=== PATIENT | female | born 1960 | race African-American/Black ===

== ENCOUNTER 2017-12-30 04:33 | Inpatient (IN) | payer MEDICARE, SELFPAY ==
[2017-12-30] MEDS ORDERED: Morphine 4 MG/ML VIAL ONE (04:59)
[2017-12-30] MEDS ORDERED: Ondansetron ODT 8 MG TAB ONE (05:00)
[2017-12-30 05:01] LABS: #Basophils 0.2 thou/uL (0.0-0.2); #Eosinphils 0.1 thou/uL (0.0-0.7); #Lymphocytes 3.7 thou/uL (1.20-3.40); #Monocytes 0.7 thou/uL (0.11-0.59); #Neutrophils 4.3 thou/uL (1.40-6.50); %Basophils 1.8 % (0.0-1.0); %Eosinophils 0.8 % (0.0-10.0); %Lymphocytes 41.4 % (21.0-51.0); Hemoglobin 15.3 g/dL (12.0-16.0); Mean Corpuscular HGB CONC 35.3 g/dL (32.0-36.0); Mean Corpuscular Hemoglobin 31.6 pg (27.0-31.0); Mean Corpuscular Volume 89.7 fl (81.0-99.0); Mean Platelet Volume 6.9 fL (7.4-10.4); Platelet Count 321 thou/uL (130-400); RBC Distribution Width 13.6 % (11.5-14.5); Red Blood Cell (RBC) Count 4.83 mill/uL (4.20-5.40); White Blood Cell (WBC) Count 8.9 thou/uL (4.8-10.8)
[2017-12-30] MEDS ORDERED: Promethazine HCl 25 MG/ML VIAL ONE (05:07)
[2017-12-30 05:10] LABS: INR-International Normal Ratio 0.8; PTT 22.9 SEC (22.9-36.1); Prothrombin Time 11.5 SEC (12.0-14.7)
[2017-12-30 05:14] LABS: ALT (SGPT) 14 U/L (8-55); AST (SGOT) 13 U/L (5-34); Albumin 4.3 g/dL (3.5-5.0); Alkaline Phosphatase 100 U/L (40-150); Anion Gap 18 mmol/L (10-20); BUN (Urea Nitrogen) 35 mg/dL (9.8-20.1); Bilirubin, Total 0.2 mg/dL (0.2-1.2); CK (CPK) 78 U/L (29-168); Calc. Creatinine Clearance 0 mL/min (70-130); Calcium 10.9 mg/dL (7.8-10.44); Carbon Dioxide 24 mmol/L (22-29); Chloride 99 mmol/L (98-107); Estimated GFR-MDRD 33; Globulin 3.6 g/dL (2.4-3.5); Glucose 289 mg/dL (70-105); Potassium 4.5 mmol/L (3.5-5.1); Protein, Total 7.9 g/dL (6.0-8.3); Sodium 136 mmol/L (136-145)
[2017-12-30 05:18] LABS: CKMB 1.7 ng/mL (0-6.6); Troponin I Less than 0.010 ng/mL (< 0.028)
[2017-12-30] MEDS ORDERED: Dextrose 5% in Water 1,000 ML IV PRN (05:32)
[2017-12-30] MEDS ORDERED: Dextrose 50% Abboject 50 ML SYRINGE SLOW IVP PRN (05:32)
[2017-12-30] MEDS ORDERED: HumaLOG 300 UNITS/3 ML VIAL SC PRN (05:32)
[2017-12-30] MEDS ORDERED: Nitroglycerin 0.4 MG TAB (25 Tab Bottle) SL PRN (05:33)
[2017-12-30] MEDS ORDERED: Labetalol HCl 100 MG/20 ML VIAL SLOW IVP PRN (06:13)
--- NOTE | 2017-12-30 06:27 | HP ---
PRIMARY CARE PHYSICIAN: None. PRESENTING COMPLAINT: Chest pain. HISTORY OF PRESENT ILLNESS: Ms. Christine Greenfield is a 57-year-old female with a past medical history o f diabetes mellitus, hypertension, CAD status post CABG and stent to the LAD, hyperlipidemia, and chr onic kidney disease who presents to the emergency room with a 1 day history of constant, sharp retros ternal, 6/10 chest pain which does not radiate and has no aggravating or relieving factors. She does not use nitroglycerin at home and denies diaphoresis, shortness of breath, PND, orthopnea, lower ext remity edema. She denies palpitations. She denies nausea, vomiting, diarrhea. She has no urinary s ymptoms. She reports she last took her medications yesterday. At the emergency room, she was found to be severely hypertensive with presenting blood pressure in the 230s over 130s. EKG showed ST segm ent elevation myocardial infarction. Emergency room physician has called Dr. Dias for possible emerg ency catheterization, but Dr. Dias wanted better blood pressure controlled before she was taken to [facility]. She received 3 doses of sublingual nitroglycerin, 4 mg of IV morphine and 5 mg of Lopres sor with improvement in her blood pressure. She was then started on the nitroglycerin drip with impr ovement in blood pressure to the 170s/100s. The decision was then made to admit her to the Critical Care Unit. PAST MEDICAL HISTORY: As stated in the HPI. PAST SURGICAL HISTORY: CABG, hysterectomy. FAMILY HISTORY: Reviewed and noncontributory. SOCIAL HISTORY: Former smoker (quit in 2006), does not drink alcohol or use illicit drugs. ALLERGIES: None. REVIEW OF SYSTEMS: A 12-point review of systems conducted was negative except as stated in HPI. PHYSICAL EXAMINATION: VITAL SIGNS: Blood pressure 210/110. Other vital signs within normal limits. Patient not requiring supplemental oxygen. GENERAL: In mild distress from chest pain, seems to be in some discomfort. HEENT: Normocephalic, atraumatic. Not pale, anicteric. PERRLA, EOMI. Moist mucous membranes. RESPIRATORY: Vesicular breath sounds bilaterally. No wheezes, rales or rhonchi. CARDIOVASCULAR: S1, S2, only with regular rate and rhythm. No murmurs, rubs or gallops. ABDOMEN: Soft, nontender, nondistended. No hepatosplenomegaly. Bowel sounds normoactive. MUSCULOSKELETAL: No edema. NEUROLOGIC: Alert and well oriented to time, place and person. No focal deficits. SKIN: Warm, dry, well-perfused. No rashes or lesions. PSYCHIATRIC: Normal mood and affect. LABORATORY DATA: CBC largely unremarkable. INR of 0.8. Serum chemistry unremarkable apart from her chronic kidney disease, BUN/creatinine were 335 and 1.89 respectively. Initial troponin less than 0 .010. Chest x-ray showed no acute abnormalities. EKG; ST segment myocardial infarction. ASSESSMENT AND PLAN: 1. Hypertensive emergency: The patient came in severely hypertensive and has been started on nitrog lycerin drip. We will also restart her home regimen which includes 25 mg of carvedilol, amlodipine 1 0 mg, clonidine 0.2 mg, and triamterene/hydrochlorothiazide. We will monitor blood pressure closely and admit to the Critical Care Unit. We will also trend troponin. 2. ST-segment elevation myocardial infarction, the patient presents with chest pain and EKG showing S T segment myocardial infarction. Cardiology on board and will assess the patient shortly. They want improved blood pressure control first, so no emergency catheterization. We will trend troponin, rica ce her on sublingual nitroglycerin and IV morphine p.r.n. for chest pain pending Cardiology review, w e will also obtain fasting lipid profile. 3. Chronic kidney disease: She seems to be above her usual baseline, this is likely due to hyperten sive emergency. We will monitor her creatinine. 4. Diabetes mellitus, not at goal. Unclear if she has been compliant with her home medications. We will place her on sliding scale insulin, fingerstick glucose a.c. and at bedtime, diabetic diet and hypoglycemia protocol. 5. Hypertension. See problem #1. 6. Hyperlipidemia. We will continue atorvastatin. 7. Coronary artery disease status post coronary artery bypass graft. Plan per problem #1. CODE STATUS: Full code. Deep venous thrombosis prophylaxis with subcutaneous Lovenox.
[2017-12-30] MEDS ORDERED: Carvedilol 25 MG TAB PO SCH (08:00)
--- NOTE | 2017-12-30 08:20 | RAD ---
PORTABLE CHEST: Comparison: 05-19-16 History: Chest pain. FINDINGS: Heart size is borderline. There are post op sternotomy changes. Atherosclerotic changes seen in the a thong. Lungs are clear of infiltrates. No signs of failure. IMPRESSION: No active intrathoracic disease. POS: OFF
[2017-12-30] MEDS: HumaLOG 300 UNITS/3 ML VIAL SC PRN ×3 (08:23→18:35)
[2017-12-30] MEDS: Morphine 4 MG/ML VIAL SLOW IVP PRN ×2 (08:35→09:15)
[2017-12-30] MEDS ORDERED: Metoprolol Tartrate 5 MG/5 ML VIAL IVP SCH ×2 (08:45→09:00)
[2017-12-30] MEDS ORDERED: Amlodipine 10 MG TAB PO SCH (09:00)
[2017-12-30] MEDS ORDERED: Enoxaparin Sodium 40 MG/0.4 ML SYRINGE SC SCH (09:00)
[2017-12-30] MEDS: Docusate 100 MG CAP PO SCH ×2 (09:00→21:47)
[2017-12-30] MEDS ORDERED: niCARdipine 40MG In NaCl 40 MG/200 ML BAG IVPB SCH (09:00)
[2017-12-30 09:03] LABS: Troponin I 0.082 ng/mL (< 0.028)
[2017-12-30] MEDS ORDERED: Metoprolol Tartrate 5 MG/5 ML VIAL ONE (09:06)
[2017-12-30] MEDS ORDERED: niCARdipine HCl 50 MG in Sodium Chloride 0.9% 250 ML 230 ML IVPB SCH (09:15)
[2017-12-30] MEDS ORDERED: Ondansetron ODT 4 MG TAB SL SCH (09:15)
[2017-12-30] MEDS ORDERED: Iopamidol 370 76% 100 ML VIAL ONE (09:31)
[2017-12-30] MEDS ORDERED: Iopamidol 370 76% 50 ML VIAL FS ONE (09:31)
--- NOTE | 2017-12-30 11:16 | CON ---
DATE OF CONSULTATION: 12/30/2017 HISTORY: She is a 57-year-old -[place] female, 99 kilos, respiration rate 22, blood pressure 237/139, sats 99% on room air, who presented to the ER with evaluation of chest pain. She is normally seeks care at the [facility]. She smokes several cigars a day, presented with ch est pain at 4:34 in the morning. She has had previous bypass surgery by Dr. Jay 3 years ago. She gets most of her medical care at [facility]. She has no primary care physician. Pain is persistent. Blood pressure is markedly elevated. Cardiology was consulted regarding the nicko st pain and hypertensive emergency at this time. Critical Care/Pulmonary is seeing her because of he r ICU stay. She has a cough, but denies any difficulty breathing, fever or chills. PAST MEDICAL HISTORY: Diabetes, hypertension, hyperlipidemia, cholesterol. PAST SURGICAL HISTORY: Included a CABG, previous hysterectomy. ALLERGIES: LISINOPRIL. TOBACCO: As noted. ALCOHOL: None. REVIEW OF SYSTEMS: Otherwise negative. MEDICATIONS: List of medicine from home, presumably includes Catapres 0.2 three times a day, Protoni x 40, potassium, insulin 35, Celexa 40, Coreg 25, aspirin, Norvasc 10. ALLERGIES: RICARDO. PHYSICAL EXAMINATION: VITAL SIGNS: Blood pressure is elevated at 190/112. Sats 94, pulse 72, respirations 21. CHEST: Chest revealed no wheezing or crackles. CARDIAC: Normal S1, S2. ABDOMEN: Soft. NEURO: She is awake, alert, responsive. LABORATORY: White count 8.8, H&H ____ and 43, platelet count 321, creatinine 1.8. Chest x-ray on admission shows a previous bypass scar, questionable right-sided infiltrate. IMPRESSION: 1. Chest pain. 2. Hypertensive crisis. 3. Tobacco abuse. 4. Previous coronary artery bypass graft. 5. Abnormal x-ray, right-sided pleural effusion in the past, ____ scarring. 6. Renal failure. PLAN: Await input from Cardiology. Pulmonary Critical Care will follow while in the ICU. She is to refrain from smoking. Blood pressure and cardiac care as per Cardiology. I will follow while in the ICU. This is a consultation note, 70 minutes spent of which 50% in direct patient care.
--- NOTE | 2017-12-30 11:26 | CON ---
DATE OF CONSULTATION: 12/30/2017 HISTORY OF PRESENT ILLNESS: The patient is a 57-year-old woman who presents for evaluation of acute onset of chest discomfort. The patient has a long history of coronary artery disease. In 2014, she underwent a cardiac catheterization. She was found to have severe diffuse coronary artery disease. She underwent coronary bypass graft surgery x3 with a saphenous vein graft to the second obtuse taryn nal and distal RCA. The patient had diffusely diseased coronary vessels. The patient presented with acute onset of chest discomfort and markedly elevated blood pressure. The patient states she has be en compliant with her medications. PAST MEDICAL HISTORY: 1. Coronary artery disease. 2. Hypertension. 3. Dyslipidemia. 4. Diabetes mellitus. 5. Anxiety. PAST SURGICAL HISTORY: Coronary bypass surgery. SOCIAL HISTORY: The patient continues to smoke tobacco. MEDICATIONS ON ADMISSION: Included clonidine 0.2 t.i.d., Norvasc 10 daily, aspirin 325 daily, Coreg 25 b.i.d., Celexa 400 daily, and insulin. PHYSICAL EXAMINATION: GENERAL: An obese woman in mild distress. VITAL SIGNS: Blood pressure is 160/100. NECK: Showed no jugular vein distention. LUNGS: Clear to auscultation. HEART: Regular rate and rhythm, normal S1, S2. ABDOMEN: Distended. EXTREMITIES: Showed No edema. EKG revealed normal sinus rhythm with ST elevation in V3 through V6 suggestive of an acute myocardial infarction. IMPRESSION: 1. Acute myocardial infarction. 2. History of coronary bypass surgery. 3. History of diffuse coronary artery disease. 4. Hypertension. 5. Diabetes mellitus. This patient presents with hypertensive crisis and ST elevation suggestive of an acute myocardial inf arction. We will proceed with cardiac catheterization to evaluate the extent of her coronary artery disease. I explained the risks involving cardiac catheterization including AR, bleeding, stroke, car diac arrhythmia, and cardiac and risks involving stent placement and restenosis. The patient u nderstands these risks and wished to proceed. This is a critical care note time is 1 hour 30 minutes.
[2017-12-30] MEDS ORDERED: Milk Of Magnesia 30 ML UDCUP PO PRN (11:44)
[2017-12-30] MEDS ORDERED: Aggrastat 12.5 MG/250 ML 250 ML IVPB SCH (11:45)
[2017-12-30] MEDS ORDERED: TICAGRELOR 90 MG TABLET PO SCH (11:45)
[2017-12-30 12:19] LABS: #Basophils 0.1 thou/uL (0.0-0.2); #Lymphocytes 1.9 thou/uL (1.20-3.40); #Monocytes 0.4 thou/uL (0.11-0.59); #Neutrophils 7.6 thou/uL (1.40-6.50); %Basophils 1.1 % (0.0-1.0); %Eosinophils 0.2 % (0.0-10.0); %Lymphocytes 19.3 % (21.0-51.0); %Monocytes 3.9 % (0.0-10.0); %Neutrophils 75.4 % (42.0-75.0); Hemoglobin 13.3 g/dL (12.0-16.0); Mean Corpuscular Hemoglobin 30.5 pg (27.0-31.0); Mean Corpuscular Volume 89.7 fl (81.0-99.0); Mean Platelet Volume 6.8 fL (7.4-10.4); Platelet Count 328 thou/uL (130-400); RBC Distribution Width 13.4 % (11.5-14.5); Red Blood Cell (RBC) Count 4.35 mill/uL (4.20-5.40); White Blood Cell (WBC) Count 10.1 thou/uL (4.8-10.8)
[2017-12-30 12:36] VITALS: BMI 43.7
[2017-12-30 12:56] LABS: Troponin I 14.616 ng/mL (< 0.028)
[2017-12-30] MEDS: cloNIDine 0.2 MG TAB PO SCH ×2 (13:24→21:44)
[2017-12-30 15:14] LABS: Troponin I 95.046 ng/mL (< 0.028)
--- NOTE | 2017-12-30 15:49 | EKG ---
Test Reason : C/O CHEST PAIN Blood Pressure : / mmHG Vent. Rate : 089 BPM Atrial Rate : 089 BPM P-R Int : 130 ms QRS Dur : 092 ms QT Int : 362 ms P-R-T Axes : 051 -32 108 degrees QTc Int : 440 ms Normal sinus rhythm Left axis deviation Left ventricular hypertrophy with repolarization abnormality Septal infarct , age undetermined Abnormal ECG Confirmed by THEODORE DUQUE ([id number]) on 12/30/2017 3:49:10 PM Referred By: DEVONTE Confirmed By:THEODORE DUQUE
--- NOTE | 2017-12-30 15:59 | EKG ---
Test Reason : POST STENTS X4 - LAD Blood Pressure : / mmHG Vent. Rate : 081 BPM Atrial Rate : 081 BPM P-R Int : 130 ms QRS Dur : 094 ms QT Int : 392 ms P-R-T Axes : 060 -34 136 degrees QTc Int : 455 ms Normal sinus rhythm Left axis deviation Moderate voltage criteria for LVH, may be normal variant Septal infarct (cited on or before 30-DEC-2017) Abnormal ECG Confirmed by THEODORE DUQUE ([id number]) on 12/30/2017 3:59:14 PM Referred By: JAIRO/JILL Confirmed By:THEODORE DUQUE
[2017-12-30] MEDS ORDERED: Furosemide 40 MG/4 ML VIAL SLOW IVP SCH (16:15)
[2017-12-30] MEDS ORDERED: ALPRAZolam 0.25 MG TAB PO SCH (16:15)
[2017-12-30] MEDS ORDERED: guaiFENesin ER 600 MG TAB PO SCH (16:45)
[2017-12-30] MEDS ORDERED: Fentanyl 100 MCG/2 ML VIAL SLOW IVP PRN (17:53)
[2017-12-30] MEDS ORDERED: Fentanyl 100 MCG/2 ML VIAL SLOW IVP SCH (18:00)
[2017-12-30] MEDS: Carvedilol 25 MG TAB PO SCH (18:15)
--- NOTE | 2017-12-30 18:15 | RAD ---
CHEST ONE VIEW: 12/30/17 HISTORY: Congestive heart failure. COMPARISON: 12/30/17 at 4:08 a.m. FINDINGS: There are sternotomy wires. Normal cardiac silhouette. Pulmonary vessels and hilum are normal. Costop hrenic angles are clear. Mild hyperinflation, without consolidation or mass. No pneumothorax or acute osseous abnormalities. There appear to be old right rib fractures. IMPRESSION: No acute cardiopulmonary process. No evidence of congestive heart failure. POS: ALFREDO
[2017-12-30] MEDS ORDERED: Atorvastatin Calcium 40 MG TAB PO SCH (21:00)
[2017-12-30] MEDS: Sodium Chloride 0.45% 1,000 ML IV SCH (21:19)
[2017-12-30] MEDS: TICAGRELOR 90 MG TABLET PO SCH (21:47)
[2017-12-30] MEDS: guaiFENesin ER 600 MG TAB PO SCH (21:47)
[2017-12-30] MEDS: Acetaminophen 325 MG TAB PO PRN (23:46)
[2017-12-31] MEDS: Morphine 4 MG/ML VIAL SLOW IVP PRN
[2017-12-31 00:20] LABS: #Lymphocytes 2.3 thou/uL (1.20-3.40); #Monocytes 0.7 thou/uL (0.11-0.59); #Neutrophils 5.5 thou/uL (1.40-6.50); %Basophils 0.4 % (0.0-1.0); %Eosinophils 0.4 % (0.0-10.0); %Lymphocytes 26.7 % (21.0-51.0); %Monocytes 8.1 % (0.0-10.0); %Neutrophils 64.4 % (42.0-75.0); Hemoglobin 12.5 g/dL (12.0-16.0); Mean Corpuscular HGB CONC 33.6 g/dL (32.0-36.0); Mean Corpuscular Volume 89.2 fl (81.0-99.0); Mean Platelet Volume 6.9 fL (7.4-10.4); Platelet Count 281 thou/uL (130-400); RBC Distribution Width 13.4 % (11.5-14.5); Red Blood Cell (RBC) Count 4.15 mill/uL (4.20-5.40); White Blood Cell (WBC) Count 8.5 thou/uL (4.8-10.8)
[2017-12-31 06:30] LABS: #Lymphocytes 2.3 thou/uL (1.20-3.40); #Monocytes 0.6 thou/uL (0.11-0.59); #Neutrophils 5.7 thou/uL (1.40-6.50); %Basophils 0.3 % (0.0-1.0); %Eosinophils 0.4 % (0.0-10.0); %Lymphocytes 26.4 % (21.0-51.0); %Monocytes 7.4 % (0.0-10.0); %Neutrophils 65.6 % (42.0-75.0); Mean Corpuscular HGB CONC 33.4 g/dL (32.0-36.0); Mean Corpuscular Hemoglobin 29.8 pg (27.0-31.0); Mean Corpuscular Volume 89.4 fl (81.0-99.0); Platelet Count 258 thou/uL (130-400); RBC Distribution Width 13.5 % (11.5-14.5); Red Blood Cell (RBC) Count 3.69 mill/uL (4.20-5.40); White Blood Cell (WBC) Count 8.6 thou/uL (4.8-10.8)
[2017-12-31 06:47] LABS: ALT (SGPT) 19 U/L (8-55); AST (SGOT) 54 U/L (5-34); Albumin 3.3 g/dL (3.5-5.0); Alkaline Phosphatase 73 U/L (40-150); Anion Gap 15 mmol/L (10-20); BUN (Urea Nitrogen) 43 mg/dL (9.8-20.1); Bilirubin, Total 0.3 mg/dL (0.2-1.2); Calc. Creatinine Clearance 61 mL/min (70-130); Calcium 9.1 mg/dL (7.8-10.44); Carbon Dioxide 23 mmol/L (22-29); Cardiac Risk 10.3 (Less than 4.5); Chloride 96 mmol/L (98-107); Cholesterol 329 mg/dl (< 200 Desired); Estimated GFR-MDRD 37; Globulin 2.5 g/dL (2.4-3.5); Glucose 349 mg/dL (70-105); HDL Cholesterol 32 mg/dL (>60 Neg Risk); LDL Cholesterol, Calculated 247 mg/dL; Potassium 4.1 mmol/L (3.5-5.1); Protein, Total 5.8 g/dL (6.0-8.3); Sodium 130 mmol/L (136-145); Triglycerides 252 mg/dL (Less than 150)
[2017-12-31] MEDS: HumaLOG 300 UNITS/3 ML VIAL SC PRN ×2 (07:50→11:53)
[2017-12-31] MEDS: cloNIDine 0.2 MG TAB PO SCH (08:41)
[2017-12-31] MEDS: guaiFENesin ER 600 MG TAB PO SCH ×2 (08:41→20:43)
[2017-12-31] MEDS: Carvedilol 25 MG TAB PO SCH ×2 (08:41→17:38)
[2017-12-31] MEDS: Docusate 100 MG CAP PO SCH ×2 (08:42→20:42)
[2017-12-31] MEDS: Aspirin 81 mg Enteric Coated Tablet PO SCH (08:42)
[2017-12-31] MEDS: TICAGRELOR 90 MG TABLET PO SCH ×2 (08:43→20:44)
--- NOTE | 2017-12-31 08:58 | PRG ---
DATE OF SERVICE: 12/31/2017 This morning she is awake, alert, responsive. No pain, no shortness of breath. PHYSICAL EXAMINATION: VITAL SIGNS: Blood pressure 150/83, sats are 90% on room air, respirations 18, said her mucus is bet ter. CHEST: Chest reveals decreased breath sounds, no wheezing. CARDIAC: Normal S1, S2, no gallops. ABDOMEN: Soft, no masses. LABORATORY DATA: White count 8.6, H&H 11 and 33, platelet count 258, creatinine 1.73, BUN is 43. Ch olesterol was elevated 327, triglycerides elevated 252. Chest x-ray was normal yesterday. IMPRESSION: 1. Status post cardiac catheterization with multiple stents as outlined by Cardiology. 2. Morbid obesity. 3. Tobacco abuse. 4. Diabetes. 5. Hypertension. PLAN: Disposition is per Cardiology. Pulmonary will sign off when she leaves the ICU. Resume home medication.
[2017-12-31] MEDS ORDERED: Aspirin 325 mg Enteric Coated Tablet PO SCH (09:00)
[2017-12-31] MEDS: metFORMIN 500 MG TAB PO SCH (09:32)
[2017-12-31] MEDS: hydrALAZINE 25 MG TAB PO SCH ×3 (09:41→20:43)
[2017-12-31] MEDS: Isosorbide Dinitrate 20 MG TAB PO SCH ×3 (09:42→20:44)
[2017-12-31] MEDS ORDERED: NPH, Human Insulin Isophane 300 UNIT/3 ML VIAL SC SCH (10:00)
[2017-12-31 10:08] LABS: Critical Call Chem Troponin I RESULT DECREASING; Troponin I Greater than 45.000 ng/mL (< 0.028)
[2017-12-31] MEDS ORDERED: Ondansetron HCl/PF 4 MG/2 ML Vial SLOW IVP PRN (11:18)
[2017-12-31] MEDS: Ondansetron ODT 4 MG TAB PO PRN ×2 (11:47→23:41)
--- NOTE | 2017-12-31 14:32 | PDOC.PN ---
- Subjective Encounter Start Date: 12/31/17 Encounter Start Time: 08:40 Pt seen for followup re: STEMI. No chest pain since last night. No cough, fevers or chills. - Objective MAR Reviewed: Yes Vital Signs & Weight: Vital Signs (12 hours) Temp Pulse Resp BP BP Pulse Ox 12/31/17 12:45 98.3 F 85 18 141/67 H 93 L 12/31/17 12:10 95 12/31/17 12:00 98.0 F 12/31/17 09:41 78 95/65 12/31/17 08:41 169/92 H 12/31/17 08:00 97.9 F 81 15 95 12/31/17 05:00 97.6 F Weight Weight 238 lb 12.17 oz Most Recent Monitor Data Heart Rate from ECG 70 NIBP 146/85 NIBP BP-Mean 121 Respiration from ECG 19 SpO2 97 I&O: 12/30/17 12/31/17 01/01/18 06:59 06:59 06:59 Intake Total 2412 480 Output Total 2795 500 Balance -383 -20 Result Diagrams: 12/31/17 06:17 12/31/17 06:17 Additional Labs: Accuchecks 12/31/17 12/30/17 12/30/17 11:54 21:44 18:37 POC Glucose 409 H 280 H 362 H 12/30/17 12:22 POC Glucose 382 H EKG Reviewed by me: Yes (Tele: NSR) Phys Exam - Physical Examination Morbid obesity HEENT: PERRLA, moist MMs, sclera anicteric, oral pharynx no lesions Neck: no nodes, no JVD, supple, full ROM Respiratory: no wheezing, no rales, no rhonchi, clear to auscultation bilateral Cardiovascular: RRR, no rub Gastrointestinal: soft, non-tender, positive bowel sounds distention Neurological: moves all 4 limbs Psychiatric: normal affect, A&O x 3 Dx/Plan (1) STEMI (ST elevation myocardial infarction) Status: Acute Comment: s/p PCI with multiple baremetal stents yesterday (2) DM type 2 (diabetes mellitus, type 2) Status: Chronic Qualifiers: Diabetes mellitus penitentiary insulin use: with intermodal customer service use Diabetes mellitus complication status: without complication Qualified Code(s): E11.9 - Type 2 diabetes mellitus without complications; Z79.4 - correction (current) use of insulin; Z79.4 - correction (current) use of insulin; Z79.4 - correction ( current) use of insulin; Z79.4 - correction (current) use of insulin Comment: continue accuchecks, insulin sliding scale (3) Dyslipidemia Code(s): E78.5 - HYPERLIPIDEMIA, UNSPECIFIED Status: Chronic Comment: continue statin (4) HTN (hypertension) Code(s): I10 - ESSENTIAL (PRIMARY) HYPERTENSION Status: Chronic Comment: Monitor vital signs, titrate antihypertensives as needed - Plan * . Review of Systems - Review of Systems Constitutional: negative: fever, chills, sweats, weakness, malaise Respiratory: negative: Cough, Shortness of Breath, SOB with Excertion, Pleuritic Pain, Wheezing Cardiovascular: negative: chest pain, palpitations, orthopnea, paroxysmal nocturnal dyspnea, edema, light headedness Gastrointestinal: negative: Nausea, Vomiting, Abdominal Pain, Diarrhea, Constipation, Melena, Hematochezia Genitourinary: negative: Dysuria, Frequency, Incontinence, Hematuria, Retention - Medications/Allergies Allergies/Adverse Reactions: Allergies Allergy/AdvReac Type Severity Reaction Status Date / Time lisinopril Allergy Severe Verified 05/20/16 03:56 Medications: Current Medications Acetaminophen (Tylenol) 650 mg PO Q4H PRN PRN Reason: Headache/Fever or Pain Last Admin: 12/30/17 23:46 Dose: 650 mg Albuterol/Ipratropium (Duoneb) 3 ml NEB [id number] PRN PRN Reason: SOB &/or Wheezing Aspirin (Ecotrin) 81 mg PO DAILY [facility] Last Admin: 12/31/17 08:42 Dose: 81 mg Atorvastatin Calcium (Lipitor) 80 mg PO HS [facility] Carvedilol (Coreg) 50 mg PO BID-[facility] Last Admin: 12/31/17 08:41 Dose: 50 mg Dextrose/Water (Dextrose 50%) 25 gm SLOW IVP PRN PRN PRN Reason: Hypoglycemia Docusate Sodium (Colace) 100 mg PO BID [facility] Last Admin: 12/31/17 08:42 Dose: 100 mg Glucagon (Glucagon) 1 mg IM PRN PRN PRN Reason: Hypoglycemia Guaifenesin (Mucinex) 600 mg PO Q12HR [facility] Last Admin: 12/31/17 08:41 Dose: 600 mg Hydralazine HCl (Apresoline) 25 mg PO TID [facility] Last Admin: 12/31/17 09:41 Dose: Not Given Dextrose/Water (D5w) 1,000 mls @ 0 mls/hr IV .Q0M PRN; As Directed PRN Reason: Hypoglycemia Nicardipine HCl 50 mg/ Sodium (Chloride) 250 mls @ 0 mls/hr IVPB INF [facility]; Titrate PRN Reason: Protocol Sodium Chloride (1/2 Normal Saline) 1,000 mls @ 40 mls/hr IV .Q24H [facility] Last Admin: 12/30/17 21:19 Dose: Not Given Insulin Human Lispro (Humalog) 0 units SC .MILD SLIDING SCALE PRN PRN Reason: Mild Correctional Scale Last Admin: 12/31/17 11:53 Dose: 6 unit Insulin Human Lispro (Humalog) 0 units SC .BEDTIME SLIDING SC PRN PRN Reason: Bedtime Correctional Scale Last Admin: 12/30/17 21:46 Dose: 3 unit Insulin Human NPH (Humulin N) 50 unit SC [facility] Insulin Human NPH (Humulin N) 50 unit SC QPM [facility] Isosorbide Dinitrate (Isordil) 20 mg PO TID [facility] Last Admin: 12/31/17 09:42 Dose: Not Given Labetalol HCl (Normodyne) 10 mg SLOW IVP Q4H PRN PRN Reason: SBP Greater Than 180 Magnesium Hydroxide (Milk Of Magnesium) 30 ml PO Q12H PRN PRN Reason: Constipation Last Admin: 12/30/17 23:45 Dose: 30 ml Metformin HCl (Glucophage) 1,000 mg PO [facility] Last Admin: 12/31/17 09:32 Dose: 1,000 mg Morphine Sulfate (Morphine) 2 mg SLOW IVP Q5MIN PRN PRN Reason: Chest Pain Last Admin: 12/31/17 00:00 Dose: 2 mg Nitroglycerin (Nitrostat) 0.4 mg SL Q5MIN PRN PRN Reason: Chest Pain Ondansetron HCl (Zofran) 4 mg SLOW IVP Q6H PRN PRN Reason: Nausea/Vomiting Ondansetron HCl (Zofran Odt) 4 mg PO Q6H PRN PRN Reason: Nausea/Vomiting Last Admin: 12/31/17 11:47 Dose: 4 mg Sodium Chloride (Flush - Normal Saline) 10 ml IVF Q12HR [facility] Last Admin: 12/31/17 09:05 Dose: 10 ml Sodium Chloride (Flush - Normal Saline) 10 ml IVF PRN PRN PRN Reason: Saline Flush Ticagrelor (Brilinta) 90 mg PO BID [facility] Last Admin: 12/31/17 08:43 Dose: 90 mg Tramadol HCl (Ultram) 50 mg PO Q6H PRN PRN Reason: Pain
[2017-12-31] MEDS: Sodium Chloride 0.45% 1,000 ML IV SCH (15:44)
--- NOTE | 2017-12-31 16:19 | EKG ---
Test Reason : Blood Pressure : / mmHG Vent. Rate : 080 BPM Atrial Rate : 080 BPM P-R Int : 142 ms QRS Dur : 090 ms QT Int : 448 ms P-R-T Axes : 059 -21 169 degrees QTc Int : 516 ms Normal sinus rhythm Left ventricular hypertrophy with repolarization abnormality Prolonged QT Abnormal ECG Confirmed by THEODORE DUQUE ([id number]) on 12/31/2017 4:18:43 PM Referred By: JILL Confirmed By:THEODORE DUQUE
[2017-12-31] MEDS: Atorvastatin Calcium 40 MG TAB PO SCH (20:42)
[2017-12-31] MEDS: NPH, Human Insulin Isophane 300 UNIT/3 ML VIAL SC SCH (20:44)
[2017-12-31] MEDS: Acetaminophen 325 MG TAB PO PRN (22:04)
--- NOTE | 2018-01-01 08:11 | PQF ---
CLINICAL DOCUMENTATION IMPROVEMENT CLARIFICATION FORM: ICD-10 Updated PLEASE DO AN ADDENDUM TO THE PROGRESS NOTE WITH ANY DOCUMENTATION UPDATES OR ADDITIONS AND CARRY THROUGH TO DC SUMMARY. THANK YOU. DATE: 01/01 ATTN: DR. NAYELI WHITNEY Please exercise your independent, professional judgment in responding to the clarification form. Clinical indicators are provided on the bottom of this form for your review Please check appropriate box(s): [ ] Acute Renal Failure (ARF) / Acute Kidney Injury (ZACH) [ ] Other Etiology or underlying conditions related to the diagnosis of ARF / ZACH: [ X ] Acute on Chronic Renal Failure please specify Stage of CKD ____III____ ( see below) [ ] CKD without ARF/ZACH please specify Stage of CKD [ ] Other diagnosis [ ] Unable to determine National Kidney Foundation Guidelines for CKD Staging Stage I Kidney damage with normal or increased GFR GFR > 90 Stage II Kidney damage with mildly decreased GFR GFR 60-89 Stage III Kidney damage with moderately decreased GFR GFR 30-59 Stage IV Kidney damage with severely decreased GFR GFR 16-29 Stage V Kidney failure GFR<15 ESRD End Stage Renal Disease On dialysis For continuity of documentation, please document condition throughout progress notes and discharge summary. Thank You. CLINICAL INDICATORS - SIGNS / SYMPTOMS / LABS PHYSICIAN H&P DOCUMENTATION 12/30: ASSESSMENT/PLAN: 3) CKD: SHE SEEMS TO BE ABOVE USUAL BASELINE, THIS IS LIKELY D/T HYPERTENSIVE EMERGENCY PULMONOLOGY CONSULT DOCUMENTATION 12/30: ASSESSMENT: 6) RENAL FAILURE BUN: 35 CR: 1.89 GFR: 33 (ADMIT, 12/30) 43 1.73 37 (12/31) RISK FACTORS: HYPERTENSIVE EMERGENCY STEMI DM II MORBID OBESITY TREATMENTS: CARDENE GTT (12/30) IVF (NS 12/31 - PRESENT) CARDIAC CATH W/4 BARE METAL STENTS THANK YOU! Lizet (This form is maintained as a part of the permanent medical record) 2014 [employer]. All Rights Reserved Lizet Fowler RN, BSN [email or web address] Office: [phone] [facility]
[2018-01-01] MEDS ORDERED: hydrALAZINE 25 MG TAB PO SCH (08:40)
[2018-01-01] MEDS: Isosorbide Dinitrate 20 MG TAB PO SCH ×3 (08:47→21:18)
[2018-01-01] MEDS: TICAGRELOR 90 MG TABLET PO SCH ×2 (08:47→21:18)
[2018-01-01] MEDS: Carvedilol 25 MG TAB PO SCH ×2 (08:47→17:18)
[2018-01-01] MEDS: hydrALAZINE 25 MG TAB PO SCH ×3 (08:47→21:17)
[2018-01-01] MEDS: NPH, Human Insulin Isophane 300 UNIT/3 ML VIAL SC SCH ×2 (08:48→21:18)
[2018-01-01] MEDS: guaiFENesin ER 600 MG TAB PO SCH ×2 (08:48→21:17)
[2018-01-01] MEDS: metFORMIN 500 MG TAB PO SCH (08:48)
[2018-01-01] MEDS: Docusate 100 MG CAP PO SCH ×2 (08:48→21:17)
[2018-01-01] MEDS: Aspirin 81 mg Enteric Coated Tablet PO SCH (08:48)
[2018-01-01] MEDS: HumaLOG 300 UNITS/3 ML VIAL SC PRN ×2 (10:13→17:16)
[2018-01-01] MEDS: Ondansetron ODT 4 MG TAB PO PRN (10:13)
--- NOTE | 2018-01-01 14:19 | PDOC.PN ---
- Subjective Encounter Start Date: 01/01/18 Encounter Start Time: 08:20 Pt seen for followup re: STEMI. Denies chest pain or shortness of breath. - Objective MAR Reviewed: Yes Vital Signs & Weight: Vital Signs (12 hours) Temp Pulse Resp BP Pulse Ox 01/01/18 12:40 98.9 F 88 18 135/98 H 97 01/01/18 10:10 111/50 L 01/01/18 08:47 90 01/01/18 08:40 98.8 F 90 16 190/86 H 99 01/01/18 04:00 97.6 F 90 18 155/73 H 97 Weight Weight 257 lb Most Recent Monitor Data Heart Rate from ECG 70 NIBP 146/85 NIBP BP-Mean 121 Respiration from ECG 19 SpO2 97 I&O: 12/31/17 01/01/18 01/02/18 06:59 06:59 06:59 Intake Total 2412 1215 Output Total 2795 500 Balance -383 715 Result Diagrams: 12/31/17 06:17 01/02/18 03:58 Additional Labs: Accuchecks 01/01/18 01/01/18 01/01/18 10:39 10:11 05:54 POC Glucose 443 H 393 H 156 H 12/31/17 12/31/17 12/31/17 21:56 20:33 18:11 POC Glucose 110 126 H 164 H 12/31/17 17:33 POC Glucose 52 L* EKG Reviewed by me: Yes (Tele: NSR) Phys Exam - Physical Examination Morbid obesity HEENT: PERRLA, moist MMs, sclera anicteric, oral pharynx no lesions Neck: no nodes, no JVD, supple, full ROM Respiratory: no wheezing, no rales, no rhonchi, clear to auscultation bilateral Cardiovascular: RRR, no rub Gastrointestinal: soft, non-tender, positive bowel sounds distention Neurological: moves all 4 limbs Psychiatric: normal affect Dx/Plan (1) STEMI (ST elevation myocardial infarction) Status: Acute Comment: s/p PCI with baremetal stents to LAD, on aspirin and Brilinta (2) DM type 2 (diabetes mellitus, type 2) Status: Chronic Qualifiers: Diabetes mellitus joint terminal attack controller insulin use: with fci use Diabetes mellitus complication status: without complication Qualified Code(s): E11.9 - Type 2 diabetes mellitus without complications; Z79.4 - [facility] (current) use of insulin; Z79.4 - [facility] (current) use of insulin; Z79.4 - terminal operator ( current) use of insulin; Z79.4 - [facility] (current) use of insulin Comment: accuchecks, insulin sliding scale. (3) Dyslipidemia Code(s): E78.5 - HYPERLIPIDEMIA, UNSPECIFIED Status: Chronic Comment: on statin (4) HTN (hypertension) Code(s): I10 - ESSENTIAL (PRIMARY) HYPERTENSION Status: Chronic Comment: stable - Plan * . Review of Systems - Review of Systems Constitutional: negative: fever, chills, sweats, weakness, malaise Respiratory: negative: Cough, Shortness of Breath, SOB with Excertion, Pleuritic Pain, Wheezing Cardiovascular: negative: chest pain, palpitations, orthopnea, paroxysmal nocturnal dyspnea, edema, light headedness Skin: negative: Rash, Lesions, Nile, Bruising Neurological: negative: Weakness, Numbness, Incoordination, Change in Speech, Confusion, Seizures - Medications/Allergies Allergies/Adverse Reactions: Allergies Allergy/AdvReac Type Severity Reaction Status Date / Time lisinopril Allergy Severe Verified 05/20/16 03:56 Medications: Current Medications Acetaminophen (Tylenol) 650 mg PO Q4H PRN PRN Reason: Headache/Fever or Pain Last Admin: 12/31/17 22:04 Dose: 650 mg Albuterol/Ipratropium (Duoneb) 3 ml NEB [id number] PRN PRN Reason: SOB &/or Wheezing Aspirin (Ecotrin) 81 mg PO DAILY [facility] Last Admin: 01/01/18 08:48 Dose: 81 mg Atorvastatin Calcium (Lipitor) 80 mg PO HS [facility] Last Admin: 12/31/17 20:42 Dose: 80 mg Carvedilol (Coreg) 50 mg PO BID-WM [facility] Last Admin: 01/01/18 08:47 Dose: 50 mg Dextrose/Water (Dextrose 50%) 25 gm SLOW IVP PRN PRN PRN Reason: Hypoglycemia Docusate Sodium (Colace) 100 mg PO BID [facility] Last Admin: 01/01/18 08:48 Dose: 100 mg Glucagon (Glucagon) 1 mg IM PRN PRN PRN Reason: Hypoglycemia Guaifenesin (Mucinex) 600 mg PO Q12HR [facility] Last Admin: 01/01/18 08:48 Dose: 600 mg Hydralazine HCl (Apresoline) 50 mg PO TID [facility] Last Admin: 01/01/18 08:47 Dose: 50 mg Dextrose/Water (D5w) 1,000 mls @ 0 mls/hr IV .Q0M PRN; As Directed PRN Reason: Hypoglycemia Nicardipine HCl 50 mg/ Sodium (Chloride) 250 mls @ 0 mls/hr IVPB INF [facility]; Titrate PRN Reason: Protocol Sodium Chloride (1/2 Normal Saline) 1,000 mls @ 40 mls/hr IV .Q24H [facility] Last Admin: 12/31/17 15:44 Dose: 1,000 mls Insulin Human Lispro (Humalog) 0 units SC .MILD SLIDING SCALE PRN PRN Reason: Mild Correctional Scale Last Admin: 01/01/18 10:13 Dose: 6 unit Insulin Human Lispro (Humalog) 0 units SC .BEDTIME SLIDING SC PRN PRN Reason: Bedtime Correctional Scale Last Admin: 12/30/17 21:46 Dose: 3 unit Insulin Human NPH (Humulin N) 50 unit SC [facility] Last Admin: 01/01/18 08:48 Dose: 50 unit Insulin Human NPH (Humulin N) 50 unit SC QPM [facility] Last Admin: 12/31/17 20:44 Dose: Not Given Isosorbide Dinitrate (Isordil) 20 mg PO TID [facility] Last Admin: 01/01/18 08:47 Dose: 20 mg Labetalol HCl (Normodyne) 10 mg SLOW IVP Q4H PRN PRN Reason: SBP Greater Than 180 Magnesium Hydroxide (Milk Of Magnesium) 30 ml PO Q12H PRN PRN Reason: Constipation Last Admin: 12/30/17 23:45 Dose: 30 ml Metformin HCl (Glucophage) 1,000 mg PO [facility] Last Admin: 01/01/18 08:48 Dose: 1,000 mg Morphine Sulfate (Morphine) 2 mg SLOW IVP Q5MIN PRN PRN Reason: Chest Pain Last Admin: 12/31/17 00:00 Dose: 2 mg Nitroglycerin (Nitrostat) 0.4 mg SL Q5MIN PRN PRN Reason: Chest Pain Ondansetron HCl (Zofran) 4 mg SLOW IVP Q6H PRN PRN Reason: Nausea/Vomiting Ondansetron HCl (Zofran Odt) 4 mg PO Q6H PRN PRN Reason: Nausea/Vomiting Last Admin: 01/01/18 10:13 Dose: 4 mg Sodium Chloride (Flush - Normal Saline) 10 ml IVF Q12HR [facility] Last Admin: 01/01/18 08:53 Dose: Not Given Sodium Chloride (Flush - Normal Saline) 10 ml IVF PRN PRN PRN Reason: Saline Flush Ticagrelor (Brilinta) 90 mg PO BID [facility] Last Admin: 01/01/18 08:47 Dose: 90 mg Tramadol HCl (Ultram) 50 mg PO Q6H PRN PRN Reason: Pain
[2018-01-01] MEDS: Sodium Chloride 0.45% 1,000 ML IV SCH (17:17)
[2018-01-01] MEDS: Atorvastatin Calcium 40 MG TAB PO SCH (21:17)
[2018-01-02 05:38] LABS: Anion Gap 16 mmol/L (10-20); BUN (Urea Nitrogen) 45 mg/dL (9.8-20.1); Calc. Creatinine Clearance 48 mL/min (70-130); Calcium 9.2 mg/dL (7.8-10.44); Carbon Dioxide 19 mmol/L (22-29); Chloride 104 mmol/L (98-107); Estimated GFR-MDRD 26; Glucose 168 mg/dL (70-105); Potassium 4.3 mmol/L (3.5-5.1); Sodium 135 mmol/L (136-145)
[2018-01-02] MEDS: Carvedilol 25 MG TAB PO SCH ×2 (08:24→18:28)
[2018-01-02] MEDS: hydrALAZINE 25 MG TAB PO SCH ×3 (08:24→22:19)
[2018-01-02] MEDS: guaiFENesin ER 600 MG TAB PO SCH ×2 (08:25→22:21)
[2018-01-02] MEDS: Aspirin 81 mg Enteric Coated Tablet PO SCH (08:25)
[2018-01-02] MEDS: Docusate 100 MG CAP PO SCH ×2 (08:25→22:21)
[2018-01-02] MEDS: Isosorbide Dinitrate 20 MG TAB PO SCH ×3 (08:26→22:21)
[2018-01-02] MEDS: TICAGRELOR 90 MG TABLET PO SCH ×2 (08:27→22:25)
[2018-01-02] MEDS: HumaLOG 300 UNITS/3 ML VIAL SC PRN ×3 (08:29→18:29)
[2018-01-02] MEDS: NPH, Human Insulin Isophane 300 UNIT/3 ML VIAL SC SCH (08:30)
[2018-01-02] MEDS ORDERED: Acetaminophen 325 MG TAB PO PRN (10:39)
[2018-01-02] MEDS ORDERED: Sodium Chloride 0.9% 500 ML IV SCH (10:45)
[2018-01-02] MEDS: Sodium Chloride 0.45% 1,000 ML IV SCH ×2 (12:30→18:19)
[2018-01-02] MEDS ORDERED: Sodium Chloride 0.9% 1,000 ML IV SCH (15:00)
--- NOTE | 2018-01-02 16:49 | PDOC.PN ---
- Subjective Encounter Start Date: 01/02/18 Encounter Start Time: 07:40 Pt seen for followup re: ZACH. Denies chest pain, shortness of breath, fevers or chills. - Objective MAR Reviewed: Yes Vital Signs & Weight: Vital Signs (12 hours) Temp Pulse Pulse Pulse Resp BP BP 01/02/18 15:05 98.1 F 84 16 01/02/18 15:04 81 152/70 H 01/02/18 11:38 98.3 F 81 16 01/02/18 09:44 85 86 186/86 H 01/02/18 08:24 94 01/02/18 08:16 98.6 F 94 18 01/02/18 08:00 98.6 F 94 18 BP BP Pulse Ox Pulse Ox Pulse Ox 01/02/18 15:05 150/72 H 97 01/02/18 15:04 01/02/18 11:38 167/88 H 100 01/02/18 09:44 115/60 95 100 01/02/18 08:24 01/02/18 08:16 116/71 98 01/02/18 08:00 98 Weight Weight 257 lb Most Recent Monitor Data Heart Rate from ECG 70 NIBP 146/85 NIBP BP-Mean 121 Respiration from ECG 19 SpO2 97 I&O: 01/01/18 01/02/18 01/03/18 06:59 06:59 06:59 Intake Total 1215 1549 Output Total 500 150 Balance 715 1399 Result Diagrams: 12/31/17 06:17 01/02/18 03:58 Additional Labs: Accuchecks 01/02/18 01/02/18 01/02/18 15:54 11:32 06:01 POC Glucose 201 H 297 H 224 H 01/01/18 20:42 POC Glucose 166 H EKG Reviewed by me: Yes (Tele: NSR) Phys Exam - Physical Examination Morbid obesity HEENT: PERRLA, moist MMs, sclera anicteric, oral pharynx no lesions Neck: no JVD Respiratory: no wheezing, no rales, no rhonchi, clear to auscultation bilateral Cardiovascular: RRR, no rub Gastrointestinal: soft, non-tender, positive bowel sounds distended Neurological: non-focal, moves all 4 limbs Psychiatric: normal affect, A&O x 3 Dx/Plan (1) Acute on chronic renal failure Code(s): N17.9 - ACUTE KIDNEY FAILURE, UNSPECIFIED; N18.9 - CHRONIC KIDNEY DISEASE, UNSPECIFIED Status: Acute Qualifiers: Chronic kidney disease stage: stage 3 (moderate) Comment: Etiology unclear, pt did receive IV contrast. Hydrate pt, consult nephrology, recheck creatinine (2) STEMI (ST elevation myocardial infarction) Status: Acute Comment: s/p PCI with baremetal stents to LAD, on aspirin and Brilinta (3) DM type 2 (diabetes mellitus, type 2) Status: Chronic Qualifiers: Diabetes mellitus long-term insulin use: with long-term use Diabetes mellitus complication status: without complication Qualified Code(s): E11.9 - Type 2 diabetes mellitus without complications; Z79.4 - superintendent container terminal (current) use of insulin; Z79.4 - [facility] (current) use of insulin; Z79.4 - superintendent container terminal ( current) use of insulin; Z79.4 - [facility] (current) use of insulin Comment: accuchecks, insulin sliding scale. (4) Dyslipidemia Code(s): E78.5 - HYPERLIPIDEMIA, UNSPECIFIED Status: Chronic Comment: on statin (5) HTN (hypertension) Code(s): I10 - ESSENTIAL (PRIMARY) HYPERTENSION Status: Chronic Comment: stable - Plan * . Review of Systems - Review of Systems Constitutional: negative: fever, chills, sweats, weakness, malaise Respiratory: negative: Cough, Shortness of Breath, SOB with Excertion, Pleuritic Pain, Wheezing Cardiovascular: negative: chest pain, palpitations, orthopnea, paroxysmal nocturnal dyspnea, edema, light headedness Gastrointestinal: negative: Nausea, Vomiting, Abdominal Pain, Diarrhea, Constipation, Melena, Hematochezia Genitourinary: negative: Dysuria, Frequency, Incontinence, Hematuria, Retention Skin: negative: Rash, Lesions, Nile, Bruising - Medications/Allergies Allergies/Adverse Reactions: Allergies Allergy/AdvReac Type Severity Reaction Status Date / Time lisinopril Allergy Severe Verified 05/20/16 03:56 Medications: Current Medications Acetaminophen (Tylenol) 650 mg PO Q4H PRN PRN Reason: Headache/Fever or Pain Last Admin: 01/02/18 10:41 Dose: 650 mg Albuterol/Ipratropium (Duoneb) 3 ml NEB [id number] PRN PRN Reason: SOB &/or Wheezing Aspirin (Ecotrin) 81 mg PO DAILY [facility] Last Admin: 01/02/18 08:25 Dose: 81 mg Atorvastatin Calcium (Lipitor) 80 mg PO HS [facility] Last Admin: 01/01/18 21:17 Dose: 80 mg Carvedilol (Coreg) 50 mg PO BID-[facility] Last Admin: 01/02/18 08:24 Dose: 50 mg Dextrose/Water (Dextrose 50%) 25 gm SLOW IVP PRN PRN PRN Reason: Hypoglycemia Docusate Sodium (Colace) 100 mg PO BID [facility] Last Admin: 01/02/18 08:25 Dose: 100 mg Glucagon (Glucagon) 1 mg IM PRN PRN PRN Reason: Hypoglycemia Guaifenesin (Mucinex) 600 mg PO Q12HR [facility] Last Admin: 01/02/18 08:25 Dose: 600 mg Hydralazine HCl (Apresoline) 50 mg PO TID [facility] Last Admin: 01/02/18 15:04 Dose: 50 mg Dextrose/Water (D5w) 1,000 mls @ 0 mls/hr IV .Q0M PRN; As Directed PRN Reason: Hypoglycemia Nicardipine HCl 50 mg/ Sodium (Chloride) 250 mls @ 0 mls/hr IVPB INF [facility]; Titrate PRN Reason: Protocol Sodium Chloride (Normal Saline 0.9%) 1,000 mls @ 500 mls/hr IV .Q2H [facility] Stop: 01/02/18 16:59 Insulin Human Lispro (Humalog) 0 units SC .MILD SLIDING SCALE PRN PRN Reason: Mild Correctional Scale Last Admin: 01/02/18 13:24 Dose: 4 unit Insulin Human Lispro (Humalog) 0 units SC .BEDTIME SLIDING SC PRN PRN Reason: Bedtime Correctional Scale Last Admin: 12/30/17 21:46 Dose: 3 unit Insulin Human NPH (Humulin N) 50 unit SC QAM-[facility] Last Admin: 01/02/18 08:30 Dose: 50 unit Insulin Human NPH (Humulin N) 50 unit SC QPM [facility] Last Admin: 01/01/18 21:18 Dose: Not Given Isosorbide Dinitrate (Isordil) 20 mg PO TID [facility] Last Admin: 01/02/18 15:06 Dose: 20 mg Labetalol HCl (Normodyne) 10 mg SLOW IVP Q4H PRN PRN Reason: SBP Greater Than 180 Magnesium Hydroxide (Milk Of Magnesium) 30 ml PO Q12H PRN PRN Reason: Constipation Last Admin: 12/30/17 23:45 Dose: 30 ml Morphine Sulfate (Morphine) 2 mg SLOW IVP Q5MIN PRN PRN Reason: Chest Pain Last Admin: 12/31/17 00:00 Dose: 2 mg Nitroglycerin (Nitrostat) 0.4 mg SL Q5MIN PRN PRN Reason: Chest Pain Ondansetron HCl (Zofran) 4 mg SLOW IVP Q6H PRN PRN Reason: Nausea/Vomiting Ondansetron HCl (Zofran Odt) 4 mg PO Q6H PRN PRN Reason: Nausea/Vomiting Last Admin: 01/01/18 10:13 Dose: 4 mg Sodium Chloride (Flush - Normal Saline) 10 ml IVF Q12HR [facility] Last Admin: 01/02/18 10:43 Dose: Not Given Sodium Chloride (Flush - Normal Saline) 10 ml IVF PRN PRN PRN Reason: Saline Flush Ticagrelor (Brilinta) 90 mg PO BID [facility] Last Admin: 01/02/18 08:27 Dose: 90 mg Tramadol HCl (Ultram) 50 mg PO Q6H PRN PRN Reason: Pain
[2018-01-02] MEDS: Sodium Chloride 0.9% 1,000 ML IV SCH (18:01)
[2018-01-02] MEDS: traMADol HCl 50 MG TAB PO PRN (18:11)
[2018-01-02 18:28] LABS: Bilirubin Negative (Negative); Blood, Urine Negative (Negative); Clarity CLEAR (Clear); Glucose, Urine (Dipstick) 100 mg/dL (Negative); Leukocyte Negative (Negative); Nitrite Negative (Negative); Protein, Urine (Dipstick) Negative (Neg-Trace); Specific Gravity, Urine 1.014 (1.002-1.036); pH, Urine 6.5 (5.0-9.0)
[2018-01-02 18:30] LABS: Bacteria/HPF None Seen HPF (None Seen); Hyaline Casts/LPF 0-3 HYALINE CAST LPF (0-3 Hyaline); RBC/HPF 0-3 HPF (0-3); Squamous Epithelial None Seen HPF (0-3); WBC/HPF None Seen HPF (0-3)
--- NOTE | 2018-01-02 19:50 | CON ---
DATE OF CONSULTATION: 01/02/2018 HISTORY OF PRESENT ILLNESS: Ms. Christine Terrazas is a 57-year-old black female, who presented with ch est pain. She underwent a cardiac catheterization and significant coronary artery disease was found and underwent coronary stent placement. We are now being consulted for her acute kidney injury on to p of her chronic renal failure. Please note, she did receive a limited amount of contrast. The katharine ent is feeling better today. REVIEW OF SYSTEMS: Currently, no chest pain or shortness of breath; however, positive for diffuse hi p joint pains. No nausea, no vomiting, no diarrhea. Appetite and energy level are fair. No fever o r chills. No headache, no gross hematuria, no dysuria, no urinary frequency, no sore throat, no new skin rash. Energy level is decreased. No hematochezia, no melena, no hematemesis, no diplopia. MEDICATIONS: DuoNeb q.6 hours, Ecotrin 81 mg daily, Lipitor 80 mg at bedtime, Coreg 50 mg p.o. b.i.d ., Mucinex 600 mg p.o. q.12 hours, hydralazine 50 mg p.o. t.i.d., Humalog sliding scale, Humulin N 50 units subcu at bedtime and 50 units q.a.m., Isordil 20 mg p.o. t.i.d., morphine sulfate 2 mg IV ever y 5 minutes p.r.n., nicardipine drip - discontinued, Zofran p.r.n., Brilinta 90 mg p.o. t.i.d. PAST MEDICAL HISTORY: 1. Type 2 diabetes mellitus. 2. Chronic renal failure ? 3. Recent diagnosis of coronary artery disease, hyperlipidemia, hypertension. PAST SURGICAL HISTORY: 1. Status post cardiac catheterization with coronary stent placement. 2. Status post CABG. 3. Status post hysterectomy. 4. Status post colonoscopy. SOCIAL HISTORY: The patient is , lives in [place], several children. Smoked for 15 years-smoke d marijuana. Retired nursing care attendant. Sedentary lifestyle. No alcohol. ALLERGIES: LISINOPRIL. TRAUMA: None. IMMUNIZATIONS: Up-to-date. HOSPITALIZATIONS: Please see past medical history. PHYSICAL EXAMINATION: VITAL SIGNS: Blood pressure 150/72, heart rate 84, respiratory rate 16, temperature 98.1, pulse ox 9 7%. GENERAL: Noted to be awake, alert, sitting comfortable, and not in overt distress. SKIN: Adequate turgor. HEENT: She has pinkish conjunctivae, anicteric sclerae. NECK: No neck mass, no carotid bruits, no JVD. Morbidly obese. LUNGS: Decreased breath sounds. No wheezing, no crackles. HEART: Normal sinus rhythm. No murmur, no gallops, no rubs. ABDOMEN: Globular, soft, nontender. No masses. EXTREMITIES: No edema, no deformities. LABORATORY DATA: Laboratories of 12/31/2017: White count 8.6, hemoglobin 11. 01/01/2018, sodium 13 5, potassium 4.3, chloride 104, carbon dioxide 19, BUN 45, creatinine 2.33, glucose 168, calcium 9.2. Creatinine of 12/31/2017 was 1.73. Chest x-ray of 12/30/2017 shows no acute cardiopulmonary process, no evidence of CHF. ASSESSMENT AND PLAN: 1. Acute kidney injury on top of her chronic renal failure. Consider the possibility of superimpose d prerenal azotemia. Empiric volume repletion with normal saline at 100 mL per hour would be recomme nded. We will review her urinalysis to see if there is any superimposed acute tubular necrosis. For the moment, agree to hold off any NSAIDs or RICARDO inhibitors. There is no indication for any dialytic intervention. I would also consider as part of her workup to do a renal ultrasound due to the chron ic renal failure. 2. Coronary artery disease, asymptomatic. The patient is status post cardiac catheterization with c oronary stent placement.
--- NOTE | 2018-01-02 19:53 | ULT ---
BILATERAL RENAL ULTRASOUND: 01/02/18 HISTORY: Renal failure. FINDINGS: The right kidney measures 10.1 cm in length and the left kidney measures 10.4 cm in length. No defini te mass or shadowing calculus is seen. No hydronephrosis identified. Exam is limited due to body habitus. The prevoid bladder volume measures 89 mL. Cortical echogenicity and thickness appears unremarkable. IMPRESSION: No evidence of high grade obstruction. POS: [facility]
[2018-01-02] MEDS: Atorvastatin Calcium 40 MG TAB PO SCH (22:21)
[2018-01-03] MEDS: traMADol HCl 50 MG TAB PO PRN (01:18)
[2018-01-03] MEDS: NPH, Human Insulin Isophane 300 UNIT/3 ML VIAL SC SCH ×2 (01:46→09:04)
[2018-01-03] MEDS ORDERED: oxyCODONE 5 MG TAB PO SCH (03:00)
[2018-01-03] MEDS: Ondansetron ODT 4 MG TAB PO PRN ×2 (03:19→10:35)
[2018-01-03] MEDS: Sodium Chloride 0.9% 1,000 ML IV SCH ×2 (07:49→09:09)
[2018-01-03 08:55] LABS: #Lymphocytes 1.9 thou/uL (1.20-3.40); #Monocytes 0.7 thou/uL (0.11-0.59); #Neutrophils 3.9 thou/uL (1.40-6.50); %Basophils 0.2 % (0.0-1.0); %Eosinophils 0.7 % (0.0-10.0); %Lymphocytes 28.5 % (21.0-51.0); %Monocytes 10.6 % (0.0-10.0); %Neutrophils 59.9 % (42.0-75.0); Hemoglobin 11.1 g/dL (12.0-16.0); Mean Corpuscular HGB CONC 34.6 g/dL (32.0-36.0); Mean Corpuscular Hemoglobin 31.5 pg (27.0-31.0); Mean Corpuscular Volume 91.2 fl (81.0-99.0); Mean Platelet Volume 6.7 fL (7.4-10.4); Platelet Count 286 thou/uL (130-400); RBC Distribution Width 13.5 % (11.5-14.5); Red Blood Cell (RBC) Count 3.52 mill/uL (4.20-5.40); White Blood Cell (WBC) Count 6.5 thou/uL (4.8-10.8)
[2018-01-03] MEDS: Docusate 100 MG CAP PO SCH (09:03)
[2018-01-03] MEDS: TICAGRELOR 90 MG TABLET PO SCH (09:03)
[2018-01-03] MEDS: Isosorbide Dinitrate 20 MG TAB PO SCH (09:04)
[2018-01-03] MEDS: Carvedilol 25 MG TAB PO SCH (09:04)
[2018-01-03] MEDS: guaiFENesin ER 600 MG TAB PO SCH (09:04)
[2018-01-03] MEDS: hydrALAZINE 25 MG TAB PO SCH (09:04)
[2018-01-03] MEDS: Aspirin 81 mg Enteric Coated Tablet PO SCH (09:04)
[2018-01-03 09:09] LABS: Anion Gap 12 mmol/L (10-20); BUN (Urea Nitrogen) 30 mg/dL (9.8-20.1); Calc. Creatinine Clearance 61 mL/min (70-130); Calcium 9.2 mg/dL (7.8-10.44); Carbon Dioxide 25 mmol/L (22-29); Chloride 105 mmol/L (98-107); Estimated GFR-MDRD 34; Glucose 259 mg/dL (70-105); Potassium 4.5 mmol/L (3.5-5.1); Sodium 137 mmol/L (136-145)
[2018-01-03] MEDS: Morphine 4 MG/ML VIAL SLOW IVP PRN (10:35)
[2018-01-03 10:41] VITALS: TEMP 97.5
[2018-01-03] MEDS: HumaLOG 300 UNITS/3 ML VIAL SC PRN (10:42)
--- NOTE | 2018-01-03 12:38 | PRG ---
DATE OF SERVICE: 01/03/2018 SUBJECTIVE: Ms. Terrazas is a 57-year-old black female who was seen for an elevated creatinine 2.33. At that time, she received IV contrast from her cardiac catheterization. At that time, I felt that s he simply had a hemodynamically mediated renal dysfunction. Empiric volume repletion was given. Cre atinine today is much improved. Denies any chest pain or shortness of breath. OBJECTIVE: VITAL SIGNS: Blood pressure is 157/81, heart rate 76, respiratory rate 18, temperature 97.5, pulse o x 99%. GENERAL: Awake, supine, comfortable, not in distress, morbidly obese. SKIN: Adequate turgor. HEENT: She has pinkish conjunctivae, anicteric sclerae. NECK: No neck mass, no carotid bruits, no JVD. LUNGS: Clear breath sounds. No wheezing, no crackles. HEART: Normal sinus rhythm. No murmur, no gallops, no rubs. ABDOMEN: Globular, soft, nontender, no masses. EXTREMITIES: No edema, no deformities. MEDICATIONS: Of 01/03/2018, was reviewed. LABORATORY: Of 01/03/2018, white count 6.5, hemoglobin 11.1. Sodium 137, potassium 4.5, chloride 10 5, carbon dioxide 25, BUN 30, creatinine 1.85, glucose 259, calcium 9.2. Urinalysis showed glucose o f 100, protein is negative, no pigmented granular casts. Renal ultrasound within normal. ASSESSMENT AND PLAN: 1. Acute kidney injury - I suspect a simple hemodynamically mediated renal dysfunction. Much improv ed with volume repletion. Continue current management. For the moment, hold off any RICARDO inhibitors or ARB as well as diuretics. 2. Coronary artery disease, status post cardiac catheterization with coronary stent placement, doing well. 3. Agree with planned discharge.
[2018-01-03 13:02] VITALS: BP 174/80
--- NOTE | 2018-01-03 21:31 | DIS ---
DATE OF ADMISSION: 12/30/2017 DATE OF DISCHARGE: 01/03/2018 PRIMARY CARE PROVIDER: Dr. Mk Sarabia. DISCHARGE DIAGNOSES: 1. ST segment elevation myocardial infarction. 2. Hypertensive emergency. 3. Acute on chronic renal insufficiency. PROCEDURES DURING THIS HOSPITALIZATION: On 12/30/2017, the patient underwent cardiac catheterization . She was found to have 3-vessel CAD. She had patent SVG to OM, acute marginal branch of RCA and di stal RCA. She had 100% occlusion of LAD stent. She had 4 bare metal stents placed and postdilated i n LAD. CONDITION OF PATIENT ON THE DAY OF DISCHARGE: Stable. I assessed Ms. Christine Terrazas on the day of discharge. She denies any chest pain or shortness of breath. PHYSICAL EXAMINATION: VITAL SIGNS: Stable. CARDIAC: S1 and S2 are heard, regular. LUNGS: Clear to auscultation bilaterally. DISCHARGE MEDICATIONS: Aspirin 81 mg daily, Lipitor 80 mg at bedtime, Coreg 50 mg 2 times a day, hyd ralazine 50 mg 3 times a day, isosorbide dinitrate 20 mg 3 times a day, metformin 1000 mg 2 times a d ay, NPH insulin 50 units in the morning and 50 units in the evening, and Brilinta 90 mg 2 times a day . CONSULTATIONS DURING THIS HOSPITALIZATION: 1. Cardiology, Dr. Jose Cisneros. 2. Pulmonology, Dr. Clarence Lopez. 3. Nephrology, Dr. Javan Garcia. HOSPITAL COURSE: Ms. Christine Terrazas is a pleasant 57-year-old lady, who was admitted to [facility] on 12/26/[address] elevation myocardial infarction as well as hypertensive e mergency. She was admitted to the Critical Care Unit. She received antihypertensives. She was seen by Cardiology Service and underwent cardiac catheterization, as reported above. She was transferred to the medical floor subsequently. Her creatinine gradually worsened. She was seen by Nephrology Elizabeth abdalla. Renal ultrasound did not show any evidence of high grade obstruction. She received intraven ous hydration, with improvement of her creatinine. On the day of discharge, she has normal electrolytes, elevated blood urea nitrogen of 30, elevated cr eatinine 1.85, normal white count, hemoglobin 11.1 and platelet count 286,000. Her creatinine was 2.33 on 01/02/2018. It was 1.89 on the day of discharge. Many thanks for allowing me to participate in your patient's care. Please feel free to contact me wi th any questions or concerns. DISCHARGE DESTINATION: Home. TOTAL AMOUNT OF TIME SPENT COORDINATING THIS DISCHARGE: 35 minutes.
== END 2018-01-03 14:22 | disposition home or self-care (01) | DRG 248 ==
LOC: ERS 04:33 → CCU 05:37 → 2NO 12-31 13:08
PROVIDERS: ADMIT Internal Medicine; ATTEND Internal Medicine
PROC: 02703GZ Dilation of Coronary Artery, One Artery with Four or More Intraluminal Devices, Percutaneous Approach (ICD-10-PCS; principal; 2017-12-30)
PROC: 02C03ZZ Extirpation of Matter from Coronary Artery, One Artery, Percutaneous Approach (ICD-10-PCS; 2017-12-30)
PROC: 4A023N7 Measurement of Cardiac Sampling and Pressure, Left Heart, Percutaneous Approach (ICD-10-PCS; 2017-12-30)
PROC: B2111ZZ Fluoroscopy of Multiple Coronary Arteries using Low Osmolar Contrast (ICD-10-PCS; 2017-12-30)
DX: I21.3 ST elevation (STEMI) myocardial infarction of unspecified site (principal); E11.22 Type 2 diabetes mellitus with diabetic chronic kidney disease; N17.9 Acute kidney failure, unspecified; E66.01 Morbid (severe) obesity due to excess calories; N18.3 Chronic kidney disease, stage 3 (moderate); T82.857A Stenosis of other cardiac prosthetic devices, implants and grafts, initial encounter; I16.1 Hypertensive emergency; I12.9 Hypertensive chronic kidney disease with stage 1 through stage 4 chronic kidney disease, or unspecified chronic kidney disease; I25.10 Atherosclerotic heart disease of native coronary artery without angina pectoris; E78.5 Hyperlipidemia, unspecified; F17.210 Nicotine dependence, cigarettes, uncomplicated; Z95.1 Presence of aortocoronary bypass graft; Z95.5 Presence of coronary angioplasty implant and graft; Z90.710 Acquired absence of both cervix and uterus; Y83.1 Surgical operation with implant of artificial internal device as the cause of abnormal reaction of the patient, or of later complication, without mention of misadventure at the time of the procedure
CPT/HCPCS: 36415; 36416; 71045; 76770; 76942; 80048; 80053; 80061; 81001; 82553; 84484; 85025; 85347; 85610; 85730; 92941; 93005; 93010; 93306; 93459; 93798; 96365; 96374; 96375; 99152; 99153; 99292; A4216; C1725; C1757; C1769; C1876; C1887; J1650; J1815; J1940; J2270; J2550; J3010; J7050; Q0162

== ENCOUNTER 2018-01-05 20:22 | Observation (INO) | payer MEDICARE ==
[2018-01-05 21:11] LABS: #Eosinphils 0.1 thou/uL (0.0-0.7); #Lymphocytes 1.4 thou/uL (1.20-3.40); #Monocytes 0.7 thou/uL (0.11-0.59); #Neutrophils 4.7 thou/uL (1.40-6.50); %Basophils 0.6 % (0.0-1.0); %Eosinophils 0.7 % (0.0-10.0); %Lymphocytes 20.9 % (21.0-51.0); %Monocytes 9.5 % (0.0-10.0); %Neutrophils 68.3 % (42.0-75.0); Hemoglobin 10.8 g/dL (12.0-16.0); Mean Corpuscular HGB CONC 33.8 g/dL (32.0-36.0); Mean Corpuscular Hemoglobin 31.1 pg (27.0-31.0); Mean Platelet Volume 6.9 fL (7.4-10.4); Platelet Count 322 thou/uL (130-400); RBC Distribution Width 13.8 % (11.5-14.5); Red Blood Cell (RBC) Count 3.49 mill/uL (4.20-5.40); White Blood Cell (WBC) Count 6.9 thou/uL (4.8-10.8)
[2018-01-05 21:20] LABS: ALT (SGPT) 17 U/L (8-55); AST (SGOT) 18 U/L (5-34); Albumin 3.7 g/dL (3.5-5.0); Alkaline Phosphatase 71 U/L (40-150); Anion Gap 15 mmol/L (10-20); BUN (Urea Nitrogen) 25 mg/dL (9.8-20.1); Bilirubin, Total 0.4 mg/dL (0.2-1.2); Calc. Creatinine Clearance 0 mL/min (70-130); Calcium 9.3 mg/dL (7.8-10.44); Carbon Dioxide 21 mmol/L (22-29); Chloride 104 mmol/L (98-107); Estimated GFR-MDRD 33; Globulin 2.7 g/dL (2.4-3.5); Glucose 273 mg/dL (70-105); Lipase 13 U/L (8-78); Potassium 4.3 mmol/L (3.5-5.1); Protein, Total 6.4 g/dL (6.0-8.3); Sodium 136 mmol/L (136-145)
[2018-01-05 21:24] LABS: CKMB 2.3 ng/mL (0-6.6)
[2018-01-05 21:25] LABS: Troponin I 1.578 ng/mL (< 0.028)
[2018-01-05] MEDS ORDERED: Ondansetron ODT 8 MG TAB ONE (22:11)
--- NOTE | 2018-01-05 22:41 | RAD ---
FRONTAL RADIOGRAPH CHEST PORTABLE UPRIGHT: 01/05/2018 HISTORY: Short of breath. COMPARISON: 12/30/2017 FINDINGS: There is no pneumothorax, pleural fluid, lobar consolidation, or alveolar edema. Midline sternotomy wires are present. Increased linear interstitial densities are noted, nonspecific. IMPRESSION: Interstitial prominence with pulmonary hyperinflation suggests chronic obstructive pulmonary disease in the proper clinical setting. No lobar consolidation or alveolar edema. POS: [facility]
--- NOTE | 2018-01-05 23:40 | ULT ---
RIGHT UPPER QUADRANT ULTRASOUND: 01/05/2018 HISTORY: Right upper quadrant pain with nausea and vomiting. COMPARISON: None. TECHNIQUE: Multiplanar blancas-scale sonographic imaging of the right upper quadrant obtained. FINDINGS: The orthophotography technician reports a negative Smyth sign. The imaged pancreas appears grossly unremarkable. T he tail of the pancreas is obscured by bowel gas. No focal liver lesion or intrahepatic biliary dila tation is seen. The right kidney measures 9.1 cm in craniocaudal dimension and demonstrates no stone, hydronephrosis, or mass. No gallbladder wall thickening or pericholecystic fluid. No gallstones are seen. The CBD measures 5 mm, within normal limits. Questionable tiny volume gallbladder sludge. IMPRESSION: No evidence for cholelithiasis, cholecystitis, or biliary dilatation. POS: [facility]
[2018-01-06 02:05] VITALS: BMI 45.1
[2018-01-06] MEDS ORDERED: Ondansetron HCl/PF 4 MG/2 ML Vial IVP PRN (02:20)
[2018-01-06] MEDS ORDERED: Acetaminophen 325 MG TAB PO PRN (02:20)
[2018-01-06] MEDS ORDERED: Ondansetron ODT 4 MG TAB SL PRN (02:20)
--- NOTE | 2018-01-06 09:01 | ULT ---
PRELIMINARY REPORT/[facility]/EMERGENTY AFTER-HOURS PROCEDURE US Duplex Bilateral Lower Extremity Veins EXAM DATE/TIME: Exam ordered 01/06/2018 12:25 AM CLINICAL HISTORY: 57 years old, female; Pain; Leg, upper and leg, lower; Bilateral; Patient HX: SOB, recent hospitaliza tion TECHNIQUE: Real-time duplex ultrasound scan of the bilateral lower extremity veins integrating B-mode two dimens ional vascular structure, Doppler spectral analysis, color flow Doppler imaging and compression. COMPARISON: No relevant prior studies available. FINDINGS: Right deep veins: Unremarkable. No DVT in the right common femoral, femoral, proximal deep femoral or popliteal veins. The veins demonstrate normal color flow, are normally compressible, with normal pha sic flow and/or augmentation response. Right superficial veins: Unremarkable. No thrombus in the visualized right great saphenous vein. Left deep veins: Unremarkable. No DVT in the left common femoral, femoral, proximal deep femoral or p opliteal veins. The veins demonstrate normal color flow, are normally compressible, with normal phasi c flow and/or augmentation response. Left superficial veins: Unremarkable. No thrombus in the visualized left great saphenous vein. Soft tissues: No acute findings. No popliteal cyst. Other findings: 3 cm right popliteal fossa cyst. IMPRESSION: 1. 3 cm right popliteal fossa cyst. 2. No DVT Thank you for allowing us to participate in the care of your patient. Dictated and Authenticated by: Mk Manrique MD 01/06/2018 1:04 AM Central Time ([place] & [place]) FINAL REPORT BILATERAL LOWER EXTREMITY VENOUS DOPPLER ULTRASOUND: Date: 01/06/18 FINDINGS/IMPRESSION: I agree with the preliminary report given by Madisyn. POS: [facility]
--- NOTE | 2018-01-06 10:41 | PDOC.EVN ---
Event Note - Event Note Event Note: [facility] #[id number]
[2018-01-06] MEDS ORDERED: Isosorbide Dinitrate 20 MG TAB PO SCH (11:00)
[2018-01-06] MEDS ORDERED: TICAGRELOR 90 MG TABLET PO SCH (11:00)
[2018-01-06] MEDS ORDERED: hydrALAZINE 25 MG TAB PO SCH ×2 (11:00→15:00)
[2018-01-06] MEDS ORDERED: Carvedilol 25 MG TAB PO SCH ×2 (11:00→17:00)
[2018-01-06] MEDS ORDERED: ALPRAZolam 0.5 MG TAB PO SCH ×2 (11:30)
--- NOTE | 2018-01-06 11:59 | HP ---
CHIEF COMPLAINT: Shortness of breath. HISTORY OF PRESENT ILLNESS: This is a 57-year-old female who was admitted to the hospital 2 days pos t-discharge for shortness of breath. The patient was here a few days ago, stayed for 4-5 days, recei zoe a cardiac catheterization along with stent placement. The patient was noted to have contrast ind uced nephropathy status post stent placement. The patient's creatinine at the point in time of disch arge from prior admission was 1.85. Her creatinine peaked to 2.33. Baseline creatinine appears to b e around 1.7. The patient at this point in time is presenting with shortness of breath. States that upon discharge, she was not able to lay flat because she was getting short of breath and she was als o waking up at nighttime because of shortness of breath. The patient otherwise denies any other naus ea, vomiting, diarrhea, constipation, chest pains, fevers or chills. The patient did admit to the ortness of breath at rest as well as ambulation. The patient was seen and examined. Family at [facility]. All questions were answered. REVIEW OF SYSTEMS: All systems reviewed. Pertinent positives in the HPI, otherwise negative. ALLERGIES: LISINOPRIL. HOME MEDICATIONS: See MAR. FAMILY HISTORY: Both sides positive for hypertension, diabetes, and myocardial infarction. PAST MEDICAL HISTORY: Positive for hypertension, hyperlipidemia, obesity, CKD stage 3, coronary alicia ry disease. SOCIAL HISTORY: Denies any current smoking or drinking; however, did quit smoking about a week ago, had a [id number] smoking history with more than a pack a day. PHYSICAL EXAMINATION: VITAL SIGNS: Blood pressure 148/74. O2 saturation is 95% on room air, respiratory rate 16, pulse 82 , temperature 97.3. GENERAL: The patient sitting in a chair, in no acute distress. Morbidly obese. HEENT: Pupils equal, round, react to light and accommodation bilaterally. Extraocular muscles intac t. Oral cavity moist and pink. NECK: Supple, nontender, mobile thyroid noted. CARDIOVASCULAR: Regular rate and rhythm. S1 and S2. No murmurs, rubs or gallops appreciated. PULMONARY: Clear to auscultation bilaterally aerating well. Increased AP diameter. No respiratory distress. ABDOMEN: Positive bowel sounds, soft, nontender, rotund abdomen with no rebound or guarding. EXTREMITIES: 2+ peripheral pulses noted bilaterally. No edema bilaterally. NEUROLOGIC: Cranial nerves II-XII intact bilaterally. No loss of motor or sensory function noted. LABORATORY DATA: CBC shows a hemoglobin of 10.8, hematocrit of 32, otherwise normal. Basic metaboli c panel shows a creatinine of 1.3, glucose 273. Troponin 1.578. Brain natriuretic peptide of 390.1, carbon dioxide of 21, BUN of 25, otherwise basic metabolic panel is within normal limits. ASSESSMENT AND PLAN: 1. Shortness of breath. 2. Coronary artery disease. 3. Hypertension. 4. Diabetes mellitus. 5. Recent stent placement. 6. Obesity. 7. Hypertension. PLAN: We will consult Cardiology. Troponin to be trended. We will do a 6 minute walking test as we ll. Start the patient on a diuretic and place in observation admission. If patient is stable in the morning, 6 minute walking test is negative and does not require home oxygen and cleared by Cardiolog y, the patient likely will be discharged to follow up outpatient with her PCP as well as Cardiology catracho barba 1-2 weeks. Case and plan discussed with patient and at length. They understand and ag ree with this plan.
[2018-01-06] MEDS: ALPRAZolam 0.5 MG TAB PO SCH ×2 (16:53→21:13)
[2018-01-06] MEDS: Isosorbide Dinitrate 20 MG TAB PO SCH ×2 (16:54→21:14)
[2018-01-06] MEDS ORDERED: ALPRAZolam 0.5 MG TAB PO PRN (17:52)
[2018-01-06] MEDS ORDERED: traMADol HCl 50 MG TAB PO PRN (17:52)
[2018-01-06] MEDS ORDERED: Dextrose 5% in Water 1,000 ML IV PRN (17:58)
[2018-01-06] MEDS ORDERED: HumaLOG 300 UNITS/3 ML VIAL SC PRN (17:58)
[2018-01-06] MEDS ORDERED: Dextrose 50% Abboject 50 ML SYRINGE IVP PRN (17:58)
[2018-01-06] MEDS ORDERED: NPH, Human Insulin Isophane 300 UNIT/3 ML VIAL SC SCH (21:00)
[2018-01-06] MEDS ORDERED: Atorvastatin Calcium 40 MG TAB PO SCH (21:00)
[2018-01-06] MEDS: TICAGRELOR 90 MG TABLET PO SCH ×2 (21:00→22:12)
[2018-01-06] MEDS: hydrALAZINE 25 MG TAB PO SCH (21:16)
[2018-01-07] MEDS ORDERED: NPH, Human Insulin Isophane 300 UNIT/3 ML VIAL SC SCH (08:00)
[2018-01-07] MEDS ORDERED: Carvedilol 25 MG TAB PO SCH (08:00)
[2018-01-07] MEDS ORDERED: Aspirin 81 mg Enteric Coated Tablet PO SCH ×2 (09:00)
[2018-01-07] MEDS ORDERED: Furosemide 20 MG TAB PO SCH (09:00)
[2018-01-07] MEDS: Isosorbide Dinitrate 20 MG TAB PO SCH (09:15)
[2018-01-07] MEDS: TICAGRELOR 90 MG TABLET PO SCH (09:15)
[2018-01-07] MEDS: ALPRAZolam 0.5 MG TAB PO SCH (09:15)
[2018-01-07] MEDS: hydrALAZINE 25 MG TAB PO SCH (09:15)
[2018-01-07 12:00] VITALS: BP 111/55; TEMP 97.1
--- NOTE | 2018-01-07 16:13 | DIS ---
PRIMARY CARE PHYSICIAN: [facility], patient will be seeing Dr. Sarabia. DATE OF ADMISSION: 01/06/2018 DATE OF DISCHARGE: 01/07/2018 DISCHARGE DIAGNOSES: 1. Anxiety disorder. 2. Severe obesity. 3. Hypertension, essential. 4. Coronary artery disease, without angina. CONSULTATIONS: Cardiology, Dr. Jose Cisneros. PROCEDURES: None. HISTORY AND PHYSICAL/HOSPITAL COURSE: Ms. Christine Terrazas is a 57-year-old -Martiniquais female w ith a history of known coronary artery disease, status post coronary artery bypass grafting in the [facility]. Last admitted 12/30-01/03 for hypertensive urgency. The patient developed some chest pain, so c mary back to the emergency department on late 01/05/2018, was evaluated. We were called chemist internship 01/06, when the patient was seen and placed on observation. Overnight, 01/06-01/07, the patient had no further chest pain. Cardiac biomarkers showed troponin I goal from greater than 45 to 1.5. She had a BNP that was improved from her previous values and labs were normal. She was seen by Dr. Jose Cisneros, who felt that it was noncardiac in nature and starte d her on some Xanax. Today, she had no further pain and was doing much better and he recommended discharge on Xanax with o utpatient followup. The patient does have a history of echocardiogram done on 01/01/2018, which showed an EF of 55%-60% a nd hypokinesis of the apex. The patient was stable for discharge and was sent home with outpatient followup. PHYSICAL EXAMINATION: The patient was seen and examined on the day of discharge. Discharge plan and disposition were discussed with the patient [id number] at the bedside. DISCHARGE MEDICATIONS: New medications, 1. Xanax 0.5 mg p.o. t.i.d. scheduled. 2. Aspirin 81 mg daily. 3. Lipitor 80 mg p.o. at bedtime. 4. Coreg 25 mg p.o. b.i.d., new prescriptions sent. 5. Lasix 20 mg p.o. daily, new prescriptions sent. 6. Hydralazine 25 mg p.o. t.i.d., new prescription sent. Previous dose of hydralazine and Coreg have been discontinued. Lasix is brand new. 1. Isosorbide dinitrate 20 mg p.o. t.i.d. 2. Metformin 1000 mg p.o. b.i.d. a.c. 3. Insulin NPH 50 units subcu q.a.m. and 50 units subcu q.p.m. 4. Brilinta 90 mg p.o. b.i.d. FOLLOWUP APPOINTMENTS 1. Dr. Sarabia on 01/12. 2. Dr. Cisneros per his clinic schedule. DISCHARGE DIET: Heart healthy diabetic diet recommended. DISCHARGE ACTIVITY: Per cardiopulmonary limits. DISCHARGE CONDITION: Stable. DISPOSITION: Being discharged home via private vehicle for outpatient followup.
== END 2018-01-07 12:20 | disposition home or self-care (01) ==
LOC: ERS 20:22 → 2SW 01-06
PROVIDERS: ADMIT Internal Medicine; ATTEND Internal Medicine
DX: R06.02 Shortness of breath (principal); I25.10 Atherosclerotic heart disease of native coronary artery without angina pectoris; I12.9 Hypertensive chronic kidney disease with stage 1 through stage 4 chronic kidney disease, or unspecified chronic kidney disease; E11.22 Type 2 diabetes mellitus with diabetic chronic kidney disease; N18.3 Chronic kidney disease, stage 3 (moderate); E78.5 Hyperlipidemia, unspecified; F17.210 Nicotine dependence, cigarettes, uncomplicated; F41.9 Anxiety disorder, unspecified; E66.01 Morbid (severe) obesity due to excess calories; Z68.42 Body mass index [BMI] 45.0-49.9, adult; Z88.8 Allergy status to other drugs, medicaments and biological substances; Z79.899 Other long term (current) drug therapy; Z95.5 Presence of coronary angioplasty implant and graft; Z95.1 Presence of aortocoronary bypass graft
CPT/HCPCS: 71045; 76705; 80053; 82553; 82962 ×2; 83690; 83880; 84484; 85025; 93005; 93970; 97139 ×2; 99285; G0378; G8978; G8979; G8980; 36416; A4216; J1815

== ENCOUNTER 2019-05-27 12:55 | Outpatient (CLI) | payer MEDICARE ==
--- NOTE | 2019-05-27 14:54 | MRI ---
MRI LUMBAR SPINE PERFORMED WITHOUT CONTRAST ENHANCEMENT: Date: 05/27/19 HISTORY: Low back and bilateral hip pain and leg numbness. FINDINGS: The vertebral bodies are normal in height. For the purposes of this dictation, L5-S1 level is the lev el at which axial image 26 is present. The S1-S2 level is a rudimentary type disc. Disc desiccation c hanges are seen at the L5-S1 level and some Modic type changes. There is no significant periaortic ad enopathy and the visualized portions of the kidneys are normal. L1-2: Degenerative facet changes without canal or foraminal stenosis. L2-3: Degenerative facet changes without canal or foraminal narrowing. L3-4: Some mild facet hypertrophic changes are seen. No canal or foraminal narrowing. L4-5: Once again, there are some degenerative facet changes which are moderate, but no canal or fora bunny stenosis. L5-S1: Severe degenerative facet changes at this level with marked bilateral foraminal narrowing and a mild degree of canal stenosis with lateral recess narrowing. IMPRESSION: Marked degenerative facet change at the L5-S1 level with pronounced bilateral lateral recess and fora bunny narrowing. POS: TPC
== END 2019-05-27 12:56 | disposition home or self-care (01) ==
LOC: BICMRI 12:55
PROVIDERS: ATTEND Neurological Surgery
DX: M54.16 Radiculopathy, lumbar region (principal); M47.817 Spondylosis without myelopathy or radiculopathy, lumbosacral region; M48.07 Spinal stenosis, lumbosacral region
CPT/HCPCS: 72148

== ENCOUNTER 2019-07-06 07:10 | Outpatient (CLI) | payer MEDICARE ==
[2019-07-06 11:37] LABS: Hemoglobin 13.1 g/dL (12.0-16.0); Mean Corpuscular HGB CONC 32.8 g/dL (32.0-36.0); Mean Corpuscular Hemoglobin 29.9 pg (27.0-31.0); Mean Corpuscular Volume 91.2 fL (78.0-98.0); Mean Platelet Volume 7.2 fL (7.4-10.4); Platelet Count 260 thou/uL (130-400); RBC Distribution Width 13.3 % (11.5-14.5); Red Blood Cell (RBC) Count 4.37 mill/uL (4.20-5.40); White Blood Cell (WBC) Count 6.3 thou/uL (4.8-10.8)
[2019-07-06 12:07] LABS: Anion Gap 14 mmol/L (10-20); BUN (Urea Nitrogen) 20 mg/dL (9.8-20.1); Calc. Creatinine Clearance 0 mL/min (70-130); Calcium 9.9 mg/dL (7.8-10.44); Carbon Dioxide 25 mmol/L (22-29); Chloride 102 mmol/L (98-107); Estimated GFR-MDRD 48; Glucose 307 mg/dL (70-105); Potassium 3.9 mmol/L (3.5-5.1); Sodium 137 mmol/L (136-145)
--- NOTE | 2019-07-06 16:35 | EKG ---
Test Reason : Blood Pressure : / mmHG Vent. Rate : 087 BPM Atrial Rate : 087 BPM P-R Int : 126 ms QRS Dur : 102 ms QT Int : 398 ms P-R-T Axes : 058 -02 085 degrees QTc Int : 478 ms Normal sinus rhythm Septal infarct , age undetermined cannot be excluded Abnormal ECG Confirmed by THEODORE DUQUE ([id number]) on 07/06/2019 4:35:39 PM Referred By: JAYASHREE Confirmed By:THEODORE DUQUE
== END 2019-07-06 07:11 | disposition home or self-care (01) ==
LOC: LABBT 07:10
PROVIDERS: ATTEND Neurological Surgery
DX: Z01.818 Encounter for other preprocedural examination (principal); M54.16 Radiculopathy, lumbar region
CPT/HCPCS: 80048; 85027; 93005; 93010

== ENCOUNTER 2019-07-12 07:06 | Day surgery (SDC) | payer MEDICARE ==
[2019-07-06 09:42] VITALS: BMI 43.9
--- NOTE | 2019-07-11 08:51 | HP ---
HISTORY OF PRESENT ILLNESS: Ms. Christine Terrazas is a pleasant 59-year-old woman, here today to discuss 2 years of severe lower back pain as well as bilateral L5 pains, right greater than left. She reports severe numbness in the same distribution and the frequent, need to stop what she is doing in the town. X-ray showed degenerative spinal disease of the lower lumbar spine and MRI shows severe foraminal stenosis to the right at L5-S1. She has already treated this with epidural steroid injections with Dr. Mcmahan, which she felt did not help much. She has tried home activity modifications and exercises, but she did not aggravate her pain more than anything else. She also to discuss possible surgical intervention. PAST MEDICAL HISTORY: Significant for; 1. Chronic pain syndrome. 2. Hypercholesterolemia. 3. Renal disease. 4. Seasonal allergies. 5. Anxiety. 6. Cataract. 7. Coronary artery disease. 8. Hypertension. PAST SURGICAL HISTORY: Hysterectomy. CURRENT MEDICATIONS: 1. Humulin. 2. Torsemide. 3. Clopidogrel. 4. Amlodipine. 5. Clonidine. 6. Aspirin. 7. Pantoprazole. 8. Calcitriol. 9. Hydralazine. 10. Carvedilol. 11. Atorvastatin. 12. Metformin. 13. Isosorbide dinitrate. 14. Tylenol Arthritis. 15. Ondansetron. ALLERGIES: TO PEANUTS, LISINOPRIL, AND MELOXICAM. PHYSICAL EXAMINATION: GENERAL: The patient is alert and oriented x3. Gait is severely antalgic. Lower extremity exam is normal. Positive straight leg raise bilaterally, but right more avid than the left. ASSESSMENT: 1. Lumbar radiculopathy. 2. Spinal stenosis. PLAN: Dr. Quintanilla met with the patient, reviewed imaging, advocated for right L5 facetectomy and foraminotomy. He explained to the patient the risks, benefits, and alternatives to the procedure. The patient expressed understanding and elected to move forward with surgery as discussed. I do believe the patient is mentally competent and capable of making medical decisions for herself. We will move forward with surgery as planned. Job ID: [id number]
[2019-07-12] MEDS ORDERED: Thrombin 5000 UNITS/5 ML VIAL ONE (08:52)
[2019-07-12] MEDS ORDERED: Bupivacaine HCl 0.5%/Epinephrine 1:200,000/PF 30 ml Vial ONE (08:52)
[2019-07-12] MEDS ORDERED: Fentanyl 250 MCG/5 ML VIAL ONE (08:59)
[2019-07-12] MEDS ORDERED: Midazolam HCl 2 mg/2 ml Vial ONE (08:59)
[2019-07-12] MEDS ORDERED: Fentanyl 100 MCG/2 ML VIAL ONE ×3 (11:03→12:00)
--- NOTE | 2019-07-12 11:08 | OP ---
DATE OF PROCEDURE: 07/12/2019 ADJUNCT LECTURER: Nikhil Robb PA-C INDICATION: Pain. DIAGNOSIS: Lumbar radiculopathy. PROCEDURES PERFORMED: Right L5 foraminotomy, medial facetectomy, and decompression. ANESTHESIA: General. DESCRIPTION OF PROCEDURE: The patient was brought into the operating room and placed under general anesthesia. She was flipped from the supine to prone position on the operating room table. A linear incision was planned over the L5 segment. After prepping and draping and after an appropriate preoperative pause, the incision was created. The soft tissues were swept right of midline. A self-retaining retractor was placed in the wound for optimal exposure. After confirming the appropriate level with C-arm fluoroscopy, a high-speed cutting drill bit as well as 2, 3, and 4 mm Kerrisons were used to perform hemilaminectomy, medial facetectomy, and foraminotomy over the exiting L5 nerve root. The wound was then irrigated. Hemostasis was maintained throughout. The wound was then closed in anatomic layers and a pressure dressing was applied. There were no known procedural complications. Job ID: [id number]
[2019-07-12] MEDS ORDERED: Labetalol HCl 100 MG/20 ML VIAL ONE (11:34)
[2019-07-12] MEDS ORDERED: CEFAZOLIN 1 GM VIAL ONE (12:54)
[2019-07-12] MEDS ORDERED: Acetaminophen/Codeine 30-300mg Tablet ONE (13:27)
[2019-07-12] MEDS ORDERED: Ondansetron PF 4 MG/2 ML Vial ONE (15:24)
[2019-07-12] MEDS ORDERED: Lidocaine 1% PF 5 ML VIAL ONE (15:24)
[2019-07-12] MEDS ORDERED: Metoclopramide HCl 10 MG/2 ML VIAL ONE (15:24)
[2019-07-12] MEDS ORDERED: Rocuronium Bromide 10 MG/ML (10ML VIAL) ONE (15:24)
[2019-07-12] MEDS ORDERED: PROPOFOL 200 MG/20 ML VIAL ONE (15:24)
== END 2019-07-12 13:40 | disposition home or self-care (01) ==
LOC: SDC 07:06 → EEVIPCON 09:30 → SDC 13:40
PROVIDERS: ATTEND Neurological Surgery
PROC: 0ST20ZZ Resection of Lumbar Vertebral Disc, Open Approach (ICD-10-PCS; principal; 2019-07-12)
DX: M54.16 Radiculopathy, lumbar region (principal); E78.00 Pure hypercholesterolemia, unspecified; I10 Essential (primary) hypertension; I25.10 Atherosclerotic heart disease of native coronary artery without angina pectoris; G89.4 Chronic pain syndrome; F41.9 Anxiety disorder, unspecified; Z79.4 Long term (current) use of insulin; Z79.82 Long term (current) use of aspirin; Z79.899 Other long term (current) drug therapy; Z88.8 Allergy status to other drugs, medicaments and biological substances; Z91.010 Allergy to peanuts; Z95.1 Presence of aortocoronary bypass graft
CPT/HCPCS: 36416; 76000; J0670; J0690; J2001; J2250; J2405; J2704; J2765; J3010

== ENCOUNTER 2019-08-09 12:40 | Outpatient (CLI) | payer MEDICARE ==
--- NOTE | 2019-08-09 14:02 | MRI ---
MRI CERVICAL SPINE WITHOUT CONTRAST: 08/09/2019 HISTORY: Fall. Right hand numbness. TECHNIQUE: Multiplanar, multisequence MR imaging of the cervical spine provided without contrast. FINDINGS: The sagittal STIR imaging demonstrates no focal area of osseous marrow edema. There is mild degenerat ofelia change at the atlantoaxial interspace. On the sagittal T1 weighted imaging there is a linear area of increased signal intensity along the un dersurface of the occipital lobe on the right, significance/etiology uncertain. This could be related to hemorrhage, calcification or laminar necrosis. Dedicated brain MRI and/or head CT advised as clin ically warranted. C2-C3: No significant central canal or neural foraminal stenosis. C3-C4: No significant central canal or neural foraminal stenosis. C4-C5: No significant central canal or neural foraminal stenosis. C5-C6: Mild left-sided facet and uncovertebral osteophyte formation with mild left-sided neural timothy inal stenosis. No central canal or right neural foraminal stenosis. C6-C7: Mild bilateral facet hypertrophy with no significant central canal or neural foraminal stenosi s. C7-T1: No significant central canal or neural foraminal stenosis. There is a T2 hyperintense lesion associated with the midline nasopharyngeal mucosa, incompletely ass essed on this examination, measuring approximately 1.5 x [address] examination of the neck with IV contrast. No focal area of abnormal signal intensity is identified within the cervical cord. IMPRESSION: 1. Mild cervical spine degenerative change as detailed above. 2. Nonspecific increased T1 signal along the inferior aspect of the right occipital lobe. 3. Lesion in the nasopharynx for which neck CT with intravenous contrast advised. Results were called to Dr. Alexandr Quintanilla at 1:55 p.m. on 08/09/2019. CODE CR POS: ARGELIA
== END 2019-08-09 12:41 | disposition home or self-care (01) ==
LOC: TBSIIMAG 12:40
PROVIDERS: ATTEND Neurological Surgery
DX: M47.22 Other spondylosis with radiculopathy, cervical region (principal); J39.2 Other diseases of pharynx
CPT/HCPCS: 72141

== ENCOUNTER 2019-09-27 07:33 | Outpatient (CLI) | payer MEDICARE ==
--- NOTE | 2019-09-27 08:52 | CT ---
NECK CT WITH IV CONTRAST: DATE: 09/27/2019. COMPARISON: Cervical spine MRI 08/09/2019. HISTORY: Evaluate nasopharyngeal lesion. TECHNIQUE: Axial CT imaging at 3 mm intervals from the skull base through the lung apices with IV contrast. Margaret nal and sagittal reformatted imaging obtained. FINDINGS: Imaged brain parenchyma grossly unremarkable. Imaged paranasal sinuses and mastoid air cells grossly unremarkable. Imaged lung apices are unremarka ble. Incompletely imaged midline sternotomy wires are present. There is prominence of the nasopharyngeal mucosa without a discrete soft tissue mass lesion. There is a tiny low-density 4 mm lesion within the nasopharyngeal mucosa to the right of midline with an internal calcification suggesting a small cystic lesion. When compared to a head CT performed 012 the appearance of the nasopharyngeal mucosa does not appear significantly changed. No suspicious solid lesion is noted within the nasopharyngeal mucosa. The retroantral fat and parapharyn geal fat is clear bilaterally. The parotid glands and submandibular glands appear grossly unremarkable. Tonsillar pillars, epiglottis and preepiglottic fat, hyoid bone, thyroid cartilage, and cricoid cartilage appear grossly unremarkable as does the thyroid gland. No lymphadenopathy is noted within the neck. There is atherosclerotic calcification of the aortic arch. There is severe ath erosclerotic calcification involving the distal common carotid artery AND the proximal internal carotid artery bilaterally, left greater than right. Probable underlying hemodynamically significant stenosis is noted but not well evaluated on this examination. Full assessment would which require CT angiogram. Review of the osseous structures demonstrates no worrisome lytic or blastic bone lesion. IMPRESSION: 1. Prominent nasopharyngeal mucosa with a probable subcentimeter small cyst with associated calcifica tion, not significantly changed when compared to prior imaging. No discrete solid mass lesion noted within the nasopharyngeal mucosa. 2. prominent carotid system atherosclerotic disease, incompletely characterized on this examination. CODE T Transcribed Date/Time: 09/27/2019 9:35 AM
[2019-09-27] MEDS ORDERED: Iopamidol 370 76% 100 ML VIAL ONE (13:18)
== END 2019-09-27 07:34 | disposition home or self-care (01) ==
LOC: BICCT 07:33
PROVIDERS: ATTEND Neurological Surgery
DX: J39.2 Other diseases of pharynx (principal); I65.23 Occlusion and stenosis of bilateral carotid arteries
CPT/HCPCS: 70491; 82565; Q9967

== ENCOUNTER 2023-01-15 15:30 | Inpatient (IN) | payer MEDICARE ==
[2023-01-15] MEDS ORDERED: Ipratropium/Albuterol 3 ML NEB ONE (16:44)
[2023-01-15] MEDS ORDERED: Furosemide 40 MG/4 ML VIAL ONE (18:00)
[2023-01-15 18:28] LABS: #Eosinphils 0.1 thou/uL (0.0-0.7); #Monocytes 0.7 thou/uL (0.11-0.59); #Neutrophils 6.5 thou/uL (1.40-6.50); %Basophils 0.2 % (0.0-1.0); %Eosinophils 0.8 % (0.0-10.0); %Lymphocytes 12.8 % (21.0-51.0); %Monocytes 8.7 % (0.0-10.0); %Neutrophils 76.9 % (42.0-75.0); Hemoglobin 10.8 g/dL (12.0-16.0); Mean Corpuscular HGB CONC 30.1 g/dL (32.0-36.0); Mean Corpuscular Hemoglobin 27.7 pg (27.0-31.0); Mean Corpuscular Volume 92.1 fl (78.0-98.0); Mean Platelet Volume 9.9 fL (7.4-10.4); Platelet Count 268 10x3/uL (130-400); RBC Distribution Width 15.6 % (11.5-14.5); White Blood Cell (WBC) Count 8.5 10x3/uL (4.8-10.8)
[2023-01-15 18:57] LABS: ALT (SGPT) 18 U/L (8-55); AST (SGOT) 23 U/L (5-34); Albumin 3.5 g/dL (3.4-4.8); Alkaline Phosphatase 71 U/L (40-110); Anion Gap 15 mmol/L (10-20); BUN (Urea Nitrogen) 41 mg/dL (9.8-20.1); Bilirubin, Total 0.5 mg/dL (0.2-1.2); Calc. Creatinine Clearance 0 mL/min (70-130); Calcium 9.4 mg/dL (7.8-10.44); Carbon Dioxide 27 mmol/L (23-31); Chloride 104 mmol/L (98-107); Estimated GFR 26; Globulin 3.2 g/dL (2.4-3.5); Glucose 254 mg/dL (80-115); Magnesium 2.1 mg/dL (1.6-2.6); Potassium 4.6 mmol/L (3.5-5.1); Protein, Total 6.7 g/dL (5.8-8.1); Sodium 141 mmol/L (136-145)
[2023-01-15 19:14] LABS: CKMB 3.1 ng/mL (0-6.6)
[2023-01-15] MEDS ORDERED: Aspirin Chewable 81 MG TAB ONE (19:14)
[2023-01-15] MEDS ORDERED: Nitroglycerin 0.4 MG TAB 1 EACH ONE (19:14)
[2023-01-15] MEDS ORDERED: Nitroglycerin 2% Ointment 1 INCH/1 GM Packet ONE (19:14)
[2023-01-15] MEDS ORDERED: hydrALAZINE 20 MG/ML VIAL ONE (19:15)
[2023-01-15] MEDS ORDERED: cloNIDine 0.1 MG TAB ONE (19:44)
[2023-01-15] MEDS ORDERED: Senokot S 8.6-50 MG TAB PO PRN (20:05)
[2023-01-15] MEDS ORDERED: Ondansetron ODT 4 MG TAB PO PRN (20:05)
[2023-01-15] MEDS ORDERED: Sodium Chloride 0.9% 1,000 ML IV SCH (20:15)
[2023-01-15] MEDS ORDERED: Dextrose 50% Abboject 50 ML SYRINGE SLOW IVP PRN (20:37)
[2023-01-15] MEDS ORDERED: Dextrose 5% in Water 1,000 ML IV PRN (20:37)
[2023-01-15] MEDS ORDERED: niCARdipine 25 MG/10 ML SDV ONE (22:30)
[2023-01-15] MEDS ORDERED: niCARdipine 25 MG in Sodium Chloride 0.9% 250 ML 250 ML IVPB SCH (22:45)
[2023-01-16] MEDS: Acetaminophen 325 MG TAB PO PRN ×2 (00:13→20:20)
[2023-01-16] MEDS: cloNIDine 0.2 MG TAB PO SCH ×3 (00:15→20:19)
[2023-01-16] MEDS: Isosorbide Dinitrate 20 MG TAB PO SCH ×4 (00:15→20:19)
[2023-01-16] MEDS: hydrALAZINE 25 MG TAB PO SCH ×4 (00:16→20:20)
[2023-01-16] MEDS: Famotidine 20 MG TAB PO SCH ×2 (00:16→20:20)
[2023-01-16 00:38] VITALS: BMI 51.2
[2023-01-16] MEDS: HumaLOG 300 UNITS/3 ML VIAL SC PRN ×3 (00:46→12:02)
[2023-01-16] MEDS: Enoxaparin 120 MG/0.8 ML SYRINGE SC SCH ×3 (00:52→20:22)
[2023-01-16 01:21] LABS: #Eosinphils 0.1 thou/uL (0.0-0.7); #Monocytes 0.7 thou/uL (0.11-0.59); #Neutrophils 6.2 thou/uL (1.40-6.50); %Basophils 0.3 % (0.0-1.0); %Eosinophils 0.6 % (0.0-10.0); %Lymphocytes 12.6 % (21.0-51.0); %Monocytes 8.5 % (0.0-10.0); %Neutrophils 77.6 % (42.0-75.0); Hemoglobin 10.5 g/dL (12.0-16.0); Mean Corpuscular HGB CONC 31.3 g/dL (32.0-36.0); Mean Corpuscular Hemoglobin 27.9 pg (27.0-31.0); Mean Corpuscular Volume 89.4 fl (78.0-98.0); Mean Platelet Volume 9.7 fL (7.4-10.4); Platelet Count 249 10x3/uL (130-400); RBC Distribution Width 15.4 % (11.5-14.5); Red Blood Cell (RBC) Count 3.76 mill/uL (4.20-5.40)
[2023-01-16 01:42] LABS: Troponin I 0.094 ng/mL (< 0.028)
[2023-01-16 01:51] LABS: ALT (SGPT) 15 U/L (8-55); AST (SGOT) 19 U/L (5-34); Albumin 3.3 g/dL (3.4-4.8); Alkaline Phosphatase 69 U/L (40-110); Anion Gap 16 mmol/L (10-20); BUN (Urea Nitrogen) 40 mg/dL (9.8-20.1); Bilirubin, Total 0.6 mg/dL (0.2-1.2); CK (CPK) 106 U/L (29-168); Calc. Creatinine Clearance 55 mL/min (70-130); Carbon Dioxide 26 mmol/L (23-31); Chloride 101 mmol/L (98-107); Estimated GFR 26; Globulin 2.8 g/dL (2.4-3.5); Glucose 306 mg/dL (80-115); Magnesium 2.1 mg/dL (1.6-2.6); Potassium 4.1 mmol/L (3.5-5.1); Protein, Total 6.1 g/dL (5.8-8.1); Sodium 139 mmol/L (136-145)
[2023-01-16] MEDS: Carvedilol 25 MG TAB PO SCH ×2 (07:14→16:28)
[2023-01-16] MEDS ORDERED: hydrALAZINE 20 MG/ML VIAL SLOW IVP PRN (07:30)
[2023-01-16] MEDS ORDERED: NPH, Human Insulin Isophane 300 UNITS/3 ML VIAL SC SCH ×3 (09:00→21:00)
[2023-01-16] MEDS: Aspirin 81 mg Enteric Coated Tablet PO SCH (09:55)
[2023-01-16] MEDS: Clopidogrel Bisulfate 75 MG TAB PO SCH (09:56)
[2023-01-16] MEDS: Torsemide 20 MG TAB PO SCH (09:56)
[2023-01-16] MEDS: Insulin NPH Human Isophane 100 UNITS/ML (10 ML VIAL) SC SCH (10:21)
[2023-01-16] MEDS ORDERED: HumaLOG 300 UNITS/3 ML VIAL SC PRN (14:01)
[2023-01-17 06:08] LABS: #Eosinphils 0.1 thou/uL (0.0-0.7); #Monocytes 0.6 thou/uL (0.11-0.59); #Neutrophils 3.7 thou/uL (1.40-6.50); %Basophils 0.2 % (0.0-1.0); %Eosinophils 1.4 % (0.0-10.0); %Lymphocytes 19.8 % (21.0-51.0); %Monocytes 11.5 % (0.0-10.0); %Neutrophils 66.7 % (42.0-75.0); Hemoglobin 9.6 g/dL (12.0-16.0); Mean Corpuscular HGB CONC 30.9 g/dL (32.0-36.0); Mean Corpuscular Hemoglobin 28.5 pg (27.0-31.0); Mean Corpuscular Volume 92.3 fl (78.0-98.0); Platelet Count 234 10x3/uL (130-400); RBC Distribution Width 15.5 % (11.5-14.5); Red Blood Cell (RBC) Count 3.37 mill/uL (4.20-5.40); White Blood Cell (WBC) Count 5.6 10x3/uL (4.8-10.8)
[2023-01-17 06:28] LABS: Prothrombin Time 13.1 sec (12.0-14.7)
[2023-01-17 06:30] LABS: PTT 30.6 sec (22.9-36.1)
[2023-01-17 06:43] LABS: Anion Gap 11 mmol/L (10-20); BUN (Urea Nitrogen) 41 mg/dL (9.8-20.1); Calc. Creatinine Clearance 54 mL/min (70-130); Calcium 8.8 mg/dL (7.8-10.44); Carbon Dioxide 29 mmol/L (23-31); Chloride 100 mmol/L (98-107); Estimated GFR 25; Glucose 178 mg/dL (80-115); Potassium 4.1 mmol/L (3.5-5.1); Sodium 136 mmol/L (136-145)
[2023-01-17 07:46] VITALS: TEMP 98.5
[2023-01-17] MEDS: Insulin NPH Human Isophane 100 UNITS/ML (10 ML VIAL) SC SCH (08:48)
[2023-01-17] MEDS: hydrALAZINE 25 MG TAB PO SCH (08:48)
[2023-01-17] MEDS: Carvedilol 25 MG TAB PO SCH (08:48)
[2023-01-17 08:49] VITALS: BP 158/80
[2023-01-17] MEDS: Enoxaparin 120 MG/0.8 ML SYRINGE SC SCH (08:49)
[2023-01-17] MEDS: Aspirin 81 mg Enteric Coated Tablet PO SCH (08:49)
[2023-01-17] MEDS: Clopidogrel Bisulfate 75 MG TAB PO SCH (08:49)
[2023-01-17] MEDS: Isosorbide Dinitrate 20 MG TAB PO SCH (08:49)
[2023-01-17] MEDS: cloNIDine 0.2 MG TAB PO SCH (08:49)
[2023-01-17] MEDS: Torsemide 20 MG TAB PO SCH (08:49)
== END 2023-01-17 12:53 | disposition home or self-care (01) | DRG 280 ==
LOC: ERS 15:30 → CCU 20:00 → T4-A 01-16 12:21
PROVIDERS: ADMIT Student in an Organized Health Care Education/Training Program; ATTEND Internal Medicine
DX: I13.0 Hypertensive heart and chronic kidney disease with heart failure and stage 1 through stage 4 chronic kidney disease, or unspecified chronic kidney disease (principal); I21.A1 Myocardial infarction type 2; I50.33 Acute on chronic diastolic (congestive) heart failure; J96.01 Acute respiratory failure with hypoxia; I16.1 Hypertensive emergency; N17.9 Acute kidney failure, unspecified; Z68.43 Body mass index [BMI] 50.0-59.9, adult; I25.10 Atherosclerotic heart disease of native coronary artery without angina pectoris; E78.00 Pure hypercholesterolemia, unspecified; G89.4 Chronic pain syndrome; J40 Bronchitis, not specified as acute or chronic; J30.2 Other seasonal allergic rhinitis; F41.9 Anxiety disorder, unspecified; E11.22 Type 2 diabetes mellitus with diabetic chronic kidney disease; M54.16 Radiculopathy, lumbar region; N18.30 Chronic kidney disease, stage 3 unspecified; E66.01 Morbid (severe) obesity due to excess calories; E11.65 Type 2 diabetes mellitus with hyperglycemia; I25.2 Old myocardial infarction; Z95.5 Presence of coronary angioplasty implant and graft; Z90.710 Acquired absence of both cervix and uterus; Z95.1 Presence of aortocoronary bypass graft; Z79.82 Long term (current) use of aspirin; Z79.84 Long term (current) use of oral hypoglycemic drugs; Z79.4 Long term (current) use of insulin; Z79.899 Other long term (current) drug therapy; Z88.8 Allergy status to other drugs, medicaments and biological substances
CPT/HCPCS: 36415; 36416; 71046; 76770; 80048; 80053; 82550; 82553; 83735; 83880; 84443; 84484; 85025; 85379; 85610; 85730; 93005; 93306; 93970; 94640; 94760; 96365; 96375; J0360; J1650; J1815; J1940; J7050; J7620

== ENCOUNTER 2023-02-18 10:05 | Emergency (ER) | payer MEDICARE ==
[2023-02-18 11:43] LABS: #Monocytes 0.9 thou/uL (0.11-0.59); #Neutrophils 4.5 thou/uL (1.40-6.50); %Basophils 0.2 % (0.0-1.0); %Eosinophils 0.4 % (0.0-10.0); %Lymphocytes 40.7 % (21.0-51.0); %Neutrophils 48.5 % (42.0-75.0); Hemoglobin 12.8 g/dL (12.0-16.0); Mean Corpuscular HGB CONC 32.8 g/dL (32.0-36.0); Mean Corpuscular Hemoglobin 28.4 pg (27.0-31.0); Mean Corpuscular Volume 86.7 fl (78.0-98.0); Mean Platelet Volume 8.7 fL (7.4-10.4); Platelet Count 363 10x3/uL (130-400); RBC Distribution Width 14.6 % (11.5-14.5); White Blood Cell (WBC) Count 9.2 10x3/uL (4.8-10.8)
[2023-02-18 12:06] LABS: ALT (SGPT) 15 U/L (8-55); AST (SGOT) 25 U/L (5-34); Albumin 3.8 g/dL (3.4-4.8); Alkaline Phosphatase 76 U/L (40-110); Anion Gap 13 mmol/L (10-20); BUN (Urea Nitrogen) 42 mg/dL (9.8-20.1); Bilirubin, Total 0.3 mg/dL (0.2-1.2); Calc. Creatinine Clearance 0 mL/min (70-130); Calcium 10.3 mg/dL (7.8-10.44); Carbon Dioxide 27 mmol/L (23-31); Chloride 100 mmol/L (98-107); Estimated GFR 19; Globulin 3.4 g/dL (2.4-3.5); Potassium 3.1 mmol/L (3.5-5.1); Protein, Total 7.2 g/dL (5.8-8.1); Sodium 137 mmol/L (136-145)
[2023-02-18 12:09] LABS: Glucose 37 mg/dL (80-115)
[2023-02-18] MEDS ORDERED: Dextrose 50% Abboject 50 ML SYRINGE ONE (12:12)
[2023-02-18 12:28] LABS: CKMB 4.6 ng/mL (0-6.6)
[2023-02-18] MEDS ORDERED: D5 LR w/20 mEq KCL 1,000 ML IV SCH (12:30)
[2023-02-18 13:41] LABS: Bacteria/HPF None Seen HPF (None Seen); Bilirubin Negative (Negative); Blood, Urine Negative (Negative); CAUTI Indications for Culture Alt mental st,lethar; Clarity Clear (Clear); Glucose, Urine (Dipstick) Normal (Negative); Ketone, Urine Negative (Negative); Leukocyte Negative Leu/uL (Negative); Nitrite Negative (Negative); Protein, Urine (Dipstick) 70 mg/dL (Neg-Trace); RBC/HPF None Seen HPF (0-3); Specific Gravity, Urine 1.008 (1.002-1.036); Squamous Epithelial 0-3 HPF (0-3); Urobilinogen Normal mg/dL (Less than 2); WBC/HPF 0-3 HPF (0-3); pH, Urine 6.5 (5.0-9.0)
[2023-02-18 13:42] LABS: Urine Culture Reflex No No
[2023-02-18] MEDS ORDERED: Potassium Chloride 20 MEQ TAB ONE (13:45)
== END 2023-02-18 13:34 | disposition home or self-care (01) ==
LOC: ERS 10:05
DX: E16.2 Hypoglycemia, unspecified (principal); E87.6 Hypokalemia; R53.1 Weakness; I10 Essential (primary) hypertension; E11.9 Type 2 diabetes mellitus without complications; E78.5 Hyperlipidemia, unspecified
CPT/HCPCS: 36415; 36416; 71045; 80053; 81001; 82553; 83605; 83880; 84484; 85025; 93005; 96374; J3480; J7999

== ENCOUNTER 2023-03-09 04:14 | Observation (INO) | payer MEDICARE ==
[2023-03-09] MEDS ORDERED: Aspirin Chewable 81 MG TAB ONE (05:15)
[2023-03-09] MEDS ORDERED: Nitroglycerin 0.4 MG TAB 1 EACH ONE (05:15)
[2023-03-09] MEDS ORDERED: Furosemide 40 MG/4 ML VIAL ONE (05:15)
[2023-03-09 06:06] LABS: Bacteria/HPF None Seen HPF (None Seen); Bilirubin Negative (Negative); Blood, Urine Trace (Negative); CAUTI Indications for Culture Alt mental st,lethar; Clarity Clear (Clear); Glucose, Urine (Dipstick) Normal (Negative); Ketone, Urine Negative (Negative); Leukocyte Negative Leu/uL (Negative); Nitrite Negative (Negative); Protein, Urine (Dipstick) 50 mg/dL (Neg-Trace); RBC/HPF 0-3 HPF (0-3); Specific Gravity, Urine 1.007 (1.002-1.036); Squamous Epithelial 0-3 HPF (0-3); Urobilinogen Normal mg/dL (Less than 2); WBC/HPF 0-3 HPF (0-3); pH, Urine 6.5 (5.0-9.0)
[2023-03-09 06:08] LABS: Urine Culture Reflex No No
[2023-03-09 06:23] LABS: #Monocytes 0.7 thou/uL (0.11-0.59); #Neutrophils 5.5 thou/uL (1.40-6.50); %Basophils 0.3 % (0.0-1.0); %Eosinophils 0.5 % (0.0-10.0); %Lymphocytes 19.3 % (21.0-51.0); %Monocytes 8.7 % (0.0-10.0); %Neutrophils 70.3 % (42.0-75.0); Hemoglobin 9.8 g/dL (12.0-16.0); Mean Corpuscular HGB CONC 31.4 g/dL (32.0-36.0); Mean Corpuscular Hemoglobin 28.5 pg (27.0-31.0); Mean Corpuscular Volume 90.7 fl (78.0-98.0); Mean Platelet Volume 9.4 fL (7.4-10.4); Platelet Count 272 10x3/uL (130-400); RBC Distribution Width 15.9 % (11.5-14.5); Red Blood Cell (RBC) Count 3.44 mill/uL (4.20-5.40); White Blood Cell (WBC) Count 7.8 10x3/uL (4.8-10.8)
[2023-03-09 06:57] LABS: ALT (SGPT) 16 U/L (8-55); AST (SGOT) 20 U/L (5-34); Albumin 3.5 g/dL (3.4-4.8); Alkaline Phosphatase 80 U/L (40-110); Anion Gap 13 mmol/L (10-20); BUN (Urea Nitrogen) 46 mg/dL (9.8-20.1); Bilirubin, Total 0.4 mg/dL (0.2-1.2); Calc. Creatinine Clearance 0 mL/min (70-130); Calcium 9.9 mg/dL (7.8-10.44); Carbon Dioxide 29 mmol/L (23-31); Chloride 104 mmol/L (98-107); Estimated GFR 22; Globulin 3.2 g/dL (2.4-3.5); Glucose 55 mg/dL (80-115); Lipase 17 U/L (8-78); Protein, Total 6.7 g/dL (5.8-8.1); Sodium 142 mmol/L (136-145)
[2023-03-09 07:06] LABS: INR-International Normal Ratio 0.9; PTT 26.8 sec (22.9-36.1)
[2023-03-09 07:20] LABS: CKMB 4.9 ng/mL (0-6.6)
[2023-03-09] MEDS ORDERED: hydrALAZINE 20 MG/ML VIAL ONE (08:35)
[2023-03-09] MEDS ORDERED: Ondansetron ODT 4 MG TAB SL PRN (09:15)
[2023-03-09] MEDS ORDERED: Ondansetron PF 4 MG/2 ML Vial IVP PRN (09:15)
[2023-03-09] MEDS ORDERED: hydrALAZINE 25 MG TAB PO PRN (10:50)
[2023-03-09 10:58] LABS: Troponin I 0.084 ng/mL (< 0.028)
[2023-03-09 11:47] VITALS: BMI 34.5
[2023-03-09] MEDS ORDERED: cloNIDine 0.1 MG TAB PO SCH (12:15)
[2023-03-09] MEDS: Acetaminophen 325 MG TAB PO PRN ×2 (12:22→21:59)
[2023-03-09 13:48] LABS: Troponin I 0.069 ng/mL (< 0.028)
[2023-03-09] MEDS ORDERED: Dextrose 5% in Water 1,000 ML IV PRN (17:30)
[2023-03-09] MEDS ORDERED: Dextrose 50% Abboject 50 ML SYRINGE SLOW IVP PRN (17:30)
[2023-03-09] MEDS ORDERED: Glucagon 1 MG/ML KIT IM PRN (17:30)
[2023-03-09] MEDS ORDERED: HumaLOG 300 UNITS/3 ML VIAL SC PRN ×2 (17:30)
[2023-03-09] MEDS ORDERED: Ondansetron ODT 4 MG TAB PO PRN (18:14)
[2023-03-09] MEDS ORDERED: Gabapentin 300 MG CAP PO SCH (21:00)
[2023-03-09] MEDS: Isosorbide Dinitrate 20 MG TAB PO SCH (21:03)
[2023-03-09] MEDS: hydrALAZINE 25 MG TAB PO SCH (21:04)
[2023-03-10 04:43] LABS: #Eosinphils 0.1 thou/uL (0.0-0.7); #Monocytes 0.6 thou/uL (0.11-0.59); #Neutrophils 4.3 thou/uL (1.40-6.50); %Basophils 0.3 % (0.0-1.0); %Eosinophils 0.8 % (0.0-10.0); %Lymphocytes 21.2 % (21.0-51.0); %Monocytes 8.9 % (0.0-10.0); %Neutrophils 67.4 % (42.0-75.0); Hemoglobin 9.1 g/dL (12.0-16.0); Mean Corpuscular HGB CONC 32.6 g/dL (32.0-36.0); Mean Corpuscular Hemoglobin 28.6 pg (27.0-31.0); Mean Platelet Volume 9.6 fL (7.4-10.4); Platelet Count 255 10x3/uL (130-400); RBC Distribution Width 15.9 % (11.5-14.5); Red Blood Cell (RBC) Count 3.18 mill/uL (4.20-5.40); White Blood Cell (WBC) Count 6.4 10x3/uL (4.8-10.8)
[2023-03-10 04:46] LABS: Mean Corpuscular Volume 87.7 fl (78.0-98.0)
[2023-03-10 05:13] LABS: Anion Gap 15 mmol/L (10-20); BUN (Urea Nitrogen) 50 mg/dL (9.8-20.1); Calc. Creatinine Clearance 34 mL/min (70-130); Calcium 9.7 mg/dL (7.8-10.44); Carbon Dioxide 27 mmol/L (23-31); Cardiac Risk 5.4 (Less than 4.5); Chloride 102 mmol/L (98-107); Cholesterol 242 mg/dl (< 200 Desired); Estimated GFR 23; Glucose 172 mg/dL (80-115); HDL Cholesterol 45 mg/dL (>60 Neg Risk); LDL Cholesterol, Calculated 180 mg/dL; Potassium 4.6 mmol/L (3.5-5.1); Sodium 139 mmol/L (136-145); Triglycerides 84 mg/dL (Less than 150)
[2023-03-10] MEDS ORDERED: Furosemide 40 MG TAB PO SCH ×2 (09:00→14:00)
[2023-03-10] MEDS ORDERED: cloNIDine 0.1 MG TAB PO SCH (09:00)
[2023-03-10] MEDS ORDERED: Aspirin 81 mg Enteric Coated Tablet PO SCH (09:00)
[2023-03-10] MEDS ORDERED: Clopidogrel Bisulfate 75 MG TAB PO SCH (09:00)
[2023-03-10] MEDS: hydrALAZINE 25 MG TAB PO SCH (09:00)
[2023-03-10] MEDS: Carvedilol 25 MG TAB PO SCH ×2 (09:01→10:51)
[2023-03-10] MEDS: Amlodipine 5 MG TAB PO SCH ×2 (09:01→10:49)
[2023-03-10] MEDS: Ezetimibe 10 MG TAB PO SCH ×2 (09:02→10:47)
[2023-03-10] MEDS: Isosorbide Dinitrate 20 MG TAB PO SCH ×2 (09:02→10:47)
[2023-03-10 11:55] VITALS: BP 159/77; TEMP 97.1
== END 2023-03-10 13:14 | disposition left against medical advice (07) ==
LOC: ERS 04:14 → 2NO 08:59
PROVIDERS: ADMIT Internal Medicine; ATTEND Hospitalist
DX: J96.21 Acute and chronic respiratory failure with hypoxia (principal); I13.0 Hypertensive heart and chronic kidney disease with heart failure and stage 1 through stage 4 chronic kidney disease, or unspecified chronic kidney disease; N18.30 Chronic kidney disease, stage 3 unspecified; I50.33 Acute on chronic diastolic (congestive) heart failure; I16.0 Hypertensive urgency; E11.9 Type 2 diabetes mellitus without complications; I25.10 Atherosclerotic heart disease of native coronary artery without angina pectoris; F41.9 Anxiety disorder, unspecified; Z79.4 Long term (current) use of insulin; Z87.891 Personal history of nicotine dependence; Z79.02 Long term (current) use of antithrombotics/antiplatelets; Z79.899 Other long term (current) drug therapy; Z95.5 Presence of coronary angioplasty implant and graft
CPT/HCPCS: 71045; 80048; 80053; 80061; 81001; 82553; 82962 ×2; 83605; 83690; 83880; 84484 ×2; 85025 ×2; 85610; 85730; 93005; 94760 ×2; 96372; 96374; 96375; 99285; G0378 ×3; J0360; 36415; 36416; J1650; J1940

== ENCOUNTER 2023-03-17 01:47 | Observation (INO) | payer MEDICARE ==
[2023-03-17 02:32] LABS: #Eosinphils 0.1 thou/uL (0.0-0.7); #Monocytes 0.6 thou/uL (0.11-0.59); #Neutrophils 5.2 thou/uL (1.40-6.50); %Basophils 0.3 % (0.0-1.0); %Eosinophils 0.8 % (0.0-10.0); %Lymphocytes 20.9 % (21.0-51.0); %Monocytes 7.6 % (0.0-10.0); %Neutrophils 69.9 % (42.0-75.0); Hemoglobin 9.4 g/dL (12.0-16.0); Mean Corpuscular HGB CONC 30.8 g/dL (32.0-36.0); Mean Corpuscular Hemoglobin 28.1 pg (27.0-31.0); Mean Corpuscular Volume 91.3 fl (78.0-98.0); Mean Platelet Volume 9.4 fL (7.4-10.4); Platelet Count 292 10x3/uL (130-400); RBC Distribution Width 15.7 % (11.5-14.5); Red Blood Cell (RBC) Count 3.34 mill/uL (4.20-5.40); White Blood Cell (WBC) Count 7.4 10x3/uL (4.8-10.8)
[2023-03-17 02:55] LABS: ALT (SGPT) 15 U/L (8-55); AST (SGOT) 16 U/L (5-34); Albumin 3.5 g/dL (3.4-4.8); Alkaline Phosphatase 80 U/L (40-110); Anion Gap 17 mmol/L (10-20); BUN (Urea Nitrogen) 53 mg/dL (9.8-20.1); Bilirubin, Total 0.3 mg/dL (0.2-1.2); Calc. Creatinine Clearance 0 mL/min (70-130); Calcium 9.1 mg/dL (7.8-10.44); Carbon Dioxide 25 mmol/L (23-31); Chloride 100 mmol/L (98-107); Estimated GFR 20; Glucose 236 mg/dL (80-115); Potassium 3.6 mmol/L (3.5-5.1); Protein, Total 6.5 g/dL (5.8-8.1); Sodium 138 mmol/L (136-145)
[2023-03-17 03:17] LABS: CKMB 3.3 ng/mL (0-6.6)
[2023-03-17] MEDS ORDERED: Furosemide 20 MG/2 ML VIAL ONE (03:58)
[2023-03-17] MEDS ORDERED: Furosemide 40 MG/4 ML VIAL ONE (03:58)
[2023-03-17] MEDS ORDERED: Nitroglycerin 2% Ointment 1 INCH/1 GM Packet ONE (03:58)
[2023-03-17 04:12] LABS: Bacteria/HPF None Seen HPF (None Seen); Bilirubin Negative (Negative); Blood, Urine Negative (Negative); CAUTI Indications for Culture Alt mental st,lethar; Clarity Clear (Clear); Glucose, Urine (Dipstick) 100 mg/dL (Negative); Ketone, Urine Negative (Negative); Leukocyte Negative Leu/uL (Negative); Nitrite Negative (Negative); Protein, Urine (Dipstick) 100 mg/dL (Neg-Trace); RBC/HPF 0-3 HPF (0-3); Specific Gravity, Urine 1.012 (1.002-1.036); Squamous Epithelial 0-3 HPF (0-3); Urobilinogen Normal mg/dL (Less than 2); WBC/HPF 0-3 HPF (0-3)
[2023-03-17 04:18] LABS: Urine Culture Reflex No No
[2023-03-17] MEDS ORDERED: Acetaminophen 500 MG TAB ONE (06:30)
[2023-03-17] MEDS ORDERED: Amlodipine 5 MG TAB ONE (06:30)
[2023-03-17] MEDS ORDERED: Aspirin 325 MG TAB ONE (06:41)
[2023-03-17 06:42] LABS: CKMB 3.6 ng/mL (0-6.6)
[2023-03-17] MEDS ORDERED: Isosorbide Dinitrate 20 MG TAB PO SCH (06:45)
[2023-03-17] MEDS ORDERED: Carvedilol 25 MG TAB PO SCH (06:45)
[2023-03-17] MEDS ORDERED: Ondansetron PF 4 MG/2 ML Vial IVP PRN (09:08)
[2023-03-17] MEDS ORDERED: Acetaminophen 325 MG TAB PO PRN (09:08)
[2023-03-17 09:19] VITALS: BMI 37.8
[2023-03-17 09:53] LABS: Troponin I 0.062 ng/mL (< 0.028)
[2023-03-17 10:39] VITALS: BP 122/68; TEMP 98
[2023-03-17 10:56] LABS: Anion Gap 21 mmol/L (10-20); BUN (Urea Nitrogen) 55 mg/dL (9.8-20.1); Calc. Creatinine Clearance 38 mL/min (70-130); Calcium 8.9 mg/dL (7.8-10.44); Carbon Dioxide 18 mmol/L (23-31); Chloride 105 mmol/L (98-107); Estimated GFR 22; Glucose 129 mg/dL (80-115); Sodium 140 mmol/L (136-145)
[2023-03-17] MEDS ORDERED: Furosemide 40 MG/4 ML VIAL SLOW IVP SCH (14:00)
[2023-03-17] MEDS ORDERED: Heparin 5,000 UNITS/ML VIAL SC SCH (15:00)
== END 2023-03-17 10:30 | disposition left against medical advice (07) ==
LOC: ERS 01:47 → ERHOLD 06:58
PROVIDERS: ADMIT Internal Medicine; ATTEND Internal Medicine
DX: J96.01 Acute respiratory failure with hypoxia (principal); E11.22 Type 2 diabetes mellitus with diabetic chronic kidney disease; I13.0 Hypertensive heart and chronic kidney disease with heart failure and stage 1 through stage 4 chronic kidney disease, or unspecified chronic kidney disease; I50.23 Acute on chronic systolic (congestive) heart failure; N18.4 Chronic kidney disease, stage 4 (severe); N17.9 Acute kidney failure, unspecified; I25.10 Atherosclerotic heart disease of native coronary artery without angina pectoris; I25.2 Old myocardial infarction; E78.5 Hyperlipidemia, unspecified; E66.01 Morbid (severe) obesity due to excess calories; Z68.37 Body mass index [BMI] 37.0-37.9, adult; Z88.8 Allergy status to other drugs, medicaments and biological substances; Z79.82 Long term (current) use of aspirin; Z79.02 Long term (current) use of antithrombotics/antiplatelets; Z79.4 Long term (current) use of insulin; Z79.899 Other long term (current) drug therapy; Z95.5 Presence of coronary angioplasty implant and graft; Z90.710 Acquired absence of both cervix and uterus
CPT/HCPCS: 71045; 80048; 80053; 81001; 82553; 83880; 84484 ×2; 85025; 93005; G0378; 36415; J1940

== ENCOUNTER 2023-03-31 06:57 | Inpatient (IN) | payer MEDICARE ==
[2023-03-31 07:33] LABS: #Eosinphils 0.1 thou/uL (0.0-0.7); #Monocytes 0.8 thou/uL (0.11-0.59); #Neutrophils 6.5 thou/uL (1.40-6.50); %Basophils 0.2 % (0.0-1.0); %Eosinophils 0.8 % (0.0-10.0); %Lymphocytes 18.4 % (21.0-51.0); %Monocytes 8.6 % (0.0-10.0); %Neutrophils 71.4 % (42.0-75.0); Hemoglobin 9.9 g/dL (12.0-16.0); Mean Corpuscular HGB CONC 31.2 g/dL (32.0-36.0); Mean Corpuscular Volume 89.5 fl (78.0-98.0); Mean Platelet Volume 9.9 fL (7.4-10.4); Platelet Count 311 10x3/uL (130-400); RBC Distribution Width 15.4 % (11.5-14.5); Red Blood Cell (RBC) Count 3.54 mill/uL (4.20-5.40); White Blood Cell (WBC) Count 9.1 10x3/uL (4.8-10.8)
[2023-03-31] MEDS ORDERED: Amlodipine 5 MG TAB ONE (07:46)
[2023-03-31] MEDS ORDERED: Furosemide 40 MG/4 ML VIAL ONE (07:46)
[2023-03-31] MEDS ORDERED: hydrALAZINE 25 MG TAB ONE (07:46)
[2023-03-31] MEDS ORDERED: Nitroglycerin 0.4 MG TAB 1 EACH ONE ×2 (07:46→08:24)
[2023-03-31 07:58] LABS: ALT (SGPT) 21 U/L (8-55); AST (SGOT) 21 U/L (5-34); Albumin 3.6 g/dL (3.4-4.8); Alkaline Phosphatase 78 U/L (40-110); Anion Gap 16 mmol/L (10-20); BUN (Urea Nitrogen) 57 mg/dL (9.8-20.1); Bilirubin, Total 0.4 mg/dL (0.2-1.2); Calc. Creatinine Clearance 0 mL/min (70-130); Calcium 9.7 mg/dL (7.8-10.44); Carbon Dioxide 29 mmol/L (23-31); Chloride 102 mmol/L (98-107); Estimated GFR 21; Glucose 178 mg/dL (80-115); Magnesium 2.3 mg/dL (1.6-2.6); Potassium 4.5 mmol/L (3.5-5.1); Protein, Total 6.6 g/dL (5.8-8.1); Sodium 142 mmol/L (136-145)
[2023-03-31] MEDS ORDERED: Furosemide 40 MG/4 ML VIAL SLOW IVP SCH (08:00)
[2023-03-31] MEDS ORDERED: Carvedilol 25 MG TAB PO SCH (08:00)
[2023-03-31 08:19] LABS: CKMB 3.8 ng/mL (0-6.6)
[2023-03-31] MEDS ORDERED: Guaifenesin DM 100-10/5 ML UDCUP PO PRN (10:44)
[2023-03-31] MEDS ORDERED: Acetaminophen 325 MG TAB PO PRN (10:44)
[2023-03-31] MEDS ORDERED: Calcium Carbonate 500 MG ChewTAB PO PRN (10:44)
[2023-03-31] MEDS ORDERED: Glucagon 1 MG/ML KIT IM PRN (10:44)
[2023-03-31] MEDS ORDERED: Bisacodyl 10 MG SUPP PR PRN (10:44)
[2023-03-31] MEDS ORDERED: Dextrose 50% Abboject 50 ML SYRINGE SLOW IVP PRN (10:44)
[2023-03-31] MEDS ORDERED: Senokot S 8.6-50 MG TAB PO PRN (10:44)
[2023-03-31] MEDS ORDERED: Ondansetron PF 4 MG/2 ML Vial IVP PRN (10:44)
[2023-03-31] MEDS ORDERED: Dextrose 5% in Water 1,000 ML IV PRN (10:44)
[2023-03-31 11:56] LABS: Troponin I 0.072 ng/mL (< 0.028)
[2023-03-31] MEDS: HumaLOG 300 UNITS/3 ML VIAL SC PRN ×3 (13:20→22:41)
[2023-03-31 13:55] LABS: Troponin I 0.068 ng/mL (< 0.028)
[2023-03-31] MEDS: hydrALAZINE 25 MG TAB PO SCH ×2 (15:14→22:37)
[2023-03-31] MEDS: Furosemide 40 MG/4 ML VIAL SLOW IVP SCH (15:14)
[2023-03-31] MEDS: Isosorbide Dinitrate 20 MG TAB PO SCH ×2 (15:15→22:36)
[2023-03-31 17:26] VITALS: BMI 53.1
[2023-03-31] MEDS: Carvedilol 25 MG TAB PO SCH (18:27)
[2023-03-31] MEDS ORDERED: Gabapentin 300 MG CAP PO SCH (21:00)
[2023-03-31] MEDS: HumuLIN 70/30 100 Unit/ ml Vial SC SCH (22:40)
[2023-04-01] MEDS: HumaLOG 300 UNITS/3 ML VIAL SC PRN (06:02)
[2023-04-01] MEDS: Furosemide 40 MG/4 ML VIAL SLOW IVP SCH (06:02)
[2023-04-01 07:56] VITALS: BP 169/74; TEMP 98.4
[2023-04-01] MEDS: hydrALAZINE 25 MG TAB PO SCH (08:43)
[2023-04-01] MEDS: Carvedilol 25 MG TAB PO SCH (08:43)
[2023-04-01] MEDS: Isosorbide Dinitrate 20 MG TAB PO SCH (08:44)
[2023-04-01] MEDS: HumuLIN 70/30 100 Unit/ ml Vial SC SCH (08:44)
[2023-04-01] MEDS ORDERED: Amlodipine 5 MG TAB PO SCH (09:00)
[2023-04-01] MEDS ORDERED: Aspirin 81 mg Enteric Coated Tablet PO SCH (09:00)
[2023-04-01] MEDS ORDERED: Ezetimibe 10 MG TAB PO SCH (09:00)
[2023-04-01] MEDS ORDERED: Clopidogrel Bisulfate 75 MG TAB PO SCH (09:00)
== END 2023-04-01 08:40 | disposition left against medical advice (07) | DRG 291 ==
LOC: ERS 06:57 → OBSVTOIN 10:51 → 2SW 10:51
PROVIDERS: ADMIT Internal Medicine; ATTEND Emergency Medicine
DX: I13.0 Hypertensive heart and chronic kidney disease with heart failure and stage 1 through stage 4 chronic kidney disease, or unspecified chronic kidney disease (principal); I50.33 Acute on chronic diastolic (congestive) heart failure; Z68.43 Body mass index [BMI] 50.0-59.9, adult; I16.0 Hypertensive urgency; E78.5 Hyperlipidemia, unspecified; E11.22 Type 2 diabetes mellitus with diabetic chronic kidney disease; E66.9 Obesity, unspecified; I25.10 Atherosclerotic heart disease of native coronary artery without angina pectoris; N18.32 Chronic kidney disease, stage 3b; Z95.5 Presence of coronary angioplasty implant and graft; Z95.1 Presence of aortocoronary bypass graft; Z90.710 Acquired absence of both cervix and uterus; Z88.8 Allergy status to other drugs, medicaments and biological substances; Z79.82 Long term (current) use of aspirin; Z79.4 Long term (current) use of insulin; Z79.899 Other long term (current) drug therapy; Z98.890 Other specified postprocedural states
CPT/HCPCS: 36415; 36416; 71045; 80053; 82553; 83735; 83880; 84484; 85025; 93005; 96374; J1815; J1940; J2405

== ENCOUNTER 2023-04-10 21:57 | Inpatient (IN) | payer MEDICARE ==
[2023-04-10] MEDS ORDERED: Ondansetron ODT 4 MG TAB ONE (22:09)
[2023-04-10] MEDS ORDERED: Aspirin Chewable 81 MG TAB ONE (22:15)
[2023-04-10] MEDS ORDERED: Nitroglycerin 2% Ointment 1 INCH/1 GM Packet ONE (22:15)
[2023-04-10] MEDS ORDERED: Nitroglycerin 0.4 MG TAB 1 EACH ONE (22:15)
[2023-04-10 23:01] LABS: #Eosinphils 0.1 thou/uL (0.0-0.7); #Monocytes 0.8 thou/uL (0.11-0.59); #Neutrophils 6.1 thou/uL (1.40-6.50); %Basophils 0.2 % (0.0-1.0); %Lymphocytes 15.4 % (21.0-51.0); %Monocytes 9.1 % (0.0-10.0); %Neutrophils 73.9 % (42.0-75.0); Hematocrit 30.7 % (36.0-47.0); Hemoglobin 9.5 g/dL (12.0-16.0); Mean Corpuscular HGB CONC 30.9 g/dL (32.0-36.0); Mean Corpuscular Hemoglobin 27.9 pg (27.0-31.0); Mean Platelet Volume 9.5 fL (7.4-10.4); Platelet Count 272 10x3/uL (130-400); RBC Distribution Width 15.6 % (11.5-14.5); Red Blood Cell (RBC) Count 3.41 mill/uL (4.20-5.40); White Blood Cell (WBC) Count 8.3 10x3/uL (4.8-10.8)
[2023-04-10 23:04] LABS: ALT (SGPT) 15 U/L (8-55); AST (SGOT) 20 U/L (5-34); Albumin 3.2 g/dL (3.4-4.8); Alkaline Phosphatase 92 U/L (40-110); Anion Gap 16 mmol/L (10-20); BUN (Urea Nitrogen) 47 mg/dL (9.8-20.1); Bilirubin, Total 0.3 mg/dL (0.2-1.2); Calc. Creatinine Clearance 0 mL/min (70-130); Carbon Dioxide 21 mmol/L (23-31); Chloride 103 mmol/L (98-107); Estimated GFR 21; Globulin 3.2 g/dL (2.4-3.5); Glucose 271 mg/dL (80-115); Potassium 4.7 mmol/L (3.5-5.1); Protein, Total 6.4 g/dL (5.8-8.1); Sodium 135 mmol/L (136-145)
[2023-04-10] MEDS ORDERED: hydrALAZINE 20 MG/ML VIAL ONE (23:30)
[2023-04-10] MEDS ORDERED: Ondansetron ODT 4 MG TAB PO PRN (23:57)
[2023-04-10] MEDS ORDERED: Senokot S 8.6-50 MG TAB PO PRN (23:57)
[2023-04-10] MEDS ORDERED: Acetaminophen 325 MG TAB PO PRN (23:57)
[2023-04-11] MEDS ORDERED: Dextrose 5% in Water 1,000 ML IV PRN
[2023-04-11] MEDS ORDERED: Dextrose 50% Abboject 50 ML SYRINGE SLOW IVP PRN
[2023-04-11] MEDS ORDERED: Glucagon 1 MG/ML KIT IM PRN
[2023-04-11] MEDS ORDERED: HumaLOG 300 UNITS/3 ML VIAL SC PRN ×2
[2023-04-11 01:03] VITALS: BMI 45.1
[2023-04-11 01:03] LABS: Troponin I 0.052 ng/mL (< 0.028)
[2023-04-11 01:44] LABS: Hemoglobin A1c 7.7 % (4.0-6.0)
[2023-04-11 05:55] LABS: Anion Gap 16 mmol/L (10-20); BUN (Urea Nitrogen) 49 mg/dL (9.8-20.1); Calc. Creatinine Clearance 48 mL/min (70-130); Calcium 9.1 mg/dL (7.8-10.44); Carbon Dioxide 25 mmol/L (23-31); Chloride 104 mmol/L (98-107); Estimated GFR 22; Glucose 211 mg/dL (80-115); Potassium 4.5 mmol/L (3.5-5.1); Sodium 140 mmol/L (136-145)
[2023-04-11 05:59] LABS: Troponin I 0.061 ng/mL (< 0.028)
[2023-04-11 06:25] LABS: #Eosinphils 0.1 thou/uL (0.0-0.7); #Monocytes 0.8 thou/uL (0.11-0.59); #Neutrophils 5.1 thou/uL (1.40-6.50); %Basophils 0.1 % (0.0-1.0); %Eosinophils 0.9 % (0.0-10.0); %Lymphocytes 18.9 % (21.0-51.0); %Neutrophils 68.6 % (42.0-75.0); Hematocrit 32.4 % (36.0-47.0); Hemoglobin 9.5 g/dL (12.0-16.0); Mean Corpuscular HGB CONC 29.3 g/dL (32.0-36.0); Mean Corpuscular Hemoglobin 27.5 pg (27.0-31.0); Mean Platelet Volume 9.7 fL (7.4-10.4); Platelet Count 261 10x3/uL (130-400); RBC Distribution Width 15.7 % (11.5-14.5); Red Blood Cell (RBC) Count 3.45 mill/uL (4.20-5.40); White Blood Cell (WBC) Count 7.5 10x3/uL (4.8-10.8)
[2023-04-11 06:28] LABS: Mean Corpuscular Volume 93.9 fl (78.0-98.0)
[2023-04-11] MEDS ORDERED: HumaLOG 300 UNITS/3 ML VIAL ONE (06:37)
[2023-04-11] MEDS ORDERED: Acetaminophen 325 MG TAB ONE (06:55)
[2023-04-11] MEDS ORDERED: Carvedilol 25 MG TAB PO SCH (08:00)
[2023-04-11] MEDS ORDERED: hydrALAZINE 25 MG TAB PO SCH (09:00)
[2023-04-11] MEDS ORDERED: Amlodipine 5 MG TAB PO SCH (09:00)
[2023-04-11] MEDS ORDERED: Isosorbide Dinitrate 20 MG TAB PO SCH (09:00)
[2023-04-11] MEDS ORDERED: Ezetimibe 10 MG TAB PO SCH (09:00)
[2023-04-11] MEDS ORDERED: Furosemide 40 MG TAB PO SCH (09:00)
[2023-04-11] MEDS ORDERED: Aspirin 81 mg Enteric Coated Tablet PO SCH (09:00)
[2023-04-11 11:56] VITALS: BP 190/84; TEMP 98
[2023-04-11] MEDS ORDERED: Gabapentin 300 MG CAP PO SCH (21:00)
== END 2023-04-11 11:15 | disposition left against medical advice (07) | DRG 291 ==
LOC: ERS 21:57 → 2NO 23:36 → ERHOLD 23:36 → 2NO 04-11 08:21
PROVIDERS: ADMIT Student in an Organized Health Care Education/Training Program; ATTEND Hospitalist
DX: I13.0 Hypertensive heart and chronic kidney disease with heart failure and stage 1 through stage 4 chronic kidney disease, or unspecified chronic kidney disease (principal); I50.33 Acute on chronic diastolic (congestive) heart failure; I16.1 Hypertensive emergency; Z68.42 Body mass index [BMI] 45.0-49.9, adult; E66.01 Morbid (severe) obesity due to excess calories; N18.30 Chronic kidney disease, stage 3 unspecified; E78.5 Hyperlipidemia, unspecified; E11.22 Type 2 diabetes mellitus with diabetic chronic kidney disease; D63.1 Anemia in chronic kidney disease; I25.10 Atherosclerotic heart disease of native coronary artery without angina pectoris; F12.10 Cannabis abuse, uncomplicated; I25.2 Old myocardial infarction; Z88.8 Allergy status to other drugs, medicaments and biological substances; Z79.82 Long term (current) use of aspirin; Z79.899 Other long term (current) drug therapy; Z79.4 Long term (current) use of insulin; Z87.891 Personal history of nicotine dependence; Z95.1 Presence of aortocoronary bypass graft; Z90.710 Acquired absence of both cervix and uterus; Z98.890 Other specified postprocedural states; Z95.5 Presence of coronary angioplasty implant and graft; Z91.199 Patient's noncompliance with other medical treatment and regimen due to unspecified reason; Z88.6 Allergy status to analgesic agent; Z79.02 Long term (current) use of antithrombotics/antiplatelets
CPT/HCPCS: 36415; 36416; 71045; 80048; 80053; 82553; 83036; 83880; 84484; 85025; 93005; 96374; 96376; J0360; J1815; Q0162

== ENCOUNTER 2023-04-13 02:58 | Emergency (ER) | payer MEDICARE ==
[2023-04-13] MEDS ORDERED: Nitroglycerin 0.4 MG TAB 1 EACH ONE (03:17)
[2023-04-13] MEDS ORDERED: Nitroglycerin 2% Ointment 1 INCH/1 GM Packet ONE (03:17)
[2023-04-13] MEDS ORDERED: hydrALAZINE 20 MG/ML VIAL ONE ×2 (03:17→07:00)
[2023-04-13 04:21] LABS: #Eosinphils 0.1 thou/uL (0.0-0.7); #Monocytes 0.7 thou/uL (0.11-0.59); %Basophils 0.3 % (0.0-1.0); %Eosinophils 0.7 % (0.0-10.0); %Lymphocytes 16.2 % (21.0-51.0); %Monocytes 9.8 % (0.0-10.0); %Neutrophils 72.4 % (42.0-75.0); Hematocrit 30.2 % (36.0-47.0); Hemoglobin 9.1 g/dL (12.0-16.0); Mean Corpuscular HGB CONC 30.1 g/dL (32.0-36.0); Mean Corpuscular Hemoglobin 27.5 pg (27.0-31.0); Mean Corpuscular Volume 91.2 fl (78.0-98.0); Mean Platelet Volume 9.6 fL (7.4-10.4); Platelet Count 266 10x3/uL (130-400); RBC Distribution Width 15.3 % (11.5-14.5); Red Blood Cell (RBC) Count 3.31 mill/uL (4.20-5.40); White Blood Cell (WBC) Count 6.9 10x3/uL (4.8-10.8)
[2023-04-13 04:40] LABS: ALT (SGPT) 19 U/L (8-55); AST (SGOT) 25 U/L (5-34); Albumin 3.5 g/dL (3.4-4.8); Alkaline Phosphatase 85 U/L (40-110); Anion Gap 14 mmol/L (10-20); BUN (Urea Nitrogen) 56 mg/dL (9.8-20.1); Bilirubin, Total 0.3 mg/dL (0.2-1.2); Calc. Creatinine Clearance 0 mL/min (70-130); Calcium 8.8 mg/dL (7.8-10.44); Carbon Dioxide 25 mmol/L (23-31); Chloride 102 mmol/L (98-107); Estimated GFR 22; Globulin 2.9 g/dL (2.4-3.5); Glucose 130 mg/dL (80-115); Potassium 4.1 mmol/L (3.5-5.1); Protein, Total 6.4 g/dL (5.8-8.1); Sodium 137 mmol/L (136-145)
== END 2023-04-13 08:16 | disposition home or self-care (01) ==
LOC: ERS 02:58
DX: R07.2 Precordial pain (principal); I13.0 Hypertensive heart and chronic kidney disease with heart failure and stage 1 through stage 4 chronic kidney disease, or unspecified chronic kidney disease; N18.4 Chronic kidney disease, stage 4 (severe); I50.9 Heart failure, unspecified; I25.2 Old myocardial infarction; E11.22 Type 2 diabetes mellitus with diabetic chronic kidney disease; Z79.899 Other long term (current) drug therapy; Z79.4 Long term (current) use of insulin
CPT/HCPCS: 71045; 80053; 82553; 83880; 84484 ×2; 85025; 93005; 94760; 96374; 96376; 99285; J0360; 36415

== ENCOUNTER 2023-04-15 21:31 | Observation (INO) | payer MEDICARE ==
[2023-04-15 22:19] LABS: #Eosinphils 0.1 thou/uL (0.0-0.7); #Monocytes 0.7 thou/uL (0.11-0.59); #Neutrophils 5.2 thou/uL (1.40-6.50); %Basophils 0.1 % (0.0-1.0); %Lymphocytes 14.5 % (21.0-51.0); %Monocytes 10.1 % (0.0-10.0); %Neutrophils 73.9 % (42.0-75.0); Hematocrit 29.9 % (36.0-47.0); Hemoglobin 9.3 g/dL (12.0-16.0); Mean Corpuscular HGB CONC 31.1 g/dL (32.0-36.0); Mean Corpuscular Hemoglobin 27.4 pg (27.0-31.0); Mean Corpuscular Volume 87.9 fl (78.0-98.0); Mean Platelet Volume 9.1 fL (7.4-10.4); Platelet Count 259 10x3/uL (130-400); RBC Distribution Width 15.3 % (11.5-14.5)
[2023-04-15] MEDS ORDERED: Mag-Al 1200 mg/1200 mg/30 ML UDCUP ONE (22:26)
[2023-04-15] MEDS ORDERED: Aspirin Chewable 81 MG TAB ONE (22:26)
[2023-04-15 22:46] LABS: ALT (SGPT) 16 U/L (8-55); AST (SGOT) 18 U/L (5-34); Albumin 3.4 g/dL (3.4-4.8); Alkaline Phosphatase 87 U/L (40-110); Anion Gap 14 mmol/L (10-20); BUN (Urea Nitrogen) 45 mg/dL (9.8-20.1); Bilirubin, Total 0.3 mg/dL (0.2-1.2); Calc. Creatinine Clearance 0 mL/min (70-130); Calcium 8.9 mg/dL (7.8-10.44); Carbon Dioxide 25 mmol/L (23-31); Chloride 102 mmol/L (98-107); Estimated GFR 21; Globulin 2.7 g/dL (2.4-3.5); Glucose 270 mg/dL (80-115); Lipase 20 U/L (8-78); Magnesium 2.1 mg/dL (1.6-2.6); Protein, Total 6.1 g/dL (5.8-8.1); Sodium 137 mmol/L (136-145)
[2023-04-15 23:04] LABS: CKMB 3.6 ng/mL (0-6.6)
[2023-04-15] MEDS ORDERED: Morphine 4 MG/ML VIAL ONE (23:08)
[2023-04-15] MEDS ORDERED: Ondansetron PF 4 MG/2 ML Vial ONE (23:36)
[2023-04-15] MEDS ORDERED: Nitroglycerin 0.4 MG TAB 1 EACH ONE (23:36)
[2023-04-16] MEDS ORDERED: hydrALAZINE 20 MG/ML VIAL ONE (00:21)
[2023-04-16] MEDS ORDERED: Furosemide 40 MG/4 ML VIAL ONE (01:36)
[2023-04-16 02:22] VITALS: BMI 54.8
[2023-04-16] MEDS ORDERED: Ondansetron PF 4 MG/2 ML Vial IVP PRN (02:51)
[2023-04-16] MEDS ORDERED: HumaLOG 300 UNITS/3 ML VIAL SC PRN (02:51)
[2023-04-16] MEDS ORDERED: Dextrose 5% in Water 1,000 ML IV PRN (02:51)
[2023-04-16] MEDS ORDERED: Acetaminophen 650 MG Suppository PR PRN (02:51)
[2023-04-16] MEDS ORDERED: Dextrose 50% Abboject 50 ML SYRINGE SLOW IVP PRN (02:51)
[2023-04-16] MEDS ORDERED: Glucagon 1 MG/ML KIT IM PRN (02:51)
[2023-04-16] MEDS ORDERED: Ondansetron ODT 4 MG TAB PO PRN (02:51)
[2023-04-16] MEDS ORDERED: Acetaminophen 325 MG TAB PO PRN (02:51)
[2023-04-16] MEDS ORDERED: Ipratropium/Albuterol 3 ML NEB NEB PRN (02:57)
[2023-04-16 04:12] LABS: #Eosinphils 0.1 thou/uL (0.0-0.7); #Monocytes 0.7 thou/uL (0.11-0.59); #Neutrophils 5.6 thou/uL (1.40-6.50); %Basophils 0.3 % (0.0-1.0); %Eosinophils 1.1 % (0.0-10.0); %Lymphocytes 14.8 % (21.0-51.0); %Monocytes 9.7 % (0.0-10.0); %Neutrophils 73.7 % (42.0-75.0); Hematocrit 35.2 % (36.0-47.0); Hemoglobin 10.3 g/dL (12.0-16.0); Mean Corpuscular HGB CONC 29.3 g/dL (32.0-36.0); Mean Corpuscular Hemoglobin 26.8 pg (27.0-31.0); Mean Platelet Volume 9.8 fL (7.4-10.4); Platelet Count 255 10x3/uL (130-400); RBC Distribution Width 15.6 % (11.5-14.5); Red Blood Cell (RBC) Count 3.84 mill/uL (4.20-5.40); White Blood Cell (WBC) Count 7.6 10x3/uL (4.8-10.8)
[2023-04-16 04:14] LABS: Mean Corpuscular Volume 91.7 fl (78.0-98.0)
[2023-04-16 04:36] LABS: Anion Gap 14 mmol/L (10-20); BUN (Urea Nitrogen) 45 mg/dL (9.8-20.1); Calc. Creatinine Clearance 50 mL/min (70-130); Calcium 9.3 mg/dL (7.8-10.44); Carbon Dioxide 23 mmol/L (23-31); Chloride 101 mmol/L (98-107); Estimated GFR 22; Glucose 297 mg/dL (80-115); Magnesium 2.2 mg/dL (1.6-2.6); Potassium 4.4 mmol/L (3.5-5.1); Sodium 134 mmol/L (136-145)
[2023-04-16 05:21] LABS: Troponin I 0.059 ng/mL (< 0.028)
[2023-04-16] MEDS ORDERED: Morphine 4 MG/ML VIAL SLOW IVP PRN (06:05)
[2023-04-16] MEDS ORDERED: hydrALAZINE 20 MG/ML VIAL SLOW IVP PRN (06:11)
[2023-04-16] MEDS: HumaLOG 300 UNITS/3 ML VIAL SC PRN ×3 (06:20→18:33)
[2023-04-16] MEDS ORDERED: Furosemide 40 MG/4 ML VIAL SLOW IVP SCH ×2 (06:30→09:00)
[2023-04-16] MEDS ORDERED: Pantoprazole 40 MG VIAL IVP SCH ×2 (06:30→09:00)
[2023-04-16] MEDS: Carvedilol 25 MG TAB PO SCH ×2 (08:58→16:42)
[2023-04-16] MEDS ORDERED: Ezetimibe 10 MG TAB PO SCH (09:00)
[2023-04-16] MEDS ORDERED: Clopidogrel Bisulfate 75 MG TAB PO SCH (09:00)
[2023-04-16] MEDS ORDERED: Aspirin 81 mg Enteric Coated Tablet PO SCH (09:00)
[2023-04-16] MEDS ORDERED: cloNIDine 0.1 MG TAB PO SCH (09:00)
[2023-04-16] MEDS ORDERED: Heparin 5,000 UNITS/ML VIAL SC SCH (09:00)
[2023-04-16] MEDS ORDERED: Amlodipine 5 MG TAB PO SCH (09:00)
[2023-04-16] MEDS ORDERED: hydrALAZINE 25 MG TAB PO SCH ×2 (09:00→15:00)
[2023-04-16 11:11] VITALS: TEMP 98.6
[2023-04-16] MEDS ORDERED: Lorazepam 1 MG TAB PO PRN (12:11)
[2023-04-16 14:08] LABS: CKMB 3.6 ng/mL (0-6.6)
[2023-04-16 16:33] VITALS: BP 140/65
[2023-04-16] MEDS ORDERED: Gabapentin 300 MG CAP PO SCH (21:00)
[2023-04-17] MEDS ORDERED: Furosemide 40 MG/4 ML VIAL SLOW IVP SCH (09:00)
[2023-04-17] MEDS ORDERED: Pantoprazole 40 MG VIAL IVP SCH (09:00)
== END 2023-04-16 20:30 | disposition left against medical advice (07) ==
LOC: ERS 21:31 → 2NO 04-16 00:35
PROVIDERS: ADMIT Student in an Organized Health Care Education/Training Program; ATTEND Family Medicine
DX: I13.0 Hypertensive heart and chronic kidney disease with heart failure and stage 1 through stage 4 chronic kidney disease, or unspecified chronic kidney disease (principal); I50.33 Acute on chronic diastolic (congestive) heart failure; N18.4 Chronic kidney disease, stage 4 (severe); R77.8 Other specified abnormalities of plasma proteins; E78.5 Hyperlipidemia, unspecified; E11.22 Type 2 diabetes mellitus with diabetic chronic kidney disease; I25.10 Atherosclerotic heart disease of native coronary artery without angina pectoris; D64.9 Anemia, unspecified; Z90.710 Acquired absence of both cervix and uterus; Z98.890 Other specified postprocedural states; Z88.8 Allergy status to other drugs, medicaments and biological substances; Z95.5 Presence of coronary angioplasty implant and graft; Z79.82 Long term (current) use of aspirin; Z79.02 Long term (current) use of antithrombotics/antiplatelets; Z79.4 Long term (current) use of insulin; Z79.899 Other long term (current) drug therapy
CPT/HCPCS: 71045; 80048; 80053; 82553 ×2; 82962; 83690; 83735 ×2; 83880; 84484 ×2; 85025 ×2; 93005 ×2; 96372; 96374; 96375 ×2; 96376; 97139; 99285; G0378 ×2; J0360; 36415; 36416; 93010; C9113; J1644; J1650; J1815; J1940; J2270; J2405

== ENCOUNTER 2023-04-16 22:13 | Emergency (ER) | payer MEDICARE | END 2023-04-16 23:59 | disposition home or self-care (01) | LOC: ERS 22:13 | DX: I13.0 Hypertensive heart and chronic kidney disease with heart failure and stage 1 through stage 4 chronic kidney disease, or unspecified chronic kidney disease (principal); I50.9 Heart failure, unspecified; N18.4 Chronic kidney disease, stage 4 (severe); I25.10 Atherosclerotic heart disease of native coronary artery without angina pectoris; E11.9 Type 2 diabetes mellitus without complications; E78.5 Hyperlipidemia, unspecified; Z79.82 Long term (current) use of aspirin; Z79.4 Long term (current) use of insulin | CPT/HCPCS: 71045; 93005 ==

== ENCOUNTER 2023-04-21 11:45 | Inpatient (IN) | payer MEDICARE ==
[2023-04-21] MEDS ORDERED: Furosemide 40 MG/4 ML VIAL ONE (13:02)
[2023-04-21] MEDS ORDERED: Nitroglycerin 2% Ointment 1 INCH/1 GM Packet ONE (13:02)
[2023-04-21] MEDS ORDERED: Aspirin Chewable 81 MG TAB ONE (13:02)
[2023-04-21] MEDS ORDERED: Ondansetron PF 4 MG/2 ML Vial ONE (13:02)
[2023-04-21] MEDS ORDERED: Ipratropium/Albuterol 3 ML NEB ONE (13:02)
[2023-04-21 13:16] LABS: Bacteria/HPF None Seen HPF (None Seen); Bilirubin Negative (Negative); Blood, Urine Trace (Negative); CAUTI Indications for Culture Dysuria,urgency,freq; Clarity Clear (Clear); Glucose, Urine (Dipstick) 200 mg/dL (Negative); Ketone, Urine Negative (Negative); Leukocyte Negative Leu/uL (Negative); Nitrite Negative (Negative); Protein, Urine (Dipstick) 100 mg/dL (Neg-Trace); RBC/HPF 0-3 HPF (0-3); Specific Gravity, Urine 1.011 (1.002-1.036); Squamous Epithelial 0-3 HPF (0-3); Urobilinogen Normal mg/dL (Less than 2); WBC/HPF 0-3 HPF (0-3); pH, Urine 6.5 (5.0-9.0)
[2023-04-21 13:23] LABS: Actual Bicarbonate (HCO3v) 21.2 mEq/L (22-28); Analyzer IN Cardio ER; Base Excess -0.6 mEq/L (-2.0 to +3.0); Calcium, Ionized (venous) 1.04 mmol/L (1.16-1.32); Chloride (VBG) 103 mmol/L (98-106); Hematocrit-VBG 31 % (36.0-47.0); Hemoglobin (Hb) 10.7 g/dL (11.7-16.0); Sodium 135.2 mmol/L (133-146); pH (venous) 7.526 (7.32-7.43)
[2023-04-21 13:28] LABS: #Monocytes 0.8 thou/uL (0.11-0.59); #Neutrophils 6.5 thou/uL (1.40-6.50); %Basophils 0.2 % (0.0-1.0); %Eosinophils 0.5 % (0.0-10.0); %Lymphocytes 14.9 % (21.0-51.0); %Monocytes 9.2 % (0.0-10.0); %Neutrophils 74.7 % (42.0-75.0); Hematocrit 31.3 % (36.0-47.0); Hemoglobin 9.4 g/dL (12.0-16.0); Mean Corpuscular Hemoglobin 26.9 pg (27.0-31.0); Mean Corpuscular Volume 89.7 fl (78.0-98.0); Mean Platelet Volume 9.8 fL (7.4-10.4); Platelet Count 214 10x3/uL (130-400); RBC Distribution Width 14.9 % (11.5-14.5); Red Blood Cell (RBC) Count 3.49 mill/uL (4.20-5.40); White Blood Cell (WBC) Count 8.7 10x3/uL (4.8-10.8)
[2023-04-21 13:30] LABS: Urine Culture Reflex No No
[2023-04-21 13:51] LABS: ALT (SGPT) 25 U/L (8-55); AST (SGOT) 24 U/L (5-34); Albumin 3.4 g/dL (3.4-4.8); Alkaline Phosphatase 90 U/L (40-110); Anion Gap 14 mmol/L (10-20); BUN (Urea Nitrogen) 56 mg/dL (9.8-20.1); Bilirubin, Total 0.3 mg/dL (0.2-1.2); Calc. Creatinine Clearance 0 mL/min (70-130); Calcium 8.9 mg/dL (7.8-10.44); Carbon Dioxide 25 mmol/L (23-31); Chloride 102 mmol/L (98-107); Estimated GFR 19; Globulin 2.8 g/dL (2.4-3.5); Glucose 276 mg/dL (80-115); Lipase 15 U/L (8-78); Magnesium 2.3 mg/dL (1.6-2.6); Potassium 4.6 mmol/L (3.5-5.1); Protein, Total 6.2 g/dL (5.8-8.1); Sodium 136 mmol/L (136-145)
[2023-04-21] MEDS ORDERED: niCARdipine 25 MG/10 ML SDV ONE (14:24)
[2023-04-21 14:59] LABS: Troponin I 0.043 ng/mL (< 0.028)
[2023-04-21] MEDS ORDERED: Heparin 10,000 UNITS/ 10 ML VIAL SLOW IVP SCH (15:00)
[2023-04-21] MEDS ORDERED: Heparin 25,000 units/D5W 500 ML IVPB SCH (15:00)
[2023-04-21] MEDS ORDERED: Dextrose 50% Abboject 50 ML SYRINGE SLOW IVP PRN (15:18)
[2023-04-21] MEDS ORDERED: Dextrose 5% in Water 1,000 ML IV PRN (15:18)
[2023-04-21] MEDS ORDERED: Insulin Regular 300 UNITS/3 ML VIAL SC PRN (15:18)
[2023-04-21] MEDS ORDERED: Glucagon 1 MG/ML KIT IM PRN (15:18)
[2023-04-21] MEDS ORDERED: Ondansetron ODT 4 MG TAB PO PRN (15:19)
[2023-04-21] MEDS ORDERED: Calcium Carbonate 500 MG ChewTAB PO PRN (15:19)
[2023-04-21] MEDS ORDERED: Senokot S 8.6-50 MG TAB PO PRN (15:19)
[2023-04-21] MEDS ORDERED: Ipratropium/Albuterol 3 ML NEB NEB PRN (15:21)
[2023-04-21] MEDS ORDERED: niCARdipine 25 MG in Sodium Chloride 0.9% 250 ML 250 ML IVPB SCH (15:30)
[2023-04-21 16:58] LABS: Hematocrit 31.2 % (36.0-47.0); Hemoglobin 9.2 g/dL (12.0-16.0); Platelet Count 252 10x3/uL (130-400)
[2023-04-21 18:04] LABS: Troponin I 0.057 ng/mL (< 0.028)
[2023-04-21] MEDS: Amlodipine 5 MG TAB PO SCH (19:57)
[2023-04-21] MEDS: hydrALAZINE 25 MG TAB PO SCH (19:58)
[2023-04-21] MEDS: Acetaminophen 325 MG TAB PO PRN (19:59)
[2023-04-21] MEDS: Famotidine 20 MG TAB PO SCH (19:59)
[2023-04-21] MEDS: Gabapentin 300 MG CAP PO SCH (20:00)
[2023-04-21] MEDS: Carvedilol 25 MG TAB PO SCH (20:01)
[2023-04-21] MEDS: Isosorbide Dinitrate 20 MG TAB PO SCH (20:11)
[2023-04-21] MEDS: Insulin Regular 300 UNITS/3 ML VIAL SC PRN (20:17)
[2023-04-21 21:34] LABS: Troponin I 0.062 ng/mL (< 0.028)
[2023-04-21 21:56] VITALS: BMI 49.7
[2023-04-22 04:13] LABS: #Eosinphils 0.1 thou/uL (0.0-0.7); #Monocytes 0.8 thou/uL (0.11-0.59); #Neutrophils 5.6 thou/uL (1.40-6.50); %Basophils 0.3 % (0.0-1.0); %Eosinophils 0.8 % (0.0-10.0); %Lymphocytes 13.7 % (21.0-51.0); %Monocytes 10.4 % (0.0-10.0); %Neutrophils 74.4 % (42.0-75.0); Hemoglobin 9.1 g/dL (12.0-16.0); Mean Corpuscular HGB CONC 30.3 g/dL (32.0-36.0); Mean Corpuscular Hemoglobin 27.1 pg (27.0-31.0); Mean Corpuscular Volume 89.3 fl (78.0-98.0); Mean Platelet Volume 9.7 fL (7.4-10.4); Platelet Count 255 10x3/uL (130-400); RBC Distribution Width 14.9 % (11.5-14.5); Red Blood Cell (RBC) Count 3.36 mill/uL (4.20-5.40); White Blood Cell (WBC) Count 7.6 10x3/uL (4.8-10.8)
[2023-04-22] MEDS ORDERED: hydrALAZINE 20 MG/ML VIAL ONE (05:28)
[2023-04-22] MEDS ORDERED: hydrALAZINE 20 MG/ML VIAL SLOW IVP SCH (05:30)
[2023-04-22] MEDS: Furosemide 40 MG/4 ML VIAL SLOW IVP SCH ×2 (05:35→14:50)
[2023-04-22 06:41] LABS: Anion Gap 17 mmol/L (10-20); BUN (Urea Nitrogen) 47 mg/dL (9.8-20.1); Calc. Creatinine Clearance 52 mL/min (70-130); Calcium 9.1 mg/dL (7.8-10.44); Carbon Dioxide 21 mmol/L (23-31); Chloride 101 mmol/L (98-107); Estimated GFR 23; Glucose 322 mg/dL (80-115); Potassium 4.3 mmol/L (3.5-5.1); Sodium 135 mmol/L (136-145)
[2023-04-22 06:52] LABS: PTT Greater than 250.0 sec (22.9-36.1)
[2023-04-22] MEDS: hydrALAZINE 25 MG TAB PO SCH ×3 (08:06→21:14)
[2023-04-22] MEDS: Ezetimibe 10 MG TAB PO SCH (08:06)
[2023-04-22] MEDS: Isosorbide Dinitrate 20 MG TAB PO SCH ×3 (08:06→21:14)
[2023-04-22] MEDS: Amlodipine 5 MG TAB PO SCH ×2 (08:06→21:14)
[2023-04-22] MEDS: Carvedilol 25 MG TAB PO SCH ×2 (08:06→17:43)
[2023-04-22] MEDS: busPIRone HCl 5 MG TAB PO SCH ×3 (10:09→21:14)
[2023-04-22] MEDS: Acetaminophen 325 MG TAB PO PRN (11:35)
[2023-04-22] MEDS: Insulin Regular 300 UNITS/3 ML VIAL SC PRN (17:44)
[2023-04-22] MEDS ORDERED: Insulin Glargine 30 UNITS/0.3 ML VIAL SC SCH (21:00)
[2023-04-22] MEDS: Famotidine 20 MG TAB PO SCH (21:14)
[2023-04-22] MEDS: Gabapentin 300 MG CAP PO SCH (21:14)
[2023-04-23 05:26] LABS: Anion Gap 15 mmol/L (10-20); Calc. Creatinine Clearance 49 mL/min (70-130); Calcium 8.8 mg/dL (7.8-10.44); Carbon Dioxide 23 mmol/L (23-31); Chloride 99 mmol/L (98-107); Estimated GFR 21; Glucose 332 mg/dL (80-115); Potassium 4.5 mmol/L (3.5-5.1); Sodium 132 mmol/L (136-145)
[2023-04-23 05:33] LABS: BUN (Urea Nitrogen) 49 mg/dL (9.8-20.1)
[2023-04-23] MEDS: Insulin Regular 300 UNITS/3 ML VIAL SC PRN ×2 (06:08→12:16)
[2023-04-23] MEDS: Furosemide 40 MG/4 ML VIAL SLOW IVP SCH (06:08)
[2023-04-23 08:13] LABS: #Monocytes 0.7 thou/uL (0.11-0.59); #Neutrophils 4.8 thou/uL (1.40-6.50); %Basophils 0.3 % (0.0-1.0); %Eosinophils 0.5 % (0.0-10.0); %Lymphocytes 16.6 % (21.0-51.0); %Monocytes 10.4 % (0.0-10.0); %Neutrophils 71.9 % (42.0-75.0); Hematocrit 29.9 % (36.0-47.0); Hemoglobin 9.1 g/dL (12.0-16.0); Mean Corpuscular HGB CONC 30.4 g/dL (32.0-36.0); Mean Corpuscular Hemoglobin 26.7 pg (27.0-31.0); Mean Corpuscular Volume 87.7 fl (78.0-98.0); Mean Platelet Volume 9.8 fL (7.4-10.4); Platelet Count 242 10x3/uL (130-400); Red Blood Cell (RBC) Count 3.41 mill/uL (4.20-5.40); White Blood Cell (WBC) Count 6.6 10x3/uL (4.8-10.8)
[2023-04-23 08:55] VITALS: BP 148/66; TEMP 97.8
[2023-04-23] MEDS: Carvedilol 25 MG TAB PO SCH (09:00)
[2023-04-23] MEDS: Isosorbide Dinitrate 20 MG TAB PO SCH (09:00)
[2023-04-23] MEDS: busPIRone HCl 5 MG TAB PO SCH (09:00)
[2023-04-23] MEDS: Amlodipine 5 MG TAB PO SCH (09:00)
[2023-04-23] MEDS: hydrALAZINE 25 MG TAB PO SCH (09:00)
[2023-04-23] MEDS ORDERED: Furosemide 40 MG/4 ML VIAL SLOW IVP SCH (09:00)
[2023-04-23] MEDS: Ezetimibe 10 MG TAB PO SCH (09:00)
[2023-04-23] MEDS ORDERED: Insulin Glargine 30 UNITS/0.3 ML VIAL SC SCH (09:00)
== END 2023-04-23 13:03 | disposition home or self-care (01) | DRG 305 ==
LOC: ERS 11:45 → CCU 15:05 → 2NO 04-22 17:23
PROVIDERS: ADMIT Student in an Organized Health Care Education/Training Program; ATTEND Internal Medicine
DX: I16.1 Hypertensive emergency (principal); I50.32 Chronic diastolic (congestive) heart failure; Z68.42 Body mass index [BMI] 45.0-49.9, adult; N17.9 Acute kidney failure, unspecified; I13.0 Hypertensive heart and chronic kidney disease with heart failure and stage 1 through stage 4 chronic kidney disease, or unspecified chronic kidney disease; F41.9 Anxiety disorder, unspecified; E66.01 Morbid (severe) obesity due to excess calories; J44.9 Chronic obstructive pulmonary disease, unspecified; N18.30 Chronic kidney disease, stage 3 unspecified; E11.22 Type 2 diabetes mellitus with diabetic chronic kidney disease; D63.1 Anemia in chronic kidney disease; E78.5 Hyperlipidemia, unspecified; I25.10 Atherosclerotic heart disease of native coronary artery without angina pectoris; Z87.891 Personal history of nicotine dependence; Z95.5 Presence of coronary angioplasty implant and graft; Z98.890 Other specified postprocedural states; Z88.8 Allergy status to other drugs, medicaments and biological substances; Z79.82 Long term (current) use of aspirin; Z79.899 Other long term (current) drug therapy; Z79.4 Long term (current) use of insulin; Z95.1 Presence of aortocoronary bypass graft; Z90.710 Acquired absence of both cervix and uterus; I25.2 Old myocardial infarction
CPT/HCPCS: 36415; 36416; 71045; 78451; 80048; 80053; 81001; 82805; 83690; 83735; 83880; 84484; 85025; 85379; 85730; 93005; 93010; 93306; 93970; 94760; 96365; 96366; 96375; A9540; J0360; J1644; J1815; J1940; J2405; J7050; J7620; Q0162

== ENCOUNTER 2023-04-27 13:39 | Inpatient (IN) | payer MEDICARE ==
[2023-04-27 14:48] LABS: Albumin 3.3 g/dL (3.4-4.8); Alkaline Phosphatase 83 U/L (40-110); Anion Gap 17 mmol/L (10-20); Bilirubin, Total 0.4 mg/dL (0.2-1.2); Calc. Creatinine Clearance 0 mL/min (70-130); Calcium 9.6 mg/dL (7.8-10.44); Carbon Dioxide 26 mmol/L (23-31); Chloride 96 mmol/L (98-107); Estimated GFR 22; Globulin 3.3 g/dL (2.4-3.5); Protein, Total 6.6 g/dL (5.8-8.1); Sodium 135 mmol/L (136-145)
[2023-04-27 14:49] LABS: BUN (Urea Nitrogen) 38 mg/dL (9.8-20.1)
[2023-04-27 14:50] LABS: AST (SGOT) 19 U/L (5-34); Magnesium 1.9 mg/dL (1.6-2.6)
[2023-04-27 14:51] LABS: ALT (SGPT) 17 U/L (8-55); Lipase 26 U/L (8-78)
[2023-04-27 14:53] LABS: Troponin I 0.075 ng/mL (< 0.028)
[2023-04-27 15:01] LABS: Glucose 424 mg/dL (80-115)
[2023-04-27] MEDS ORDERED: Furosemide 40 MG/4 ML VIAL ONE (15:38)
[2023-04-27 15:50] LABS: #Eosinphils 0.1 thou/uL (0.0-0.7); #Monocytes 0.6 thou/uL (0.11-0.59); #Neutrophils 7.3 thou/uL (1.40-6.50); %Basophils 0.1 % (0.0-1.0); %Eosinophils 0.9 % (0.0-10.0); %Lymphocytes 10.5 % (21.0-51.0); %Monocytes 7.1 % (0.0-10.0); %Neutrophils 80.8 % (42.0-75.0); Hematocrit 31.1 % (36.0-47.0); Hemoglobin 9.7 g/dL (12.0-16.0); Mean Corpuscular HGB CONC 31.2 g/dL (32.0-36.0); Mean Corpuscular Hemoglobin 26.4 pg (27.0-31.0); Mean Corpuscular Volume 84.7 fl (78.0-98.0); Mean Platelet Volume 9.7 fL (7.4-10.4); Platelet Count 247 10x3/uL (130-400); RBC Distribution Width 14.6 % (11.5-14.5); Red Blood Cell (RBC) Count 3.67 mill/uL (4.20-5.40)
[2023-04-27 16:36] LABS: SARS-CoV-2 NAA Rapid Test Not Detected (NotDetected)
[2023-04-27] MEDS ORDERED: Ondansetron PF 4 MG/2 ML Vial ONE (17:02)
[2023-04-27 17:53] LABS: Troponin I 0.065 ng/mL (< 0.028)
[2023-04-27] MEDS ORDERED: Ondansetron ODT 4 MG TAB PO PRN (18:05)
[2023-04-27] MEDS ORDERED: Ondansetron PF 4 MG/2 ML Vial IVP PRN (18:05)
[2023-04-27] MEDS ORDERED: Dextrose 50% Abboject 50 ML SYRINGE SLOW IVP PRN (18:25)
[2023-04-27] MEDS ORDERED: Dextrose 5% in Water 1,000 ML IV PRN (18:25)
[2023-04-27] MEDS ORDERED: Glucagon 1 MG/ML KIT IM PRN (18:25)
[2023-04-27] MEDS ORDERED: HumaLOG 300 UNITS/3 ML VIAL SC PRN (18:25)
[2023-04-27] MEDS ORDERED: hydrALAZINE 20 MG/ML VIAL SLOW IVP PRN (19:23)
[2023-04-27] MEDS ORDERED: HumaLOG 300 UNITS/3 ML VIAL SC SCH (19:45)
[2023-04-27] MEDS ORDERED: hydrALAZINE 20 MG/ML VIAL SLOW IVP SCH (19:45)
[2023-04-27] MEDS ORDERED: Furosemide 40 MG/4 ML VIAL SLOW IVP SCH (19:45)
[2023-04-27] MEDS: hydrALAZINE 25 MG TAB PO SCH (21:20)
[2023-04-27] MEDS: Amlodipine 5 MG TAB PO SCH (21:30)
[2023-04-27 21:36] LABS: Troponin I 0.079 ng/mL (< 0.028)
[2023-04-27 23:29] LABS: Troponin I 0.071 ng/mL (< 0.028)
[2023-04-28] MEDS ORDERED: Gabapentin 300 MG CAP PO SCH ×2 (01:45→21:00)
[2023-04-28] MEDS: Furosemide 40 MG/4 ML VIAL SLOW IVP SCH ×2 (05:34→15:26)
[2023-04-28] MEDS: HumaLOG 300 UNITS/3 ML VIAL SC PRN ×3 (05:44→16:47)
[2023-04-28] MEDS: Acetaminophen 325 MG TAB PO PRN ×2 (06:24→11:47)
[2023-04-28] MEDS ORDERED: hydrALAZINE 20 MG/ML VIAL SLOW IVP PRN (08:04)
[2023-04-28] MEDS ORDERED: HumuLIN 70/30 (300 UNITS/3 ML VIAL) SC SCH (09:00)
[2023-04-28] MEDS ORDERED: Amlodipine 5 MG TAB PO SCH (09:00)
[2023-04-28] MEDS: hydrALAZINE 25 MG TAB PO SCH ×3 (10:32→21:31)
[2023-04-28] MEDS: Amlodipine 5 MG TAB PO SCH ×2 (10:33→21:31)
[2023-04-28] MEDS: Isosorbide Dinitrate 20 MG TAB PO SCH ×3 (10:33→21:31)
[2023-04-28] MEDS: Carvedilol 25 MG TAB PO SCH ×2 (10:34→21:32)
[2023-04-28] MEDS: Clopidogrel Bisulfate 75 MG TAB PO SCH (10:34)
[2023-04-28] MEDS: Aspirin 81 mg Enteric Coated Tablet PO SCH (10:34)
[2023-04-28] MEDS: HumuLIN 70/30 100 Unit/ ml 10 ml Vial SC SCH ×3 (10:35→21:35)
[2023-04-28] MEDS: Heparin 5,000 UNITS/ML VIAL SC SCH ×3 (10:40→21:32)
[2023-04-28] MEDS: Lorazepam 0.5 MG TAB PO PRN ×2 (10:48→17:46)
[2023-04-28 12:39] LABS: #Eosinphils 0.1 thou/uL (0.0-0.7); #Monocytes 0.5 thou/uL (0.11-0.59); #Neutrophils 5.3 thou/uL (1.40-6.50); %Basophils 0.1 % (0.0-1.0); %Eosinophils 0.7 % (0.0-10.0); %Lymphocytes 13.8 % (21.0-51.0); %Monocytes 7.3 % (0.0-10.0); %Neutrophils 77.8 % (42.0-75.0); Hematocrit 28.2 % (36.0-47.0); Hemoglobin 8.6 g/dL (12.0-16.0); Mean Corpuscular HGB CONC 30.5 g/dL (32.0-36.0); Mean Corpuscular Hemoglobin 26.2 pg (27.0-31.0); Mean Platelet Volume 9.7 fL (7.4-10.4); Platelet Count 238 10x3/uL (130-400); RBC Distribution Width 14.7 % (11.5-14.5); Red Blood Cell (RBC) Count 3.28 mill/uL (4.20-5.40); White Blood Cell (WBC) Count 6.9 10x3/uL (4.8-10.8)
[2023-04-28 13:22] LABS: Anion Gap 11 mmol/L (10-20); BUN (Urea Nitrogen) 36 mg/dL (9.8-20.1); Calc. Creatinine Clearance 0 mL/min (70-130); Carbon Dioxide 26 mmol/L (23-31); Chloride 98 mmol/L (98-107); Estimated GFR 21; Magnesium 1.9 mg/dL (1.6-2.6); Potassium 4.3 mmol/L (3.5-5.1); Sodium 131 mmol/L (136-145)
[2023-04-28 13:37] LABS: Glucose 415 mg/dL (80-115)
[2023-04-28] MEDS: HYDROcodone/Acetaminophen 5/325 mg Tablet PO PRN ×2 (17:36→22:24)
[2023-04-28] MEDS ORDERED: Ezetimibe 10 MG TAB PO SCH (21:00)
[2023-04-29] MEDS: Lorazepam 0.5 MG TAB PO PRN (00:19)
[2023-04-29] MEDS ORDERED: HumaLOG 300 UNITS/3 ML VIAL SC PRN (00:55)
[2023-04-29] MEDS: Furosemide 40 MG/4 ML VIAL SLOW IVP SCH (06:42)
[2023-04-29] MEDS: HumaLOG 300 UNITS/3 ML VIAL SC PRN (06:43)
[2023-04-29 06:48] VITALS: TEMP 98.4
[2023-04-29 08:37] VITALS: BP 119/85
[2023-04-29] MEDS: Heparin 5,000 UNITS/ML VIAL SC SCH (08:44)
[2023-04-29] MEDS: Carvedilol 25 MG TAB PO SCH (08:44)
[2023-04-29] MEDS: Amlodipine 5 MG TAB PO SCH (08:45)
[2023-04-29] MEDS: hydrALAZINE 25 MG TAB PO SCH (08:45)
[2023-04-29] MEDS: Clopidogrel Bisulfate 75 MG TAB PO SCH (08:45)
[2023-04-29] MEDS: Aspirin 81 mg Enteric Coated Tablet PO SCH (08:45)
== END 2023-04-29 10:10 | disposition home or self-care (01) | DRG 280 ==
LOC: ERS 13:39 → 2NO 17:22 → OBSVTOIN 04-28 11:37
PROVIDERS: ADMIT Family Medicine; ATTEND Internal Medicine
DX: I13.0 Hypertensive heart and chronic kidney disease with heart failure and stage 1 through stage 4 chronic kidney disease, or unspecified chronic kidney disease (principal); I50.33 Acute on chronic diastolic (congestive) heart failure; I21.A1 Myocardial infarction type 2; N18.4 Chronic kidney disease, stage 4 (severe); I16.0 Hypertensive urgency; J44.9 Chronic obstructive pulmonary disease, unspecified; E11.22 Type 2 diabetes mellitus with diabetic chronic kidney disease; D63.1 Anemia in chronic kidney disease; Z91.199 Patient's noncompliance with other medical treatment and regimen due to unspecified reason; Z20.822 Contact with and (suspected) exposure to COVID-19; I25.10 Atherosclerotic heart disease of native coronary artery without angina pectoris; Z79.899 Other long term (current) drug therapy; Z79.82 Long term (current) use of aspirin; Z88.8 Allergy status to other drugs, medicaments and biological substances; Z90.710 Acquired absence of both cervix and uterus
CPT/HCPCS: 36415; 36416; 71045; 80048; 80053; 83690; 83735; 83880; 84443; 84484; 85025; 93005; 93010; 94760; 96374; 96375; 97139; J0360; J1644; J1815; J1940; J2405; U0002

== ENCOUNTER 2023-04-30 13:43 | Inpatient (IN) | payer MEDICARE ==
[2023-04-30] MEDS ORDERED: Aspirin Chewable 81 MG TAB ONE (14:14)
[2023-04-30] MEDS ORDERED: Nitroglycerin 0.4 MG TAB 1 EACH ONE ×2 (14:14→14:17)
[2023-04-30 14:23] LABS: #Monocytes 0.7 thou/uL (0.11-0.59); #Neutrophils 5.8 thou/uL (1.40-6.50); %Basophils 0.1 % (0.0-1.0); %Eosinophils 0.5 % (0.0-10.0); %Lymphocytes 12.8 % (21.0-51.0); %Monocytes 9.1 % (0.0-10.0); %Neutrophils 77.1 % (42.0-75.0); Hematocrit 29.8 % (36.0-47.0); Hemoglobin 9.3 g/dL (12.0-16.0); Mean Corpuscular HGB CONC 31.2 g/dL (32.0-36.0); Mean Corpuscular Hemoglobin 26.6 pg (27.0-31.0); Mean Corpuscular Volume 85.1 fl (78.0-98.0); Mean Platelet Volume 9.9 fL (7.4-10.4); Platelet Count 257 10x3/uL (130-400); RBC Distribution Width 14.9 % (11.5-14.5); White Blood Cell (WBC) Count 7.5 10x3/uL (4.8-10.8)
[2023-04-30 14:48] LABS: ALT (SGPT) 20 U/L (8-55); AST (SGOT) 37 U/L (5-34); Albumin 3.5 g/dL (3.4-4.8); Alkaline Phosphatase 90 U/L (40-110); Anion Gap 18 mmol/L (10-20); BUN (Urea Nitrogen) 40 mg/dL (9.8-20.1); Bilirubin, Total 0.4 mg/dL (0.2-1.2); Calc. Creatinine Clearance 0 mL/min (70-130); Calcium 9.6 mg/dL (7.8-10.44); Carbon Dioxide 25 mmol/L (23-31); Chloride 94 mmol/L (98-107); Estimated GFR 20; Globulin 3.2 g/dL (2.4-3.5); Potassium 4.7 mmol/L (3.5-5.1); Protein, Total 6.7 g/dL (5.8-8.1); Sodium 132 mmol/L (136-145)
[2023-04-30 14:56] LABS: Glucose 517 mg/dL (80-115)
[2023-04-30] MEDS ORDERED: Furosemide 40 MG/4 ML VIAL ONE (15:25)
[2023-04-30] MEDS ORDERED: Dextrose 50% Abboject 50 ML SYRINGE SLOW IVP PRN (16:49)
[2023-04-30] MEDS ORDERED: Glucagon 1 MG/ML KIT IM PRN (16:49)
[2023-04-30] MEDS ORDERED: Dextrose 5% in Water 1,000 ML IV PRN (16:49)
[2023-04-30] MEDS ORDERED: Ondansetron ODT 4 MG TAB PO PRN (16:49)
[2023-04-30] MEDS ORDERED: Acetaminophen 325 MG TAB PO PRN (16:49)
[2023-04-30 17:42] LABS: Magnesium 2.3 mg/dL (1.6-2.6)
[2023-04-30 17:47] LABS: Troponin I 0.078 ng/mL (< 0.028)
[2023-04-30 18:17] VITALS: BMI 52.7
[2023-04-30] MEDS: Carvedilol 25 MG TAB PO SCH (18:23)
[2023-04-30] MEDS: hydrALAZINE 25 MG TAB PO SCH (18:24)
[2023-04-30] MEDS: Isosorbide Dinitrate 20 MG TAB PO SCH (18:24)
[2023-04-30] MEDS: Insulin Regular 300 UNITS/3 ML VIAL SC PRN (18:25)
[2023-04-30] MEDS: traMADol HCl 50 MG TAB PO PRN (20:35)
[2023-05-01 01:24] LABS: Troponin I 0.084 ng/mL (< 0.028)
[2023-05-01 04:47] LABS: ALT (SGPT) 17 U/L (8-55); AST (SGOT) 26 U/L (5-34); Albumin 3.2 g/dL (3.4-4.8); Alkaline Phosphatase 75 U/L (40-110); Anion Gap 12 mmol/L (10-20); BUN (Urea Nitrogen) 39 mg/dL (9.8-20.1); Bilirubin, Total 0.3 mg/dL (0.2-1.2); Calc. Creatinine Clearance 51 mL/min (70-130); Calcium 9.5 mg/dL (7.8-10.44); Carbon Dioxide 32 mmol/L (23-31); Chloride 97 mmol/L (98-107); Estimated GFR 23; Globulin 3.2 g/dL (2.4-3.5); Potassium 3.7 mmol/L (3.5-5.1); Protein, Total 6.4 g/dL (5.8-8.1); Sodium 137 mmol/L (136-145)
[2023-05-01 05:03] LABS: Glucose 53 mg/dL (80-115)
[2023-05-01] MEDS: Furosemide 40 MG/4 ML VIAL SLOW IVP SCH ×2 (06:24→13:05)
[2023-05-01] MEDS: Aspirin 81 mg Enteric Coated Tablet PO SCH (08:25)
[2023-05-01] MEDS: hydrALAZINE 25 MG TAB PO SCH ×3 (08:26→20:26)
[2023-05-01] MEDS: Isosorbide Dinitrate 20 MG TAB PO SCH ×3 (08:26→20:26)
[2023-05-01] MEDS: Carvedilol 25 MG TAB PO SCH ×2 (08:26→20:26)
[2023-05-01] MEDS: HumuLIN 70/30 100 Unit/ ml 10 ml Vial SC SCH ×3 (09:02→17:50)
[2023-05-01] MEDS: Insulin Regular 300 UNITS/3 ML VIAL SC PRN ×2 (12:58→17:50)
[2023-05-02] MEDS: Furosemide 40 MG/4 ML VIAL SLOW IVP SCH ×2 (05:31→15:33)
[2023-05-02] MEDS: Carvedilol 25 MG TAB PO SCH ×2 (09:14→21:16)
[2023-05-02] MEDS: Isosorbide Dinitrate 20 MG TAB PO SCH ×3 (09:14→21:16)
[2023-05-02] MEDS: Insulin Regular 300 UNITS/3 ML VIAL SC PRN (09:14)
[2023-05-02] MEDS: hydrALAZINE 25 MG TAB PO SCH ×3 (09:14→21:16)
[2023-05-02] MEDS: Aspirin 81 mg Enteric Coated Tablet PO SCH (09:14)
[2023-05-02] MEDS: HumuLIN 70/30 100 Unit/ ml 10 ml Vial SC SCH ×2 (10:48→12:02)
[2023-05-02] MEDS ORDERED: HumuLIN 70/30 100 Unit/ ml 10 ml Vial SC SCH (16:30)
[2023-05-02] MEDS ORDERED: HumaLOG 300 UNITS/3 ML VIAL SC PRN (17:05)
[2023-05-02] MEDS: traMADol HCl 50 MG TAB PO PRN (22:28)
[2023-05-02] MEDS ORDERED: Artificial Tear Sol 15 ML BOT EA EYE PRN (22:48)
[2023-05-03] MEDS: Furosemide 40 MG/4 ML VIAL SLOW IVP SCH (05:49)
[2023-05-03] MEDS: Carvedilol 25 MG TAB PO SCH (09:12)
[2023-05-03] MEDS: Aspirin 81 mg Enteric Coated Tablet PO SCH (09:12)
[2023-05-03] MEDS: Isosorbide Dinitrate 20 MG TAB PO SCH (09:12)
[2023-05-03] MEDS: hydrALAZINE 25 MG TAB PO SCH (09:12)
[2023-05-03 10:34] LABS: Hematocrit 29.2 % (36.0-47.0); Hemoglobin 8.8 g/dL (12.0-16.0); Mean Corpuscular HGB CONC 30.1 g/dL (32.0-36.0); Mean Corpuscular Hemoglobin 26.2 pg (27.0-31.0); Mean Corpuscular Volume 86.9 fl (78.0-98.0); Mean Platelet Volume 9.8 fL (7.4-10.4); Platelet Count 262 10x3/uL (130-400); RBC Distribution Width 14.9 % (11.5-14.5); Red Blood Cell (RBC) Count 3.36 mill/uL (4.20-5.40); White Blood Cell (WBC) Count 6.2 10x3/uL (4.8-10.8)
[2023-05-03] MEDS ORDERED: Ciprofloxacin 0.3% Ophth Soln 2.5 ml Bottle EA EYE SCH (10:41)
[2023-05-03 10:52] VITALS: BP 148/68; TEMP 97.9
[2023-05-03 10:54] LABS: Anion Gap 14 mmol/L (10-20); BUN (Urea Nitrogen) 47 mg/dL (9.8-20.1); Calc. Creatinine Clearance 46 mL/min (70-130); Calcium 9.1 mg/dL (7.8-10.44); Carbon Dioxide 27 mmol/L (23-31); Chloride 96 mmol/L (98-107); Estimated GFR 21; Glucose 274 mg/dL (80-115); Sodium 133 mmol/L (136-145)
== END 2023-05-03 12:07 | disposition home or self-care (01) | DRG 291 ==
LOC: ERS 13:43 → 2NO 16:25 → OBSVTOIN 05-01 14:13
PROVIDERS: ADMIT Internal Medicine; ATTEND Family Medicine
DX: I13.0 Hypertensive heart and chronic kidney disease with heart failure and stage 1 through stage 4 chronic kidney disease, or unspecified chronic kidney disease (principal); I50.43 Acute on chronic combined systolic (congestive) and diastolic (congestive) heart failure; N18.4 Chronic kidney disease, stage 4 (severe); Z68.43 Body mass index [BMI] 50.0-59.9, adult; I16.0 Hypertensive urgency; E11.22 Type 2 diabetes mellitus with diabetic chronic kidney disease; D63.1 Anemia in chronic kidney disease; J44.9 Chronic obstructive pulmonary disease, unspecified; E66.01 Morbid (severe) obesity due to excess calories; E78.5 Hyperlipidemia, unspecified; I25.10 Atherosclerotic heart disease of native coronary artery without angina pectoris; E11.65 Type 2 diabetes mellitus with hyperglycemia; E11.649 Type 2 diabetes mellitus with hypoglycemia without coma; Z91.199 Patient's noncompliance with other medical treatment and regimen due to unspecified reason; Z88.8 Allergy status to other drugs, medicaments and biological substances; Z79.82 Long term (current) use of aspirin; Z79.4 Long term (current) use of insulin; Z79.899 Other long term (current) drug therapy; Z95.1 Presence of aortocoronary bypass graft; Z90.710 Acquired absence of both cervix and uterus; Z95.5 Presence of coronary angioplasty implant and graft; Z98.890 Other specified postprocedural states; I25.2 Old myocardial infarction; Z87.891 Personal history of nicotine dependence
CPT/HCPCS: 36415; 36416; 71045; 80048; 80053; 83735; 83880; 84484; 85025; 85027; 85379; 93005; 96374; 96376; G0378; J1815; J1940

== ENCOUNTER 2023-05-10 22:57 | Inpatient (IN) | payer MEDICARE ==
[2023-05-11] MEDS ORDERED: Labetalol HCl 100 MG/20 ML VIAL ONE (01:28)
[2023-05-11 01:48] LABS: ALT (SGPT) 14 U/L (8-55); AST (SGOT) 19 U/L (5-34); Albumin 3.4 g/dL (3.4-4.8); Alkaline Phosphatase 83 U/L (40-110); Anion Gap 15 mmol/L (10-20); BUN (Urea Nitrogen) 39 mg/dL (9.8-20.1); Bilirubin, Total 0.2 mg/dL (0.2-1.2); Calc. Creatinine Clearance 0 mL/min (70-130); Calcium 9.3 mg/dL (7.8-10.44); Carbon Dioxide 25 mmol/L (23-31); Chloride 98 mmol/L (98-107); Estimated GFR 20; Globulin 3.2 g/dL (2.4-3.5); Potassium 4.2 mmol/L (3.5-5.1); Protein, Total 6.6 g/dL (5.8-8.1); Sodium 134 mmol/L (136-145)
[2023-05-11 01:50] LABS: Glucose 604 mg/dL (80-115)
[2023-05-11 01:51] LABS: Troponin I 0.054 ng/mL (< 0.028)
[2023-05-11 02:20] LABS: #Monocytes 0.5 thou/uL (0.11-0.59); %Basophils 0.2 % (0.0-1.0); %Eosinophils 0.1 % (0.0-10.0); %Lymphocytes 6.7 % (21.0-51.0); %Monocytes 5.5 % (0.0-10.0); %Neutrophils 87.3 % (42.0-75.0); Hematocrit 32.4 % (36.0-47.0); Hemoglobin 9.7 g/dL (12.0-16.0); Mean Corpuscular HGB CONC 29.9 g/dL (32.0-36.0); Mean Corpuscular Hemoglobin 25.7 pg (27.0-31.0); Mean Corpuscular Volume 85.9 fl (78.0-98.0); Mean Platelet Volume 9.6 fL (7.4-10.4); Platelet Count 308 10x3/uL (130-400); RBC Distribution Width 15.1 % (11.5-14.5); Red Blood Cell (RBC) Count 3.77 mill/uL (4.20-5.40); White Blood Cell (WBC) Count 9.2 10x3/uL (4.8-10.8)
[2023-05-11] MEDS ORDERED: Furosemide 40 MG/4 ML VIAL ONE (02:34)
[2023-05-11] MEDS ORDERED: Aspirin 325 MG TAB ONE (02:34)
[2023-05-11] MEDS ORDERED: Nitroglycerin 2% Ointment 1 INCH/1 GM Packet ONE (02:34)
[2023-05-11] MEDS ORDERED: Glucagon 1 MG/ML KIT IM PRN (02:38)
[2023-05-11] MEDS ORDERED: Dextrose 50% Abboject 50 ML SYRINGE SLOW IVP PRN (02:38)
[2023-05-11] MEDS ORDERED: Dextrose 5% in Water 1,000 ML IV PRN (02:38)
[2023-05-11] MEDS ORDERED: HumaLOG 300 UNITS/3 ML VIAL SC PRN ×4 (02:38→05:32)
[2023-05-11] MEDS ORDERED: Senokot S 8.6-50 MG TAB PO PRN (02:39)
[2023-05-11] MEDS ORDERED: Ondansetron ODT 4 MG TAB PO PRN (02:39)
[2023-05-11] MEDS ORDERED: Acetaminophen 325 MG TAB PO PRN (02:39)
[2023-05-11 05:24] VITALS: BMI 53.6
[2023-05-11] MEDS: niCARdipine 25 MG in Sodium Chloride 0.9% 250 ML 250 ML IVPB SCH ×2 (05:41→08:03)
[2023-05-11 05:49] LABS: #Monocytes 0.7 thou/uL (0.11-0.59); #Neutrophils 7.4 thou/uL (1.40-6.50); %Basophils 0.2 % (0.0-1.0); %Eosinophils 0.2 % (0.0-10.0); %Lymphocytes 10.4 % (21.0-51.0); %Monocytes 7.5 % (0.0-10.0); %Neutrophils 81.2 % (42.0-75.0); Hematocrit 31.7 % (36.0-47.0); Hemoglobin 9.6 g/dL (12.0-16.0); Mean Corpuscular HGB CONC 30.3 g/dL (32.0-36.0); Mean Corpuscular Hemoglobin 26.1 pg (27.0-31.0); Mean Corpuscular Volume 86.1 fl (78.0-98.0); Mean Platelet Volume 9.7 fL (7.4-10.4); Platelet Count 306 10x3/uL (130-400); Red Blood Cell (RBC) Count 3.68 mill/uL (4.20-5.40); White Blood Cell (WBC) Count 9.2 10x3/uL (4.8-10.8)
[2023-05-11] MEDS ORDERED: Furosemide 40 MG/4 ML VIAL SLOW IVP SCH (06:00)
[2023-05-11 06:09] LABS: Anion Gap 17 mmol/L (10-20); BUN (Urea Nitrogen) 38 mg/dL (9.8-20.1); Calc. Creatinine Clearance 51 mL/min (70-130); Calcium 9.4 mg/dL (7.8-10.44); Carbon Dioxide 21 mmol/L (23-31); Chloride 98 mmol/L (98-107); Estimated GFR 22; Sodium 132 mmol/L (136-145)
[2023-05-11 06:16] LABS: Troponin I 0.092 ng/mL (< 0.028)
[2023-05-11 06:17] LABS: Glucose 550 mg/dL (80-115)
[2023-05-11 07:57] VITALS: BP 167/82
[2023-05-11] MEDS ORDERED: Carvedilol 25 MG TAB PO SCH (08:00)
[2023-05-11 08:37] VITALS: TEMP 97.8
[2023-05-11] MEDS ORDERED: HumuLIN 70/30 (300 UNITS/3 ML VIAL) SC SCH (09:00)
[2023-05-11] MEDS ORDERED: hydrALAZINE 25 MG TAB PO SCH (09:00)
[2023-05-11] MEDS ORDERED: Isosorbide Dinitrate 20 MG TAB PO SCH (09:00)
[2023-05-11] MEDS ORDERED: Amlodipine 5 MG TAB PO SCH (09:00)
[2023-05-11] MEDS ORDERED: Furosemide 40 MG TAB PO SCH (09:00)
[2023-05-11 09:31] LABS: Troponin I 0.133 ng/mL (< 0.028)
[2023-05-11] MEDS ORDERED: Gabapentin 300 MG CAP PO SCH (21:00)
[2023-05-11] MEDS ORDERED: Ezetimibe 10 MG TAB PO SCH (21:00)
== END 2023-05-11 09:14 | disposition left against medical advice (07) | DRG 291 ==
LOC: ERS 22:57 → CCU 05-11 02:41
PROVIDERS: ADMIT Student in an Organized Health Care Education/Training Program; ATTEND Student in an Organized Health Care Education/Training Program
DX: I13.0 Hypertensive heart and chronic kidney disease with heart failure and stage 1 through stage 4 chronic kidney disease, or unspecified chronic kidney disease (principal); I50.33 Acute on chronic diastolic (congestive) heart failure; J96.20 Acute and chronic respiratory failure, unspecified whether with hypoxia or hypercapnia; I16.1 Hypertensive emergency; N18.4 Chronic kidney disease, stage 4 (severe); E11.65 Type 2 diabetes mellitus with hyperglycemia; E66.01 Morbid (severe) obesity due to excess calories; J44.9 Chronic obstructive pulmonary disease, unspecified; E78.5 Hyperlipidemia, unspecified; I25.10 Atherosclerotic heart disease of native coronary artery without angina pectoris; D63.1 Anemia in chronic kidney disease; E11.22 Type 2 diabetes mellitus with diabetic chronic kidney disease; Z88.8 Allergy status to other drugs, medicaments and biological substances; Z79.82 Long term (current) use of aspirin; Z79.02 Long term (current) use of antithrombotics/antiplatelets; Z79.4 Long term (current) use of insulin; Z79.899 Other long term (current) drug therapy; Z87.891 Personal history of nicotine dependence; Z95.1 Presence of aortocoronary bypass graft; Z95.5 Presence of coronary angioplasty implant and graft; Z90.710 Acquired absence of both cervix and uterus; I25.2 Old myocardial infarction
CPT/HCPCS: 36415; 36416; 71045; 80053; 83880; 84484; 85025; 93005; 94760; J1815; J1940; J7050

== ENCOUNTER 2023-05-13 15:38 | Inpatient (IN) | payer MEDICARE ==
[2023-05-13] MEDS ORDERED: Nitroglycerin 0.4 MG TAB 1 EACH ONE (16:50)
[2023-05-13 17:10] LABS: #Eosinphils 0.1 thou/uL (0.0-0.7); #Monocytes 0.8 thou/uL (0.11-0.59); #Neutrophils 5.8 thou/uL (1.40-6.50); %Basophils 0.1 % (0.0-1.0); %Eosinophils 0.9 % (0.0-10.0); %Lymphocytes 14.6 % (21.0-51.0); %Monocytes 9.7 % (0.0-10.0); %Neutrophils 74.2 % (42.0-75.0); Hematocrit 28.6 % (36.0-47.0); Hemoglobin 8.9 g/dL (12.0-16.0); Mean Corpuscular HGB CONC 31.1 g/dL (32.0-36.0); Mean Corpuscular Hemoglobin 26.3 pg (27.0-31.0); Mean Corpuscular Volume 84.4 fl (78.0-98.0); Mean Platelet Volume 9.4 fL (7.4-10.4); Platelet Count 283 10x3/uL (130-400); RBC Distribution Width 15.2 % (11.5-14.5); Red Blood Cell (RBC) Count 3.39 mill/uL (4.20-5.40); White Blood Cell (WBC) Count 7.9 10x3/uL (4.8-10.8)
[2023-05-13 17:34] LABS: ALT (SGPT) 15 U/L (8-55); AST (SGOT) 17 U/L (5-34); Albumin 3.4 g/dL (3.4-4.8); Alkaline Phosphatase 78 U/L (40-110); Anion Gap 12 mmol/L (10-20); BUN (Urea Nitrogen) 44 mg/dL (9.8-20.1); Bilirubin, Total 0.2 mg/dL (0.2-1.2); Calc. Creatinine Clearance 0 mL/min (70-130); Calcium 9.4 mg/dL (7.8-10.44); Carbon Dioxide 28 mmol/L (23-31); Chloride 102 mmol/L (98-107); Estimated GFR 23; Globulin 3.2 g/dL (2.4-3.5); Glucose 284 mg/dL (80-115); Potassium 3.7 mmol/L (3.5-5.1); Protein, Total 6.6 g/dL (5.8-8.1); Sodium 138 mmol/L (136-145)
[2023-05-13 17:38] LABS: Troponin I 0.093 ng/mL (< 0.028)
[2023-05-13] MEDS ORDERED: Furosemide 40 MG/4 ML VIAL ONE (19:27)
[2023-05-13] MEDS ORDERED: Ondansetron PF 4 MG/2 ML Vial IVP PRN (20:01)
[2023-05-13] MEDS ORDERED: Senokot S 8.6-50 MG TAB PO PRN (20:01)
[2023-05-13] MEDS ORDERED: Ondansetron ODT 4 MG TAB PO PRN (20:01)
[2023-05-13] MEDS ORDERED: Acetaminophen 325 MG TAB PO PRN (20:01)
[2023-05-13] MEDS ORDERED: Bisacodyl 5 MG TAB PO PRN (20:01)
[2023-05-13] MEDS ORDERED: Famotidine 20 MG TAB PO SCH (21:00)
[2023-05-13] MEDS: Heparin 5,000 UNITS/ML VIAL SC SCH (21:31)
[2023-05-13] MEDS ORDERED: Dextrose 5% in Water 1,000 ML IV PRN (21:57)
[2023-05-13] MEDS ORDERED: Glucagon 1 MG/ML KIT IM PRN (21:57)
[2023-05-13] MEDS ORDERED: Dextrose 50% Abboject 50 ML SYRINGE SLOW IVP PRN (21:57)
[2023-05-13] MEDS ORDERED: HumaLOG 300 UNITS/3 ML VIAL SC PRN ×2 (21:57)
[2023-05-13] MEDS ORDERED: Carvedilol 25 MG TAB PO SCH (22:00)
[2023-05-13] MEDS ORDERED: hydrALAZINE 25 MG TAB PO SCH (22:00)
[2023-05-13 22:02] VITALS: BMI 52.7
[2023-05-13] MEDS ORDERED: Ipratropium/Albuterol 3 ML NEB NEB PRN (22:25)
[2023-05-14] MEDS ORDERED: hydrALAZINE 20 MG/ML VIAL SLOW IVP SCH (00:15)
[2023-05-14] MEDS ORDERED: Amlodipine 5 MG TAB PO SCH ×2 (00:15→09:00)
[2023-05-14] MEDS ORDERED: Nitroglycerin 0.4 MG TAB (25 Tab Bottle) SL PRN (02:31)
[2023-05-14 02:51] LABS: #Monocytes 0.6 thou/uL (0.11-0.59); #Neutrophils 5.2 thou/uL (1.40-6.50); %Basophils 0.3 % (0.0-1.0); %Eosinophils 0.4 % (0.0-10.0); %Lymphocytes 12.4 % (21.0-51.0); %Monocytes 9.1 % (0.0-10.0); %Neutrophils 77.4 % (42.0-75.0); Hemoglobin 8.6 g/dL (12.0-16.0); Mean Corpuscular HGB CONC 30.7 g/dL (32.0-36.0); Mean Corpuscular Hemoglobin 26.1 pg (27.0-31.0); Mean Corpuscular Volume 84.8 fl (78.0-98.0); Mean Platelet Volume 9.8 fL (7.4-10.4); Platelet Count 267 10x3/uL (130-400); RBC Distribution Width 15.3 % (11.5-14.5); White Blood Cell (WBC) Count 6.7 10x3/uL (4.8-10.8)
[2023-05-14 03:18] LABS: Troponin I 0.102 ng/mL (< 0.028)
[2023-05-14 03:47] LABS: Calcium 8.9 mg/dL (7.8-10.44); Chloride 100 mmol/L (98-107); Potassium 4.1 mmol/L (3.5-5.1); Sodium 134 mmol/L (136-145)
[2023-05-14 03:48] LABS: Glucose 386 mg/dL (80-115)
[2023-05-14 03:49] LABS: Anion Gap 15 mmol/L (10-20); Carbon Dioxide 23 mmol/L (23-31)
[2023-05-14 03:51] LABS: Calc. Creatinine Clearance 52 mL/min (70-130); Estimated GFR 24
[2023-05-14 03:52] LABS: BUN (Urea Nitrogen) 42 mg/dL (9.8-20.1)
[2023-05-14] MEDS ORDERED: Furosemide 40 MG/4 ML VIAL SLOW IVP SCH (06:00)
[2023-05-14] MEDS ORDERED: Carvedilol 25 MG TAB PO SCH (08:00)
[2023-05-14] MEDS: Heparin 5,000 UNITS/ML VIAL SC SCH (08:32)
[2023-05-14] MEDS ORDERED: HumuLIN 70/30 (300 UNITS/3 ML VIAL) SC SCH (09:00)
[2023-05-14] MEDS ORDERED: Aspirin 81 mg Enteric Coated Tablet PO SCH (09:00)
[2023-05-14] MEDS ORDERED: hydrALAZINE 25 MG TAB PO SCH (09:00)
[2023-05-14] MEDS ORDERED: Isosorbide Dinitrate 20 MG TAB PO SCH (09:00)
[2023-05-14] MEDS ORDERED: Clopidogrel Bisulfate 75 MG TAB PO SCH (09:00)
[2023-05-14 09:17] VITALS: TEMP 98.2
[2023-05-14 12:33] VITALS: BP 138/65
[2023-05-14] MEDS ORDERED: Gabapentin 300 MG CAP PO SCH (21:00)
[2023-05-14] MEDS ORDERED: Ezetimibe 10 MG TAB PO SCH (21:00)
== END 2023-05-14 12:24 | disposition left against medical advice (07) | DRG 291 ==
LOC: ERS 15:38 → 2SW 19:47
PROVIDERS: ADMIT Emergency Medicine; ATTEND Family Medicine
DX: I13.0 Hypertensive heart and chronic kidney disease with heart failure and stage 1 through stage 4 chronic kidney disease, or unspecified chronic kidney disease (principal); I50.33 Acute on chronic diastolic (congestive) heart failure; Z68.43 Body mass index [BMI] 50.0-59.9, adult; N18.4 Chronic kidney disease, stage 4 (severe); J44.9 Chronic obstructive pulmonary disease, unspecified; E66.01 Morbid (severe) obesity due to excess calories; E78.5 Hyperlipidemia, unspecified; I25.10 Atherosclerotic heart disease of native coronary artery without angina pectoris; E11.22 Type 2 diabetes mellitus with diabetic chronic kidney disease; Z53.29 Procedure and treatment not carried out because of patient's decision for other reasons; I16.0 Hypertensive urgency; D63.1 Anemia in chronic kidney disease; I25.2 Old myocardial infarction; Z95.5 Presence of coronary angioplasty implant and graft; Z98.890 Other specified postprocedural states; Z95.1 Presence of aortocoronary bypass graft; Z79.82 Long term (current) use of aspirin; Z79.899 Other long term (current) drug therapy; Z79.4 Long term (current) use of insulin; Z88.8 Allergy status to other drugs, medicaments and biological substances; Z90.710 Acquired absence of both cervix and uterus; Z91.199 Patient's noncompliance with other medical treatment and regimen due to unspecified reason; Z87.891 Personal history of nicotine dependence
CPT/HCPCS: 36415; 36416; 71045; 80048; 80053; 83735; 83880; 84484; 85025; 93005; 93010; 94640; 96374; J0360; J1644; J1815; J1940; J7620; Q0162

== ENCOUNTER 2023-05-15 22:16 | Inpatient (IN) | payer MEDICARE ==
[2023-05-15 23:23] LABS: #Eosinphils 0.1 thou/uL (0.0-0.7); #Monocytes 0.7 thou/uL (0.11-0.59); #Neutrophils 5.8 thou/uL (1.40-6.50); %Basophils 0.1 % (0.0-1.0); %Eosinophils 0.6 % (0.0-10.0); %Lymphocytes 15.4 % (21.0-51.0); %Monocytes 8.9 % (0.0-10.0); %Neutrophils 74.5 % (42.0-75.0); Hematocrit 28.7 % (36.0-47.0); Hemoglobin 8.4 g/dL (12.0-16.0); Mean Corpuscular HGB CONC 29.3 g/dL (32.0-36.0); Mean Corpuscular Hemoglobin 25.8 pg (27.0-31.0); Mean Platelet Volume 9.5 fL (7.4-10.4); Platelet Count 259 10x3/uL (130-400); RBC Distribution Width 15.3 % (11.5-14.5); Red Blood Cell (RBC) Count 3.26 mill/uL (4.20-5.40); White Blood Cell (WBC) Count 7.8 10x3/uL (4.8-10.8)
[2023-05-15] MEDS ORDERED: methylPREDNISolone Sod Succ/PF 125 MG/2 ML VIAL ONE (23:35)
[2023-05-15] MEDS ORDERED: Furosemide 40 MG/4 ML VIAL ONE (23:35)
[2023-05-15] MEDS ORDERED: cefTRIAXone (ROCEPHIN) 2 GM VIAL ONE (23:35)
[2023-05-15] MEDS ORDERED: Azithromycin 500 MG VIAL ONE (23:36)
[2023-05-15] MEDS ORDERED: Magnesium 2 GM/50 ML BAG (IN WATER) ONE (23:36)
[2023-05-15 23:52] LABS: ALT (SGPT) 14 U/L (8-55); AST (SGOT) 16 U/L (5-34); Albumin 3.2 g/dL (3.4-4.8); Alkaline Phosphatase 70 U/L (40-110); Anion Gap 11 mmol/L (10-20); BUN (Urea Nitrogen) 53 mg/dL (9.8-20.1); Bilirubin, Total 0.2 mg/dL (0.2-1.2); Calc. Creatinine Clearance 0 mL/min (70-130); Calcium 9.1 mg/dL (7.8-10.44); Carbon Dioxide 26 mmol/L (23-31); Chloride 104 mmol/L (98-107); Estimated GFR 21; Globulin 2.5 g/dL (2.4-3.5); Glucose 121 mg/dL (80-115); Lipase 17 U/L (8-78); Protein, Total 5.7 g/dL (5.8-8.1); Sodium 137 mmol/L (136-145)
[2023-05-15 23:55] LABS: Troponin I 0.055 ng/mL (< 0.028)
[2023-05-16 00:11] LABS: SARS-CoV-2 NAA Rapid Test Not Detected (NotDetected)
[2023-05-16] MEDS ORDERED: Senokot S 8.6-50 MG TAB PO PRN (00:48)
[2023-05-16] MEDS ORDERED: Ondansetron ODT 4 MG TAB PO PRN (00:48)
[2023-05-16] MEDS ORDERED: Calcium Carbonate 500 MG ChewTAB PO PRN (00:48)
[2023-05-16] MEDS ORDERED: Glucagon 1 MG/ML KIT IM PRN (00:50)
[2023-05-16] MEDS ORDERED: Dextrose 50% Abboject 50 ML SYRINGE SLOW IVP PRN (00:50)
[2023-05-16] MEDS ORDERED: Dextrose 5% in Water 1,000 ML IV PRN (00:50)
[2023-05-16] MEDS ORDERED: HumaLOG 300 UNITS/3 ML VIAL SC PRN ×2 (00:50)
[2023-05-16] MEDS ORDERED: Ipratropium/Albuterol 3 ML NEB NEB PRN (00:51)
[2023-05-16] MEDS ORDERED: Azithromycin 500 MG VIAL ONE (03:28)
[2023-05-16 04:45] VITALS: BMI 52.9
[2023-05-16 05:07] LABS: #Monocytes 0.2 thou/uL (0.11-0.59); #Neutrophils 6.1 thou/uL (1.40-6.50); %Basophils 0.1 % (0.0-1.0); %Eosinophils 0.1 % (0.0-10.0); %Lymphocytes 9.5 % (21.0-51.0); %Monocytes 2.4 % (0.0-10.0); %Neutrophils 87.5 % (42.0-75.0); Hematocrit 30.9 % (36.0-47.0); Hemoglobin 9.3 g/dL (12.0-16.0); Mean Corpuscular HGB CONC 30.1 g/dL (32.0-36.0); Mean Corpuscular Hemoglobin 26.1 pg (27.0-31.0); Mean Corpuscular Volume 86.6 fl (78.0-98.0); Mean Platelet Volume 9.5 fL (7.4-10.4); Platelet Count 292 10x3/uL (130-400); RBC Distribution Width 15.5 % (11.5-14.5); Red Blood Cell (RBC) Count 3.57 mill/uL (4.20-5.40)
[2023-05-16 05:29] LABS: Anion Gap 14 mmol/L (10-20); BUN (Urea Nitrogen) 50 mg/dL (9.8-20.1); Calc. Creatinine Clearance 48 mL/min (70-130); Calcium 9.6 mg/dL (7.8-10.44); Carbon Dioxide 25 mmol/L (23-31); Chloride 103 mmol/L (98-107); Estimated GFR 22; Glucose 56 mg/dL (80-115); Sodium 138 mmol/L (136-145)
[2023-05-16] MEDS ORDERED: predniSONE 50 MG TAB PO SCH ×2 (09:00→09:15)
[2023-05-16] MEDS ORDERED: HumuLIN 70/30 (300 UNITS/3 ML VIAL) SC SCH (09:00)
[2023-05-16] MEDS ORDERED: Famotidine 20 MG TAB PO SCH (09:00)
[2023-05-16] MEDS ORDERED: Aspirin Chewable 81 MG TAB ONE (09:09)
[2023-05-16] MEDS ORDERED: AMOXicillin 250 MG CAP ONE (09:10)
[2023-05-16] MEDS ORDERED: predniSONE 20 MG TAB ONE ×4 (09:11→09:37)
[2023-05-16] MEDS ORDERED: Clopidogrel Bisulfate 75 MG TAB ONE (09:11)
[2023-05-16] MEDS: Aspirin 81 mg Enteric Coated Tablet PO SCH (09:28)
[2023-05-16] MEDS: Clopidogrel Bisulfate 75 MG TAB PO SCH (09:29)
[2023-05-16] MEDS ORDERED: HumuLIN 70/30 100 Unit/ ml 10 ml Vial SC SCH (09:30)
[2023-05-16] MEDS: Carvedilol 25 MG TAB PO SCH ×2 (10:28→17:19)
[2023-05-16] MEDS: Isosorbide Dinitrate 20 MG TAB PO SCH ×3 (10:28→21:23)
[2023-05-16] MEDS: Heparin 5,000 UNITS/ML VIAL SC SCH ×3 (10:29→21:23)
[2023-05-16] MEDS: HumuLIN 70/30 100 Unit/ ml 10 ml Vial SC SCH ×2 (10:30→17:19)
[2023-05-16] MEDS ORDERED: Amlodipine 5 MG TAB ONE (11:19)
[2023-05-16] MEDS ORDERED: hydrALAZINE 25 MG TAB ONE (11:19)
[2023-05-16] MEDS: Amlodipine 5 MG TAB PO SCH (11:20)
[2023-05-16] MEDS: hydrALAZINE 25 MG TAB PO SCH ×3 (11:20→21:38)
[2023-05-16] MEDS ORDERED: Acetaminophen 325 MG Suppository ONE (12:12)
[2023-05-16] MEDS ORDERED: Acetaminophen 325 MG TAB ONE (12:13)
[2023-05-16] MEDS: Acetaminophen 325 MG TAB PO PRN ×2 (12:15→21:25)
[2023-05-16] MEDS: traMADol HCl 50 MG TAB PO PRN (15:24)
[2023-05-16] MEDS: Furosemide 40 MG/4 ML VIAL SLOW IVP SCH (15:35)
[2023-05-16] MEDS ORDERED: Ezetimibe 10 MG TAB PO SCH (21:00)
[2023-05-16] MEDS ORDERED: Gabapentin 300 MG CAP PO SCH (21:00)
[2023-05-17 04:53] LABS: #Monocytes 0.9 thou/uL (0.11-0.59); #Neutrophils 8.5 thou/uL (1.40-6.50); %Basophils 0.1 % (0.0-1.0); %Lymphocytes 7.6 % (21.0-51.0); %Monocytes 8.6 % (0.0-10.0); %Neutrophils 83.2 % (42.0-75.0); Hematocrit 27.3 % (36.0-47.0); Hemoglobin 8.1 g/dL (12.0-16.0); Mean Corpuscular HGB CONC 29.7 g/dL (32.0-36.0); Mean Corpuscular Hemoglobin 26.1 pg (27.0-31.0); Mean Corpuscular Volume 88.1 fl (78.0-98.0); Mean Platelet Volume 9.9 fL (7.4-10.4); Platelet Count 252 10x3/uL (130-400); RBC Distribution Width 15.5 % (11.5-14.5); White Blood Cell (WBC) Count 10.2 10x3/uL (4.8-10.8)
[2023-05-17] MEDS: Acetaminophen 325 MG TAB PO PRN ×2 (05:11→11:52)
[2023-05-17] MEDS: Furosemide 40 MG/4 ML VIAL SLOW IVP SCH ×2 (05:11→14:11)
[2023-05-17 05:22] LABS: ALT (SGPT) 12 U/L (8-55); AST (SGOT) 13 U/L (5-34); Albumin 3.1 g/dL (3.4-4.8); Alkaline Phosphatase 64 U/L (40-110); Anion Gap 12 mmol/L (10-20); BUN (Urea Nitrogen) 56 mg/dL (9.8-20.1); Bilirubin, Total 0.2 mg/dL (0.2-1.2); Calc. Creatinine Clearance 46 mL/min (70-130); Carbon Dioxide 23 mmol/L (23-31); Chloride 100 mmol/L (98-107); Estimated GFR 21; Globulin 2.9 g/dL (2.4-3.5); Glucose 270 mg/dL (80-115); Magnesium 2.5 mg/dL (1.6-2.6); Sodium 131 mmol/L (136-145)
[2023-05-17] MEDS ORDERED: predniSONE 50 MG TAB PO SCH (08:00)
[2023-05-17] MEDS: Heparin 5,000 UNITS/ML VIAL SC SCH ×2 (08:50→17:00)
[2023-05-17] MEDS: HumuLIN 70/30 100 Unit/ ml 10 ml Vial SC SCH ×2 (08:50→14:10)
[2023-05-17] MEDS: hydrALAZINE 25 MG TAB PO SCH ×2 (08:51→17:00)
[2023-05-17] MEDS: Clopidogrel Bisulfate 75 MG TAB PO SCH (08:51)
[2023-05-17] MEDS: Carvedilol 25 MG TAB PO SCH (08:52)
[2023-05-17] MEDS: Aspirin 81 mg Enteric Coated Tablet PO SCH (08:52)
[2023-05-17] MEDS: Amlodipine 5 MG TAB PO SCH (08:52)
[2023-05-17] MEDS: Isosorbide Dinitrate 20 MG TAB PO SCH ×2 (08:52→17:02)
[2023-05-17] MEDS: traMADol HCl 50 MG TAB PO PRN (11:52)
[2023-05-17 12:51] VITALS: BP 127/60; TEMP 98
== END 2023-05-17 15:18 | disposition home or self-care (01) | DRG 291 ==
LOC: ERS 22:16 → ERHOLD 05-16 00:51 → 2NO 05-16 13:27
PROVIDERS: ADMIT Student in an Organized Health Care Education/Training Program; ATTEND Internal Medicine
PROC: 5A09357 Assistance with Respiratory Ventilation, Less than 24 Consecutive Hours, Continuous Positive Airway Pressure (ICD-10-PCS; principal; 2023-05-16)
DX: I11.0 Hypertensive heart disease with heart failure (principal); I50.33 Acute on chronic diastolic (congestive) heart failure; J96.20 Acute and chronic respiratory failure, unspecified whether with hypoxia or hypercapnia; E66.2 Morbid (severe) obesity with alveolar hypoventilation; Z68.43 Body mass index [BMI] 50.0-59.9, adult; J44.9 Chronic obstructive pulmonary disease, unspecified; N18.9 Chronic kidney disease, unspecified; I25.10 Atherosclerotic heart disease of native coronary artery without angina pectoris; E11.22 Type 2 diabetes mellitus with diabetic chronic kidney disease; E78.5 Hyperlipidemia, unspecified; Z20.822 Contact with and (suspected) exposure to COVID-19; F41.9 Anxiety disorder, unspecified; D63.8 Anemia in other chronic diseases classified elsewhere; I37.1 Nonrheumatic pulmonary valve insufficiency; I05.9 Rheumatic mitral valve disease, unspecified; Z88.8 Allergy status to other drugs, medicaments and biological substances; Z79.82 Long term (current) use of aspirin; Z79.899 Other long term (current) drug therapy; Z79.4 Long term (current) use of insulin; Z87.891 Personal history of nicotine dependence; Z95.1 Presence of aortocoronary bypass graft; Z90.710 Acquired absence of both cervix and uterus; Z95.5 Presence of coronary angioplasty implant and graft; Z98.890 Other specified postprocedural states; I25.2 Old myocardial infarction; Z91.148 Patient's other noncompliance with medication regimen for other reason
CPT/HCPCS: 36415; 36416; 71045; 80048; 80053; 83605; 83690; 83735; 83880; 84484; 85025; 85379; 93005; 94640; 94660; 96365; 96366; 96367; 96368; 96375; J0456; J0696; J1644; J1815; J1940; J2930; J3475; J7512; J7620

== ENCOUNTER 2023-05-19 11:27 | Inpatient (IN) | payer MEDICARE ==
[2023-05-19 12:53] LABS: #Monocytes 0.5 thou/uL (0.11-0.59); #Neutrophils 5.6 thou/uL (1.40-6.50); %Basophils 0.1 % (0.0-1.0); %Eosinophils 0.4 % (0.0-10.0); %Lymphocytes 12.8 % (21.0-51.0); %Monocytes 7.3 % (0.0-10.0); %Neutrophils 78.8 % (42.0-75.0); Hematocrit 27.7 % (36.0-47.0); Hemoglobin 8.7 g/dL (12.0-16.0); Mean Corpuscular HGB CONC 31.4 g/dL (32.0-36.0); Mean Corpuscular Hemoglobin 26.1 pg (27.0-31.0); Mean Corpuscular Volume 83.2 fl (78.0-98.0); Mean Platelet Volume 10.1 fL (7.4-10.4); Platelet Count 199 10x3/uL (130-400); RBC Distribution Width 14.9 % (11.5-14.5); Red Blood Cell (RBC) Count 3.33 mill/uL (4.20-5.40); White Blood Cell (WBC) Count 7.1 10x3/uL (4.8-10.8)
[2023-05-19] MEDS ORDERED: Furosemide 40 MG/4 ML VIAL ONE (13:15)
[2023-05-19 13:25] LABS: ALT (SGPT) 15 U/L (8-55); AST (SGOT) 14 U/L (5-34); Albumin 3.5 g/dL (3.4-4.8); Alkaline Phosphatase 69 U/L (40-110); Anion Gap 12 mmol/L (10-20); BUN (Urea Nitrogen) 52 mg/dL (9.8-20.1); Bilirubin, Total 0.3 mg/dL (0.2-1.2); Calc. Creatinine Clearance 0 mL/min (70-130); Calcium 9.3 mg/dL (7.8-10.44); Carbon Dioxide 26 mmol/L (23-31); Chloride 101 mmol/L (98-107); Estimated GFR 24; Globulin 2.6 g/dL (2.4-3.5); Glucose 329 mg/dL (80-115); Potassium 4.4 mmol/L (3.5-5.1); Protein, Total 6.1 g/dL (5.8-8.1); Sodium 135 mmol/L (136-145)
[2023-05-19 13:30] LABS: Troponin I 0.043 ng/mL (< 0.028)
[2023-05-19 14:15] LABS: SARS-CoV-2 NAA Rapid Test Not Detected (NotDetected)
[2023-05-19 15:09] LABS: Magnesium 2.4 mg/dL (1.6-2.6)
[2023-05-19] MEDS ORDERED: Acetaminophen 325 MG TAB PO PRN (15:53)
[2023-05-19] MEDS ORDERED: Calcium Carbonate 500 MG ChewTAB PO PRN (15:53)
[2023-05-19] MEDS ORDERED: Ondansetron PF 4 MG/2 ML Vial IVP PRN (15:53)
[2023-05-19] MEDS ORDERED: Senokot S 8.6-50 MG TAB PO PRN (15:53)
[2023-05-19 15:54] LABS: PTT 23.7 sec (22.9-36.1); Prothrombin Time 13.6 sec (12.0-14.7)
[2023-05-19] MEDS ORDERED: Heparin 10,000 UNITS/ 10 ML VIAL ONE (16:06)
[2023-05-19] MEDS ORDERED: Heparin 25,000 units/D5W 500 ML ONE (16:06)
[2023-05-19] MEDS ORDERED: HumuLIN 70/30 (300 UNITS/3 ML VIAL) SC SCH (17:00)
[2023-05-19 17:56] VITALS: BMI 54.7
[2023-05-19] MEDS ORDERED: HumaLOG 300 UNITS/3 ML VIAL SC PRN (18:10)
[2023-05-19] MEDS ORDERED: Dextrose 50% Abboject 50 ML SYRINGE SLOW IVP PRN (18:10)
[2023-05-19] MEDS ORDERED: Glucagon 1 MG/ML KIT IM PRN (18:10)
[2023-05-19] MEDS ORDERED: Dextrose 5% in Water 1,000 ML IV PRN (18:10)
[2023-05-19] MEDS: Carvedilol 25 MG TAB PO SCH (18:54)
[2023-05-19] MEDS: HumuLIN 70/30 100 Unit/ ml 10 ml Vial SC SCH (21:47)
[2023-05-19] MEDS: HumaLOG 300 UNITS/3 ML VIAL SC PRN (21:48)
[2023-05-19] MEDS: hydrALAZINE 25 MG TAB PO SCH (21:49)
[2023-05-19] MEDS: Ezetimibe 10 MG TAB PO SCH (21:49)
[2023-05-19] MEDS: Gabapentin 300 MG CAP PO SCH (21:49)
[2023-05-19] MEDS: Isosorbide Dinitrate 20 MG TAB PO SCH (21:50)
[2023-05-20 05:59] LABS: #Monocytes 0.6 thou/uL (0.11-0.59); #Neutrophils 4.1 thou/uL (1.40-6.50); %Basophils 0.2 % (0.0-1.0); %Eosinophils 0.7 % (0.0-10.0); %Lymphocytes 17.4 % (21.0-51.0); %Monocytes 10.7 % (0.0-10.0); %Neutrophils 70.7 % (42.0-75.0); Hematocrit 27.9 % (36.0-47.0); Hemoglobin 8.3 g/dL (12.0-16.0); Mean Corpuscular HGB CONC 29.7 g/dL (32.0-36.0); Mean Corpuscular Hemoglobin 25.3 pg (27.0-31.0); Mean Corpuscular Volume 85.1 fl (78.0-98.0); Mean Platelet Volume 9.9 fL (7.4-10.4); Platelet Count 246 10x3/uL (130-400); Red Blood Cell (RBC) Count 3.28 mill/uL (4.20-5.40); White Blood Cell (WBC) Count 5.8 10x3/uL (4.8-10.8)
[2023-05-20] MEDS: Furosemide 40 MG/4 ML VIAL SLOW IVP SCH ×2 (06:23→15:31)
[2023-05-20 06:24] LABS: ALT (SGPT) 15 U/L (8-55); AST (SGOT) 12 U/L (5-34); Albumin 3.2 g/dL (3.4-4.8); Alkaline Phosphatase 61 U/L (40-110); Anion Gap 10 mmol/L (10-20); BUN (Urea Nitrogen) 47 mg/dL (9.8-20.1); Bilirubin, Total 0.3 mg/dL (0.2-1.2); Calc. Creatinine Clearance 56 mL/min (70-130); Carbon Dioxide 29 mmol/L (23-31); Chloride 100 mmol/L (98-107); Estimated GFR 24; Globulin 2.7 g/dL (2.4-3.5); Glucose 169 mg/dL (80-115); Magnesium 2.7 mg/dL (1.6-2.6); Potassium 3.9 mmol/L (3.5-5.1); Protein, Total 5.9 g/dL (5.8-8.1); Sodium 135 mmol/L (136-145)
[2023-05-20] MEDS: HumaLOG 300 UNITS/3 ML VIAL SC PRN ×2 (06:44→21:50)
[2023-05-20] MEDS: hydrALAZINE 25 MG TAB PO SCH ×3 (08:08→22:03)
[2023-05-20] MEDS: Aspirin 81 mg Enteric Coated Tablet PO SCH (08:08)
[2023-05-20] MEDS: Isosorbide Dinitrate 20 MG TAB PO SCH ×3 (08:08→21:51)
[2023-05-20] MEDS: predniSONE 50 MG TAB PO SCH (08:08)
[2023-05-20] MEDS: Clopidogrel Bisulfate 75 MG TAB PO SCH (08:08)
[2023-05-20] MEDS: Carvedilol 25 MG TAB PO SCH ×2 (08:08→15:31)
[2023-05-20] MEDS: Amlodipine 5 MG TAB PO SCH (08:08)
[2023-05-20] MEDS: HumuLIN 70/30 100 Unit/ ml 10 ml Vial SC SCH ×2 (08:09→17:24)
[2023-05-20] MEDS ORDERED: Ipratropium/Albuterol 3 ML NEB NEB PRN (10:50)
[2023-05-20] MEDS: Empagliflozin 10 MG TAB PO SCH (11:00)
[2023-05-20] MEDS: Ferrous Sulfate 325 MG TAB PO SCH (15:32)
[2023-05-20] MEDS: Gabapentin 300 MG CAP PO SCH (21:50)
[2023-05-20] MEDS: Ezetimibe 10 MG TAB PO SCH (21:51)
[2023-05-21 04:29] LABS: #Monocytes 0.8 thou/uL (0.11-0.59); #Neutrophils 6.8 thou/uL (1.40-6.50); %Basophils 0.1 % (0.0-1.0); %Eosinophils 0.2 % (0.0-10.0); %Lymphocytes 12.1 % (21.0-51.0); %Monocytes 9.2 % (0.0-10.0); %Neutrophils 78.1 % (42.0-75.0); Hematocrit 28.2 % (36.0-47.0); Hemoglobin 8.5 g/dL (12.0-16.0); Mean Corpuscular HGB CONC 30.1 g/dL (32.0-36.0); Mean Corpuscular Hemoglobin 25.8 pg (27.0-31.0); Mean Corpuscular Volume 85.7 fl (78.0-98.0); Mean Platelet Volume 9.9 fL (7.4-10.4); Platelet Count 230 10x3/uL (130-400); Red Blood Cell (RBC) Count 3.29 mill/uL (4.20-5.40); White Blood Cell (WBC) Count 8.7 10x3/uL (4.8-10.8)
[2023-05-21 04:57] LABS: Anion Gap 14 mmol/L (10-20); BUN (Urea Nitrogen) 51 mg/dL (9.8-20.1); Calc. Creatinine Clearance 54 mL/min (70-130); Calcium 9.2 mg/dL (7.8-10.44); Carbon Dioxide 24 mmol/L (23-31); Chloride 98 mmol/L (98-107); Estimated GFR 23; Glucose 200 mg/dL (80-115); Sodium 132 mmol/L (136-145)
[2023-05-21] MEDS: Furosemide 40 MG/4 ML VIAL SLOW IVP SCH (05:40)
[2023-05-21] MEDS: HumaLOG 300 UNITS/3 ML VIAL SC PRN (06:15)
[2023-05-21] MEDS: Carvedilol 25 MG TAB PO SCH (08:56)
[2023-05-21] MEDS: predniSONE 50 MG TAB PO SCH (08:56)
[2023-05-21] MEDS: Amlodipine 5 MG TAB PO SCH (08:56)
[2023-05-21] MEDS: Empagliflozin 10 MG TAB PO SCH (08:57)
[2023-05-21] MEDS: Clopidogrel Bisulfate 75 MG TAB PO SCH (08:57)
[2023-05-21] MEDS: hydrALAZINE 25 MG TAB PO SCH (08:57)
[2023-05-21] MEDS: Aspirin 81 mg Enteric Coated Tablet PO SCH (08:57)
[2023-05-21] MEDS: Isosorbide Dinitrate 20 MG TAB PO SCH (08:58)
[2023-05-21] MEDS: Ferrous Sulfate 325 MG TAB PO SCH (08:58)
[2023-05-21] MEDS: HumuLIN 70/30 100 Unit/ ml 10 ml Vial SC SCH (08:59)
[2023-05-21 11:38] VITALS: BP 152/71; TEMP 98
== END 2023-05-21 12:40 | disposition home or self-care (01) | DRG 291 ==
LOC: SUATTDRO 11:27 → ERS 11:27 → 2NO 14:21 → OBSVTOIN 05-20 10:40
PROVIDERS: ADMIT Internal Medicine; ATTEND Emergency Medicine
DX: I13.0 Hypertensive heart and chronic kidney disease with heart failure and stage 1 through stage 4 chronic kidney disease, or unspecified chronic kidney disease (principal); I50.31 Acute diastolic (congestive) heart failure; J96.21 Acute and chronic respiratory failure with hypoxia; I38 Endocarditis, valve unspecified; N18.4 Chronic kidney disease, stage 4 (severe); E66.2 Morbid (severe) obesity with alveolar hypoventilation; Z68.43 Body mass index [BMI] 50.0-59.9, adult; N17.9 Acute kidney failure, unspecified; J44.9 Chronic obstructive pulmonary disease, unspecified; E11.22 Type 2 diabetes mellitus with diabetic chronic kidney disease; D63.1 Anemia in chronic kidney disease; Z20.822 Contact with and (suspected) exposure to COVID-19; I25.10 Atherosclerotic heart disease of native coronary artery without angina pectoris; E78.5 Hyperlipidemia, unspecified; E11.40 Type 2 diabetes mellitus with diabetic neuropathy, unspecified; I25.2 Old myocardial infarction; Z79.4 Long term (current) use of insulin; Z91.148 Patient's other noncompliance with medication regimen for other reason; Z88.8 Allergy status to other drugs, medicaments and biological substances; Z79.82 Long term (current) use of aspirin; Z79.899 Other long term (current) drug therapy; Z95.1 Presence of aortocoronary bypass graft; Z95.5 Presence of coronary angioplasty implant and graft; Z90.710 Acquired absence of both cervix and uterus; Z98.890 Other specified postprocedural states; Z87.891 Personal history of nicotine dependence; R77.8 Other specified abnormalities of plasma proteins; I07.1 Rheumatic tricuspid insufficiency; Z79.02 Long term (current) use of antithrombotics/antiplatelets; Z79.52 Long term (current) use of systemic steroids; F41.9 Anxiety disorder, unspecified
CPT/HCPCS: 36415; 36416; 71045; 80048; 80053; 83735; 83880; 84484; 85025; 85379; 85610; 85730; 93005; 96376; G0378; J1644; J1650; J1815; J1940; J7512

== ENCOUNTER 2023-05-26 22:24 | Inpatient (IN) | payer MEDICARE ==
[2023-05-26] MEDS ORDERED: hydrALAZINE 20 MG/ML VIAL ONE (23:24)
[2023-05-26] MEDS ORDERED: Nitroglycerin 2% Ointment 1 INCH/1 GM Packet ONE (23:24)
[2023-05-26] MEDS ORDERED: Ipratropium/Albuterol 3 ML NEB ONE (23:24)
[2023-05-26 23:53] LABS: #Monocytes 0.7 thou/uL (0.11-0.59); #Neutrophils 6.7 thou/uL (1.40-6.50); %Basophils 0.1 % (0.0-1.0); %Eosinophils 0.4 % (0.0-10.0); %Lymphocytes 11.7 % (21.0-51.0); %Monocytes 7.9 % (0.0-10.0); %Neutrophils 79.4 % (42.0-75.0); Hematocrit 33.4 % (36.0-47.0); Hemoglobin 10.2 g/dL (12.0-16.0); Mean Corpuscular HGB CONC 30.5 g/dL (32.0-36.0); Mean Corpuscular Hemoglobin 25.6 pg (27.0-31.0); Mean Corpuscular Volume 83.9 fl (78.0-98.0); Mean Platelet Volume 9.3 fL (7.4-10.4); Platelet Count 242 10x3/uL (130-400); RBC Distribution Width 15.2 % (11.5-14.5); Red Blood Cell (RBC) Count 3.98 mill/uL (4.20-5.40); White Blood Cell (WBC) Count 8.4 10x3/uL (4.8-10.8)
[2023-05-26 23:56] LABS: Actual Bicarbonate (HCO3v) 23.3 mEq/L (22-28); Base Excess -1.9 mEq/L (-2.0 to +3.0); Chloride (VBG) 99 mmol/L (98-106); Hematocrit-VBG 34 % (36.0-47.0); Hemoglobin (Hb) 11.4 g/dL (11.7-16.0); Sodium 135.4 mmol/L (133-146); pH (venous) 7.367 (7.32-7.43)
[2023-05-27 00:22] LABS: Troponin I 0.048 ng/mL (< 0.028)
[2023-05-27 00:26] LABS: ALT (SGPT) 18 U/L (8-55); AST (SGOT) 19 U/L (5-34); Albumin 3.6 g/dL (3.4-4.8); Alkaline Phosphatase 83 U/L (40-110); Anion Gap 15 mmol/L (10-20); BUN (Urea Nitrogen) 28 mg/dL (9.8-20.1); Calc. Creatinine Clearance 0 mL/min (70-130); Calcium 9.5 mg/dL (7.8-10.44); Carbon Dioxide 24 mmol/L (23-31); Chloride 99 mmol/L (98-107); Estimated GFR 23; Globulin 3.3 g/dL (2.4-3.5); Lipase 23 U/L (8-78); Potassium 4.6 mmol/L (3.5-5.1); Protein, Total 6.9 g/dL (5.8-8.1); Sodium 133 mmol/L (136-145)
[2023-05-27 00:34] LABS: Glucose 456 mg/dL (80-115)
[2023-05-27] MEDS ORDERED: Insulin Regular 300 UNITS/3 ML VIAL ONE (00:53)
[2023-05-27] MEDS ORDERED: Furosemide 40 MG/4 ML VIAL ONE (01:30)
[2023-05-27] MEDS ORDERED: hydrALAZINE 20 MG/ML VIAL ONE (01:30)
[2023-05-27] MEDS ORDERED: Senokot S 8.6-50 MG TAB PO PRN (01:34)
[2023-05-27] MEDS ORDERED: Calcium Carbonate 500 MG ChewTAB PO PRN (01:34)
[2023-05-27] MEDS ORDERED: Ondansetron ODT 4 MG TAB PO PRN (01:34)
[2023-05-27] MEDS ORDERED: Acetaminophen 325 MG TAB PO PRN (01:34)
[2023-05-27] MEDS ORDERED: Dextrose 5% in Water 1,000 ML IV PRN (01:40)
[2023-05-27] MEDS ORDERED: HumaLOG 300 UNITS/3 ML VIAL SC PRN ×2 (01:40)
[2023-05-27] MEDS ORDERED: Dextrose 50% Abboject 50 ML SYRINGE SLOW IVP PRN (01:40)
[2023-05-27] MEDS ORDERED: Glucagon 1 MG/ML KIT IM PRN (01:40)
[2023-05-27 03:08] LABS: Bilirubin, Total 0.3 mg/dL (0.2-1.2)
[2023-05-27] MEDS ORDERED: Lorazepam 2 MG/ML VIAL SLOW IVP SCH (03:15)
[2023-05-27 03:29] VITALS: BMI 52.3
[2023-05-27 04:05] LABS: Anion Gap 16 mmol/L (10-20); BUN (Urea Nitrogen) 30 mg/dL (9.8-20.1); Calc. Creatinine Clearance 52 mL/min (70-130); Calcium 9.6 mg/dL (7.8-10.44); Carbon Dioxide 23 mmol/L (23-31); Chloride 101 mmol/L (98-107); Estimated GFR 24; Potassium 4.3 mmol/L (3.5-5.1); Sodium 136 mmol/L (136-145)
[2023-05-27 04:11] LABS: Troponin I 0.048 ng/mL (< 0.028)
[2023-05-27 04:25] LABS: Glucose 426 mg/dL (80-115)
[2023-05-27] MEDS: Furosemide 40 MG/4 ML VIAL SLOW IVP SCH ×2 (06:36→15:14)
[2023-05-27 08:47] LABS: Troponin I 0.053 ng/mL (< 0.028)
[2023-05-27] MEDS ORDERED: Famotidine 20 MG TAB PO SCH (09:00)
[2023-05-27] MEDS ORDERED: Isosorbide Dinitrate 20 MG TAB PO SCH (09:00)
[2023-05-27] MEDS ORDERED: Empagliflozin 10 MG TAB PO SCH (09:00)
[2023-05-27] MEDS ORDERED: Amlodipine 5 MG TAB PO SCH (09:00)
[2023-05-27] MEDS ORDERED: Aspirin 81 mg Enteric Coated Tablet PO SCH (09:00)
[2023-05-27] MEDS ORDERED: Ezetimibe 10 MG TAB PO SCH (09:00)
[2023-05-27] MEDS: hydrALAZINE 25 MG TAB PO SCH ×2 (11:25→15:13)
[2023-05-27] MEDS: Carvedilol 25 MG TAB PO SCH ×2 (11:27→17:49)
[2023-05-27] MEDS: Isosorbide Dinitrate 20 MG TAB PO SCH ×2 (11:28→15:14)
[2023-05-27] MEDS: HumuLIN 70/30 (300 UNITS/3 ML VIAL) SC SCH ×3 (11:30→15:28)
[2023-05-27] MEDS: Heparin 5,000 UNITS/ML VIAL SC SCH ×2 (11:32→15:18)
[2023-05-27] MEDS: HumaLOG 300 UNITS/3 ML VIAL SC SCH ×3 (11:32→17:49)
[2023-05-27] MEDS ORDERED: hydrOXYzine 25 MG TAB PO SCH (14:30)
[2023-05-27 15:30] VITALS: BP 98/56; TEMP 98.6
[2023-05-27] MEDS ORDERED: Gabapentin 300 MG CAP PO SCH (21:00)
== END 2023-05-27 21:09 | disposition left against medical advice (07) | DRG 291 ==
LOC: ERS 22:24 → 2SW 05-27 01:25 → OBSVTOIN 05-27 08:06 → MERGE 05-27 08:06
PROVIDERS: ADMIT Student in an Organized Health Care Education/Training Program; ATTEND Internal Medicine
PROC: 4A043R1 Measurement of Venous Saturation, Peripheral, Percutaneous Approach (ICD-10-PCS; principal; 2023-05-26)
DX: I13.0 Hypertensive heart and chronic kidney disease with heart failure and stage 1 through stage 4 chronic kidney disease, or unspecified chronic kidney disease (principal); I50.33 Acute on chronic diastolic (congestive) heart failure; I16.1 Hypertensive emergency; N18.9 Chronic kidney disease, unspecified; J44.9 Chronic obstructive pulmonary disease, unspecified; E11.22 Type 2 diabetes mellitus with diabetic chronic kidney disease; D63.1 Anemia in chronic kidney disease; Z87.891 Personal history of nicotine dependence; Z88.8 Allergy status to other drugs, medicaments and biological substances; Z79.899 Other long term (current) drug therapy; I25.2 Old myocardial infarction; Z90.710 Acquired absence of both cervix and uterus; Z95.1 Presence of aortocoronary bypass graft; I25.10 Atherosclerotic heart disease of native coronary artery without angina pectoris; F41.9 Anxiety disorder, unspecified; Z79.82 Long term (current) use of aspirin
CPT/HCPCS: 36415; 36416; 71045; 71046; 80048; 80053; 82805; 83690; 83880; 84484; 85025; 93005; 94640; 94760; 96374; 96375; 96376; G0378; J0360; J1815; J1940; J2060; J7620

== ENCOUNTER 2023-05-31 09:00 | Emergency (ER) | payer MEDICAID, MEDICARE, SELFPAY ==
[2023-05-31 09:36] LABS: Actual Bicarbonate (HCO3v) 22.9 mEq/L (22-28); Analyzer IN Cardio ER; Base Excess -0.1 mEq/L (-2.0 to +3.0); Calcium, Ionized (venous) 1.06 mmol/L (1.16-1.32); Chloride (VBG) 102 mmol/L (98-106); Hematocrit-VBG 32 % (36.0-47.0); Potassium (VBG) 4.29 mmol/L (3.70-5.30); Sodium 134.7 mmol/L (133-146); pH (venous) 7.472 (7.32-7.43)
[2023-05-31 09:45] LABS: #Monocytes 0.7 thou/uL (0.11-0.59); #Neutrophils 6.3 thou/uL (1.40-6.50); %Basophils 0.1 % (0.0-1.0); %Eosinophils 0.4 % (0.0-10.0); %Lymphocytes 16.8 % (21.0-51.0); %Monocytes 8.3 % (0.0-10.0); %Neutrophils 73.9 % (42.0-75.0); Hematocrit 31.2 % (36.0-47.0); Hemoglobin 9.5 g/dL (12.0-16.0); Mean Corpuscular HGB CONC 30.4 g/dL (32.0-36.0); Mean Corpuscular Hemoglobin 25.7 pg (27.0-31.0); Mean Platelet Volume 9.6 fL (7.4-10.4); Platelet Count 245 10x3/uL (130-400); RBC Distribution Width 15.8 % (11.5-14.5); White Blood Cell (WBC) Count 8.5 10x3/uL (4.8-10.8)
[2023-05-31 09:54] LABS: Mean Corpuscular Volume 84.3 fl (78.0-98.0)
[2023-05-31] MEDS ORDERED: Furosemide 40 MG/4 ML VIAL ONE (10:02)
[2023-05-31] MEDS ORDERED: Nitroglycerin 2% Ointment 1 INCH/1 GM Packet ONE (10:02)
[2023-05-31] MEDS ORDERED: Nitroglycerin 0.4 MG TAB 1 EACH ONE (10:02)
[2023-05-31 10:08] LABS: ALT (SGPT) 15 U/L (8-55); AST (SGOT) 17 U/L (5-34); Albumin 3.6 g/dL (3.4-4.8); Alkaline Phosphatase 84 U/L (40-110); Anion Gap 18 mmol/L (10-20); BUN (Urea Nitrogen) 34 mg/dL (9.8-20.1); Bilirubin, Total 0.3 mg/dL (0.2-1.2); Calc. Creatinine Clearance 0 mL/min (70-130); Calcium 9.3 mg/dL (7.8-10.44); Carbon Dioxide 22 mmol/L (23-31); Chloride 101 mmol/L (98-107); Estimated GFR 24; Globulin 3.2 g/dL (2.4-3.5); Glucose 385 mg/dL (80-115); Potassium 4.2 mmol/L (3.5-5.1); Protein, Total 6.8 g/dL (5.8-8.1); Sodium 137 mmol/L (136-145)
[2023-05-31 10:16] LABS: Troponin I 0.053 ng/mL (< 0.028)
== END 2023-05-31 12:45 | disposition home or self-care (01) ==
LOC: ERS 09:00
DX: I13.0 Hypertensive heart and chronic kidney disease with heart failure and stage 1 through stage 4 chronic kidney disease, or unspecified chronic kidney disease (principal); I50.9 Heart failure, unspecified; N18.4 Chronic kidney disease, stage 4 (severe); E11.22 Type 2 diabetes mellitus with diabetic chronic kidney disease; E78.5 Hyperlipidemia, unspecified; I25.10 Atherosclerotic heart disease of native coronary artery without angina pectoris; Z79.82 Long term (current) use of aspirin; Z79.4 Long term (current) use of insulin
CPT/HCPCS: 36415; 71045; 80053; 82805; 83880; 84484; 85025; 93005; 94760; 96374; 96375; 96376; J1940

== ENCOUNTER 2023-06-10 16:07 | Inpatient (IN) | payer MEDICARE ==
[2023-06-10 17:38] LABS: #Eosinphils 0.1 thou/uL (0.0-0.7); #Monocytes 0.6 thou/uL (0.11-0.59); #Neutrophils 5.5 thou/uL (1.40-6.50); %Basophils 0.1 % (0.0-1.0); %Eosinophils 0.9 % (0.0-10.0); %Lymphocytes 12.6 % (21.0-51.0); %Monocytes 7.9 % (0.0-10.0); %Neutrophils 77.9 % (42.0-75.0); Hematocrit 32.1 % (36.0-47.0); Hemoglobin 9.8 g/dL (12.0-16.0); Mean Corpuscular HGB CONC 30.5 g/dL (32.0-36.0); Mean Corpuscular Volume 85.1 fl (78.0-98.0); Mean Platelet Volume 9.8 fL (7.4-10.4); Platelet Count 285 10x3/uL (130-400); RBC Distribution Width 15.8 % (11.5-14.5); Red Blood Cell (RBC) Count 3.77 mill/uL (4.20-5.40)
[2023-06-10] MEDS ORDERED: hydrALAZINE 20 MG/ML VIAL ONE (18:02)
[2023-06-10] MEDS ORDERED: Nitroglycerin 0.4 MG TAB 1 EACH ONE ×2 (18:02→18:03)
[2023-06-10 18:06] LABS: Troponin I 0.032 ng/mL (< 0.028)
[2023-06-10] MEDS ORDERED: niCARdipine 25 MG/10 ML SDV ONE (18:28)
[2023-06-10 18:55] LABS: ALT (SGPT) 20 U/L (8-55); AST (SGOT) 25 U/L (5-34); Albumin 3.3 g/dL (3.4-4.8); Alkaline Phosphatase 89 U/L (40-110); Anion Gap 18 mmol/L (10-20); BUN (Urea Nitrogen) 46 mg/dL (9.8-20.1); Bilirubin, Total 0.3 mg/dL (0.2-1.2); Calc. Creatinine Clearance 0 mL/min (70-130); Carbon Dioxide 19 mmol/L (23-31); Chloride 105 mmol/L (98-107); Estimated GFR 21; Globulin 3.1 g/dL (2.4-3.5); Glucose 343 mg/dL (80-115); Potassium 5.1 mmol/L (3.5-5.1); Protein, Total 6.4 g/dL (5.8-8.1); Sodium 137 mmol/L (136-145)
[2023-06-10] MEDS ORDERED: Calcium Carbonate 500 MG ChewTAB PO PRN (19:51)
[2023-06-10] MEDS ORDERED: Ondansetron ODT 4 MG TAB PO PRN (19:51)
[2023-06-10] MEDS ORDERED: Senokot S 8.6-50 MG TAB PO PRN (19:51)
[2023-06-10] MEDS ORDERED: HumaLOG 300 UNITS/3 ML VIAL SC PRN (19:54)
[2023-06-10] MEDS ORDERED: Glucagon 1 MG/ML KIT IM PRN (19:54)
[2023-06-10] MEDS ORDERED: Dextrose 5% in Water 1,000 ML IV PRN (19:54)
[2023-06-10] MEDS ORDERED: Dextrose 50% Abboject 50 ML SYRINGE SLOW IVP PRN (19:54)
[2023-06-10] MEDS ORDERED: niCARdipine 25 MG in Sodium Chloride 0.9% 250 ML 250 ML IVPB SCH (20:00)
[2023-06-10] MEDS ORDERED: Furosemide 40 MG/4 ML VIAL SLOW IVP SCH (20:15)
[2023-06-10] MEDS: hydrALAZINE 25 MG TAB PO SCH (20:34)
[2023-06-10] MEDS: Carvedilol 25 MG TAB PO SCH (20:34)
[2023-06-10] MEDS: Atorvastatin Calcium 40 MG TAB PO SCH (20:35)
[2023-06-10] MEDS: Gabapentin 300 MG CAP PO SCH (20:35)
[2023-06-10] MEDS: Ezetimibe 10 MG TAB PO SCH (20:37)
[2023-06-10] MEDS: Famotidine 20 MG TAB PO SCH (20:37)
[2023-06-10] MEDS: Heparin 5,000 UNITS/ML VIAL SC SCH (20:45)
[2023-06-10 20:59] VITALS: BMI 52.0
[2023-06-10] MEDS ORDERED: HumuLIN 70/30 100 Unit/ ml 10 ml Vial SC SCH (21:00)
[2023-06-10] MEDS ORDERED: Furosemide 40 MG TAB PO SCH (21:00)
[2023-06-10] MEDS ORDERED: HumuLIN 70/30 (300 UNITS/3 ML VIAL) SC SCH (21:00)
[2023-06-10] MEDS: Acetaminophen 325 MG TAB PO PRN (21:11)
[2023-06-10] MEDS ORDERED: Ketorolac Tromethamine 30 MG/ML VIAL IVP SCH (21:45)
[2023-06-10] MEDS ORDERED: Morphine 2 MG/ML VIAL SLOW IVP SCH (22:00)
[2023-06-11 00:47] LABS: Troponin I 0.038 ng/mL (< 0.028)
[2023-06-11 06:17] LABS: #Eosinphils 0.1 thou/uL (0.0-0.7); #Monocytes 0.7 thou/uL (0.11-0.59); #Neutrophils 3.8 thou/uL (1.40-6.50); %Basophils 0.4 % (0.0-1.0); %Eosinophils 1.3 % (0.0-10.0); %Lymphocytes 18.4 % (21.0-51.0); %Monocytes 11.9 % (0.0-10.0); %Neutrophils 67.6 % (42.0-75.0); Hematocrit 30.9 % (36.0-47.0); Hemoglobin 9.3 g/dL (12.0-16.0); Mean Corpuscular HGB CONC 30.1 g/dL (32.0-36.0); Mean Corpuscular Hemoglobin 25.2 pg (27.0-31.0); Mean Corpuscular Volume 83.7 fl (78.0-98.0); Mean Platelet Volume 9.5 fL (7.4-10.4); Platelet Count 247 10x3/uL (130-400); RBC Distribution Width 15.9 % (11.5-14.5); Red Blood Cell (RBC) Count 3.69 mill/uL (4.20-5.40); White Blood Cell (WBC) Count 5.6 10x3/uL (4.8-10.8)
[2023-06-11 06:38] LABS: Anion Gap 13 mmol/L (10-20); BUN (Urea Nitrogen) 44 mg/dL (9.8-20.1); Calc. Creatinine Clearance 53 mL/min (70-130); Calcium 9.1 mg/dL (7.8-10.44); Carbon Dioxide 25 mmol/L (23-31); Chloride 104 mmol/L (98-107); Estimated GFR 24; Glucose 141 mg/dL (80-115); Potassium 4.1 mmol/L (3.5-5.1); Sodium 138 mmol/L (136-145)
[2023-06-11] MEDS: hydrALAZINE 25 MG TAB PO SCH ×3 (07:56→20:22)
[2023-06-11] MEDS: Amlodipine 5 MG TAB PO SCH (07:56)
[2023-06-11] MEDS: Aspirin 81 mg Enteric Coated Tablet PO SCH (07:56)
[2023-06-11] MEDS: Furosemide 40 MG TAB PO SCH ×2 (07:56→14:19)
[2023-06-11] MEDS: Carvedilol 25 MG TAB PO SCH ×2 (07:57→20:19)
[2023-06-11] MEDS: Isosorbide Dinitrate 20 MG TAB PO SCH ×3 (07:57→21:42)
[2023-06-11] MEDS: Empagliflozin 10 MG TAB PO SCH (07:57)
[2023-06-11] MEDS: HumuLIN 70/30 100 Unit/ ml 10 ml Vial SC SCH ×3 (07:58→23:30)
[2023-06-11] MEDS: Heparin 5,000 UNITS/ML VIAL SC SCH ×3 (07:58→21:43)
[2023-06-11] MEDS: Acetaminophen 325 MG TAB PO PRN ×2 (10:21→20:18)
[2023-06-11] MEDS: Atorvastatin Calcium 40 MG TAB PO SCH (20:20)
[2023-06-11] MEDS: Famotidine 20 MG TAB PO SCH (20:20)
[2023-06-11] MEDS: Ezetimibe 10 MG TAB PO SCH (20:23)
[2023-06-11] MEDS: Gabapentin 300 MG CAP PO SCH (20:24)
[2023-06-12] MEDS: Acetaminophen 325 MG TAB PO PRN ×3 (05:49→21:38)
[2023-06-12] MEDS: hydrALAZINE 25 MG TAB PO SCH ×3 (09:05→20:10)
[2023-06-12] MEDS: Furosemide 40 MG TAB PO SCH ×2 (09:05→14:30)
[2023-06-12] MEDS: Heparin 5,000 UNITS/ML VIAL SC SCH ×3 (09:05→20:12)
[2023-06-12] MEDS: Carvedilol 25 MG TAB PO SCH ×2 (09:09→20:10)
[2023-06-12] MEDS: Empagliflozin 10 MG TAB PO SCH (09:09)
[2023-06-12] MEDS: Aspirin 81 mg Enteric Coated Tablet PO SCH (09:09)
[2023-06-12] MEDS: Isosorbide Dinitrate 20 MG TAB PO SCH ×3 (09:09→20:18)
[2023-06-12] MEDS: Amlodipine 5 MG TAB PO SCH (09:09)
[2023-06-12] MEDS: Clopidogrel Bisulfate 75 MG TAB PO SCH (09:22)
[2023-06-12] MEDS: Losartan 25 MG TAB PO SCH (09:23)
[2023-06-12 10:14] LABS: #Monocytes 0.6 thou/uL (0.11-0.59); #Neutrophils 4.8 thou/uL (1.40-6.50); %Basophils 0.2 % (0.0-1.0); %Eosinophils 0.6 % (0.0-10.0); %Lymphocytes 17.5 % (21.0-51.0); %Monocytes 8.6 % (0.0-10.0); %Neutrophils 72.6 % (42.0-75.0); Hematocrit 31.8 % (36.0-47.0); Hemoglobin 9.6 g/dL (12.0-16.0); Mean Corpuscular HGB CONC 30.2 g/dL (32.0-36.0); Mean Corpuscular Hemoglobin 25.4 pg (27.0-31.0); Mean Corpuscular Volume 84.1 fl (78.0-98.0); Platelet Count 282 10x3/uL (130-400); RBC Distribution Width 15.9 % (11.5-14.5); Red Blood Cell (RBC) Count 3.78 mill/uL (4.20-5.40); White Blood Cell (WBC) Count 6.5 10x3/uL (4.8-10.8)
[2023-06-12] MEDS: HumuLIN 70/30 100 Unit/ ml 10 ml Vial SC SCH ×3 (10:25→20:11)
[2023-06-12 10:37] LABS: Anion Gap 14 mmol/L (10-20); BUN (Urea Nitrogen) 44 mg/dL (9.8-20.1); Calc. Creatinine Clearance 47 mL/min (70-130); Calcium 9.5 mg/dL (7.8-10.44); Carbon Dioxide 25 mmol/L (23-31); Chloride 101 mmol/L (98-107); Estimated GFR 21; Glucose 252 mg/dL (80-115); Potassium 4.6 mmol/L (3.5-5.1); Sodium 135 mmol/L (136-145)
[2023-06-12] MEDS: HumaLOG 300 UNITS/3 ML VIAL SC PRN ×2 (12:33→17:49)
[2023-06-12] MEDS: Atorvastatin Calcium 40 MG TAB PO SCH (20:09)
[2023-06-12] MEDS: Gabapentin 300 MG CAP PO SCH (20:10)
[2023-06-12] MEDS: Ezetimibe 10 MG TAB PO SCH (20:10)
[2023-06-12 20:40] VITALS: BP 147/70
[2023-06-13] MEDS ORDERED: Dextrose 50% Abboject 50 ML SYRINGE ONE (02:21)
[2023-06-13 02:33] LABS: #Monocytes 0.6 thou/uL (0.11-0.59); %Basophils 0.2 % (0.0-1.0); %Eosinophils 0.6 % (0.0-10.0); %Lymphocytes 14.4 % (21.0-51.0); %Monocytes 10.4 % (0.0-10.0); Hematocrit 30.8 % (36.0-47.0); Hemoglobin 9.1 g/dL (12.0-16.0); Mean Corpuscular HGB CONC 29.5 g/dL (32.0-36.0); Mean Corpuscular Hemoglobin 25.4 pg (27.0-31.0); Mean Platelet Volume 9.7 fL (7.4-10.4); Platelet Count 252 10x3/uL (130-400); RBC Distribution Width 15.9 % (11.5-14.5); Red Blood Cell (RBC) Count 3.58 mill/uL (4.20-5.40); White Blood Cell (WBC) Count 5.4 10x3/uL (4.8-10.8)
[2023-06-13 04:46] LABS: ALT (SGPT) 14 U/L (8-55); AST (SGOT) 18 U/L (5-34); Albumin 3.2 g/dL (3.4-4.8); Alkaline Phosphatase 71 U/L (40-110); Anion Gap 17 mmol/L (10-20); BUN (Urea Nitrogen) 47 mg/dL (9.8-20.1); Bilirubin, Total 0.3 mg/dL (0.2-1.2); Calc. Creatinine Clearance 44 mL/min (70-130); Calcium 9.4 mg/dL (7.8-10.44); Carbon Dioxide 24 mmol/L (23-31); Chloride 101 mmol/L (98-107); Estimated GFR 20; Globulin 2.8 g/dL (2.4-3.5); Glucose 96 mg/dL (80-115); Magnesium 2.5 mg/dL (1.6-2.6); Potassium 4.5 mmol/L (3.5-5.1); Sodium 137 mmol/L (136-145)
[2023-06-13] MEDS ORDERED: FLU VACC QS2023-24(6MOS UP)/PF 60 MCG/0.5 ML SYRINGE IM ONE (09:00)
[2023-06-13] MEDS: Amlodipine 5 MG TAB PO SCH (09:03)
[2023-06-13] MEDS: Heparin 5,000 UNITS/ML VIAL SC SCH (09:03)
[2023-06-13] MEDS: Clopidogrel Bisulfate 75 MG TAB PO SCH (09:03)
[2023-06-13] MEDS: Isosorbide Dinitrate 20 MG TAB PO SCH (09:04)
[2023-06-13] MEDS: hydrALAZINE 25 MG TAB PO SCH (09:04)
[2023-06-13] MEDS: Carvedilol 25 MG TAB PO SCH (09:04)
[2023-06-13] MEDS: Losartan 25 MG TAB PO SCH (09:05)
[2023-06-13] MEDS: Aspirin 81 mg Enteric Coated Tablet PO SCH (09:05)
[2023-06-13] MEDS: Furosemide 40 MG TAB PO SCH (09:05)
[2023-06-13] MEDS: HumaLOG 300 UNITS/3 ML VIAL SC PRN (12:12)
[2023-06-13 12:55] VITALS: TEMP 97.9
== END 2023-06-13 14:00 | disposition home or self-care (01) | DRG 280 ==
LOC: ERS 16:07 → CCU 18:35
PROVIDERS: ADMIT Internal Medicine; ATTEND Internal Medicine
DX: I13.0 Hypertensive heart and chronic kidney disease with heart failure and stage 1 through stage 4 chronic kidney disease, or unspecified chronic kidney disease (principal); I50.33 Acute on chronic diastolic (congestive) heart failure; I21.A1 Myocardial infarction type 2; I16.1 Hypertensive emergency; N18.4 Chronic kidney disease, stage 4 (severe); E87.20 Acidosis, unspecified; N17.9 Acute kidney failure, unspecified; Z68.43 Body mass index [BMI] 50.0-59.9, adult; Z88.8 Allergy status to other drugs, medicaments and biological substances; I25.2 Old myocardial infarction; E11.22 Type 2 diabetes mellitus with diabetic chronic kidney disease; Z90.710 Acquired absence of both cervix and uterus; Z95.1 Presence of aortocoronary bypass graft; Z87.891 Personal history of nicotine dependence; Z79.82 Long term (current) use of aspirin; Z79.899 Other long term (current) drug therapy; Z79.4 Long term (current) use of insulin; D63.1 Anemia in chronic kidney disease; J44.9 Chronic obstructive pulmonary disease, unspecified; Z91.148 Patient's other noncompliance with medication regimen for other reason; E66.01 Morbid (severe) obesity due to excess calories; I25.10 Atherosclerotic heart disease of native coronary artery without angina pectoris; E78.5 Hyperlipidemia, unspecified
CPT/HCPCS: 36415; 36416; 71045; 80048; 80053; 83735; 83880; 84484; 85025; 85379; 93005; 93010; 96365; J0360; J1644; J1815; J1885; J1940; J2272; J7050; J7999; Q0162

== ENCOUNTER 2023-06-18 19:07 | Emergency (ER) | payer MEDICAID, MEDICARE ==
[2023-06-18 20:27] LABS: #Eosinphils 0.1 thou/uL (0.0-0.7); #Monocytes 0.8 thou/uL (0.11-0.59); #Neutrophils 5.7 thou/uL (1.40-6.50); %Basophils 0.1 % (0.0-1.0); %Eosinophils 0.8 % (0.0-10.0); %Monocytes 10.9 % (0.0-10.0); %Neutrophils 74.7 % (42.0-75.0); Hematocrit 29.8 % (36.0-47.0); Mean Corpuscular HGB CONC 30.2 g/dL (32.0-36.0); Mean Corpuscular Hemoglobin 25.2 pg (27.0-31.0); Mean Corpuscular Volume 83.5 fl (78.0-98.0); Mean Platelet Volume 9.8 fL (7.4-10.4); Platelet Count 267 10x3/uL (130-400); RBC Distribution Width 15.9 % (11.5-14.5); Red Blood Cell (RBC) Count 3.57 mill/uL (4.20-5.40); White Blood Cell (WBC) Count 7.6 10x3/uL (4.8-10.8)
[2023-06-18 20:53] LABS: Troponin I 0.043 ng/mL (< 0.028)
[2023-06-18 20:54] LABS: ALT (SGPT) 17 U/L (8-55); AST (SGOT) 18 U/L (5-34); Alkaline Phosphatase 71 U/L (40-110); Anion Gap 14 mmol/L (10-20); BUN (Urea Nitrogen) 49 mg/dL (9.8-20.1); Bilirubin, Total Less than 1.0 mg/dL (0.2-1.2); Calc. Creatinine Clearance 0 mL/min (70-130); Calcium 9.4 mg/dL (7.8-10.44); Carbon Dioxide 27 mmol/L (23-31); Chloride 95 mmol/L (98-107); Estimated GFR 17; Globulin 2.8 g/dL (2.4-3.5); Glucose 396 mg/dL (80-115); Lipase 30 U/L (8-78); Magnesium 2.1 mg/dL (1.6-2.6); Potassium 3.9 mmol/L (3.5-5.1); Protein, Total 6.8 g/dL (5.8-8.1); Sodium 132 mmol/L (136-145)
[2023-06-18 21:07] LABS: Bacteria/HPF None Seen HPF (None Seen); Bilirubin Negative (Negative); Blood, Urine Negative (Negative); CAUTI Indications for Culture Dysuria,urgency,freq; Clarity Clear (Clear); Glucose, Urine (Dipstick) >=1000 mg/dL (Negative); Ketone, Urine Negative (Negative); Leukocyte Negative Leu/uL (Negative); Nitrite Negative (Negative); Protein, Urine (Dipstick) 30 mg/dL (Neg-Trace); RBC/HPF 0-3 HPF (0-3); Specific Gravity, Urine 1.007 (1.002-1.036); Squamous Epithelial 0-3 HPF (0-3); Urobilinogen Normal mg/dL (Less than 2); WBC/HPF None Seen HPF (0-3)
[2023-06-18 21:09] LABS: Urine Culture Reflex No No
[2023-06-18] MEDS ORDERED: Aspirin Chewable 81 MG TAB ONE (22:12)
[2023-06-18] MEDS ORDERED: Ondansetron PF 4 MG/2 ML Vial ONE (22:12)
[2023-06-18] MEDS ORDERED: Furosemide 40 MG/4 ML VIAL ONE (22:12)
[2023-06-18] MEDS ORDERED: Furosemide 20 MG/2 ML VIAL ONE (22:12)
== END 2023-06-19 01:26 | disposition home or self-care (01) ==
LOC: ERS 19:07
DX: I50.9 Heart failure, unspecified (principal); I25.10 Atherosclerotic heart disease of native coronary artery without angina pectoris; E78.5 Hyperlipidemia, unspecified; I12.9 Hypertensive chronic kidney disease with stage 1 through stage 4 chronic kidney disease, or unspecified chronic kidney disease; N18.4 Chronic kidney disease, stage 4 (severe); E11.22 Type 2 diabetes mellitus with diabetic chronic kidney disease; Z87.891 Personal history of nicotine dependence; Z79.82 Long term (current) use of aspirin; Z79.4 Long term (current) use of insulin; Z79.899 Other long term (current) drug therapy
CPT/HCPCS: 71045; 80053; 81001; 83690; 83735; 83880; 84484; 85025; 93005; 96374; 96375; J1940; J2405

== ENCOUNTER 2023-06-22 19:52 | Emergency (ER) | payer MEDICARE ==
[2023-06-22 20:21] LABS: #Monocytes 0.8 thou/uL (0.11-0.59); #Neutrophils 5.9 thou/uL (1.40-6.50); %Basophils 0.2 % (0.0-1.0); %Eosinophils 0.4 % (0.0-10.0); %Lymphocytes 15.7 % (21.0-51.0); %Monocytes 10.2 % (0.0-10.0); %Neutrophils 73.1 % (42.0-75.0); Hematocrit 28.5 % (36.0-47.0); Hemoglobin 8.5 g/dL (12.0-16.0); Mean Corpuscular HGB CONC 29.8 g/dL (32.0-36.0); Mean Corpuscular Hemoglobin 24.9 pg (27.0-31.0); Mean Corpuscular Volume 83.6 fl (78.0-98.0); Mean Platelet Volume 9.5 fL (7.4-10.4); Platelet Count 245 10x3/uL (130-400); RBC Distribution Width 15.8 % (11.5-14.5); Red Blood Cell (RBC) Count 3.41 mill/uL (4.20-5.40); White Blood Cell (WBC) Count 8.1 10x3/uL (4.8-10.8)
[2023-06-22 20:44] LABS: ALT (SGPT) 15 U/L (8-55); AST (SGOT) 18 U/L (5-34); Albumin 3.7 g/dL (3.4-4.8); Alkaline Phosphatase 63 U/L (40-110); Anion Gap 17 mmol/L (10-20); BUN (Urea Nitrogen) 57 mg/dL (9.8-20.1); Bilirubin, Total 0.2 mg/dL (0.2-1.2); Calc. Creatinine Clearance 0 mL/min (70-130); Calcium 9.1 mg/dL (7.8-10.44); Carbon Dioxide 25 mmol/L (23-31); Chloride 99 mmol/L (98-107); Estimated GFR 17; Globulin 2.6 g/dL (2.4-3.5); Glucose 87 mg/dL (80-115); Potassium 4.1 mmol/L (3.5-5.1); Protein, Total 6.3 g/dL (5.8-8.1); Sodium 137 mmol/L (136-145)
[2023-06-22 20:48] LABS: Troponin I 0.045 ng/mL (< 0.028)
[2023-06-22 22:16] LABS: SARS-CoV-2 NAA Rapid Test Not Detected (NotDetected)
== END 2023-06-23 00:41 | disposition home or self-care (01) ==
LOC: ERS 19:52
DX: R53.1 Weakness (principal); I13.0 Hypertensive heart and chronic kidney disease with heart failure and stage 1 through stage 4 chronic kidney disease, or unspecified chronic kidney disease; I50.9 Heart failure, unspecified; N18.9 Chronic kidney disease, unspecified; E11.22 Type 2 diabetes mellitus with diabetic chronic kidney disease; I25.10 Atherosclerotic heart disease of native coronary artery without angina pectoris; E78.5 Hyperlipidemia, unspecified; Z87.891 Personal history of nicotine dependence; Z79.899 Other long term (current) drug therapy; Z79.4 Long term (current) use of insulin; Z79.82 Long term (current) use of aspirin; Z20.822 Contact with and (suspected) exposure to COVID-19
CPT/HCPCS: 0240U; 71045; 80053; 83880; 84484; 85025; 93005

== ENCOUNTER 2023-06-25 09:18 | Emergency (ER) | payer MEDICARE ==
[2023-06-25 10:01] LABS: #Monocytes 0.7 thou/uL (0.11-0.59); %Basophils 0.1 % (0.0-1.0); %Eosinophils 0.5 % (0.0-10.0); %Lymphocytes 10.5 % (21.0-51.0); %Monocytes 8.4 % (0.0-10.0); %Neutrophils 80.2 % (42.0-75.0); Hematocrit 28.2 % (36.0-47.0); Hemoglobin 8.6 g/dL (12.0-16.0); Mean Corpuscular HGB CONC 30.5 g/dL (32.0-36.0); Mean Corpuscular Hemoglobin 25.1 pg (27.0-31.0); Mean Corpuscular Volume 82.2 fl (78.0-98.0); Mean Platelet Volume 10.1 fL (7.4-10.4); Platelet Count 235 10x3/uL (130-400); RBC Distribution Width 15.8 % (11.5-14.5); Red Blood Cell (RBC) Count 3.43 mill/uL (4.20-5.40); White Blood Cell (WBC) Count 8.8 10x3/uL (4.8-10.8)
[2023-06-25 10:40] LABS: ALT (SGPT) 14 U/L (8-55); AST (SGOT) 19 U/L (5-34); Albumin 3.8 g/dL (3.4-4.8); Alkaline Phosphatase 60 U/L (40-110); Anion Gap 15 mmol/L (10-20); BUN (Urea Nitrogen) 55 mg/dL (9.8-20.1); Bilirubin, Total 0.3 mg/dL (0.2-1.2); Calc. Creatinine Clearance 0 mL/min (70-130); Calcium 9.7 mg/dL (7.8-10.44); Carbon Dioxide 26 mmol/L (23-31); Chloride 100 mmol/L (98-107); Estimated GFR 19; Globulin 2.5 g/dL (2.4-3.5); Glucose 356 mg/dL (80-115); Potassium 4.3 mmol/L (3.5-5.1); Protein, Total 6.3 g/dL (5.8-8.1); Sodium 137 mmol/L (136-145)
[2023-06-25] MEDS ORDERED: Nitroglycerin 2% Ointment 1 INCH/1 GM Packet ONE (11:07)
[2023-06-25] MEDS ORDERED: Furosemide 40 MG/4 ML VIAL ONE (11:07)
[2023-06-25] MEDS ORDERED: Furosemide 40 MG TAB ONE (12:37)
== END 2023-06-25 12:10 | disposition home or self-care (01) ==
LOC: ERS 09:18
DX: I13.0 Hypertensive heart and chronic kidney disease with heart failure and stage 1 through stage 4 chronic kidney disease, or unspecified chronic kidney disease (principal); I50.9 Heart failure, unspecified; N18.4 Chronic kidney disease, stage 4 (severe); E11.22 Type 2 diabetes mellitus with diabetic chronic kidney disease; I25.10 Atherosclerotic heart disease of native coronary artery without angina pectoris; E78.5 Hyperlipidemia, unspecified; Z87.891 Personal history of nicotine dependence
CPT/HCPCS: 36415; 71045; 80053; 83880; 84484; 85025; 93005; J1940

== ENCOUNTER 2023-06-29 19:24 | Emergency (ER) | payer MEDICARE | END 2023-06-29 20:45 | disposition left against medical advice (07) | LOC: ERS 19:24 | DX: Z53.21 Procedure and treatment not carried out due to patient leaving prior to being seen by health care provider (principal) | CPT/HCPCS: 93005 ==

== ENCOUNTER 2023-07-02 09:54 | Emergency (ER) | payer MEDICARE ==
[2023-07-02 10:58] LABS: #Eosinphils 0.1 thou/uL (0.0-0.7); #Monocytes 0.8 thou/uL (0.11-0.59); #Neutrophils 5.5 thou/uL (1.40-6.50); %Basophils 0.1 % (0.0-1.0); %Eosinophils 0.8 % (0.0-10.0); %Lymphocytes 16.3 % (21.0-51.0); %Monocytes 9.9 % (0.0-10.0); %Neutrophils 72.6 % (42.0-75.0); Hematocrit 28.5 % (36.0-47.0); Hemoglobin 8.6 g/dL (12.0-16.0); Mean Corpuscular HGB CONC 30.2 g/dL (32.0-36.0); Mean Corpuscular Hemoglobin 24.9 pg (27.0-31.0); Mean Corpuscular Volume 82.6 fl (78.0-98.0); Mean Platelet Volume 10.2 fL (7.4-10.4); Platelet Count 225 10x3/uL (130-400); RBC Distribution Width 15.9 % (11.5-14.5); Red Blood Cell (RBC) Count 3.45 mill/uL (4.20-5.40); White Blood Cell (WBC) Count 7.6 10x3/uL (4.8-10.8)
[2023-07-02 11:22] LABS: ALT (SGPT) 15 U/L (8-55); AST (SGOT) 16 U/L (5-34); Albumin 3.8 g/dL (3.4-4.8); Alkaline Phosphatase 70 U/L (40-110); Anion Gap 14 mmol/L (10-20); BUN (Urea Nitrogen) 58 mg/dL (9.8-20.1); Bilirubin, Total 0.2 mg/dL (0.2-1.2); Calc. Creatinine Clearance 0 mL/min (70-130); Calcium 9.3 mg/dL (7.8-10.44); Carbon Dioxide 26 mmol/L (23-31); Chloride 102 mmol/L (98-107); Estimated GFR 20; Globulin 2.1 g/dL (2.4-3.5); Glucose 98 mg/dL (80-115); Protein, Total 5.9 g/dL (5.8-8.1); Sodium 138 mmol/L (136-145)
[2023-07-02 11:28] LABS: Troponin I 0.037 ng/mL (< 0.028)
[2023-07-02] MEDS ORDERED: Aspirin Chewable 81 MG TAB ONE (11:59)
[2023-07-02] MEDS ORDERED: Nitroglycerin 2% Ointment 1 INCH/1 GM Packet ONE ×2 (11:59→12:14)
[2023-07-02 14:29] LABS: Troponin I 0.047 ng/mL (< 0.028)
== END 2023-07-02 15:11 | disposition home or self-care (01) ==
LOC: ERS 09:54
DX: R07.9 Chest pain, unspecified (principal); E11.22 Type 2 diabetes mellitus with diabetic chronic kidney disease; N18.9 Chronic kidney disease, unspecified; I50.9 Heart failure, unspecified; I13.0 Hypertensive heart and chronic kidney disease with heart failure and stage 1 through stage 4 chronic kidney disease, or unspecified chronic kidney disease; E78.5 Hyperlipidemia, unspecified; Z87.891 Personal history of nicotine dependence
CPT/HCPCS: 36415; 71045; 80053; 83880; 84484; 85025; 93005

== ENCOUNTER 2023-07-07 03:31 | Emergency (ER) | payer MEDICARE ==
[2023-07-07] MEDS ORDERED: Nitroglycerin 2% Ointment 1 INCH/1 GM Packet ONE (03:53)
[2023-07-07] MEDS ORDERED: Aspirin 325 MG TAB ONE (03:53)
[2023-07-07 04:21] LABS: #Eosinphils 0.1 thou/uL (0.0-0.7); #Monocytes 0.7 thou/uL (0.11-0.59); #Neutrophils 5.7 thou/uL (1.40-6.50); %Basophils 0.1 % (0.0-1.0); %Eosinophils 1.1 % (0.0-10.0); %Lymphocytes 13.9 % (21.0-51.0); %Monocytes 9.7 % (0.0-10.0); %Neutrophils 74.8 % (42.0-75.0); Hematocrit 28.7 % (36.0-47.0); Hemoglobin 8.5 g/dL (12.0-16.0); Mean Corpuscular HGB CONC 29.6 g/dL (32.0-36.0); Mean Corpuscular Hemoglobin 24.9 pg (27.0-31.0); Mean Corpuscular Volume 83.9 fl (78.0-98.0); Mean Platelet Volume 10.5 fL (7.4-10.4); Platelet Count 250 10x3/uL (130-400); RBC Distribution Width 16.6 % (11.5-14.5); Red Blood Cell (RBC) Count 3.42 mill/uL (4.20-5.40); White Blood Cell (WBC) Count 7.6 10x3/uL (4.8-10.8)
[2023-07-07 04:53] LABS: Troponin I 0.049 ng/mL (< 0.028)
[2023-07-07 05:00] LABS: Albumin 3.7 g/dL (3.4-4.8)
[2023-07-07 05:01] LABS: Calcium 9.4 mg/dL (7.8-10.44); Chloride 105 mmol/L (98-107); Potassium 4.5 mmol/L (3.5-5.1); Sodium 138 mmol/L (136-145)
[2023-07-07 05:02] LABS: Glucose 65 mg/dL (80-115)
[2023-07-07 05:03] LABS: Globulin 3.1 g/dL (2.4-3.5); Protein, Total 6.8 g/dL (5.8-8.1)
[2023-07-07 05:04] LABS: Anion Gap 17 mmol/L (10-20); Bilirubin, Total 0.2 mg/dL (0.2-1.2); Carbon Dioxide 21 mmol/L (23-31)
[2023-07-07 05:05] LABS: Alkaline Phosphatase 71 U/L (40-110)
[2023-07-07 05:06] LABS: BUN (Urea Nitrogen) 54 mg/dL (9.8-20.1); Calc. Creatinine Clearance 0 mL/min (70-130); Estimated GFR 19
[2023-07-07 05:07] LABS: AST (SGOT) 33 U/L (5-34)
[2023-07-07 05:08] LABS: ALT (SGPT) 18 U/L (8-55)
[2023-07-07 06:46] LABS: Troponin I 0.033 ng/mL (< 0.028)
== END 2023-07-07 07:25 | disposition home or self-care (01) ==
LOC: ERS 03:31
DX: E11.649 Type 2 diabetes mellitus with hypoglycemia without coma (principal); D64.9 Anemia, unspecified; R79.89 Other specified abnormal findings of blood chemistry; N18.9 Chronic kidney disease, unspecified; E11.22 Type 2 diabetes mellitus with diabetic chronic kidney disease; I13.0 Hypertensive heart and chronic kidney disease with heart failure and stage 1 through stage 4 chronic kidney disease, or unspecified chronic kidney disease; I50.9 Heart failure, unspecified; E78.5 Hyperlipidemia, unspecified; Z79.4 Long term (current) use of insulin; Z79.82 Long term (current) use of aspirin; Z79.899 Other long term (current) drug therapy
CPT/HCPCS: 36415; 36416; 71045; 80053; 83880; 84484; 85025; 85379; 93005; 96372; J1940

== ENCOUNTER 2023-07-07 20:16 | Emergency (ER) | payer MEDICARE ==
[2023-07-07 21:23] LABS: #Eosinphils 0.1 thou/uL (0.0-0.7); #Monocytes 0.7 thou/uL (0.11-0.59); #Neutrophils 5.4 thou/uL (1.40-6.50); %Basophils 0.3 % (0.0-1.0); %Eosinophils 0.7 % (0.0-10.0); %Lymphocytes 13.2 % (21.0-51.0); %Monocytes 9.3 % (0.0-10.0); %Neutrophils 76.2 % (42.0-75.0); Hematocrit 25.8 % (36.0-47.0); Hemoglobin 7.6 g/dL (12.0-16.0); Mean Corpuscular HGB CONC 29.5 g/dL (32.0-36.0); Mean Corpuscular Hemoglobin 24.4 pg (27.0-31.0); Mean Platelet Volume 9.7 fL (7.4-10.4); Platelet Count 198 10x3/uL (130-400); RBC Distribution Width 16.4 % (11.5-14.5); Red Blood Cell (RBC) Count 3.11 mill/uL (4.20-5.40); White Blood Cell (WBC) Count 7.1 10x3/uL (4.8-10.8)
[2023-07-07 21:45] LABS: ALT (SGPT) 15 U/L (8-55); AST (SGOT) 20 U/L (5-34); Albumin 3.5 g/dL (3.4-4.8); Alkaline Phosphatase 69 U/L (40-110); Anion Gap 15 mmol/L (10-20); BUN (Urea Nitrogen) 59 mg/dL (9.8-20.1); Bilirubin, Total 0.2 mg/dL (0.2-1.2); Calc. Creatinine Clearance 0 mL/min (70-130); Calcium 8.6 mg/dL (7.8-10.44); Carbon Dioxide 22 mmol/L (23-31); Chloride 103 mmol/L (98-107); Estimated GFR 17; Globulin 2.1 g/dL (2.4-3.5); Glucose 306 mg/dL (80-115); Potassium 4.5 mmol/L (3.5-5.1); Protein, Total 5.6 g/dL (5.8-8.1); Sodium 135 mmol/L (136-145)
[2023-07-07 21:49] LABS: Troponin I 0.035 ng/mL (< 0.028)
[2023-07-07] MEDS ORDERED: Furosemide 40 MG/4 ML VIAL ONE (22:28)
== END 2023-07-07 23:01 | disposition home or self-care (01) ==
LOC: ERS 20:16
DX: R07.89 Other chest pain (principal); I11.0 Hypertensive heart disease with heart failure; I50.9 Heart failure, unspecified; E11.9 Type 2 diabetes mellitus without complications; E78.5 Hyperlipidemia, unspecified; Z79.82 Long term (current) use of aspirin; Z79.899 Other long term (current) drug therapy
CPT/HCPCS: 36415; 71045; 83880; 85379; 93005; J1940

== ENCOUNTER 2023-07-08 10:40 | Emergency (ER) | payer MEDICARE | END 2023-07-08 11:55 | disposition left against medical advice (07) | LOC: ERS 10:40 | DX: Z53.29 Procedure and treatment not carried out because of patient's decision for other reasons (principal) | CPT/HCPCS: 36416 ==

== ENCOUNTER 2023-07-08 17:30 | Emergency (ER) | payer MEDICARE ==
[2023-07-08] MEDS ORDERED: Ondansetron ODT 4 MG TAB ONE (17:40)
[2023-07-08] MEDS ORDERED: Acetaminophen 500 MG TAB ONE (17:40)
== END 2023-07-08 17:51 | disposition home or self-care (01) ==
LOC: ERS 17:30
DX: R11.0 Nausea (principal); E11.9 Type 2 diabetes mellitus without complications; I10 Essential (primary) hypertension; E78.5 Hyperlipidemia, unspecified
CPT/HCPCS: 36416; 93005; Q0162

== ENCOUNTER 2023-07-10 19:44 | Emergency (ER) | payer MEDICARE | END 2023-07-10 20:00 | disposition left against medical advice (07) | LOC: ERS 19:44 | DX: Z53.21 Procedure and treatment not carried out due to patient leaving prior to being seen by health care provider (principal) ==

== ENCOUNTER 2023-07-10 20:35 | Emergency (ER) | payer MEDICARE ==
[2023-07-10] MEDS ORDERED: Acetaminophen 500 MG TAB ONE (21:15)
[2023-07-10] MEDS ORDERED: Ondansetron ODT 4 MG TAB ONE (21:15)
[2023-07-10 22:39] LABS: #Eosinphils 0.1 thou/uL (0.0-0.7); #Monocytes 0.8 thou/uL (0.11-0.59); #Neutrophils 5.9 thou/uL (1.40-6.50); %Basophils 0.4 % (0.0-1.0); %Eosinophils 0.6 % (0.0-10.0); %Lymphocytes 13.8 % (21.0-51.0); %Monocytes 10.6 % (0.0-10.0); %Neutrophils 74.2 % (42.0-75.0); Hematocrit 28.6 % (36.0-47.0); Hemoglobin 8.3 g/dL (12.0-16.0); Mean Corpuscular Hemoglobin 24.4 pg (27.0-31.0); Mean Corpuscular Volume 84.1 fl (78.0-98.0); Mean Platelet Volume 9.8 fL (7.4-10.4); Platelet Count 201 10x3/uL (130-400); RBC Distribution Width 16.6 % (11.5-14.5); White Blood Cell (WBC) Count 7.9 10x3/uL (4.8-10.8)
[2023-07-10 23:01] LABS: ALT (SGPT) 25 U/L (8-55); AST (SGOT) 30 U/L (5-34); Albumin 3.9 g/dL (3.4-4.8); Alkaline Phosphatase 80 U/L (40-110); Anion Gap 16 mmol/L (10-20); BUN (Urea Nitrogen) 73 mg/dL (9.8-20.1); Bilirubin, Total 0.2 mg/dL (0.2-1.2); Calc. Creatinine Clearance 0 mL/min (70-130); Calcium 9.2 mg/dL (7.8-10.44); Carbon Dioxide 24 mmol/L (23-31); Chloride 102 mmol/L (98-107); Estimated GFR 15; Globulin 2.4 g/dL (2.4-3.5); Glucose 126 mg/dL (80-115); Lipase 28 U/L (8-78); Potassium 4.6 mmol/L (3.5-5.1); Protein, Total 6.3 g/dL (5.8-8.1); Sodium 137 mmol/L (136-145)
[2023-07-10 23:04] LABS: Troponin I 0.037 ng/mL (< 0.028)
[2023-07-10 23:54] LABS: SARS-CoV-2 NAA Rapid Test Not Detected (NotDetected)
== END 2023-07-10 23:50 | disposition home or self-care (01) ==
LOC: ERS 20:35
DX: B34.9 Viral infection, unspecified (principal); I13.0 Hypertensive heart and chronic kidney disease with heart failure and stage 1 through stage 4 chronic kidney disease, or unspecified chronic kidney disease; I50.9 Heart failure, unspecified; N18.9 Chronic kidney disease, unspecified; E11.22 Type 2 diabetes mellitus with diabetic chronic kidney disease; Z20.822 Contact with and (suspected) exposure to COVID-19
CPT/HCPCS: 0240U; 71045; 80053; 83690; 84484; 85025; 93005; 36415; Q0162

== ENCOUNTER 2023-07-11 09:08 | Emergency (ER) | payer MEDICARE ==
[2023-07-11 10:17] LABS: #Eosinphils 0.1 thou/uL (0.0-0.7); #Monocytes 0.8 thou/uL (0.11-0.59); #Neutrophils 6.2 thou/uL (1.40-6.50); %Basophils 0.2 % (0.0-1.0); %Eosinophils 0.7 % (0.0-10.0); %Lymphocytes 13.8 % (21.0-51.0); %Neutrophils 74.8 % (42.0-75.0); Hematocrit 28.9 % (36.0-47.0); Hemoglobin 8.7 g/dL (12.0-16.0); Mean Corpuscular HGB CONC 30.1 g/dL (32.0-36.0); Mean Corpuscular Hemoglobin 24.4 pg (27.0-31.0); Mean Platelet Volume 10.1 fL (7.4-10.4); Platelet Count 231 10x3/uL (130-400); RBC Distribution Width 16.4 % (11.5-14.5); Red Blood Cell (RBC) Count 3.57 mill/uL (4.20-5.40); White Blood Cell (WBC) Count 8.3 10x3/uL (4.8-10.8)
[2023-07-11 10:48] LABS: Troponin I 0.037 ng/mL (< 0.028)
[2023-07-11 11:02] LABS: ALT (SGPT) 28 U/L (8-55); AST (SGOT) 43 U/L (5-34); Albumin 3.8 g/dL (3.4-4.8); Alkaline Phosphatase 74 U/L (40-110); Anion Gap 18 mmol/L (10-20); BUN (Urea Nitrogen) 68 mg/dL (9.8-20.1); Bilirubin, Total 0.3 mg/dL (0.2-1.2); Calc. Creatinine Clearance 0 mL/min (70-130); Calcium 9.7 mg/dL (7.8-10.44); Carbon Dioxide 25 mmol/L (23-31); Chloride 101 mmol/L (98-107); Estimated GFR 17; Glucose 142 mg/dL (80-115); Lipase 18 U/L (8-78); Magnesium 2.3 mg/dL (1.6-2.6); Potassium 4.9 mmol/L (3.5-5.1); Protein, Total 6.8 g/dL (5.8-8.1); Sodium 139 mmol/L (136-145)
[2023-07-11] MEDS ORDERED: Furosemide 40 MG TAB ONE (12:47)
== END 2023-07-11 10:00 | disposition left against medical advice (07) ==
LOC: ERS 09:08
DX: Z53.29 Procedure and treatment not carried out because of patient's decision for other reasons (principal); E11.9 Type 2 diabetes mellitus without complications; I10 Essential (primary) hypertension
CPT/HCPCS: 36415; 71045; 80053; 83605; 83690; 83735; 83880; 84484; 85025; 93005

== ENCOUNTER 2023-07-11 23:13 | Emergency (ER) | payer MEDICARE ==
[2023-07-11] MEDS ORDERED: Ondansetron ODT 4 MG TAB ONE (23:52)
[2023-07-12 00:15] LABS: #Eosinphils 0.1 thou/uL (0.0-0.7); #Monocytes 0.6 thou/uL (0.11-0.59); #Neutrophils 6.3 thou/uL (1.40-6.50); %Basophils 0.3 % (0.0-1.0); %Eosinophils 0.6 % (0.0-10.0); %Lymphocytes 11.4 % (21.0-51.0); %Monocytes 7.6 % (0.0-10.0); %Neutrophils 79.7 % (42.0-75.0); Hematocrit 28.8 % (36.0-47.0); Hemoglobin 8.5 g/dL (12.0-16.0); Mean Corpuscular HGB CONC 29.5 g/dL (32.0-36.0); Mean Corpuscular Hemoglobin 24.3 pg (27.0-31.0); Mean Corpuscular Volume 82.3 fl (78.0-98.0); Mean Platelet Volume 9.9 fL (7.4-10.4); Platelet Count 207 10x3/uL (130-400); RBC Distribution Width 16.5 % (11.5-14.5); White Blood Cell (WBC) Count 7.9 10x3/uL (4.8-10.8)
[2023-07-12 00:48] LABS: Troponin I 0.037 ng/mL (< 0.028)
[2023-07-12 00:53] LABS: ALT (SGPT) 29 U/L (8-55); AST (SGOT) 29 U/L (5-34); Albumin 3.8 g/dL (3.4-4.8); Alkaline Phosphatase 83 U/L (40-110); Anion Gap 18 mmol/L (10-20); BUN (Urea Nitrogen) 66 mg/dL (9.8-20.1); Bilirubin, Total 0.6 mg/dL (0.2-1.2); Calc. Creatinine Clearance 0 mL/min (70-130); Calcium 9.3 mg/dL (7.8-10.44); Carbon Dioxide 24 mmol/L (23-31); Chloride 99 mmol/L (98-107); Estimated GFR 19; Globulin 2.7 g/dL (2.4-3.5); Glucose 328 mg/dL (80-115); Lipase 22 U/L (8-78); Potassium 4.4 mmol/L (3.5-5.1); Protein, Total 6.5 g/dL (5.8-8.1); Sodium 137 mmol/L (136-145)
== END 2023-07-12 00:52 | disposition home or self-care (01) ==
LOC: ERS 23:13
DX: R11.2 Nausea with vomiting, unspecified (principal); E11.9 Type 2 diabetes mellitus without complications; I10 Essential (primary) hypertension
CPT/HCPCS: 36415; 71045; 83690; 83880; 93005; Q0162

== ENCOUNTER 2023-07-12 18:26 | Observation (INO) | payer MEDICARE ==
[2023-07-12] MEDS ORDERED: Ipratropium/Albuterol 3 ML NEB ONE (19:26)
[2023-07-12 19:32] LABS: #Eosinphils 0.1 thou/uL (0.0-0.7); #Monocytes 0.8 thou/uL (0.11-0.59); %Basophils 0.3 % (0.0-1.0); %Eosinophils 0.9 % (0.0-10.0); %Lymphocytes 15.8 % (21.0-51.0); %Monocytes 11.5 % (0.0-10.0); %Neutrophils 71.1 % (42.0-75.0); Hematocrit 25.4 % (36.0-47.0); Hemoglobin 7.7 g/dL (12.0-16.0); Mean Corpuscular HGB CONC 30.3 g/dL (32.0-36.0); Mean Corpuscular Hemoglobin 24.5 pg (27.0-31.0); Mean Corpuscular Volume 80.9 fl (78.0-98.0); Mean Platelet Volume 9.5 fL (7.4-10.4); Platelet Count 206 10x3/uL (130-400); RBC Distribution Width 16.4 % (11.5-14.5); Red Blood Cell (RBC) Count 3.14 mill/uL (4.20-5.40)
[2023-07-12 19:59] LABS: ALT (SGPT) 24 U/L (8-55); AST (SGOT) 24 U/L (5-34); Albumin 3.6 g/dL (3.4-4.8); Alkaline Phosphatase 73 U/L (40-110); Anion Gap 15 mmol/L (10-20); BUN (Urea Nitrogen) 61 mg/dL (9.8-20.1); Bilirubin, Total 0.2 mg/dL (0.2-1.2); Calc. Creatinine Clearance 0 mL/min (70-130); Calcium 9.3 mg/dL (7.8-10.44); Carbon Dioxide 28 mmol/L (23-31); Chloride 99 mmol/L (98-107); Estimated GFR 18; Glucose 179 mg/dL (80-115); Potassium 4.2 mmol/L (3.5-5.1); Protein, Total 5.6 g/dL (5.8-8.1); Sodium 138 mmol/L (136-145)
[2023-07-12 20:00] LABS: Troponin I 0.065 ng/mL (< 0.028)
[2023-07-12] MEDS ORDERED: Furosemide 40 MG/4 ML VIAL ONE (21:55)
[2023-07-12] MEDS ORDERED: Aspirin Chewable 81 MG TAB ONE (21:56)
[2023-07-12] MEDS ORDERED: Ondansetron ODT 4 MG TAB PO PRN (22:23)
[2023-07-12] MEDS ORDERED: Acetaminophen 325 MG TAB PO PRN (22:23)
[2023-07-12] MEDS ORDERED: Calcium Carbonate 500 MG ChewTAB PO PRN (22:23)
[2023-07-12 23:13] VITALS: BMI 52.7
[2023-07-13] MEDS ORDERED: Ipratropium/Albuterol 3 ML NEB NEB PRN (00:07)
[2023-07-13] MEDS ORDERED: HumaLOG 300 UNITS/3 ML VIAL SC PRN ×2 (00:08)
[2023-07-13] MEDS ORDERED: Dextrose 50% Abboject 50 ML SYRINGE SLOW IVP PRN (00:08)
[2023-07-13] MEDS ORDERED: Dextrose 5% in Water 1,000 ML IV PRN (00:08)
[2023-07-13] MEDS ORDERED: Glucagon 1 MG/ML KIT IM PRN (00:08)
[2023-07-13 00:39] LABS: Troponin I 0.054 ng/mL (< 0.028)
[2023-07-13 01:21] LABS: #Eosinphils 0.1 thou/uL (0.0-0.7); #Monocytes 0.9 thou/uL (0.11-0.59); #Neutrophils 5.7 thou/uL (1.40-6.50); %Basophils 0.3 % (0.0-1.0); %Eosinophils 0.9 % (0.0-10.0); %Lymphocytes 14.8 % (21.0-51.0); %Neutrophils 72.5 % (42.0-75.0); Hematocrit 26.4 % (36.0-47.0); Mean Corpuscular HGB CONC 30.3 g/dL (32.0-36.0); Mean Corpuscular Hemoglobin 24.7 pg (27.0-31.0); Mean Corpuscular Volume 81.5 fl (78.0-98.0); Mean Platelet Volume 9.7 fL (7.4-10.4); Platelet Count 215 10x3/uL (130-400); RBC Distribution Width 16.5 % (11.5-14.5); Red Blood Cell (RBC) Count 3.24 mill/uL (4.20-5.40); White Blood Cell (WBC) Count 7.8 10x3/uL (4.8-10.8)
[2023-07-13] MEDS ORDERED: hydrALAZINE 25 MG TAB PO SCH ×2 (01:45→09:00)
[2023-07-13 02:06] LABS: Troponin I 0.052 ng/mL (< 0.028)
[2023-07-13 03:35] LABS: Anion Gap 20 mmol/L (10-20); BUN (Urea Nitrogen) 60 mg/dL (9.8-20.1); Calc. Creatinine Clearance 46 mL/min (70-130); Calcium 9.3 mg/dL (7.8-10.44); Carbon Dioxide 23 mmol/L (23-31); Chloride 99 mmol/L (98-107); Estimated GFR 20; Glucose 195 mg/dL (80-115); Sodium 138 mmol/L (136-145)
[2023-07-13] MEDS ORDERED: Furosemide 40 MG/4 ML VIAL SLOW IVP SCH (06:00)
[2023-07-13] MEDS ORDERED: Carvedilol 25 MG TAB PO SCH (08:00)
[2023-07-13] MEDS ORDERED: HumuLIN 70/30 (300 UNITS/3 ML VIAL) SC SCH ×3 (08:00→17:00)
[2023-07-13 08:17] VITALS: BP 170/72; TEMP 97.8
[2023-07-13] MEDS ORDERED: Isosorbide Dinitrate 20 MG TAB PO SCH (09:00)
[2023-07-13] MEDS ORDERED: Losartan 25 MG TAB PO SCH (09:00)
[2023-07-13] MEDS ORDERED: Heparin 5,000 UNITS/ML VIAL SC SCH (09:00)
[2023-07-13] MEDS ORDERED: Amlodipine 5 MG TAB PO SCH (09:00)
[2023-07-13] MEDS ORDERED: Clopidogrel Bisulfate 75 MG TAB PO SCH (09:00)
[2023-07-13] MEDS ORDERED: FLU VACC QS2023-24(6MOS UP)/PF 60 MCG/0.5 ML SYRINGE IM ONE (09:00)
[2023-07-13] MEDS ORDERED: Furosemide 40 MG TAB PO SCH (09:00)
[2023-07-13] MEDS ORDERED: Ezetimibe 10 MG TAB PO SCH (21:00)
[2023-07-13] MEDS ORDERED: Gabapentin 300 MG CAP PO SCH (21:00)
[2023-07-13] MEDS ORDERED: Atorvastatin Calcium 40 MG TAB PO SCH (21:00)
== END 2023-07-13 08:45 | disposition left against medical advice (07) ==
LOC: ERS 18:26 → 2NO 21:25 → INTOOBSV 21:25
PROVIDERS: ADMIT Student in an Organized Health Care Education/Training Program; ATTEND Family Medicine
DX: I13.0 Hypertensive heart and chronic kidney disease with heart failure and stage 1 through stage 4 chronic kidney disease, or unspecified chronic kidney disease (principal); I50.23 Acute on chronic systolic (congestive) heart failure; E11.22 Type 2 diabetes mellitus with diabetic chronic kidney disease; N18.9 Chronic kidney disease, unspecified; D63.1 Anemia in chronic kidney disease; N17.9 Acute kidney failure, unspecified; I25.10 Atherosclerotic heart disease of native coronary artery without angina pectoris; E78.5 Hyperlipidemia, unspecified; J44.9 Chronic obstructive pulmonary disease, unspecified; E66.01 Morbid (severe) obesity due to excess calories; Z68.43 Body mass index [BMI] 50.0-59.9, adult; Z88.8 Allergy status to other drugs, medicaments and biological substances; Z79.4 Long term (current) use of insulin; Z87.891 Personal history of nicotine dependence
CPT/HCPCS: 36415; 36416; 71045; 80048; 83880; 84484; 85025; 85379; 93005; 94640; 96374; J1815; J1940; J7620; Q0162

== ENCOUNTER 2023-07-16 14:56 | Emergency (ER) | payer MEDICARE ==
[2023-07-16 16:10] LABS: #Eosinphils 0.1 thou/uL (0.0-0.7); #Monocytes 0.7 thou/uL (0.11-0.59); #Neutrophils 6.3 thou/uL (1.40-6.50); %Basophils 0.2 % (0.0-1.0); %Eosinophils 0.7 % (0.0-10.0); %Lymphocytes 14.4 % (21.0-51.0); %Monocytes 7.9 % (0.0-10.0); %Neutrophils 76.3 % (42.0-75.0); Hematocrit 31.3 % (36.0-47.0); Hemoglobin 9.3 g/dL (12.0-16.0); Mean Corpuscular HGB CONC 29.7 g/dL (32.0-36.0); Mean Corpuscular Hemoglobin 24.3 pg (27.0-31.0); Mean Corpuscular Volume 81.7 fl (78.0-98.0); Mean Platelet Volume 10.1 fL (7.4-10.4); RBC Distribution Width 16.6 % (11.5-14.5); Red Blood Cell (RBC) Count 3.83 mill/uL (4.20-5.40); White Blood Cell (WBC) Count 8.2 10x3/uL (4.8-10.8)
[2023-07-16 16:28] LABS: ALT (SGPT) 20 U/L (8-55); AST (SGOT) 21 U/L (5-34); Albumin 3.9 g/dL (3.4-4.8); Alkaline Phosphatase 83 U/L (40-110); Anion Gap 18 mmol/L (10-20); BUN (Urea Nitrogen) 52 mg/dL (9.8-20.1); Bilirubin, Total 0.5 mg/dL (0.2-1.2); Calc. Creatinine Clearance 0 mL/min (70-130); Calcium 9.2 mg/dL (7.8-10.44); Carbon Dioxide 24 mmol/L (23-31); Chloride 97 mmol/L (98-107); Estimated GFR 20; Globulin 2.6 g/dL (2.4-3.5); Potassium 4.5 mmol/L (3.5-5.1); Protein, Total 6.5 g/dL (5.8-8.1); Sodium 134 mmol/L (136-145)
[2023-07-16 16:32] LABS: Glucose 475 mg/dL (80-115)
[2023-07-16 16:36] LABS: Troponin I 0.059 ng/mL (< 0.028)
[2023-07-16 16:43] LABS: Platelet Adequacy Comment PLT clumps seen-ADEQ; Platelet Clumps SLIGHT
== END 2023-07-16 16:44 | disposition left against medical advice (07) ==
LOC: ERS 14:56
DX: Z53.21 Procedure and treatment not carried out due to patient leaving prior to being seen by health care provider (principal)
CPT/HCPCS: 36415; 71045; 80053; 83880; 84484; 85025

== ENCOUNTER 2023-07-16 17:14 | Emergency (ER) | payer MEDICARE | END 2023-07-16 21:44 | disposition left against medical advice (07) | LOC: ERS 17:14 | DX: R06.00 Dyspnea, unspecified (principal); E11.9 Type 2 diabetes mellitus without complications; I10 Essential (primary) hypertension; E78.5 Hyperlipidemia, unspecified; Z79.82 Long term (current) use of aspirin; Z79.84 Long term (current) use of oral hypoglycemic drugs; Z79.899 Other long term (current) drug therapy ==

== ENCOUNTER 2023-07-16 22:18 | Emergency (ER) | payer MEDICARE ==
[2023-07-17] MEDS ORDERED: Nitroglycerin 2% Ointment 1 INCH/1 GM Packet ONE (01:23)
== END 2023-07-17 02:20 | disposition home or self-care (01) ==
LOC: ERS 22:18
DX: R06.02 Shortness of breath (principal); E11.9 Type 2 diabetes mellitus without complications; I10 Essential (primary) hypertension
CPT/HCPCS: 71045; 80053; 83880; 84484 ×2; 93005; G0306; 36415; 85025

== ENCOUNTER 2023-07-17 03:03 | Emergency (ER) | payer MEDICARE | END 2023-07-17 03:23 | disposition home or self-care (01) | LOC: ERS 03:03 | DX: R06.02 Shortness of breath (principal); E11.9 Type 2 diabetes mellitus without complications; I10 Essential (primary) hypertension | CPT/HCPCS: 99284 ==

== ENCOUNTER 2023-07-17 19:09 | Emergency (ER) | payer MEDICARE | END 2023-07-17 19:59 | disposition left against medical advice (07) | LOC: ERS 19:09 | DX: Z53.21 Procedure and treatment not carried out due to patient leaving prior to being seen by health care provider (principal) ==

== ENCOUNTER 2023-07-23 19:18 | Emergency (ER) | payer MEDICARE ==
[2023-07-23 20:46] LABS: #Eosinphils 0.1 thou/uL (0.0-0.7); #Monocytes 0.8 thou/uL (0.11-0.59); #Neutrophils 5.7 thou/uL (1.40-6.50); %Basophils 0.1 % (0.0-1.0); %Eosinophils 0.9 % (0.0-10.0); %Lymphocytes 12.5 % (21.0-51.0); %Monocytes 10.8 % (0.0-10.0); %Neutrophils 75.3 % (42.0-75.0); Hematocrit 28.3 % (36.0-47.0); Hemoglobin 8.3 g/dL (12.0-16.0); Mean Corpuscular HGB CONC 29.3 g/dL (32.0-36.0); Mean Corpuscular Volume 81.8 fl (78.0-98.0); Mean Platelet Volume 9.9 fL (7.4-10.4); Platelet Count 229 10x3/uL (130-400); RBC Distribution Width 16.6 % (11.5-14.5); Red Blood Cell (RBC) Count 3.46 mill/uL (4.20-5.40); White Blood Cell (WBC) Count 7.5 10x3/uL (4.8-10.8)
[2023-07-23 21:09] LABS: ALT (SGPT) 17 U/L (8-55); AST (SGOT) 20 U/L (5-34); Albumin 3.8 g/dL (3.4-4.8); Alkaline Phosphatase 74 U/L (40-110); Anion Gap 13 mmol/L (10-20); BUN (Urea Nitrogen) 48 mg/dL (9.8-20.1); Bilirubin, Total 0.4 mg/dL (0.2-1.2); Calc. Creatinine Clearance 0 mL/min (70-130); Carbon Dioxide 25 mmol/L (23-31); Chloride 101 mmol/L (98-107); Estimated GFR 20; Globulin 2.5 g/dL (2.4-3.5); Lipase 108 U/L (8-78); Potassium 4.1 mmol/L (3.5-5.1); Protein, Total 6.3 g/dL (5.8-8.1); Sodium 135 mmol/L (136-145)
[2023-07-23 21:22] LABS: Glucose 413 mg/dL (80-115)
[2023-07-23] MEDS ORDERED: cloNIDine 0.1 MG TAB ONE (21:35)
[2023-07-23] MEDS ORDERED: hydrALAZINE 25 MG TAB ONE (21:35)
== END 2023-07-23 22:38 | disposition home or self-care (01) ==
LOC: ERS 19:18
DX: R06.02 Shortness of breath (principal); R10.84 Generalized abdominal pain; I11.0 Hypertensive heart disease with heart failure; I50.9 Heart failure, unspecified; E11.9 Type 2 diabetes mellitus without complications; I25.2 Old myocardial infarction; E78.5 Hyperlipidemia, unspecified; Z87.891 Personal history of nicotine dependence; Z79.82 Long term (current) use of aspirin; Z79.899 Other long term (current) drug therapy
CPT/HCPCS: 36415; 71045; 80053; 83690; 83880; 83930; 84484; 85025; 93005; 94760

== ENCOUNTER 2023-07-25 08:30 | Emergency (ER) | payer MEDICARE ==
[2023-07-25 09:37] LABS: #Eosinphils 0.1 thou/uL (0.0-0.7); #Monocytes 0.9 thou/uL (0.11-0.59); #Neutrophils 6.7 thou/uL (1.40-6.50); %Basophils 0.2 % (0.0-1.0); %Lymphocytes 13.5 % (21.0-51.0); %Monocytes 10.3 % (0.0-10.0); %Neutrophils 74.7 % (42.0-75.0); Hematocrit 28.7 % (36.0-47.0); Hemoglobin 8.5 g/dL (12.0-16.0); Mean Corpuscular HGB CONC 29.6 g/dL (32.0-36.0); Mean Corpuscular Hemoglobin 24.2 pg (27.0-31.0); Mean Corpuscular Volume 81.8 fl (78.0-98.0); Mean Platelet Volume 9.6 fL (7.4-10.4); Platelet Count 240 10x3/uL (130-400); RBC Distribution Width 16.6 % (11.5-14.5); Red Blood Cell (RBC) Count 3.51 mill/uL (4.20-5.40)
[2023-07-25 10:03] LABS: ALT (SGPT) 21 U/L (8-55); AST (SGOT) 28 U/L (5-34); Albumin 3.5 g/dL (3.4-4.8); Alkaline Phosphatase 76 U/L (40-110); Anion Gap 13 mmol/L (10-20); BUN (Urea Nitrogen) 42 mg/dL (9.8-20.1); Bilirubin, Total 0.4 mg/dL (0.2-1.2); Calc. Creatinine Clearance 0 mL/min (70-130); Calcium 9.5 mg/dL (7.8-10.44); Carbon Dioxide 26 mmol/L (23-31); Chloride 103 mmol/L (98-107); Estimated GFR 27; Globulin 2.8 g/dL (2.4-3.5); Glucose 129 mg/dL (80-115); Lipase 16 U/L (8-78); Potassium 4.2 mmol/L (3.5-5.1); Protein, Total 6.3 g/dL (5.8-8.1); Sodium 138 mmol/L (136-145)
[2023-07-25 10:07] LABS: Troponin I 0.043 ng/mL (< 0.028)
[2023-07-25] MEDS ORDERED: Furosemide 40 MG/4 ML VIAL ONE (10:55)
[2023-07-25] MEDS ORDERED: Acetaminophen 500 MG TAB ONE (11:46)
== END 2023-07-25 12:06 | disposition home or self-care (01) ==
LOC: ERS 08:30
DX: R06.00 Dyspnea, unspecified (principal); E87.70 Fluid overload, unspecified; E11.9 Type 2 diabetes mellitus without complications; I11.0 Hypertensive heart disease with heart failure; I50.9 Heart failure, unspecified; E78.5 Hyperlipidemia, unspecified; Z87.891 Personal history of nicotine dependence; Z79.82 Long term (current) use of aspirin; Z79.899 Other long term (current) drug therapy
CPT/HCPCS: 36415; 71045; 74176; 80053; 83605; 83690; 83880; 84484; 85025; 93005; 96374; J1940

== ENCOUNTER 2023-07-25 18:28 | Emergency (ER) | payer MEDICARE | END 2023-07-25 18:34 | disposition left against medical advice (07) | LOC: ERS 18:28 | DX: Z53.21 Procedure and treatment not carried out due to patient leaving prior to being seen by health care provider (principal) ==

== ENCOUNTER 2023-07-29 18:43 | Observation (INO) | payer MEDICARE ==
[2023-07-29 19:46] LABS: #Eosinphils 0.1 thou/uL (0.0-0.7); #Monocytes 0.9 thou/uL (0.11-0.59); #Neutrophils 5.9 thou/uL (1.40-6.50); %Basophils 0.1 % (0.0-1.0); %Eosinophils 0.6 % (0.0-10.0); %Lymphocytes 12.2 % (21.0-51.0); %Monocytes 11.3 % (0.0-10.0); %Neutrophils 74.9 % (42.0-75.0); Hematocrit 27.2 % (36.0-47.0); Hemoglobin 7.8 g/dL (12.0-16.0); Mean Corpuscular HGB CONC 28.7 g/dL (32.0-36.0); Mean Corpuscular Hemoglobin 23.9 pg (27.0-31.0); Mean Corpuscular Volume 83.4 fl (78.0-98.0); Mean Platelet Volume 10.1 fL (7.4-10.4); Platelet Count 224 10x3/uL (130-400); RBC Distribution Width 16.8 % (11.5-14.5); Red Blood Cell (RBC) Count 3.26 mill/uL (4.20-5.40); White Blood Cell (WBC) Count 7.9 10x3/uL (4.8-10.8)
[2023-07-29 20:08] LABS: ALT (SGPT) 16 U/L (8-55); AST (SGOT) 17 U/L (5-34); Albumin 3.3 g/dL (3.4-4.8); Alkaline Phosphatase 69 U/L (40-110); Anion Gap 15 mmol/L (10-20); BUN (Urea Nitrogen) 90 mg/dL (9.8-20.1); Bilirubin, Total 0.2 mg/dL (0.2-1.2); Calc. Creatinine Clearance 0 mL/min (70-130); Calcium 8.7 mg/dL (7.8-10.44); Carbon Dioxide 25 mmol/L (23-31); Chloride 104 mmol/L (98-107); Estimated GFR 14; Globulin 2.5 g/dL (2.4-3.5); Glucose 118 mg/dL (80-115); Lipase 39 U/L (8-78); Protein, Total 5.8 g/dL (5.8-8.1); Sodium 139 mmol/L (136-145)
[2023-07-29 20:15] LABS: SARS-CoV-2 NAA Rapid Test Not Detected (NotDetected)
[2023-07-29 20:23] LABS: Anisocytosis SLIGHT = 6-15 cells HPF (0-5); Burr Cells SLIGHT = 2-5 cells HPF (0-1); CellaVision Operator ID LAB.KB; Elliptocytes SLIGHT = 2-5 cells HPF (0-1); Hypochromia SLIGHT = 6-15 cells HPF (0-5); Platelet Adequacy Comment Platelets Normal; Polychromasia SLIGHT = 2-3 cells HPF (0-2)
[2023-07-29] MEDS ORDERED: Ondansetron PF 4 MG/2 ML Vial IVP PRN (21:42)
[2023-07-29] MEDS ORDERED: Acetaminophen 325 MG TAB PO PRN (21:42)
[2023-07-29] MEDS ORDERED: Furosemide 40 MG/4 ML VIAL ONE (21:43)
[2023-07-29] MEDS ORDERED: hydrALAZINE 20 MG/ML VIAL ONE (21:43)
[2023-07-29] MEDS ORDERED: Glucagon 1 MG/ML KIT IM PRN (21:44)
[2023-07-29] MEDS ORDERED: HumaLOG 300 UNITS/3 ML VIAL SC PRN ×2 (21:44)
[2023-07-29] MEDS ORDERED: Dextrose 5% in Water 1,000 ML IV PRN (21:44)
[2023-07-29] MEDS ORDERED: Dextrose 50% Abboject 50 ML SYRINGE SLOW IVP PRN (21:44)
[2023-07-29] MEDS ORDERED: Ipratropium/Albuterol 3 ML NEB EZPAP PRN (21:47)
[2023-07-30] MEDS ORDERED: Furosemide 40 MG/4 ML VIAL SLOW IVP SCH (06:00)
== END 2023-07-29 22:40 | disposition left against medical advice (07) ==
LOC: ERS 18:43 → ERHOLD 21:39
PROVIDERS: ADMIT Internal Medicine; ATTEND Internal Medicine
DX: R42 Dizziness and giddiness (principal); I13.0 Hypertensive heart and chronic kidney disease with heart failure and stage 1 through stage 4 chronic kidney disease, or unspecified chronic kidney disease; I50.33 Acute on chronic diastolic (congestive) heart failure; N18.4 Chronic kidney disease, stage 4 (severe); E11.22 Type 2 diabetes mellitus with diabetic chronic kidney disease; J44.9 Chronic obstructive pulmonary disease, unspecified; E78.5 Hyperlipidemia, unspecified; E66.01 Morbid (severe) obesity due to excess calories; D63.1 Anemia in chronic kidney disease; N17.9 Acute kidney failure, unspecified; R77.8 Other specified abnormalities of plasma proteins; R41.3 Other amnesia; Z88.8 Allergy status to other drugs, medicaments and biological substances; Z79.899 Other long term (current) drug therapy; Z87.891 Personal history of nicotine dependence; Z79.82 Long term (current) use of aspirin
CPT/HCPCS: 0240U; 70450; 71045; 80053; 83605; 83690; 83880; 84484; 85025; 93005; 96374; 96375; 99285; J0360; 36415; J1940

== ENCOUNTER 2023-07-31 16:42 | Inpatient (IN) | payer MEDICARE ==
[2023-07-31 17:55] LABS: #Monocytes 0.9 thou/uL (0.11-0.59); %Basophils 0.2 % (0.0-1.0); %Eosinophils 0.5 % (0.0-10.0); %Lymphocytes 13.9 % (21.0-51.0); %Monocytes 11.1 % (0.0-10.0); %Neutrophils 73.2 % (42.0-75.0); Hematocrit 26.2 % (36.0-47.0); Hemoglobin 7.7 g/dL (12.0-16.0); Mean Corpuscular HGB CONC 29.4 g/dL (32.0-36.0); Mean Corpuscular Hemoglobin 23.8 pg (27.0-31.0); Mean Corpuscular Volume 81.1 fl (78.0-98.0); Mean Platelet Volume 9.8 fL (7.4-10.4); Platelet Count 215 10x3/uL (130-400); RBC Distribution Width 17.2 % (11.5-14.5); Red Blood Cell (RBC) Count 3.23 mill/uL (4.20-5.40); White Blood Cell (WBC) Count 8.2 10x3/uL (4.8-10.8)
[2023-07-31 18:18] LABS: ALT (SGPT) 20 U/L (8-55); AST (SGOT) 28 U/L (5-34); Albumin 3.1 g/dL (3.4-4.8); Alkaline Phosphatase 65 U/L (40-110); Anion Gap 15 mmol/L (10-20); BUN (Urea Nitrogen) 79 mg/dL (9.8-20.1); Bilirubin, Total 0.3 mg/dL (0.2-1.2); Calc. Creatinine Clearance 0 mL/min (70-130); Carbon Dioxide 24 mmol/L (23-31); Chloride 101 mmol/L (98-107); Estimated GFR 15; Glucose 369 mg/dL (80-115); Protein, Total 6.1 g/dL (5.8-8.1); Sodium 134 mmol/L (136-145)
[2023-07-31] MEDS ORDERED: Furosemide 40 MG/4 ML VIAL ONE (20:05)
[2023-07-31] MEDS ORDERED: Furosemide 20 MG/2 ML VIAL ONE (20:05)
[2023-07-31] MEDS ORDERED: hydrALAZINE 20 MG/ML VIAL ONE (20:05)
[2023-07-31] MEDS ORDERED: LOKELMA 10 GM PACKET PO SCH (20:45)
[2023-07-31] MEDS ORDERED: Dextrose 50% Abboject 50 ML SYRINGE SLOW IVP SCH (20:45)
[2023-07-31] MEDS ORDERED: Insulin Regular 300 UNITS/3 ML VIAL ONE (20:58)
[2023-07-31] MEDS ORDERED: Albuterol 2.5 MG/0.5 ML NEB ONE (21:46)
[2023-07-31 22:04] LABS: Troponin I 0.056 ng/mL (< 0.028)
[2023-08-01 00:06] VITALS: BMI 57.9
[2023-08-01] MEDS ORDERED: Dextrose 5% in Water 1,000 ML IV PRN (00:24)
[2023-08-01] MEDS ORDERED: Dextrose 50% Abboject 50 ML SYRINGE SLOW IVP PRN (00:24)
[2023-08-01] MEDS ORDERED: Glucagon 1 MG/ML KIT IM PRN (00:24)
[2023-08-01 01:25] LABS: Anion Gap 17 mmol/L (10-20); BUN (Urea Nitrogen) 77 mg/dL (9.8-20.1); Calc. Creatinine Clearance 43 mL/min (70-130); Calcium 9.7 mg/dL (7.8-10.44); Carbon Dioxide 27 mmol/L (23-31); Chloride 100 mmol/L (98-107); Estimated GFR 17; Glucose 336 mg/dL (80-115); Sodium 139 mmol/L (136-145)
[2023-08-01 04:42] LABS: #Eosinphils 0.1 thou/uL (0.0-0.7); #Neutrophils 5.9 thou/uL (1.40-6.50); %Basophils 0.1 % (0.0-1.0); %Eosinophils 0.7 % (0.0-10.0); %Lymphocytes 14.8 % (21.0-51.0); %Monocytes 11.8 % (0.0-10.0); %Neutrophils 71.6 % (42.0-75.0); Hematocrit 27.3 % (36.0-47.0); Mean Corpuscular HGB CONC 29.3 g/dL (32.0-36.0); Mean Corpuscular Volume 81.7 fl (78.0-98.0); Mean Platelet Volume 9.9 fL (7.4-10.4); Platelet Count 272 10x3/uL (130-400); RBC Distribution Width 17.5 % (11.5-14.5); Red Blood Cell (RBC) Count 3.34 mill/uL (4.20-5.40); White Blood Cell (WBC) Count 8.2 10x3/uL (4.8-10.8)
[2023-08-01 05:05] LABS: Anion Gap 14 mmol/L (10-20); BUN (Urea Nitrogen) 72 mg/dL (9.8-20.1); Calc. Creatinine Clearance 46 mL/min (70-130); Calcium 9.6 mg/dL (7.8-10.44); Carbon Dioxide 27 mmol/L (23-31); Chloride 101 mmol/L (98-107); Estimated GFR 18; Glucose 342 mg/dL (80-115); Magnesium 2.2 mg/dL (1.6-2.6); Potassium 4.9 mmol/L (3.5-5.1); Sodium 137 mmol/L (136-145)
[2023-08-01] MEDS: Furosemide 40 MG/4 ML VIAL SLOW IVP SCH ×2 (08:43→15:44)
[2023-08-01] MEDS: Amlodipine 5 MG TAB PO SCH (08:43)
[2023-08-01] MEDS: hydrALAZINE 25 MG TAB PO SCH ×3 (08:44→23:22)
[2023-08-01] MEDS: Carvedilol 25 MG TAB PO SCH ×2 (08:44→23:22)
[2023-08-01] MEDS ORDERED: Losartan 25 MG TAB PO SCH (09:00)
[2023-08-01] MEDS: HumaLOG 300 UNITS/3 ML VIAL SC PRN ×2 (15:44→18:50)
[2023-08-01] MEDS ORDERED: Ipratropium/Albuterol 3 ML NEB NEB PRN (21:09)
[2023-08-01 21:46] LABS: Magnesium 2.1 mg/dL (1.6-2.6)
[2023-08-01 21:51] LABS: Troponin I 0.043 ng/mL (< 0.028)
[2023-08-01] MEDS: Atorvastatin Calcium 40 MG TAB PO SCH (23:22)
[2023-08-02] MEDS: HumaLOG 300 UNITS/3 ML VIAL SC PRN ×5 (00:03→20:34)
[2023-08-02] MEDS: Ondansetron PF 4 MG/2 ML Vial IVP PRN (00:21)
[2023-08-02] MEDS: Acetaminophen 325 MG TAB PO PRN ×2 (00:21→16:43)
[2023-08-02 05:08] LABS: #Eosinphils 0.1 thou/uL (0.0-0.7); #Monocytes 0.7 thou/uL (0.11-0.59); #Neutrophils 4.7 thou/uL (1.40-6.50); %Basophils 0.2 % (0.0-1.0); %Eosinophils 0.9 % (0.0-10.0); %Monocytes 11.1 % (0.0-10.0); %Neutrophils 73.2 % (42.0-75.0); Hematocrit 26.4 % (36.0-47.0); Hemoglobin 7.6 g/dL (12.0-16.0); Mean Corpuscular HGB CONC 28.8 g/dL (32.0-36.0); Mean Corpuscular Hemoglobin 23.9 pg (27.0-31.0); Mean Platelet Volume 9.6 fL (7.4-10.4); Platelet Count 225 10x3/uL (130-400); RBC Distribution Width 18.3 % (11.5-14.5); Red Blood Cell (RBC) Count 3.18 mill/uL (4.20-5.40); White Blood Cell (WBC) Count 6.4 10x3/uL (4.8-10.8)
[2023-08-02] MEDS: Furosemide 40 MG/4 ML VIAL SLOW IVP SCH ×2 (05:26→13:23)
[2023-08-02 05:33] LABS: Anion Gap 14 mmol/L (10-20); BUN (Urea Nitrogen) 65 mg/dL (9.8-20.1); Calc. Creatinine Clearance 52 mL/min (70-130); Calcium 9.1 mg/dL (7.8-10.44); Carbon Dioxide 26 mmol/L (23-31); Chloride 97 mmol/L (98-107); Estimated GFR 21; Glucose 301 mg/dL (80-115); Magnesium 2.6 mg/dL (1.6-2.6); Potassium 4.7 mmol/L (3.5-5.1); Sodium 132 mmol/L (136-145)
[2023-08-02] MEDS: Amlodipine 5 MG TAB PO SCH (08:18)
[2023-08-02] MEDS: hydrALAZINE 25 MG TAB PO SCH ×3 (08:18→20:33)
[2023-08-02] MEDS: Carvedilol 25 MG TAB PO SCH ×2 (08:18→20:34)
[2023-08-02] MEDS: Atorvastatin Calcium 40 MG TAB PO SCH (20:34)
[2023-08-03 05:02] LABS: #Eosinphils 0.1 thou/uL (0.0-0.7); #Monocytes 0.6 thou/uL (0.11-0.59); #Neutrophils 4.9 thou/uL (1.40-6.50); %Eosinophils 0.8 % (0.0-10.0); %Lymphocytes 13.1 % (21.0-51.0); %Monocytes 9.2 % (0.0-10.0); %Neutrophils 76.6 % (42.0-75.0); Hematocrit 30.7 % (36.0-47.0); Hemoglobin 8.4 g/dL (12.0-16.0); Mean Corpuscular HGB CONC 27.4 g/dL (32.0-36.0); Mean Corpuscular Hemoglobin 24.1 pg (27.0-31.0); Platelet Count 188 10x3/uL (130-400); RBC Distribution Width 18.9 % (11.5-14.5); Red Blood Cell (RBC) Count 3.48 mill/uL (4.20-5.40); White Blood Cell (WBC) Count 6.4 10x3/uL (4.8-10.8)
[2023-08-03 05:06] LABS: Mean Corpuscular Volume 88.2 fl (78.0-98.0)
[2023-08-03 05:33] LABS: Anion Gap 18 mmol/L (10-20); BUN (Urea Nitrogen) 61 mg/dL (9.8-20.1); Calc. Creatinine Clearance 50 mL/min (70-130); Calcium 9.6 mg/dL (7.8-10.44); Carbon Dioxide 26 mmol/L (23-31); Chloride 97 mmol/L (98-107); Estimated GFR 20; Glucose 265 mg/dL (80-115); Potassium 4.9 mmol/L (3.5-5.1); Sodium 136 mmol/L (136-145)
[2023-08-03] MEDS: Furosemide 40 MG/4 ML VIAL SLOW IVP SCH ×2 (05:38→14:35)
[2023-08-03] MEDS: HumaLOG 300 UNITS/3 ML VIAL SC PRN ×4 (05:38→21:40)
[2023-08-03 05:41] LABS: Anisocytosis SLIGHT = 6-15 cells HPF (0-5); Burr Cells MODERATE= 6-15 cells HPF (0-1); CellaVision Operator ID lab.sh2; Macrocytosis SLIGHT = 6-15 cells HPF (0-5); Ovalocytes MODERATE= 6-15 cells HPF (0-1); Platelet Adequacy Comment Platelets Normal; Poikilocytosis MODERATE=16-30 cells HPF (0-5); Polychromasia MODERATE = 3-4 cells HPF (0-2); Tear Drops SLIGHT = 2-5 cells HPF (0-1)
[2023-08-03] MEDS: hydrALAZINE 25 MG TAB PO SCH ×3 (09:14→20:09)
[2023-08-03] MEDS: Amlodipine 5 MG TAB PO SCH (09:15)
[2023-08-03] MEDS: Carvedilol 25 MG TAB PO SCH ×2 (09:15→20:10)
[2023-08-03] MEDS ORDERED: Amlodipine 5 MG TAB PO SCH (16:15)
[2023-08-03] MEDS: Atorvastatin Calcium 40 MG TAB PO SCH (20:09)
[2023-08-03] MEDS: Ondansetron PF 4 MG/2 ML Vial IVP PRN (20:10)
[2023-08-03 21:52] LABS: Iron Binding Capacity, Total 356 mcg/dL (265-497)
[2023-08-04 03:15] LABS: Iron 34 ug/dL (50-170)
[2023-08-04] MEDS: Ondansetron PF 4 MG/2 ML Vial IVP PRN (03:39)
[2023-08-04 03:46] VITALS: BP 167/76; TEMP 97.8
[2023-08-04 05:00] LABS: #Monocytes 0.7 thou/uL (0.11-0.59); #Neutrophils 5.2 thou/uL (1.40-6.50); %Basophils 0.1 % (0.0-1.0); %Eosinophils 0.6 % (0.0-10.0); %Lymphocytes 11.4 % (21.0-51.0); %Monocytes 10.2 % (0.0-10.0); %Neutrophils 77.4 % (42.0-75.0); Hematocrit 28.4 % (36.0-47.0); Hemoglobin 8.2 g/dL (12.0-16.0); Mean Corpuscular HGB CONC 28.9 g/dL (32.0-36.0); Mean Corpuscular Hemoglobin 23.8 pg (27.0-31.0); Mean Platelet Volume 10.3 fL (7.4-10.4); Platelet Count 217 10x3/uL (130-400); Red Blood Cell (RBC) Count 3.45 mill/uL (4.20-5.40); White Blood Cell (WBC) Count 6.7 10x3/uL (4.8-10.8)
[2023-08-04 05:04] LABS: Mean Corpuscular Volume 82.3 fl (78.0-98.0)
[2023-08-04 05:29] LABS: Anion Gap 15 mmol/L (10-20); BUN (Urea Nitrogen) 56 mg/dL (9.8-20.1); Calc. Creatinine Clearance 48 mL/min (70-130); Calcium 9.7 mg/dL (7.8-10.44); Carbon Dioxide 30 mmol/L (23-31); Chloride 96 mmol/L (98-107); Estimated GFR 21; Glucose 242 mg/dL (80-115); Potassium 4.4 mmol/L (3.5-5.1); Sodium 137 mmol/L (136-145)
[2023-08-04] MEDS: Furosemide 40 MG/4 ML VIAL SLOW IVP SCH (05:34)
[2023-08-04] MEDS: HumaLOG 300 UNITS/3 ML VIAL SC PRN (06:18)
[2023-08-04] MEDS ORDERED: Amlodipine 10 MG TAB PO SCH (09:00)
== END 2023-08-04 08:30 | disposition left against medical advice (07) | DRG 291 ==
LOC: ERS 16:42 → 2NO 21:37
PROVIDERS: ADMIT Internal Medicine; ATTEND Internal Medicine
DX: I13.0 Hypertensive heart and chronic kidney disease with heart failure and stage 1 through stage 4 chronic kidney disease, or unspecified chronic kidney disease (principal); I50.33 Acute on chronic diastolic (congestive) heart failure; N18.4 Chronic kidney disease, stage 4 (severe); N17.9 Acute kidney failure, unspecified; E87.1 Hypo-osmolality and hyponatremia; Z68.43 Body mass index [BMI] 50.0-59.9, adult; E11.22 Type 2 diabetes mellitus with diabetic chronic kidney disease; E66.01 Morbid (severe) obesity due to excess calories; E78.5 Hyperlipidemia, unspecified; J44.9 Chronic obstructive pulmonary disease, unspecified; I25.10 Atherosclerotic heart disease of native coronary artery without angina pectoris; D63.1 Anemia in chronic kidney disease; E87.5 Hyperkalemia; E11.65 Type 2 diabetes mellitus with hyperglycemia; Z91.148 Patient's other noncompliance with medication regimen for other reason; Z79.899 Other long term (current) drug therapy; Z88.8 Allergy status to other drugs, medicaments and biological substances; Z79.82 Long term (current) use of aspirin; Z79.4 Long term (current) use of insulin; Z79.84 Long term (current) use of oral hypoglycemic drugs; Z95.5 Presence of coronary angioplasty implant and graft; Z90.710 Acquired absence of both cervix and uterus; Z95.1 Presence of aortocoronary bypass graft; Z82.49 Family history of ischemic heart disease and other diseases of the circulatory system; Z87.891 Personal history of nicotine dependence; I25.2 Old myocardial infarction
CPT/HCPCS: 36415; 36416; 71045; 80048; 80053; 82728; 83540; 83550; 83735; 83880; 84484; 85025; 93005; 96374; 96375; J0360; J1815; J1940; J2405; J7611; J7999

== ENCOUNTER 2023-08-05 07:37 | Inpatient (IN) | payer MEDICARE ==
[2023-08-05 09:01] LABS: SARS-CoV-2 NAA Rapid Test Not Detected (NotDetected)
[2023-08-05 09:06] LABS: #Monocytes 0.6 thou/uL (0.11-0.59); #Neutrophils 6.7 thou/uL (1.40-6.50); %Basophils 0.2 % (0.0-1.0); %Eosinophils 0.2 % (0.0-10.0); %Lymphocytes 10.3 % (21.0-51.0); %Monocytes 7.3 % (0.0-10.0); %Neutrophils 81.6 % (42.0-75.0); Hematocrit 32.3 % (36.0-47.0); Hemoglobin 9.4 g/dL (12.0-16.0); Mean Corpuscular HGB CONC 29.1 g/dL (32.0-36.0); Mean Corpuscular Hemoglobin 24.1 pg (27.0-31.0); Mean Corpuscular Volume 82.8 fl (78.0-98.0); Mean Platelet Volume 9.8 fL (7.4-10.4); Platelet Count 218 10x3/uL (130-400); RBC Distribution Width 19.3 % (11.5-14.5); White Blood Cell (WBC) Count 8.2 10x3/uL (4.8-10.8)
[2023-08-05 09:33] LABS: ALT (SGPT) 20 U/L (8-55); AST (SGOT) 18 U/L (5-34); Albumin 3.5 g/dL (3.4-4.8); Alkaline Phosphatase 77 U/L (40-110); Anion Gap 16 mmol/L (10-20); BUN (Urea Nitrogen) 45 mg/dL (9.8-20.1); Bilirubin, Total 0.9 mg/dL (0.2-1.2); Calc. Creatinine Clearance 0 mL/min (70-130); Calcium 9.7 mg/dL (7.8-10.44); Carbon Dioxide 28 mmol/L (23-31); Chloride 95 mmol/L (98-107); Estimated GFR 22; Globulin 3.5 g/dL (2.4-3.5); Potassium 4.3 mmol/L (3.5-5.1); Sodium 135 mmol/L (136-145); Troponin I 0.051 ng/mL (< 0.028)
[2023-08-05 09:37] LABS: Glucose 439 mg/dL (80-115)
[2023-08-05] MEDS ORDERED: Furosemide 40 MG/4 ML VIAL ONE (10:33)
[2023-08-05] MEDS ORDERED: hydrALAZINE 20 MG/ML VIAL ONE (10:33)
[2023-08-05] MEDS ORDERED: Labetalol HCl 100 MG/20 ML VIAL ONE (12:06)
[2023-08-05] MEDS ORDERED: Labetalol HCl 100 MG/20 ML VIAL SLOW IVP PRN (15:23)
[2023-08-05] MEDS ORDERED: hydrALAZINE 20 MG/ML VIAL SLOW IVP PRN (15:23)
[2023-08-05] MEDS ORDERED: Senokot S 8.6-50 MG TAB PO PRN (15:43)
[2023-08-05] MEDS ORDERED: Ipratropium/Albuterol 3 ML NEB NEB PRN (15:43)
[2023-08-05] MEDS ORDERED: Acetaminophen 650 MG Suppository PR PRN (15:43)
[2023-08-05] MEDS ORDERED: Ondansetron PF 4 MG/2 ML Vial IVP PRN (15:43)
[2023-08-05] MEDS ORDERED: Ondansetron ODT 4 MG TAB PO PRN (15:43)
[2023-08-05] MEDS ORDERED: Guaifenesin DM 100-10/5 ML UDCUP PO PRN (15:43)
[2023-08-05 19:38] VITALS: BMI 51.2
[2023-08-05] MEDS: Heparin 5,000 UNITS/ML VIAL SC SCH (20:29)
[2023-08-05] MEDS: Atorvastatin Calcium 40 MG TAB PO SCH (20:29)
[2023-08-05] MEDS: Ezetimibe 10 MG TAB PO SCH (20:30)
[2023-08-05] MEDS: hydrALAZINE 25 MG TAB PO SCH (20:30)
[2023-08-05] MEDS: Carvedilol 25 MG TAB PO SCH (20:30)
[2023-08-05] MEDS: Isosorbide Dinitrate 20 MG TAB PO SCH (20:30)
[2023-08-05] MEDS: Gabapentin 300 MG CAP PO SCH (20:30)
[2023-08-05] MEDS: HumuLIN 70/30 (300 UNITS/3 ML VIAL) SC SCH (21:24)
[2023-08-06] MEDS: Acetaminophen 325 MG TAB PO PRN (01:40)
[2023-08-06 04:37] LABS: #Eosinphils 0.1 thou/uL (0.0-0.7); #Monocytes 0.8 thou/uL (0.11-0.59); #Neutrophils 5.8 thou/uL (1.40-6.50); %Basophils 0.1 % (0.0-1.0); %Eosinophils 1.2 % (0.0-10.0); %Lymphocytes 11.6 % (21.0-51.0); %Neutrophils 76.7 % (42.0-75.0); Hemoglobin 7.8 g/dL (12.0-16.0); Mean Corpuscular HGB CONC 28.9 g/dL (32.0-36.0); Mean Corpuscular Hemoglobin 23.6 pg (27.0-31.0); Mean Corpuscular Volume 81.6 fl (78.0-98.0); Mean Platelet Volume 9.4 fL (7.4-10.4); Platelet Count 185 10x3/uL (130-400); RBC Distribution Width 18.8 % (11.5-14.5); Red Blood Cell (RBC) Count 3.31 mill/uL (4.20-5.40); White Blood Cell (WBC) Count 7.6 10x3/uL (4.8-10.8)
[2023-08-06 05:03] LABS: Anion Gap 12 mmol/L (10-20); BUN (Urea Nitrogen) 42 mg/dL (9.8-20.1); Calc. Creatinine Clearance 50 mL/min (70-130); Calcium 8.8 mg/dL (7.8-10.44); Carbon Dioxide 33 mmol/L (23-31); Chloride 94 mmol/L (98-107); Estimated GFR 24; Glucose 170 mg/dL (80-115); Potassium 3.8 mmol/L (3.5-5.1); Sodium 135 mmol/L (136-145)
[2023-08-06] MEDS: Furosemide 40 MG/4 ML VIAL SLOW IVP SCH ×2 (06:23→15:26)
[2023-08-06] MEDS: Aspirin 81 mg Enteric Coated Tablet PO SCH (08:46)
[2023-08-06] MEDS: Heparin 5,000 UNITS/ML VIAL SC SCH ×3 (08:46→20:46)
[2023-08-06] MEDS: Amlodipine 5 MG TAB PO SCH (08:46)
[2023-08-06] MEDS: Carvedilol 25 MG TAB PO SCH ×2 (08:46→20:45)
[2023-08-06] MEDS: HumuLIN 70/30 (300 UNITS/3 ML VIAL) SC SCH ×3 (08:46→20:46)
[2023-08-06] MEDS: Isosorbide Dinitrate 20 MG TAB PO SCH ×3 (08:46→20:46)
[2023-08-06] MEDS: hydrALAZINE 25 MG TAB PO SCH ×3 (08:46→20:45)
[2023-08-06] MEDS: Losartan 25 MG TAB PO SCH (08:46)
[2023-08-06] MEDS: Clopidogrel Bisulfate 75 MG TAB PO SCH (08:46)
[2023-08-06 18:34] LABS: Hematocrit 27.5 % (36.0-47.0); Hemoglobin 8.2 g/dL (12.0-16.0); Platelet Count 206 10x3/uL (130-400)
[2023-08-06] MEDS: Atorvastatin Calcium 40 MG TAB PO SCH (20:45)
[2023-08-06] MEDS: Gabapentin 300 MG CAP PO SCH (20:45)
[2023-08-06] MEDS: Ezetimibe 10 MG TAB PO SCH (20:45)
[2023-08-07 05:20] LABS: Anion Gap 13 mmol/L (10-20); BUN (Urea Nitrogen) 44 mg/dL (9.8-20.1); Calc. Creatinine Clearance 45 mL/min (70-130); Calcium 8.7 mg/dL (7.8-10.44); Carbon Dioxide 30 mmol/L (23-31); Chloride 97 mmol/L (98-107); Estimated GFR 21; Glucose 123 mg/dL (80-115); Potassium 3.9 mmol/L (3.5-5.1); Sodium 136 mmol/L (136-145)
[2023-08-07] MEDS: Amlodipine 5 MG TAB PO SCH (09:06)
[2023-08-07] MEDS: Carvedilol 25 MG TAB PO SCH ×2 (09:06→21:04)
[2023-08-07] MEDS: Aspirin 81 mg Enteric Coated Tablet PO SCH (09:06)
[2023-08-07] MEDS: hydrALAZINE 25 MG TAB PO SCH ×3 (09:07→21:08)
[2023-08-07] MEDS: Heparin 5,000 UNITS/ML VIAL SC SCH ×3 (09:07→21:09)
[2023-08-07] MEDS: HumuLIN 70/30 (300 UNITS/3 ML VIAL) SC SCH ×3 (09:07→21:10)
[2023-08-07] MEDS: Clopidogrel Bisulfate 75 MG TAB PO SCH (09:07)
[2023-08-07] MEDS: Isosorbide Dinitrate 20 MG TAB PO SCH ×3 (09:07→21:08)
[2023-08-07] MEDS: Furosemide 40 MG TAB PO SCH ×2 (09:07→15:54)
[2023-08-07] MEDS: Losartan 25 MG TAB PO SCH (09:07)
[2023-08-07] MEDS ORDERED: hydrALAZINE 25 MG TAB PO SCH (17:00)
[2023-08-07] MEDS: Atorvastatin Calcium 40 MG TAB PO SCH (21:08)
[2023-08-07] MEDS: Gabapentin 300 MG CAP PO SCH (21:09)
[2023-08-07] MEDS: Ezetimibe 10 MG TAB PO SCH (21:09)
[2023-08-08 05:06] LABS: Anion Gap 11 mmol/L (10-20); BUN (Urea Nitrogen) 45 mg/dL (9.8-20.1); Calc. Creatinine Clearance 46 mL/min (70-130); Calcium 8.8 mg/dL (7.8-10.44); Carbon Dioxide 32 mmol/L (23-31); Chloride 97 mmol/L (98-107); Estimated GFR 21; Glucose 78 mg/dL (80-115); Sodium 136 mmol/L (136-145)
[2023-08-08] MEDS: Carvedilol 25 MG TAB PO SCH ×2 (08:24→21:07)
[2023-08-08] MEDS: Clopidogrel Bisulfate 75 MG TAB PO SCH (08:24)
[2023-08-08] MEDS: Aspirin 81 mg Enteric Coated Tablet PO SCH (08:24)
[2023-08-08] MEDS: Isosorbide Dinitrate 20 MG TAB PO SCH ×3 (08:24→21:08)
[2023-08-08] MEDS: Losartan 25 MG TAB PO SCH (08:24)
[2023-08-08] MEDS: Amlodipine 5 MG TAB PO SCH (08:25)
[2023-08-08] MEDS: Furosemide 40 MG TAB PO SCH ×2 (08:25→16:38)
[2023-08-08] MEDS: hydrALAZINE 25 MG TAB PO SCH ×3 (08:25→21:06)
[2023-08-08] MEDS: HumuLIN 70/30 (300 UNITS/3 ML VIAL) SC SCH ×3 (08:28→22:41)
[2023-08-08] MEDS: Heparin 5,000 UNITS/ML VIAL SC SCH ×3 (10:10→21:08)
[2023-08-08] MEDS: Gabapentin 300 MG CAP PO SCH (21:07)
[2023-08-08] MEDS: Atorvastatin Calcium 40 MG TAB PO SCH (21:07)
[2023-08-08] MEDS: Ezetimibe 10 MG TAB PO SCH (21:07)
[2023-08-09] MEDS: Acetaminophen 325 MG TAB PO PRN (06:13)
[2023-08-09 06:35] LABS: Anion Gap 13 mmol/L (10-20); BUN (Urea Nitrogen) 44 mg/dL (9.8-20.1); Calc. Creatinine Clearance 48 mL/min (70-130); Calcium 8.9 mg/dL (7.8-10.44); Carbon Dioxide 30 mmol/L (23-31); Chloride 100 mmol/L (98-107); Estimated GFR 22; Glucose 109 mg/dL (80-115); Potassium 4.1 mmol/L (3.5-5.1); Sodium 139 mmol/L (136-145)
[2023-08-09] MEDS: Heparin 5,000 UNITS/ML VIAL SC SCH ×2 (08:52→15:22)
[2023-08-09] MEDS: Carvedilol 25 MG TAB PO SCH (08:53)
[2023-08-09] MEDS: hydrALAZINE 25 MG TAB PO SCH ×2 (08:54→15:20)
[2023-08-09] MEDS: Clopidogrel Bisulfate 75 MG TAB PO SCH (08:54)
[2023-08-09] MEDS: Aspirin 81 mg Enteric Coated Tablet PO SCH (08:54)
[2023-08-09] MEDS: Losartan 25 MG TAB PO SCH (08:55)
[2023-08-09] MEDS: Furosemide 40 MG TAB PO SCH ×2 (08:55→15:19)
[2023-08-09] MEDS: Isosorbide Dinitrate 20 MG TAB PO SCH ×2 (08:55→15:20)
[2023-08-09] MEDS: HumuLIN 70/30 (300 UNITS/3 ML VIAL) SC SCH (08:56)
[2023-08-09] MEDS ORDERED: NIFEdipine XL 60 MG ER.TAB PO SCH (09:00)
[2023-08-09] MEDS ORDERED: EPOETIN ALFA-EPBX (ESRD) 10,000 UNITS/ML VIAL SC SCH (09:00)
[2023-08-09 11:07] VITALS: TEMP 97.6
[2023-08-09 15:19] VITALS: BP 126/59
[2023-08-10] MEDS ORDERED: Ferrous Sulfate 325 MG TAB PO SCH (08:00)
== END 2023-08-09 15:40 | disposition home or self-care (01) | DRG 291 ==
LOC: ERS 07:37 → 2NO 14:43 → 2SW 17:38 → OBSVTOIN 08-09 12:41
PROVIDERS: ADMIT Emergency Medicine; ATTEND Internal Medicine Critical Care Medicine
DX: I13.0 Hypertensive heart and chronic kidney disease with heart failure and stage 1 through stage 4 chronic kidney disease, or unspecified chronic kidney disease (principal); I50.33 Acute on chronic diastolic (congestive) heart failure; N18.4 Chronic kidney disease, stage 4 (severe); I16.1 Hypertensive emergency; N17.9 Acute kidney failure, unspecified; E11.22 Type 2 diabetes mellitus with diabetic chronic kidney disease; E78.5 Hyperlipidemia, unspecified; J44.9 Chronic obstructive pulmonary disease, unspecified; Z11.52 Encounter for screening for COVID-19; I25.10 Atherosclerotic heart disease of native coronary artery without angina pectoris; F03.90 Unspecified dementia, unspecified severity, without behavioral disturbance, psychotic disturbance, mood disturbance, and anxiety; E66.01 Morbid (severe) obesity due to excess calories; D64.9 Anemia, unspecified; Z79.4 Long term (current) use of insulin; Z79.899 Other long term (current) drug therapy; Z79.82 Long term (current) use of aspirin; Z95.1 Presence of aortocoronary bypass graft; Z91.148 Patient's other noncompliance with medication regimen for other reason; Z95.5 Presence of coronary angioplasty implant and graft; Z87.891 Personal history of nicotine dependence; Z91.199 Patient's noncompliance with other medical treatment and regimen due to unspecified reason
CPT/HCPCS: 36415; 36416; 71045; 71046; 80048; 80053; 83880; 84484; 85025; 93005; 96372; 96374; 96375; 96376; G0378; J0360; J1644; J1815; J1940; Q5105; U0002

== ENCOUNTER 2023-08-13 12:22 | Emergency (ER) | payer MEDICARE | END 2023-08-13 13:08 | disposition left against medical advice (07) | LOC: ERS 12:22 | DX: Z53.21 Procedure and treatment not carried out due to patient leaving prior to being seen by health care provider (principal) ==

== ENCOUNTER 2023-08-19 15:32 | Observation (INO) | payer MEDICARE ==
[2023-08-19 18:17] LABS: #Eosinphils 0.1 thou/uL (0.0-0.7); #Monocytes 0.9 thou/uL (0.11-0.59); #Neutrophils 6.1 thou/uL (1.40-6.50); %Basophils 0.2 % (0.0-1.0); %Lymphocytes 13.4 % (21.0-51.0); %Monocytes 10.6 % (0.0-10.0); %Neutrophils 74.3 % (42.0-75.0); Hematocrit 25.9 % (36.0-47.0); Hemoglobin 7.4 g/dL (12.0-16.0); Mean Corpuscular HGB CONC 28.6 g/dL (32.0-36.0); Mean Corpuscular Hemoglobin 24.2 pg (27.0-31.0); Mean Corpuscular Volume 84.6 fl (78.0-98.0); Platelet Count 216 10x3/uL (130-400); RBC Distribution Width 19.1 % (11.5-14.5); Red Blood Cell (RBC) Count 3.06 mill/uL (4.20-5.40); White Blood Cell (WBC) Count 8.2 10x3/uL (4.8-10.8)
[2023-08-19 18:40] LABS: ALT (SGPT) 14 U/L (8-55); AST (SGOT) 18 U/L (5-34); Albumin 3.3 g/dL (3.4-4.8); Alkaline Phosphatase 65 U/L (40-110); Anion Gap 13 mmol/L (10-20); BUN (Urea Nitrogen) 70 mg/dL (9.8-20.1); Bilirubin, Total 0.3 mg/dL (0.2-1.2); Calc. Creatinine Clearance 0 mL/min (70-130); Calcium 9.1 mg/dL (7.8-10.44); Carbon Dioxide 26 mmol/L (23-31); Chloride 103 mmol/L (98-107); Estimated GFR 18; Globulin 2.7 g/dL (2.4-3.5); Glucose 128 mg/dL (80-115); Sodium 138 mmol/L (136-145)
[2023-08-19 18:45] LABS: Troponin I 0.027 ng/mL (< 0.028)
[2023-08-19 19:07] LABS: Anisocytosis SLIGHT = 6-15 cells HPF (0-5); Burr Cells SLIGHT = 2-5 cells HPF (0-1); CellaVision Operator ID LAB.KB; Elliptocytes SLIGHT = 2-5 cells HPF (0-1); Hypochromia SLIGHT = 6-15 cells HPF (0-5); Macrocytosis SLIGHT = 6-15 cells HPF (0-5); Platelet Adequacy Comment Platelets Normal; Polychromasia SLIGHT = 2-3 cells HPF (0-2)
[2023-08-19] MEDS ORDERED: Furosemide 40 MG (4 mL) VIAL ONE (19:16)
[2023-08-19] MEDS ORDERED: Dextrose 50% Abboject 50 ML SYRINGE SLOW IVP PRN (20:08)
[2023-08-19] MEDS ORDERED: HumaLOG 300 UNITS/3 ML VIAL SC PRN ×2 (20:08)
[2023-08-19] MEDS ORDERED: Acetaminophen 325 MG TAB PO PRN (20:08)
[2023-08-19] MEDS ORDERED: Acetaminophen 650 MG Suppository PR PRN (20:08)
[2023-08-19] MEDS ORDERED: Glucagon 1 MG/ML KIT IM PRN (20:08)
[2023-08-19] MEDS ORDERED: Ondansetron PF 4 MG/2 ML Vial IVP PRN (20:08)
[2023-08-19] MEDS ORDERED: Dextrose 5% in Water 1,000 ML IV PRN (20:08)
[2023-08-19] MEDS ORDERED: Ondansetron ODT 4 MG TAB PO PRN (20:08)
[2023-08-19] MEDS ORDERED: Ipratropium/Albuterol 3 ML NEB NEB PRN (20:20)
[2023-08-19 20:51] VITALS: BMI 57.0
[2023-08-19] MEDS: Heparin 5,000 UNITS/ML VIAL SC SCH (20:58)
[2023-08-19 21:51] LABS: Troponin I 0.043 ng/mL (< 0.028)
[2023-08-19] MEDS ORDERED: Morphine 2 MG/ML VIAL SLOW IVP PRN (22:00)
[2023-08-19] MEDS ORDERED: Morphine 2 MG/ML VIAL SLOW IVP SCH (22:00)
[2023-08-20 01:28] LABS: Troponin I 0.027 ng/mL (< 0.028)
[2023-08-20 06:04] LABS: #Eosinphils 0.1 thou/uL (0.0-0.7); #Monocytes 0.8 thou/uL (0.11-0.59); #Neutrophils 4.3 thou/uL (1.40-6.50); %Basophils 0.2 % (0.0-1.0); %Eosinophils 1.3 % (0.0-10.0); %Lymphocytes 17.1 % (21.0-51.0); %Monocytes 12.9 % (0.0-10.0); %Neutrophils 67.9 % (42.0-75.0); Hematocrit 24.6 % (36.0-47.0); Mean Corpuscular HGB CONC 28.5 g/dL (32.0-36.0); Mean Corpuscular Hemoglobin 24.1 pg (27.0-31.0); Mean Corpuscular Volume 84.5 fl (78.0-98.0); Mean Platelet Volume 9.9 fL (7.4-10.4); Platelet Count 205 10x3/uL (130-400); RBC Distribution Width 19.3 % (11.5-14.5); Red Blood Cell (RBC) Count 2.91 mill/uL (4.20-5.40); White Blood Cell (WBC) Count 6.3 10x3/uL (4.8-10.8)
[2023-08-20 06:58] LABS: Anion Gap 15 mmol/L (10-20); BUN (Urea Nitrogen) 66 mg/dL (9.8-20.1); Calc. Creatinine Clearance 47 mL/min (70-130); Calcium 8.9 mg/dL (7.8-10.44); Carbon Dioxide 26 mmol/L (23-31); Chloride 103 mmol/L (98-107); Estimated GFR 19; Glucose 75 mg/dL (80-115); Sodium 140 mmol/L (136-145)
[2023-08-20] MEDS ORDERED: Senokot S 8.6-50 MG TAB PO PRN (07:42)
[2023-08-20] MEDS ORDERED: Calcium Carbonate 500 MG ChewTAB PO PRN (07:42)
[2023-08-20] MEDS ORDERED: Loratadine 10 MG TAB PO PRN (07:42)
[2023-08-20] MEDS ORDERED: Benzonatate 100 MG CAP PO PRN (07:42)
[2023-08-20] MEDS ORDERED: Bisacodyl 5 MG TAB PO PRN (07:42)
[2023-08-20] MEDS ORDERED: Sodium Chloride 0.65% Nasal 44 ML BOT EA NARE PRN (07:42)
[2023-08-20] MEDS ORDERED: Artificial Tear Sol 15 ML BOT EA EYE PRN (07:42)
[2023-08-20] MEDS ORDERED: Dextrose 50% Abboject 50 ML SYRINGE SLOW IVP PRN (07:42)
[2023-08-20] MEDS ORDERED: Moisturizing Cream (Eucerin) 113 GM JAR TOP PRN (07:42)
[2023-08-20] MEDS ORDERED: Dextrose 5% in Water 1,000 ML IV PRN (07:42)
[2023-08-20] MEDS ORDERED: Loperamide HCl 2 MG CAP PO PRN ×2 (07:42)
[2023-08-20] MEDS ORDERED: Glucagon 1 MG/ML KIT IM PRN (07:42)
[2023-08-20] MEDS ORDERED: IRON SUCROSE COMPLEX 100 MG/5 ML SLOW IVP SCH (07:45)
[2023-08-20] MEDS ORDERED: Furosemide 40 MG (4 mL) VIAL SLOW IVP SCH (09:00)
[2023-08-20] MEDS: Carvedilol 25 MG TAB PO SCH ×2 (09:48→21:02)
[2023-08-20] MEDS: Amlodipine 5 MG TAB PO SCH (09:48)
[2023-08-20] MEDS: Clopidogrel Bisulfate 75 MG TAB PO SCH (09:48)
[2023-08-20] MEDS: Isosorbide Dinitrate 20 MG TAB PO SCH ×3 (09:49→21:02)
[2023-08-20] MEDS: QUEtiapine 25 MG TAB PO SCH (09:49)
[2023-08-20] MEDS: hydrALAZINE 25 MG TAB PO SCH ×3 (09:49→21:01)
[2023-08-20] MEDS: Ezetimibe 10 MG TAB PO SCH (09:49)
[2023-08-20] MEDS: Aspirin 81 mg Enteric Coated Tablet PO SCH (09:49)
[2023-08-20] MEDS: Heparin 5,000 UNITS/ML VIAL SC SCH ×3 (09:50→21:02)
[2023-08-20] MEDS ORDERED: Iron, Sodium Ferric Gluconate 125 MG in Sodium Chloride 0.9% 100 ML IVPB SCH (10:00)
[2023-08-20 10:52] LABS: Bacteria/HPF None Seen HPF (None Seen); Bilirubin Negative (Negative); Blood, Urine Negative (Negative); Clarity Clear (Clear); Glucose, Urine (Dipstick) Normal (Negative); Ketone, Urine Negative (Negative); Leukocyte Negative Leu/uL (Negative); Nitrite Negative (Negative); Protein, Urine (Dipstick) 50 mg/dL (Neg-Trace); RBC/HPF 0-3 HPF (0-3); Specific Gravity, Urine 1.005 (1.002-1.036); Urobilinogen Normal mg/dL (Less than 2); WBC/HPF 0-3 HPF (0-3); pH, Urine 6.5 (5.0-9.0)
[2023-08-20 19:43] VITALS: TEMP 97.9
[2023-08-20] MEDS ORDERED: Gabapentin 100 MG CAP PO SCH (21:00)
[2023-08-20] MEDS ORDERED: Atorvastatin Calcium 40 MG TAB PO SCH (21:00)
[2023-08-20] MEDS ORDERED: QUEtiapine 25 MG TAB PO SCH (21:00)
[2023-08-20] MEDS ORDERED: QUEtiapine 100 MG TAB PO SCH (21:00)
[2023-08-21 04:16] LABS: Hematocrit 26.9 % (36.0-47.0); Hemoglobin 7.6 g/dL (12.0-16.0); Platelet Count 205 10x3/uL (130-400)
[2023-08-21 04:39] LABS: Anion Gap 13 mmol/L (10-20); BUN (Urea Nitrogen) 64 mg/dL (9.8-20.1); Calc. Creatinine Clearance 47 mL/min (70-130); Calcium 9.1 mg/dL (7.8-10.44); Carbon Dioxide 25 mmol/L (23-31); Chloride 101 mmol/L (98-107); Estimated GFR 19; Glucose 235 mg/dL (80-115); Potassium 4.3 mmol/L (3.5-5.1); Sodium 135 mmol/L (136-145)
[2023-08-21] MEDS ORDERED: Furosemide 40 MG TAB PO SCH ×2 (08:15→12:00)
[2023-08-21] MEDS: Isosorbide Dinitrate 20 MG TAB PO SCH (08:47)
[2023-08-21] MEDS: QUEtiapine 25 MG TAB PO SCH (08:47)
[2023-08-21] MEDS: Amlodipine 5 MG TAB PO SCH (08:47)
[2023-08-21] MEDS: hydrALAZINE 25 MG TAB PO SCH (08:47)
[2023-08-21] MEDS: Carvedilol 25 MG TAB PO SCH (08:47)
[2023-08-21] MEDS: Aspirin 81 mg Enteric Coated Tablet PO SCH (08:47)
[2023-08-21] MEDS: Ezetimibe 10 MG TAB PO SCH (08:47)
[2023-08-21] MEDS: Clopidogrel Bisulfate 75 MG TAB PO SCH (08:47)
[2023-08-21] MEDS: Heparin 5,000 UNITS/ML VIAL SC SCH (08:48)
[2023-08-21 08:49] VITALS: BP 151/79
[2023-08-21] MEDS ORDERED: Losartan 25 MG TAB PO SCH (09:00)
[2023-08-21] MEDS ORDERED: HumuLIN 70/30 (300 UNITS/3 ML VIAL) SC SCH (09:00)
[2023-08-22] MEDS ORDERED: Furosemide 40 MG TAB PO SCH (09:00)
== END 2023-08-21 11:24 | disposition home or self-care (01) ==
LOC: ERS 15:32 → 2SW 19:42
PROVIDERS: ADMIT Student in an Organized Health Care Education/Training Program; ATTEND Family Medicine
DX: R06.02 Shortness of breath (principal); I13.0 Hypertensive heart and chronic kidney disease with heart failure and stage 1 through stage 4 chronic kidney disease, or unspecified chronic kidney disease; I50.9 Heart failure, unspecified; N18.9 Chronic kidney disease, unspecified; E11.22 Type 2 diabetes mellitus with diabetic chronic kidney disease; J44.9 Chronic obstructive pulmonary disease, unspecified; E78.5 Hyperlipidemia, unspecified; Z88.8 Allergy status to other drugs, medicaments and biological substances; D63.1 Anemia in chronic kidney disease; Z79.82 Long term (current) use of aspirin; Z79.899 Other long term (current) drug therapy; Z79.02 Long term (current) use of antithrombotics/antiplatelets
CPT/HCPCS: 71045; 80048 ×2; 80053; 81001; 82962 ×2; 83735; 83880; 84484 ×3; 85014; 85018; 85025 ×2; 85049; 86850; 86900; 86901; 93005; 93798; 96372 ×3; 96374; 96375; 97116; 99285; G0378 ×4; 36415; 36416; J1644; J1815; J1940; J2272; J2916; J3490

== ENCOUNTER 2023-08-27 10:58 | Emergency (ER) | payer OTHER, MEDICARE ==
[2023-08-27] MEDS ORDERED: Acetaminophen 500 MG TAB ONE (11:34)
== END 2023-08-27 13:08 | disposition home or self-care (01) ==
LOC: ERS 10:58
DX: M25.552 Pain in left hip (principal); I11.0 Hypertensive heart disease with heart failure; I50.9 Heart failure, unspecified; E11.9 Type 2 diabetes mellitus without complications; J44.9 Chronic obstructive pulmonary disease, unspecified; E78.5 Hyperlipidemia, unspecified; W01.0XXA Fall on same level from slipping, tripping and stumbling without subsequent striking against object, initial encounter; Z79.82 Long term (current) use of aspirin; Z79.899 Other long term (current) drug therapy

== ENCOUNTER 2023-08-29 10:04 | Emergency (ER) | payer MEDICARE ==
[2023-08-29 10:46] LABS: #Monocytes 0.7 thou/uL (0.11-0.59); #Neutrophils 7.2 thou/uL (1.40-6.50); %Basophils 0.1 % (0.0-1.0); %Eosinophils 0.5 % (0.0-10.0); %Lymphocytes 8.5 % (21.0-51.0); %Monocytes 8.2 % (0.0-10.0); %Neutrophils 82.2 % (42.0-75.0); Hematocrit 24.9 % (36.0-47.0); Hemoglobin 7.4 g/dL (12.0-16.0); Mean Corpuscular HGB CONC 29.7 g/dL (32.0-36.0); Mean Corpuscular Hemoglobin 24.7 pg (27.0-31.0); Mean Corpuscular Volume 83.3 fl (78.0-98.0); Mean Platelet Volume 10.1 fL (7.4-10.4); Platelet Count 148 10x3/uL (130-400); RBC Distribution Width 20.4 % (11.5-14.5); Red Blood Cell (RBC) Count 2.99 mill/uL (4.20-5.40); White Blood Cell (WBC) Count 8.8 10x3/uL (4.8-10.8)
[2023-08-29 11:03] LABS: ALT (SGPT) 19 U/L (8-55); AST (SGOT) 27 U/L (5-34); Albumin 3.5 g/dL (3.4-4.8); Alkaline Phosphatase 69 U/L (40-110); Anion Gap 17 mmol/L (10-20); BUN (Urea Nitrogen) 56 mg/dL (9.8-20.1); Bilirubin, Total 0.7 mg/dL (0.2-1.2); Calc. Creatinine Clearance 0 mL/min (70-130); Calcium 8.8 mg/dL (7.8-10.44); Carbon Dioxide 22 mmol/L (23-31); Chloride 103 mmol/L (98-107); Estimated GFR 20; Globulin 2.5 g/dL (2.4-3.5); Glucose 267 mg/dL (80-115); Sodium 138 mmol/L (136-145)
[2023-08-29 11:17] LABS: Troponin I 0.047 ng/mL (< 0.028)
[2023-08-29] MEDS ORDERED: Furosemide 40 MG/4 ML VIAL ONE (11:47)
[2023-08-29 14:49] LABS: Troponin I 0.039 ng/mL (< 0.028)
== END 2023-08-29 16:15 | disposition home or self-care (01) ==
LOC: ERS 10:04
DX: I11.0 Hypertensive heart disease with heart failure (principal); I50.9 Heart failure, unspecified; J44.9 Chronic obstructive pulmonary disease, unspecified; E11.9 Type 2 diabetes mellitus without complications
CPT/HCPCS: 36416; 71045; 80053; 83880; 84484; 85025; 93005; 94760; 96374; J1940

== ENCOUNTER 2023-09-08 11:42 | Emergency (ER) | payer MEDICARE ==
[2023-09-08 13:00] LABS: #Eosinphils 0.1 thou/uL (0.0-0.7); #Monocytes 0.7 thou/uL (0.11-0.59); #Neutrophils 5.6 thou/uL (1.40-6.50); %Basophils 0.1 % (0.0-1.0); %Eosinophils 1.2 % (0.0-10.0); %Lymphocytes 11.8 % (21.0-51.0); %Neutrophils 76.6 % (42.0-75.0); Hematocrit 26.7 % (36.0-47.0); Hemoglobin 7.7 g/dL (12.0-16.0); Mean Corpuscular HGB CONC 28.8 g/dL (32.0-36.0); Mean Corpuscular Volume 86.7 fl (78.0-98.0); Mean Platelet Volume 10.3 fL (7.4-10.4); Platelet Count 186 10x3/uL (130-400); RBC Distribution Width 21.2 % (11.5-14.5); Red Blood Cell (RBC) Count 3.08 mill/uL (4.20-5.40); White Blood Cell (WBC) Count 7.3 10x3/uL (4.8-10.8)
[2023-09-08 13:21] LABS: Elliptocytes SLIGHT = 2-5 cells (100X) (0-1/hpf); Hypochromia SLIGHT = 6-15 cells (100X) (0-5/hpf); Polychromasia SLIGHT = 2-3 cells (100X) (0-2/hpf)
[2023-09-08 13:22] LABS: Anisocytosis SLIGHT = 6-15 cells (100X) (0-5/hpf); Burr Cells SLIGHT = 2-5 cells (100X) (0-1/hpf); Platelet Adequacy Comment Platelets Normal
[2023-09-08] MEDS ORDERED: Furosemide 40 MG (4 mL) VIAL ONE (13:23)
[2023-09-08 13:27] LABS: ALT (SGPT) 13 U/L (8-55); AST (SGOT) 20 U/L (5-34); Albumin 3.2 g/dL (3.4-4.8); Alkaline Phosphatase 70 U/L (40-110); Anion Gap 13 mmol/L (10-20); BUN (Urea Nitrogen) 48 mg/dL (9.8-20.1); Bilirubin, Total 0.8 mg/dL (0.2-1.2); Calc. Creatinine Clearance 0 mL/min (70-130); Calcium 8.9 mg/dL (7.8-10.44); Carbon Dioxide 28 mmol/L (23-31); Chloride 102 mmol/L (98-107); Estimated GFR 20; Globulin 2.8 g/dL (2.4-3.5); Glucose 125 mg/dL (80-115); Potassium 4.1 mmol/L (3.5-5.1); Sodium 139 mmol/L (136-145)
[2023-09-08] MEDS ORDERED: Furosemide 40 MG TAB ONE (13:55)
[2023-09-08 14:51] LABS: SARS-CoV-2 NAA Rapid Test Not Detected (NotDetected)
== END 2023-09-08 14:48 | disposition home or self-care (01) ==
LOC: ERS 11:42
DX: I11.0 Hypertensive heart disease with heart failure (principal); I50.9 Heart failure, unspecified; E66.9 Obesity, unspecified; E11.9 Type 2 diabetes mellitus without complications; J44.9 Chronic obstructive pulmonary disease, unspecified; E78.5 Hyperlipidemia, unspecified; Z79.82 Long term (current) use of aspirin; Z79.899 Other long term (current) drug therapy
CPT/HCPCS: 0240U; 71045; 80053; 83880; 84484; 85025; 93005; 36415; J1940

== ENCOUNTER 2023-09-09 03:26 | Emergency (ER) | payer MEDICARE ==
[2023-09-09 04:37] LABS: #Eosinphils 0.1 thou/uL (0.0-0.7); #Neutrophils 6.8 thou/uL (1.40-6.50); %Basophils 0.1 % (0.0-1.0); %Eosinophils 1.1 % (0.0-10.0); %Monocytes 10.9 % (0.0-10.0); %Neutrophils 75.5 % (42.0-75.0); Hematocrit 27.1 % (36.0-47.0); Mean Corpuscular HGB CONC 29.5 g/dL (32.0-36.0); Mean Corpuscular Volume 84.7 fl (78.0-98.0); Platelet Count 206 10x3/uL (130-400); RBC Distribution Width 21.2 % (11.5-14.5); White Blood Cell (WBC) Count 8.9 10x3/uL (4.8-10.8)
[2023-09-09 05:09] LABS: Bilirubin Negative (Negative); Blood, Urine Negative (Negative); CAUTI Indications for Culture Dysuria,urgency,freq; Clarity Clear (Clear); Glucose, Urine (Dipstick) Normal (Negative); Ketone, Urine Negative (Negative); Leukocyte Negative Leu/uL (Negative); Nitrite Negative (Negative); Protein, Urine (Dipstick) 20 mg/dL (Neg-Trace); RBC/HPF None Seen HPF (0-3); Specific Gravity, Urine 1.007 (1.002-1.036); Squamous Epithelial 0-3 HPF (0-3); Urobilinogen Normal mg/dL (Less than 2); WBC/HPF 0-3 HPF (0-3); pH, Urine 6.5 (5.0-9.0)
[2023-09-09 05:10] LABS: Amphetamine Not Detected (NotDetected); Barbiturates Screen Not Detected (NotDetected); Benzodiazepine Screen Not Detected (NotDetected); Cocaine Metabolite Screen Not Detected (NotDetected); Methadone Not Detected (NotDetected); Methamphetamine Not Detected (NotDetected); Opiate Screen Not Detected (NotDetected); Oxycodone Screen Not Detected (NotDetected); Phencyclidine (PCP) Not Detected (NotDetected); THC/Cannabinoid Screen Not Detected (NotDetected); Tricyclic Screen Not Detected (NotDetected)
[2023-09-09 05:11] LABS: Bacteria/HPF Rare-Few HPF (None Seen)
[2023-09-09 05:12] LABS: Urine Culture Reflex No No
[2023-09-09 06:02] LABS: Acetaminophen Less than 10 mcg/mL (10.0-30.0); Alcohol Less than 10.0 mg/dL (Less than 10); Lipase 30 U/L (8-78); Salicylate Less than 8.0 mg/dL (15.0-30.0)
[2023-09-09 06:03] LABS: ALT (SGPT) 13 U/L (8-55); AST (SGOT) 22 U/L (5-34); Albumin 3.5 g/dL (3.4-4.8); Alkaline Phosphatase 74 U/L (40-110); Anion Gap 15 mmol/L (10-20); BUN (Urea Nitrogen) 48 mg/dL (9.8-20.1); Bilirubin, Total 0.8 mg/dL (0.2-1.2); Calc. Creatinine Clearance 0 mL/min (70-130); Carbon Dioxide 28 mmol/L (23-31); Chloride 101 mmol/L (98-107); Estimated GFR 22; Globulin 2.7 g/dL (2.4-3.5); Potassium 3.7 mmol/L (3.5-5.1); Protein, Total 6.2 g/dL (5.8-8.1); Sodium 140 mmol/L (136-145)
[2023-09-09] MEDS ORDERED: Furosemide 20 MG (2 mL) VIAL ONE (06:03)
[2023-09-09] MEDS ORDERED: Ondansetron PF 4 MG/2 ML Vial ONE (06:03)
[2023-09-09 06:08] LABS: Critical Call Chemistry NUR.MB20@0605; Glucose 29 mg/dL (80-115)
[2023-09-09 06:09] LABS: Troponin I 0.024 ng/mL (< 0.028)
== END 2023-09-09 07:34 | disposition home or self-care (01) ==
LOC: ERS 03:26
DX: E11.649 Type 2 diabetes mellitus with hypoglycemia without coma (principal); I11.0 Hypertensive heart disease with heart failure; I50.9 Heart failure, unspecified; J44.9 Chronic obstructive pulmonary disease, unspecified; E78.5 Hyperlipidemia, unspecified; Z79.82 Long term (current) use of aspirin; Z79.899 Other long term (current) drug therapy
CPT/HCPCS: 36415; 36416; 71045; 80053; 80306; 80307; 81001; 83605; 83690; 83880; 84484; 85025; 85379; 93005; 96365; 96374; 96375; J1940; J2405

== ENCOUNTER 2023-09-09 13:03 | Emergency (ER) | payer MEDICARE ==
[2023-09-09] MEDS ORDERED: Furosemide 40 MG TAB ONE (13:33)
[2023-09-09 14:16] LABS: Anion Gap 16 mmol/L (10-20); BUN (Urea Nitrogen) 49 mg/dL (9.8-20.1); Calc. Creatinine Clearance 0 mL/min (70-130); Calcium 8.6 mg/dL (7.8-10.44); Carbon Dioxide 26 mmol/L (23-31); Chloride 100 mmol/L (98-107); Estimated GFR 21; Glucose 81 mg/dL (80-115); Potassium 4.8 mmol/L (3.5-5.1); Sodium 137 mmol/L (136-145)
== END 2023-09-09 14:55 | disposition home or self-care (01) ==
LOC: ERS 13:03
DX: R06.00 Dyspnea, unspecified (principal); F41.9 Anxiety disorder, unspecified; E66.9 Obesity, unspecified; I11.0 Hypertensive heart disease with heart failure; I50.9 Heart failure, unspecified; E11.9 Type 2 diabetes mellitus without complications; J44.9 Chronic obstructive pulmonary disease, unspecified; E78.5 Hyperlipidemia, unspecified; Z79.82 Long term (current) use of aspirin; Z79.899 Other long term (current) drug therapy
CPT/HCPCS: 36415; 83880; 85379; 93005

== ENCOUNTER 2023-09-10 11:27 | Emergency (ER) | payer MEDICARE ==
[2023-09-10 15:08] LABS: #Eosinphils 0.1 thou/uL (0.0-0.7); #Monocytes 0.8 thou/uL (0.11-0.59); #Neutrophils 6.2 thou/uL (1.40-6.50); %Basophils 0.3 % (0.0-1.0); %Eosinophils 0.6 % (0.0-10.0); %Lymphocytes 10.5 % (21.0-51.0); %Monocytes 10.2 % (0.0-10.0); Hematocrit 28.2 % (36.0-47.0); Hemoglobin 8.1 g/dL (12.0-16.0); Mean Corpuscular HGB CONC 28.7 g/dL (32.0-36.0); Mean Corpuscular Hemoglobin 25.3 pg (27.0-31.0); Mean Corpuscular Volume 88.1 fl (78.0-98.0); Mean Platelet Volume 9.6 fL (7.4-10.4); Platelet Count 179 10x3/uL (130-400); RBC Distribution Width 20.9 % (11.5-14.5); White Blood Cell (WBC) Count 7.9 10x3/uL (4.8-10.8)
[2023-09-10 15:33] LABS: Troponin I 0.026 ng/mL (< 0.028)
[2023-09-10 15:42] LABS: ALT (SGPT) 16 U/L (8-55); AST (SGOT) 26 U/L (5-34); Albumin 3.4 g/dL (3.4-4.8); Alkaline Phosphatase 74 U/L (40-110); Anion Gap 18 mmol/L (10-20); BUN (Urea Nitrogen) 51 mg/dL (9.8-20.1); Bilirubin, Total 0.8 mg/dL (0.2-1.2); Calc. Creatinine Clearance 0 mL/min (70-130); Calcium 8.6 mg/dL (7.8-10.44); Carbon Dioxide 24 mmol/L (23-31); Chloride 100 mmol/L (98-107); Estimated GFR 18; Globulin 2.6 g/dL (2.4-3.5); Glucose 333 mg/dL (80-115); Lipase 16 U/L (8-78); Magnesium 2.2 mg/dL (1.6-2.6); Potassium 4.9 mmol/L (3.5-5.1); Sodium 137 mmol/L (136-145)
[2023-09-10 15:44] LABS: Anisocytosis MODERATE=16-30 cells HPF (0-5); Burr Cells MODERATE= 6-15 cells HPF (0-1); CellaVision Operator ID LAB.KB; Hypochromia SLIGHT = 6-15 cells HPF (0-5); Ovalocytes SLIGHT = 2-5 cells HPF (0-1); Platelet Adequacy Comment Platelets Normal; Poikilocytosis SLIGHT = 6-15 cells HPF (0-5); Polychromasia SLIGHT = 2-3 cells HPF (0-2)
[2023-09-10] MEDS ORDERED: Furosemide 40 MG TAB ONE (17:30)
[2023-09-11] MEDS ORDERED: Ondansetron ODT 4 MG TAB ONE (09:52)
== END 2023-09-10 12:02 | disposition left against medical advice (07) ==
LOC: ERS 11:27
DX: Z53.21 Procedure and treatment not carried out due to patient leaving prior to being seen by health care provider (principal)
CPT/HCPCS: 80053; 83690; 83735; 83880; 84484; 85025

== ENCOUNTER 2023-09-10 12:51 | Emergency (ER) | payer MEDICARE ==
[2023-09-10 18:01] LABS: Troponin I 0.024 ng/mL (< 0.028)
== END 2023-09-10 17:52 | disposition home or self-care (01) ==
LOC: ERS 12:51
DX: R51.9 Headache, unspecified (principal); I11.0 Hypertensive heart disease with heart failure; I50.9 Heart failure, unspecified; J44.9 Chronic obstructive pulmonary disease, unspecified; E11.9 Type 2 diabetes mellitus without complications; E78.5 Hyperlipidemia, unspecified; Z79.899 Other long term (current) drug therapy; Z79.82 Long term (current) use of aspirin
CPT/HCPCS: 36415; 80053; 83690; 83735; 83880; 84484; 85025; 93005

== ENCOUNTER 2023-09-11 09:06 | Emergency (ER) | payer MEDICARE | END 2023-09-11 10:35 | disposition home or self-care (01) | LOC: ERS 09:06 | DX: R11.0 Nausea (principal); I11.0 Hypertensive heart disease with heart failure; I50.9 Heart failure, unspecified; E11.9 Type 2 diabetes mellitus without complications; J44.9 Chronic obstructive pulmonary disease, unspecified; E78.5 Hyperlipidemia, unspecified; Z79.82 Long term (current) use of aspirin; Z79.899 Other long term (current) drug therapy | CPT/HCPCS: 99284 ==

== ENCOUNTER 2023-09-11 17:12 | Emergency (ER) | payer MEDICARE | END 2023-09-11 18:24 | disposition home or self-care (01) | LOC: ERS 17:12 | DX: R53.1 Weakness (principal); I11.0 Hypertensive heart disease with heart failure; I50.9 Heart failure, unspecified; E78.5 Hyperlipidemia, unspecified; E11.9 Type 2 diabetes mellitus without complications; J44.9 Chronic obstructive pulmonary disease, unspecified; Z79.82 Long term (current) use of aspirin; Z79.899 Other long term (current) drug therapy; R11.0 Nausea | CPT/HCPCS: 99284 ==

== ENCOUNTER 2023-10-23 13:48 | Emergency (ER) | payer MEDICARE | END 2023-10-23 15:10 | disposition left against medical advice (07) | LOC: ERS 13:48 | DX: Z53.21 Procedure and treatment not carried out due to patient leaving prior to being seen by health care provider (principal) ==

== ENCOUNTER 2023-11-11 03:24 | Inpatient (IN) | payer MEDICARE, OTHER ==
[2023-11-11 04:49] LABS: Actual Bicarbonate (HCO3v) 24.5 mEq/L (22-28); Base Excess 0.1 mEq/L (-2.0 to +3.0); Calcium, Ionized (venous) 1.12 mmol/L (1.16-1.32); Chloride (VBG) 84 mmol/L (98-106); Hematocrit-VBG 27 % (36.0-47.0); Hemoglobin (Hb) 9.3 g/dL (11.7-16.0); Potassium (VBG) 3.61 mmol/L (3.70-5.30); Sodium 120 mmol/L (133-146)
[2023-11-11 04:58] LABS: #Monocytes 0.6 thou/uL (0.11-0.59); #Neutrophils 4.5 thou/uL (1.40-6.50); %Eosinophils 0.7 % (0.0-10.0); %Lymphocytes 12.9 % (21.0-51.0); %Monocytes 10.4 % (0.0-10.0); %Neutrophils 75.5 % (42.0-75.0); Hematocrit 25.5 % (36.0-47.0); Hemoglobin 8.2 g/dL (12.0-16.0); Mean Corpuscular HGB CONC 32.2 g/dL (32.0-36.0); Mean Corpuscular Volume 74.8 fl (78.0-98.0); Mean Platelet Volume 9.9 fL (7.4-10.4); Platelet Count 283 10x3/uL (130-400); RBC Distribution Width 15.1 % (11.5-14.5); Red Blood Cell (RBC) Count 3.41 mill/uL (4.20-5.40)
[2023-11-11 05:08] LABS: ALT (SGPT) 11 U/L (8-55); AST (SGOT) 17 U/L (5-34); Albumin 3.1 g/dL (3.4-4.8); Alkaline Phosphatase 110 U/L (40-110); Anion Gap 14 mmol/L (10-20); BUN (Urea Nitrogen) 41 mg/dL (9.8-20.1); Bilirubin, Total 0.5 mg/dL (0.2-1.2); Calc. Creatinine Clearance 0 mL/min (70-130); Carbon Dioxide 26 mmol/L (23-31); Chloride 82 mmol/L (98-107); Estimated GFR 17; Lipase 188 U/L (8-78); Magnesium 2.1 mg/dL (1.6-2.6); Potassium 3.3 mmol/L (3.5-5.1); Protein, Total 6.1 g/dL (5.8-8.1)
[2023-11-11 05:11] LABS: Glucose 673 mg/dL (80-115); Sodium 119 mmol/L (136-145); Troponin I 0.051 ng/mL (< 0.028)
[2023-11-11 05:34] LABS: Anisocytosis SLIGHT = 6-15 cells HPF (0-5); CellaVision Operator ID lab.sh2; Macrocytosis SLIGHT = 6-15 cells HPF (0-5); Ovalocytes SLIGHT = 2-5 cells HPF (0-1); Platelet Adequacy Comment Platelets Normal; Poikilocytosis SLIGHT = 6-15 cells HPF (0-5); Polychromasia SLIGHT = 2-3 cells HPF (0-2)
[2023-11-11] MEDS ORDERED: Magnesium 2 GM/50 ML BAG (IN WATER) ONE (05:41)
[2023-11-11] MEDS ORDERED: Potassium Chloride 20 MEQ TAB ONE (05:41)
[2023-11-11] MEDS ORDERED: Insulin Regular 300 UNITS/3 ML VIAL ONE (05:42)
[2023-11-11] MEDS ORDERED: Potassium Chloride 20 MEQ (100 mL) BAG ONE (05:42)
[2023-11-11 06:20] LABS: Bacteria/HPF None Seen HPF (None Seen); Bilirubin Negative (Negative); Blood, Urine Negative (Negative); CAUTI Indications for Culture Alt mental st,lethar; Clarity Clear (Clear); Glucose, Urine (Dipstick) Greater than 1000 mg/dL (Negative); Ketone, Urine Negative (Negative); Leukocyte Negative Leu/uL (Negative); Nitrite Negative (Negative); Protein, Urine (Dipstick) 10 mg/dL (Neg-Trace); RBC/HPF 0-3 HPF (0-3); Specific Gravity, Urine 1.009 (1.002-1.036); Squamous Epithelial 0-3 HPF (0-3); Urobilinogen Normal mg/dL (Less than 2); WBC/HPF 0-3 HPF (0-3)
[2023-11-11 06:21] LABS: Urine Culture Reflex No No
[2023-11-11] MEDS ORDERED: Morphine 4 MG/ML VIAL SLOW IVP PRN (06:33)
[2023-11-11] MEDS ORDERED: Acetaminophen 325 MG TAB PO PRN ×2 (06:45→20:48)
[2023-11-11] MEDS ORDERED: Ondansetron PF 4 MG/2 ML Vial IVP PRN (06:45)
[2023-11-11] MEDS ORDERED: Ondansetron ODT 4 MG TAB SL PRN (06:45)
[2023-11-11] MEDS ORDERED: Glucagon 1 MG/ML KIT IM PRN (08:02)
[2023-11-11] MEDS ORDERED: Dextrose 5% in Water 1,000 ML IV PRN (08:02)
[2023-11-11] MEDS ORDERED: Dextrose 50% Abboject 50 ML SYRINGE SLOW IVP PRN (08:02)
[2023-11-11] MEDS ORDERED: Ipratropium/Albuterol 3 ML NEB NEB PRN (08:04)
[2023-11-11 08:17] VITALS: BMI 47.0
[2023-11-11] MEDS: Aspirin 81 mg Enteric Coated Tablet PO SCH (08:44)
[2023-11-11] MEDS: HumaLOG 300 UNITS/3 ML VIAL SC PRN (08:44)
[2023-11-11] MEDS ORDERED: HumuLIN 70/30 (300 UNITS/3 ML VIAL) SC SCH (09:00)
[2023-11-11 09:39] LABS: Troponin I 0.053 ng/mL (< 0.028)
[2023-11-11] MEDS: HumuLIN 70/30 (300 UNITS/3 ML VIAL) SC SCH (11:32)
[2023-11-11] MEDS: Sodium Chloride 0.9% 1,000 ML IV SCH (11:43)
[2023-11-11] MEDS: Insulin Regular 300 UNITS/3 ML VIAL IVP SCH ×2 (13:17→13:59)
[2023-11-11] MEDS: Atorvastatin Calcium 40 MG TAB PO SCH (20:33)
[2023-11-11] MEDS: Gabapentin 300 MG CAP PO SCH (20:33)
[2023-11-11] MEDS ORDERED: Non-Formulary Item 1 EACH (Atorvastatin Calcium [Lipitor] 80 MG Tablet) PO SCH (21:00)
[2023-11-12 08:36] LABS: #Monocytes 0.7 thou/uL (0.11-0.59); #Neutrophils 4.3 thou/uL (1.40-6.50); %Basophils 0.2 % (0.0-1.0); %Eosinophils 0.6 % (0.0-10.0); %Lymphocytes 20.4 % (21.0-51.0); %Monocytes 11.1 % (0.0-10.0); %Neutrophils 67.4 % (42.0-75.0); Hematocrit 28.2 % (36.0-47.0); Hemoglobin 8.7 g/dL (12.0-16.0); Mean Corpuscular HGB CONC 30.9 g/dL (32.0-36.0); Mean Corpuscular Hemoglobin 23.7 pg (27.0-31.0); Mean Corpuscular Volume 76.8 fl (78.0-98.0); Mean Platelet Volume 10.2 fL (7.4-10.4); Platelet Count 322 10x3/uL (130-400); RBC Distribution Width 15.3 % (11.5-14.5); Red Blood Cell (RBC) Count 3.67 mill/uL (4.20-5.40); White Blood Cell (WBC) Count 6.3 10x3/uL (4.8-10.8)
[2023-11-12 09:00] LABS: ALT (SGPT) 15 U/L (8-55); AST (SGOT) 30 U/L (5-34); Albumin 2.8 g/dL (3.4-4.8); Alkaline Phosphatase 95 U/L (40-110); Anion Gap 13 mmol/L (10-20); BUN (Urea Nitrogen) 48 mg/dL (9.8-20.1); Bilirubin, Total 0.3 mg/dL (0.2-1.2); Calc. Creatinine Clearance 41 mL/min (70-130); Carbon Dioxide 27 mmol/L (23-31); Chloride 96 mmol/L (98-107); Estimated GFR 21; Globulin 2.9 g/dL (2.4-3.5); Glucose 333 mg/dL (80-115); Potassium 4.3 mmol/L (3.5-5.1); Protein, Total 5.7 g/dL (5.8-8.1); Sodium 132 mmol/L (136-145)
[2023-11-12] MEDS: FLU VACC QS2023-24(6MOS UP)/PF 60 MCG/0.5 ML SYRINGE IM ONE (09:12)
[2023-11-12 16:04] VITALS: BP 149/67; TEMP 97.8
== END 2023-11-12 16:55 | disposition home or self-care (01) | DRG 683 ==
LOC: ERS 03:24 → 2NO 06:27
PROVIDERS: ADMIT Student in an Organized Health Care Education/Training Program; ATTEND Family Medicine
DX: N17.9 Acute kidney failure, unspecified (principal); E87.1 Hypo-osmolality and hyponatremia; I13.0 Hypertensive heart and chronic kidney disease with heart failure and stage 1 through stage 4 chronic kidney disease, or unspecified chronic kidney disease; I50.32 Chronic diastolic (congestive) heart failure; N18.4 Chronic kidney disease, stage 4 (severe); E11.65 Type 2 diabetes mellitus with hyperglycemia; E86.0 Dehydration; Z88.8 Allergy status to other drugs, medicaments and biological substances; E78.5 Hyperlipidemia, unspecified; J44.9 Chronic obstructive pulmonary disease, unspecified; Z79.4 Long term (current) use of insulin; Z79.899 Other long term (current) drug therapy; Z79.82 Long term (current) use of aspirin; Z90.710 Acquired absence of both cervix and uterus; E87.6 Hypokalemia; D63.1 Anemia in chronic kidney disease
CPT/HCPCS: 36415; 36416; 70450; 71045; 72125; 72170; 80053; 81001; 82010; 82805; 83690; 83735; 84484; 85025; 93005; 96374; 96375; J1815; J3475; J3480; J7050

== ENCOUNTER 2023-11-27 14:54 | Emergency (ER) | payer MEDICARE, OTHER | END 2023-11-27 16:13 | disposition home or self-care (01) | LOC: ERS 14:54 | DX: R51.9 Headache, unspecified (principal); I11.0 Hypertensive heart disease with heart failure; I50.9 Heart failure, unspecified; E11.9 Type 2 diabetes mellitus without complications; J44.9 Chronic obstructive pulmonary disease, unspecified; Z79.899 Other long term (current) drug therapy | CPT/HCPCS: 99283 ==

== ENCOUNTER 2024-02-20 10:27 | Inpatient (IN) | payer MEDICARE ==
[2024-02-20 12:39] LABS: #Basophils Less than 0.03 10x3/uL (0.0-0.2); %Basophils 0.1 % (0.0-1.0); %Eosinophils 0.8 % (0.0-10.0); %Lymphocytes 10.1 % (21.0-51.0); %Monocytes 10.3 % (0.0-10.0); %Neutrophils 78.3 % (42.0-75.0); Hematocrit 21.9 % (36.0-47.0); Hemoglobin 6.5 g/dL (12.0-16.0); Mean Corpuscular HGB CONC 29.7 g/dL (32.0-36.0); Mean Corpuscular Hemoglobin 22.8 pg (27.0-31.0); Mean Corpuscular Volume 76.8 fL (78.0-98.0); Mean Platelet Volume 10.7 fL (7.4-10.4); Platelet Count 197 10x3/uL (130-400); RBC Distribution Width 17.4 % (11.5-14.5); Red Blood Cell (RBC) Count 2.85 mill/uL (4.20-5.40)
[2024-02-20 13:02] LABS: Troponin I 0.022 ng/mL (< 0.028)
[2024-02-20 13:08] LABS: ALT (SGPT) 9 U/L (8-55); AST (SGOT) 13 U/L (5-34); Albumin 2.7 g/dL (3.4-4.8); Alkaline Phosphatase 82 U/L (40-110); Anion Gap 17 mmol/L (10-20); BUN (Urea Nitrogen) 62 mg/dL (9.8-20.1); Bilirubin, Total 0.5 mg/dL (0.2-1.2); Calc. Creatinine Clearance 0 mL/min (70-130); Calcium 9.1 mg/dL (7.8-10.44); Carbon Dioxide 21 mmol/L (23-31); Chloride 100 mmol/L (98-107); Estimated GFR 18; Globulin 3.4 g/dL (2.4-3.5); Glucose 377 mg/dL (80-115); Potassium 4.3 mmol/L (3.5-5.1); Protein, Total 6.1 g/dL (5.8-8.1); Sodium 134 mmol/L (136-145)
[2024-02-20] MEDS ORDERED: Senokot S 8.6-50 MG TAB PO PRN (15:08)
[2024-02-20] MEDS ORDERED: Guaifenesin DM 100-10/5 ML UDCUP PO PRN (15:08)
[2024-02-21 04:57] LABS: Anion Gap 16 mmol/L (10-20); BUN (Urea Nitrogen) 54 mg/dL (9.8-20.1); Calc. Creatinine Clearance 43 mL/min (70-130); Carbon Dioxide 19 mmol/L (23-31); Chloride 97 mmol/L (98-107); Estimated GFR 20; Glucose 588 mg/dL (80-115); Potassium 4.4 mmol/L (3.5-5.1); Sodium 128 mmol/L (136-145)
[2024-02-21] MEDS ORDERED: HumaLOG 300 UNITS/3 ML VIAL SC PRN (05:06)
[2024-02-21] MEDS ORDERED: Dextrose 5% in Water 1,000 ML IV PRN (05:06)
[2024-02-21] MEDS ORDERED: Glucagon 1 MG/ML KIT IM PRN (05:06)
[2024-02-21] MEDS ORDERED: Dextrose 50% Abboject 50 ML SYRINGE SLOW IVP PRN (05:06)
[2024-02-21] MEDS: HumaLOG 300 UNITS/3 ML VIAL SC PRN (05:43)
[2024-02-21 06:11] LABS: #Basophils Less than 0.03 10x3/uL (0.0-0.2); %Basophils 0.2 % (0.0-1.0); %Eosinophils 0.8 % (0.0-10.0); %Lymphocytes 10.6 % (21.0-51.0); %Monocytes 10.7 % (0.0-10.0); %Neutrophils 77.4 % (42.0-75.0); Hematocrit 26.7 % (36.0-47.0); Hemoglobin 7.8 g/dL (12.0-16.0); Mean Corpuscular HGB CONC 29.2 g/dL (32.0-36.0); Mean Corpuscular Hemoglobin 23.2 pg (27.0-31.0); Mean Corpuscular Volume 79.5 fL (78.0-98.0); Mean Platelet Volume 10.3 fL (7.4-10.4); Platelet Count 194 10x3/uL (130-400); RBC Distribution Width 17.3 % (11.5-14.5); Red Blood Cell (RBC) Count 3.36 mill/uL (4.20-5.40)
[2024-02-21] MEDS: Ferrous Sulfate 325 MG TAB PO SCH (08:25)
[2024-02-21] MEDS: hydrALAZINE 25 MG TAB PO SCH (08:25)
[2024-02-21] MEDS: Aspirin 81 mg Enteric Coated Tablet PO SCH (08:26)
[2024-02-21] MEDS: Carvedilol 25 MG TAB PO SCH (08:26)
[2024-02-21] MEDS: Amlodipine 5 MG TAB PO SCH (08:26)
[2024-02-21] MEDS: Furosemide 40 MG TAB PO SCH (08:26)
[2024-02-21] MEDS: Losartan 25 MG TAB PO SCH (08:26)
[2024-02-21] MEDS: Acetaminophen 325 MG TAB PO PRN (08:27)
[2024-02-21] MEDS: Pantoprazole DR 40 MG TAB PO SCH (08:27)
[2024-02-21] MEDS: Isosorbide Dinitrate 20 MG TAB PO SCH (08:27)
[2024-02-21] MEDS: NIFEdipine XL 60 MG ER.TAB PO SCH (08:28)
[2024-02-21] MEDS: HumuLIN 70/30 (300 UNITS/3 ML VIAL) SC SCH (08:31)
[2024-02-21] MEDS: Cyclobenzaprine 10 MG TAB PO SCH (08:55)
[2024-02-21] MEDS: Clopidogrel Bisulfate 75 MG TAB PO SCH (08:55)
[2024-02-21] MEDS: Morphine 2 MG/ML VIAL SLOW IVP PRN (08:56)
[2024-02-21 20:12] LABS: Hematocrit 25.8 % (36.0-47.0); Hemoglobin 7.6 g/dL (12.0-16.0)
[2024-02-21 20:33] LABS: Anion Gap 16 mmol/L (10-20); BUN (Urea Nitrogen) 57 mg/dL (9.8-20.1); Calc. Creatinine Clearance 42 mL/min (70-130); Calcium 9.1 mg/dL (7.8-10.44); Carbon Dioxide 20 mmol/L (23-31); Chloride 102 mmol/L (98-107); Estimated GFR 19; Glucose 136 mg/dL (80-115); Potassium 4.4 mmol/L (3.5-5.1); Sodium 134 mmol/L (136-145)
[2024-02-21] MEDS: Atorvastatin Calcium 40 MG TAB PO SCH (21:33)
[2024-02-21] MEDS: Ezetimibe 10 MG TAB PO SCH (21:33)
[2024-02-21] MEDS: QUEtiapine 25 MG TAB PO SCH (21:34)
[2024-02-21] MEDS: Gabapentin 300 MG CAP PO SCH (21:34)
[2024-02-22 06:56] LABS: #Basophils Less than 0.03 10x3/uL (0.0-0.2); %Basophils 0.1 % (0.0-1.0); %Eosinophils 1.1 % (0.0-10.0); %Lymphocytes 11.5 % (21.0-51.0); %Neutrophils 77.9 % (42.0-75.0); Hematocrit 24.3 % (36.0-47.0); Hemoglobin 7.1 g/dL (12.0-16.0); Mean Corpuscular HGB CONC 29.2 g/dL (32.0-36.0); Mean Corpuscular Hemoglobin 23.3 pg (27.0-31.0); Mean Corpuscular Volume 79.7 fL (78.0-98.0); Mean Platelet Volume 10.4 fL (7.4-10.4); Platelet Count 206 10x3/uL (130-400); RBC Distribution Width 17.6 % (11.5-14.5); Red Blood Cell (RBC) Count 3.05 mill/uL (4.20-5.40)
[2024-02-22 07:59] LABS: Anion Gap 18 mmol/L (10-20); BUN (Urea Nitrogen) 57 mg/dL (9.8-20.1); Calc. Creatinine Clearance 42 mL/min (70-130); Calcium 8.9 mg/dL (7.8-10.44); Carbon Dioxide 19 mmol/L (23-31); Chloride 101 mmol/L (98-107); Estimated GFR 19; Glucose 289 mg/dL (80-115); Potassium 4.4 mmol/L (3.5-5.1); Sodium 134 mmol/L (136-145)
[2024-02-22] MEDS ORDERED: Amlodipine 5 MG TAB PO SCH (09:00)
[2024-02-22] MEDS ORDERED: IRON SUCROSE COMPLEX 100 MG/5 ML SLOW IVP SCH (09:00)
[2024-02-22] MEDS: Folic Acid/Vit B Comp W-C PO SCH (09:18)
[2024-02-22] MEDS: Amlodipine 10 MG TAB PO SCH (09:18)
[2024-02-22] MEDS: Sodium Ferric Gluconate 125 MG in Sodium Chloride 0.9% 100 ML IVPB SCH (14:32)
[2024-02-22] MEDS: Furosemide 20 MG (2 mL) VIAL SLOW IVP SCH (17:36)
[2024-02-22 17:49] LABS: Hematocrit 24.3 % (36.0-47.0); Hemoglobin 7.1 g/dL (12.0-16.0)
[2024-02-23 10:27] LABS: Hematocrit 24.5 % (36.0-47.0); Hemoglobin 7.2 g/dL (12.0-16.0); Platelet Count 187 10x3/uL (130-400)
[2024-02-23] MEDS ORDERED: Epoetin (ESRD) 20,000 UNITS/ML MDV SC SCH (10:45)
[2024-02-23 10:48] LABS: Iron 23 ug/dL (50-170); Iron Binding Capacity, Total 358 mcg/dL (265-497)
[2024-02-23 11:27] VITALS: BP 149/71; TEMP 98.1
[2024-02-23] MEDS ORDERED: IRON SUCROSE COMPLEX 100 MG/5 ML SLOW IVP SCH (12:00)
[2024-02-23] MEDS: EPOETIN ALFA-EPBX (ESRD) 10,000 UNITS/ML VIAL SC SCH (13:56)
[2024-02-23] MEDS ORDERED: Sodium Ferric Gluconate 125 MG in Sodium Chloride 0.9% 100 ML IVPB SCH (16:00)
== END 2024-02-23 15:58 | disposition home or self-care (01) | DRG 812 ==
LOC: ERS 10:27 → ERHOLD 14:31 → 2SW 20:43 → OBSVTOIN 02-22 10:57 → SURG A 02-22 20:00
PROVIDERS: ADMIT Hospitalist; ATTEND Family Medicine
PROC: 30233N1 Transfusion of Nonautologous Red Blood Cells into Peripheral Vein, Percutaneous Approach (ICD-10-PCS; principal; 2024-02-20)
DX: D50.9 Iron deficiency anemia, unspecified (principal); N18.4 Chronic kidney disease, stage 4 (severe); I50.32 Chronic diastolic (congestive) heart failure; I13.0 Hypertensive heart and chronic kidney disease with heart failure and stage 1 through stage 4 chronic kidney disease, or unspecified chronic kidney disease; Z68.43 Body mass index [BMI] 50.0-59.9, adult; I25.10 Atherosclerotic heart disease of native coronary artery without angina pectoris; E11.22 Type 2 diabetes mellitus with diabetic chronic kidney disease; J44.9 Chronic obstructive pulmonary disease, unspecified; F41.9 Anxiety disorder, unspecified; F31.9 Bipolar disorder, unspecified; E66.9 Obesity, unspecified; D63.1 Anemia in chronic kidney disease; Z88.8 Allergy status to other drugs, medicaments and biological substances; Z79.899 Other long term (current) drug therapy; Z79.82 Long term (current) use of aspirin; Z79.4 Long term (current) use of insulin; Z87.891 Personal history of nicotine dependence; Z95.1 Presence of aortocoronary bypass graft; Z95.5 Presence of coronary angioplasty implant and graft
CPT/HCPCS: 36415; 36416; 36430; 71045; 80048; 80053; 82728; 83036; 83540; 83550; 83735; 83880; 84484; 85014; 85018; 85025; 85046; 85049; 86850; 86900; 86901; 93005; J1815; J1940; J2272; P9016; Q5105

== ENCOUNTER 2024-02-27 07:51 | Emergency (ER) | payer MEDICARE ==
[2024-02-27 08:55] LABS: #Basophils Less than 0.03 10x3/uL (0.0-0.2); %Basophils 0.1 % (0.0-1.0); %Lymphocytes 10.1 % (21.0-51.0); %Monocytes 9.8 % (0.0-10.0); %Neutrophils 78.6 % (42.0-75.0); Hematocrit 25.8 % (36.0-47.0); Hemoglobin 7.5 g/dL (12.0-16.0); Mean Corpuscular HGB CONC 29.1 g/dL (32.0-36.0); Mean Corpuscular Hemoglobin 23.1 pg (27.0-31.0); Mean Corpuscular Volume 79.6 fL (78.0-98.0); Mean Platelet Volume 10.5 fL (7.4-10.4); Platelet Count 160 10x3/uL (130-400); RBC Distribution Width 19.4 % (11.5-14.5); Red Blood Cell (RBC) Count 3.24 mill/uL (4.20-5.40)
[2024-02-27 09:14] LABS: ALT (SGPT) 12 U/L (8-55); AST (SGOT) 18 U/L (5-34); Alkaline Phosphatase 85 U/L (40-110); Anion Gap 13 mmol/L (10-20); BUN (Urea Nitrogen) 51 mg/dL (9.8-20.1); Bilirubin, Total 0.9 mg/dL (0.2-1.2); Calc. Creatinine Clearance 0 mL/min (70-130); Calcium 9.5 mg/dL (7.8-10.44); Carbon Dioxide 24 mmol/L (23-31); Chloride 101 mmol/L (98-107); Estimated GFR 22; Globulin 3.5 g/dL (2.4-3.5); Glucose 350 mg/dL (80-115); Potassium 4.5 mmol/L (3.5-5.1); Protein, Total 6.5 g/dL (5.8-8.1); Sodium 133 mmol/L (136-145)
== END 2024-02-27 10:51 | disposition home or self-care (01) ==
LOC: ERS 07:51
DX: D64.9 Anemia, unspecified (principal); R42 Dizziness and giddiness; I13.0 Hypertensive heart and chronic kidney disease with heart failure and stage 1 through stage 4 chronic kidney disease, or unspecified chronic kidney disease; I50.9 Heart failure, unspecified; N18.9 Chronic kidney disease, unspecified; E11.65 Type 2 diabetes mellitus with hyperglycemia; E11.22 Type 2 diabetes mellitus with diabetic chronic kidney disease; J44.9 Chronic obstructive pulmonary disease, unspecified
CPT/HCPCS: 36415; 80053; 85025; 93005; 94760

== ENCOUNTER 2024-02-28 02:57 | Emergency (ER) | payer MEDICARE, OTHER ==
[2024-02-28 04:13] LABS: #Basophils Less than 0.03 10x3/uL (0.0-0.2); %Basophils 0.2 % (0.0-1.0); %Eosinophils 0.8 % (0.0-10.0); %Lymphocytes 6.9 % (21.0-51.0); %Monocytes 7.6 % (0.0-10.0); %Neutrophils 83.9 % (42.0-75.0); Hematocrit 23.6 % (36.0-47.0); Hemoglobin 7.2 g/dL (12.0-16.0); Mean Corpuscular HGB CONC 30.5 g/dL (32.0-36.0); Mean Corpuscular Hemoglobin 24.3 pg (27.0-31.0); Mean Corpuscular Volume 79.7 fL (78.0-98.0); Mean Platelet Volume 10.5 fL (7.4-10.4); Platelet Count 161 10x3/uL (130-400); RBC Distribution Width 19.4 % (11.5-14.5); Red Blood Cell (RBC) Count 2.96 mill/uL (4.20-5.40)
[2024-02-28 04:25] LABS: INR-International Normal Ratio 1.2; PTT 30.3 sec (22.9-36.1); Prothrombin Time 14.8 sec (12.0-14.7)
[2024-02-28 04:36] LABS: Troponin I 0.028 ng/mL (< 0.028)
[2024-02-28] MEDS ORDERED: Morphine 4 MG/ML VIAL ONE (04:37)
[2024-02-28] MEDS ORDERED: Ondansetron PF 4 MG/2 ML Vial ONE (04:37)
[2024-02-28 04:54] LABS: Bacteria/HPF None Seen HPF (None Seen); Bilirubin Negative (Negative); Blood, Urine Negative (Negative); CAUTI Indications for Culture Pelvic or flank pain; Clarity Clear (Clear); Glucose, Urine (Dipstick) 500 mg/dL (Negative); Ketone, Urine Negative (Negative); Leukocyte Negative Leu/uL (Negative); Nitrite Negative (Negative); Protein, Urine (Dipstick) 20 mg/dL (Neg-Trace); RBC/HPF 0-3 HPF (0-3); Specific Gravity, Urine 1.008 (1.002-1.036); Squamous Epithelial 0-3 HPF (0-3); Urobilinogen Normal mg/dL (Less than 2); WBC/HPF 0-3 HPF (0-3)
[2024-02-28 04:56] LABS: Urine Culture Reflex No No
[2024-02-28 06:21] LABS: ALT (SGPT) 13 U/L (8-55); AST (SGOT) 19 U/L (5-34); Alkaline Phosphatase 84 U/L (40-110); Anion Gap 14 mmol/L (10-20); BUN (Urea Nitrogen) 50 mg/dL (9.8-20.1); Bilirubin, Total 0.9 mg/dL (0.2-1.2); Calc. Creatinine Clearance 0 mL/min (70-130); Calcium 9.4 mg/dL (7.8-10.44); Carbon Dioxide 25 mmol/L (23-31); Chloride 96 mmol/L (98-107); Estimated GFR 22; Globulin 3.4 g/dL (2.4-3.5); Glucose 497 mg/dL (80-115); Lipase 18 U/L (8-78); Potassium 4.5 mmol/L (3.5-5.1); Protein, Total 6.4 g/dL (5.8-8.1); Sodium 130 mmol/L (136-145)
== END 2024-02-28 06:59 | disposition home or self-care (01) ==
LOC: ERS 02:57
DX: S29.011A Strain of muscle and tendon of front wall of thorax, initial encounter (principal); M79.641 Pain in right hand; I13.0 Hypertensive heart and chronic kidney disease with heart failure and stage 1 through stage 4 chronic kidney disease, or unspecified chronic kidney disease; E11.22 Type 2 diabetes mellitus with diabetic chronic kidney disease; N18.9 Chronic kidney disease, unspecified; I50.9 Heart failure, unspecified; E11.65 Type 2 diabetes mellitus with hyperglycemia; J44.9 Chronic obstructive pulmonary disease, unspecified; E78.5 Hyperlipidemia, unspecified; F41.8 Other specified anxiety disorders; D50.0 Iron deficiency anemia secondary to blood loss (chronic); W18.30XA Fall on same level, unspecified, initial encounter; Y93.01 Activity, walking, marching and hiking; Y92.008 Other place in unspecified non-institutional (private) residence as the place of occurrence of the external cause; Z55.6 Problems related to health literacy; Z79.4 Long term (current) use of insulin
CPT/HCPCS: 70450; 71045; 71250; 72125; 73130; 74177; 80053; 81001; 83605; 83690; 83735; 84484; 85025; 85610; 85730; 93005; J2270; J2405; 96374; 96375

== ENCOUNTER 2024-03-02 11:48 | Emergency (ER) | payer MEDICARE, OTHER ==
[2024-03-02] MEDS ORDERED: Furosemide 40 MG (4 mL) VIAL ONE (12:45)
[2024-03-02 13:14] LABS: #Basophils Less than 0.03 10x3/uL (0.0-0.2); %Eosinophils 0.6 % (0.0-10.0); %Lymphocytes 11.7 % (21.0-51.0); %Monocytes 10.5 % (0.0-10.0); %Neutrophils 76.7 % (42.0-75.0); Hematocrit 24.8 % (36.0-47.0); Hemoglobin 7.5 g/dL (12.0-16.0); Mean Corpuscular HGB CONC 30.2 g/dL (32.0-36.0); Mean Corpuscular Hemoglobin 23.8 pg (27.0-31.0); Mean Corpuscular Volume 78.7 fL (78.0-98.0); Mean Platelet Volume 10.5 fL (7.4-10.4); Platelet Count 169 10x3/uL (130-400); RBC Distribution Width 20.7 % (11.5-14.5); Red Blood Cell (RBC) Count 3.15 mill/uL (4.20-5.40)
[2024-03-02 13:34] LABS: ALT (SGPT) 12 U/L (8-55); AST (SGOT) 16 U/L (5-34); Albumin 2.9 g/dL (3.4-4.8); Alkaline Phosphatase 82 U/L (40-110); Anion Gap 16 mmol/L (10-20); BUN (Urea Nitrogen) 64 mg/dL (9.8-20.1); Bilirubin, Total 0.6 mg/dL (0.2-1.2); Calc. Creatinine Clearance 0 mL/min (70-130); Calcium 8.9 mg/dL (7.8-10.44); Carbon Dioxide 23 mmol/L (23-31); Chloride 99 mmol/L (98-107); Estimated GFR 15; Globulin 3.4 g/dL (2.4-3.5); Glucose 403 mg/dL (80-115); Potassium 4.6 mmol/L (3.5-5.1); Protein, Total 6.3 g/dL (5.8-8.1); Sodium 133 mmol/L (136-145)
[2024-03-02 13:36] LABS: Troponin I 0.023 ng/mL (< 0.028)
[2024-03-02 14:09] LABS: Actual Bicarbonate (HCO3v) 25.7 mEq/L (22-28); Base Excess 0.6 mEq/L (-2.0 to +3.0); Calcium, Ionized (venous) 1.14 mmol/L (1.16-1.32); Chloride (VBG) 97 mmol/L (98-106); Hematocrit-VBG 24 % (36.0-47.0); Hemoglobin (Hb) 8.2 g/dL (11.7-16.0); Potassium (VBG) 4.63 mmol/L (3.70-5.30); Sodium 133 mmol/L (133-146); pH (venous) 7.391 (7.32-7.43)
== END 2024-03-02 15:55 | disposition home or self-care (01) ==
LOC: ERS 11:48
DX: I13.0 Hypertensive heart and chronic kidney disease with heart failure and stage 1 through stage 4 chronic kidney disease, or unspecified chronic kidney disease (principal); E11.22 Type 2 diabetes mellitus with diabetic chronic kidney disease; N18.9 Chronic kidney disease, unspecified; I50.9 Heart failure, unspecified; E11.65 Type 2 diabetes mellitus with hyperglycemia; R06.02 Shortness of breath; D64.9 Anemia, unspecified; R79.1 Abnormal coagulation profile; E66.01 Morbid (severe) obesity due to excess calories; J44.9 Chronic obstructive pulmonary disease, unspecified
CPT/HCPCS: 71046; 80053; 82805; 83880; 84484; 85025; 85379; 93005; J1940

== ENCOUNTER 2024-03-02 22:20 | Inpatient (IN) | payer MEDICARE ==
[2024-03-02 23:11] LABS: Bacteria/HPF None Seen HPF (None Seen); Bilirubin Negative (Negative); Blood, Urine Negative (Negative); CAUTI Indications for Culture Pelvic or flank pain; Clarity Clear (Clear); Glucose, Urine (Dipstick) >=1000 mg/dL (Negative); Ketone, Urine Negative (Negative); Leukocyte Negative Leu/uL (Negative); Nitrite Negative (Negative); Protein, Urine (Dipstick) Negative (Neg-Trace); RBC/HPF 0-3 HPF (0-3); Specific Gravity, Urine 1.006 (1.002-1.036); Squamous Epithelial 0-3 HPF (0-3); Urobilinogen Normal mg/dL (Less than 2); WBC/HPF 0-3 HPF (0-3)
[2024-03-02 23:12] LABS: Urine Culture Reflex No No
[2024-03-02 23:46] LABS: #Basophils Less than 0.03 10x3/uL (0.0-0.2); %Basophils 0.1 % (0.0-1.0); %Eosinophils 0.4 % (0.0-10.0); %Monocytes 9.3 % (0.0-10.0); %Neutrophils 80.9 % (42.0-75.0); Mean Corpuscular HGB CONC 29.2 g/dL (32.0-36.0); Mean Corpuscular Hemoglobin 24.2 pg (27.0-31.0); Mean Platelet Volume 10.9 fL (7.4-10.4); Platelet Count 167 10x3/uL (130-400); RBC Distribution Width 20.7 % (11.5-14.5); Red Blood Cell (RBC) Count 2.89 mill/uL (4.20-5.40)
[2024-03-03 00:01] LABS: Phosphorus 2.8 mg/dL (2.3-4.7)
[2024-03-03 00:07] LABS: Calcium, Ionized (venous) 1.02 mmol/L (1.16-1.32); Chloride (VBG) 97 mmol/L (98-106); Hematocrit-VBG 25 % (36.0-47.0); Hemoglobin (Hb) 8.4 g/dL (11.7-16.0); Potassium (VBG) 4.38 mmol/L (3.70-5.30); Sodium 128 mmol/L (133-146); pH (venous) 7.499 (7.32-7.43)
[2024-03-03 00:08] LABS: ALT (SGPT) 10 U/L (8-55); AST (SGOT) 14 U/L (5-34); Albumin 2.6 g/dL (3.4-4.8); Alkaline Phosphatase 77 U/L (40-110); Anion Gap 16 mmol/L (10-20); BUN (Urea Nitrogen) 62 mg/dL (9.8-20.1); Bilirubin, Total 0.6 mg/dL (0.2-1.2); Calc. Creatinine Clearance 0 mL/min (70-130); Calcium 8.6 mg/dL (7.8-10.44); Carbon Dioxide 21 mmol/L (23-31); Chloride 97 mmol/L (98-107); Estimated GFR 16; Globulin 3.1 g/dL (2.4-3.5); Glucose 528 mg/dL (80-115); Lipase 18 U/L (8-78); Magnesium 1.8 mg/dL (1.6-2.6); Potassium 4.4 mmol/L (3.5-5.1); Protein, Total 5.7 g/dL (5.8-8.1); Sodium 130 mmol/L (136-145); Troponin I 0.029 ng/mL (< 0.028)
[2024-03-03] MEDS ORDERED: Aspirin 81 mg Enteric Coated Tablet ONE (00:31)
[2024-03-03] MEDS ORDERED: Aspirin Chewable 81 MG TAB ONE (00:46)
[2024-03-03] MEDS ORDERED: Insulin Regular, Human 100 UNIT/ML 10 ML VIAL ONE (00:48)
[2024-03-03] MEDS ORDERED: Dextrose 50% Abboject 50 ML SYRINGE SLOW IVP PRN (01:51)
[2024-03-03] MEDS ORDERED: Ondansetron ODT 4 MG TAB PO PRN (01:51)
[2024-03-03] MEDS ORDERED: Ondansetron PF 4 MG/2 ML Vial IVP PRN (01:51)
[2024-03-03] MEDS ORDERED: Glucagon 1 MG/ML KIT IM PRN (01:51)
[2024-03-03] MEDS ORDERED: Dextrose 5% in Water 1,000 ML IV PRN (01:51)
[2024-03-03] MEDS ORDERED: Insulin Regular, Human 100 UNIT/ML 10 ML VIAL SC PRN (01:51)
[2024-03-03 03:21] VITALS: BMI 50.1
[2024-03-03] MEDS: Insulin Regular, Human 100 UNIT/ML 10 ML VIAL SC PRN (03:32)
[2024-03-03] MEDS: Acetaminophen 325 MG TAB PO PRN (04:12)
[2024-03-03] MEDS: Furosemide 40 MG (4 mL) VIAL SLOW IVP SCH (04:15)
[2024-03-03] MEDS: Pantoprazole DR 40 MG TAB PO SCH (08:12)
[2024-03-03] MEDS: hydrALAZINE 25 MG TAB PO SCH (08:12)
[2024-03-03] MEDS: HumuLIN 70/30 100 Unit/ml 10 ml Vial SC SCH (08:13)
[2024-03-03] MEDS: Isosorbide Dinitrate 20 MG TAB PO SCH (08:13)
[2024-03-03] MEDS: Losartan 25 MG TAB PO SCH (08:13)
[2024-03-03] MEDS ORDERED: Amlodipine 10 MG TAB PO SCH (09:00)
[2024-03-03] MEDS: Albumin 25% 25 GM (100 mL) BOT IVPB SCH (09:47)
[2024-03-03 11:10] LABS: #Basophils Less than 0.03 10x3/uL (0.0-0.2); %Eosinophils 1.2 % (0.0-10.0); %Monocytes 10.3 % (0.0-10.0); %Neutrophils 76.2 % (42.0-75.0); Hemoglobin 7.1 g/dL (12.0-16.0); Mean Corpuscular HGB CONC 29.6 g/dL (32.0-36.0); Mean Corpuscular Hemoglobin 24.1 pg (27.0-31.0); Mean Corpuscular Volume 81.6 fL (78.0-98.0); Mean Platelet Volume 10.1 fL (7.4-10.4); Platelet Count 175 10x3/uL (130-400); RBC Distribution Width 20.7 % (11.5-14.5); Red Blood Cell (RBC) Count 2.94 mill/uL (4.20-5.40)
[2024-03-03] MEDS: EPOETIN ALFA-EPBX (ESRD) 10,000 UNITS/ML VIAL SC SCH (11:43)
[2024-03-03 11:57] LABS: ALT (SGPT) 10 U/L (8-55); AST (SGOT) 14 U/L (5-34); Albumin 2.7 g/dL (3.4-4.8); Alkaline Phosphatase 81 U/L (40-110); Anion Gap 16 mmol/L (10-20); BUN (Urea Nitrogen) 62 mg/dL (9.8-20.1); Bilirubin, Total 0.6 mg/dL (0.2-1.2); Calc. Creatinine Clearance 44 mL/min (70-130); Calcium 8.9 mg/dL (7.8-10.44); Carbon Dioxide 23 mmol/L (23-31); Chloride 99 mmol/L (98-107); Estimated GFR 18; Globulin 3.3 g/dL (2.4-3.5); Glucose 253 mg/dL (80-115); Potassium 4.1 mmol/L (3.5-5.1); Sodium 134 mmol/L (136-145)
[2024-03-03 15:23] LABS: Troponin I 0.021 ng/mL (< 0.028)
[2024-03-03] MEDS: Atorvastatin Calcium 40 MG TAB PO SCH (20:23)
[2024-03-03] MEDS: QUEtiapine 25 MG TAB PO SCH (20:23)
[2024-03-03] MEDS: Ezetimibe 10 MG TAB PO SCH (20:23)
[2024-03-04 06:19] LABS: #Basophils Less than 0.03 10x3/uL (0.0-0.2); %Basophils 0.2 % (0.0-1.0); %Eosinophils 0.9 % (0.0-10.0); %Monocytes 11.1 % (0.0-10.0); %Neutrophils 73.5 % (42.0-75.0); Hematocrit 23.1 % (36.0-47.0); Mean Corpuscular HGB CONC 30.3 g/dL (32.0-36.0); Mean Corpuscular Hemoglobin 23.8 pg (27.0-31.0); Mean Corpuscular Volume 78.6 fL (78.0-98.0); Mean Platelet Volume 10.6 fL (7.4-10.4); Platelet Count 180 10x3/uL (130-400); RBC Distribution Width 21.2 % (11.5-14.5); Red Blood Cell (RBC) Count 2.94 mill/uL (4.20-5.40)
[2024-03-04 06:42] LABS: Anion Gap 15 mmol/L (10-20); BUN (Urea Nitrogen) 62 mg/dL (9.8-20.1); Calc. Creatinine Clearance 47 mL/min (70-130); Calcium 9.5 mg/dL (7.8-10.44); Carbon Dioxide 24 mmol/L (23-31); Chloride 99 mmol/L (98-107); Estimated GFR 19; Glucose 52 mg/dL (80-115); Sodium 134 mmol/L (136-145)
[2024-03-04] MEDS: Albumin 25% 25 GM (100 mL) BOT IVPB SCH (09:34)
[2024-03-04] MEDS: hydrALAZINE 25 MG TAB PO SCH (16:00)
[2024-03-04] MEDS: HumuLIN 70/30 100 Unit/ml 10 ml Vial SC SCH (16:00)
[2024-03-04] MEDS: Isosorbide Dinitrate 20 MG TAB PO SCH (20:41)
[2024-03-05 07:08] LABS: Anion Gap 15 mmol/L (10-20); BUN (Urea Nitrogen) 60 mg/dL (9.8-20.1); Calc. Creatinine Clearance 47 mL/min (70-130); Carbon Dioxide 26 mmol/L (23-31); Chloride 100 mmol/L (98-107); Estimated GFR 19; Glucose 233 mg/dL (80-115); Sodium 137 mmol/L (136-145)
[2024-03-05 07:27] LABS: #Basophils Less than 0.03 10x3/uL (0.0-0.2); %Basophils 0.1 % (0.0-1.0); %Eosinophils 0.8 % (0.0-10.0); %Lymphocytes 11.2 % (21.0-51.0); %Monocytes 10.2 % (0.0-10.0); %Neutrophils 77.3 % (42.0-75.0); Hematocrit 25.3 % (36.0-47.0); Hemoglobin 7.6 g/dL (12.0-16.0); Mean Corpuscular Hemoglobin 25.1 pg (27.0-31.0); Mean Corpuscular Volume 83.5 fL (78.0-98.0); Mean Platelet Volume 10.8 fL (7.4-10.4); Platelet Count 173 10x3/uL (130-400); RBC Distribution Width 21.2 % (11.5-14.5); Red Blood Cell (RBC) Count 3.03 mill/uL (4.20-5.40)
[2024-03-05] MEDS: Albumin 25% 25 GM (100 mL) BOT IVPB SCH (08:08)
[2024-03-05] MEDS: Insulin Regular, Human 100 UNIT/ML 10 ML VIAL SC PRN (20:40)
[2024-03-05] MEDS: Ipratropium/Albuterol 3 ML NEB EZPAP PRN (21:09)
[2024-03-06] MEDS: ALPRAZolam 1 MG TAB PO SCH (11:25)
[2024-03-06] MEDS: Albumin 25% 25 GM (100 mL) BOT IVPB SCH (11:26)
[2024-03-06 12:38] LABS: #Basophils Less than 0.03 10x3/uL (0.0-0.2); %Basophils 0.1 % (0.0-1.0); %Eosinophils 1.2 % (0.0-10.0); %Lymphocytes 9.3 % (21.0-51.0); %Monocytes 8.9 % (0.0-10.0); %Neutrophils 80.1 % (42.0-75.0); Hematocrit 23.7 % (36.0-47.0); Hemoglobin 7.2 g/dL (12.0-16.0); Mean Corpuscular HGB CONC 30.4 g/dL (32.0-36.0); Mean Corpuscular Hemoglobin 25.4 pg (27.0-31.0); Mean Corpuscular Volume 83.5 fL (78.0-98.0); Platelet Count 146 10x3/uL (130-400); RBC Distribution Width 21.4 % (11.5-14.5); Red Blood Cell (RBC) Count 2.84 mill/uL (4.20-5.40)
[2024-03-06 12:50] LABS: Anion Gap 17 mmol/L (10-20); BUN (Urea Nitrogen) 58 mg/dL (9.8-20.1); Calc. Creatinine Clearance 55 mL/min (70-130); Calcium 10.3 mg/dL (7.8-10.44); Carbon Dioxide 26 mmol/L (23-31); Chloride 99 mmol/L (98-107); Estimated GFR 23; Glucose 215 mg/dL (80-115); Potassium 3.8 mmol/L (3.5-5.1); Sodium 138 mmol/L (136-145)
[2024-03-07] MEDS: Furosemide 20 MG (2 mL) VIAL SLOW IVP SCH (01:09)
[2024-03-07] MEDS: hydrALAZINE 20 MG/ML VIAL SLOW IVP SCH (04:57)
[2024-03-07] MEDS: Metolazone 5 MG TAB PO SCH (08:54)
[2024-03-07] MEDS: ALPRAZolam 1 MG TAB PO SCH (10:43)
[2024-03-07 20:55] LABS: Anion Gap 20 mmol/L (10-20); BUN (Urea Nitrogen) 59 mg/dL (9.8-20.1); Calc. Creatinine Clearance 56 mL/min (70-130); Calcium 10.7 mg/dL (7.8-10.44); Carbon Dioxide 25 mmol/L (23-31); Chloride 99 mmol/L (98-107); Estimated GFR 24; Glucose 217 mg/dL (80-115); Sodium 140 mmol/L (136-145)
[2024-03-07] MEDS: hydrALAZINE 10 MG TAB PO SCH (21:23)
[2024-03-08 06:36] LABS: #Basophils Less than 0.03 10x3/uL (0.0-0.2); %Basophils 0.1 % (0.0-1.0); %Eosinophils 1.5 % (0.0-10.0); %Lymphocytes 9.4 % (21.0-51.0); %Monocytes 9.2 % (0.0-10.0); %Neutrophils 79.2 % (42.0-75.0); Hemoglobin 7.5 g/dL (12.0-16.0); Mean Corpuscular Hemoglobin 25.1 pg (27.0-31.0); Mean Corpuscular Volume 83.6 fL (78.0-98.0); Mean Platelet Volume 9.8 fL (7.4-10.4); Platelet Count 155 10x3/uL (130-400); RBC Distribution Width 21.7 % (11.5-14.5); Red Blood Cell (RBC) Count 2.99 mill/uL (4.20-5.40)
[2024-03-08 07:26] LABS: Anion Gap 16 mmol/L (10-20); BUN (Urea Nitrogen) 61 mg/dL (9.8-20.1); Calc. Creatinine Clearance 62 mL/min (70-130); Calcium 10.5 mg/dL (7.8-10.44); Carbon Dioxide 29 mmol/L (23-31); Chloride 95 mmol/L (98-107); Estimated GFR 27; Glucose 173 mg/dL (80-115); Potassium 3.5 mmol/L (3.5-5.1); Sodium 136 mmol/L (136-145)
[2024-03-08 12:22] VITALS: BP 146/76; TEMP 98.7
[2024-03-08] MEDS: Morphine 4 MG/ML VIAL ONE (13:00)
== END 2024-03-08 14:16 | disposition home or self-care (01) | DRG 291 ==
LOC: ERS 22:20 → T4-A 03-03 01:51 → OBSVTOIN 03-03 08:09
PROVIDERS: ADMIT Physician Assistant; ATTEND Internal Medicine
PROC: 30233N1 Transfusion of Nonautologous Red Blood Cells into Peripheral Vein, Percutaneous Approach (ICD-10-PCS; principal; 2024-03-03)
PROC: 30233J1 Transfusion of Nonautologous Serum Albumin into Peripheral Vein, Percutaneous Approach (ICD-10-PCS; 2024-03-03)
DX: I13.0 Hypertensive heart and chronic kidney disease with heart failure and stage 1 through stage 4 chronic kidney disease, or unspecified chronic kidney disease (principal); I50.33 Acute on chronic diastolic (congestive) heart failure; R18.8 Other ascites; N17.9 Acute kidney failure, unspecified; N18.4 Chronic kidney disease, stage 4 (severe); Z68.43 Body mass index [BMI] 50.0-59.9, adult; E11.65 Type 2 diabetes mellitus with hyperglycemia; D63.1 Anemia in chronic kidney disease; J44.9 Chronic obstructive pulmonary disease, unspecified; I25.10 Atherosclerotic heart disease of native coronary artery without angina pectoris; E66.01 Morbid (severe) obesity due to excess calories; Z88.8 Allergy status to other drugs, medicaments and biological substances; Z79.899 Other long term (current) drug therapy; Z90.710 Acquired absence of both cervix and uterus; Z95.1 Presence of aortocoronary bypass graft; Z87.891 Personal history of nicotine dependence; F41.9 Anxiety disorder, unspecified; F32.A Depression, unspecified; Z79.4 Long term (current) use of insulin; E11.22 Type 2 diabetes mellitus with diabetic chronic kidney disease
CPT/HCPCS: 36415; 36416; 36430; 71045; 71046; 74176; 76705; 80048; 80053; 81001; 82010; 82805; 83690; 83735; 83880; 84100; 84484; 85025; 85379; 86850; 86900; 86901; 93005; 94640; 96374; 96375; G0378; J0360; J1815; J1940; J2270; J7620; P9016; P9047; Q5105

== ENCOUNTER 2024-03-08 17:22 | Inpatient (IN) | payer MEDICARE ==
[2024-03-08 18:31] LABS: #Basophils Less than 0.03 10x3/uL (0.0-0.2); %Basophils 0.1 % (0.0-1.0); %Lymphocytes 10.2 % (21.0-51.0); %Monocytes 9.8 % (0.0-10.0); %Neutrophils 78.5 % (42.0-75.0); Hematocrit 25.1 % (36.0-47.0); Hemoglobin 7.6 g/dL (12.0-16.0); Mean Corpuscular HGB CONC 30.3 g/dL (32.0-36.0); Mean Corpuscular Hemoglobin 25.2 pg (27.0-31.0); Mean Corpuscular Volume 83.1 fL (78.0-98.0); Mean Platelet Volume 9.9 fL (7.4-10.4); Platelet Count 179 10x3/uL (130-400); RBC Distribution Width 21.7 % (11.5-14.5); Red Blood Cell (RBC) Count 3.02 mill/uL (4.20-5.40)
[2024-03-08 18:52] LABS: ALT (SGPT) 12 U/L (8-55); AST (SGOT) 25 U/L (5-34); Albumin 4.3 g/dL (3.4-4.8); Alkaline Phosphatase 67 U/L (40-110); Anion Gap 18 mmol/L (10-20); BUN (Urea Nitrogen) 63 mg/dL (9.8-20.1); Calc. Creatinine Clearance 0 mL/min (70-130); Calcium 10.6 mg/dL (7.8-10.44); Carbon Dioxide 28 mmol/L (23-31); Chloride 94 mmol/L (98-107); Estimated GFR 24; Glucose 228 mg/dL (80-115); Potassium 3.9 mmol/L (3.5-5.1); Protein, Total 7.3 g/dL (5.8-8.1); Sodium 136 mmol/L (136-145)
[2024-03-08 18:57] LABS: Troponin I 0.051 ng/mL (< 0.028)
[2024-03-08] MEDS ORDERED: Nitroglycerin 2% Ointment 1 INCH/1 GM Packet ONE (19:45)
[2024-03-08] MEDS ORDERED: Furosemide 40 MG (4 mL) VIAL ONE (19:45)
[2024-03-08] MEDS ORDERED: Albuterol 200 PUFF INH INH PRN (22:50)
[2024-03-08] MEDS ORDERED: Dextrose 50% Abboject 50 ML SYRINGE SLOW IVP PRN (22:53)
[2024-03-08] MEDS ORDERED: Dextrose 5% in Water 1,000 ML IV PRN (22:53)
[2024-03-08] MEDS ORDERED: Glucagon 1 MG/ML KIT IM PRN (22:53)
[2024-03-08] MEDS ORDERED: Insulin Lispro 100 UNIT/ML 10 ML VIAL SC PRN (22:53)
[2024-03-08 23:03] VITALS: BMI 52.5
[2024-03-09 01:23] LABS: Troponin I 0.057 ng/mL (< 0.028)
[2024-03-09] MEDS: Doxycycline 100 MG CAP PO SCH ×2 (05:18→09:27)
[2024-03-09] MEDS: Insulin Lispro 100 UNIT/ML 10 ML VIAL SC PRN (06:31)
[2024-03-09 07:00] LABS: Anion Gap 22 mmol/L (10-20); BUN (Urea Nitrogen) 64 mg/dL (9.8-20.1); Calc. Creatinine Clearance 57 mL/min (70-130); Calcium 10.9 mg/dL (7.8-10.44); Carbon Dioxide 24 mmol/L (23-31); Chloride 94 mmol/L (98-107); Estimated GFR 26; Glucose 308 mg/dL (80-115); Potassium 4.2 mmol/L (3.5-5.1); Sodium 136 mmol/L (136-145)
[2024-03-09 07:06] LABS: Troponin I 0.039 ng/mL (< 0.028)
[2024-03-09] MEDS ORDERED: Doxycycline 100 MG CAP PO SCH (09:00)
[2024-03-09] MEDS: hydrALAZINE 25 MG TAB PO SCH (09:26)
[2024-03-09] MEDS: Folic Acid/Vit B Comp W-C PO SCH (09:26)
[2024-03-09] MEDS: Carvedilol 6.25 MG TAB PO SCH (09:27)
[2024-03-09] MEDS: NIFEdipine XL 60 MG ER.TAB PO SCH (09:27)
[2024-03-09] MEDS: Pantoprazole DR 40 MG TAB PO SCH (09:27)
[2024-03-09] MEDS: Ferrous Sulfate 325 MG TAB PO SCH (09:27)
[2024-03-09] MEDS: Clopidogrel Bisulfate 75 MG TAB PO SCH (09:27)
[2024-03-09] MEDS: HumuLIN 70/30 100 Unit/ml 10 ml Vial SC SCH ×2 (09:28→18:06)
[2024-03-09] MEDS: Isosorbide Dinitrate 20 MG TAB PO SCH ×2 (09:28→13:54)
[2024-03-09] MEDS: EPOETIN ALFA-EPBX (ESRD) 10,000 UNITS/ML VIAL SC SCH (09:29)
[2024-03-09] MEDS: Labetalol HCl 100 MG/20 ML VIAL SLOW IVP PRN (11:13)
[2024-03-09] MEDS: Furosemide 40 MG (4 mL) VIAL SLOW IVP SCH (13:51)
[2024-03-09] MEDS: Heparin 5,000 UNITS/ML VIAL SC SCH (13:53)
[2024-03-09] MEDS: Ezetimibe 10 MG TAB PO SCH (20:41)
[2024-03-09] MEDS: Atorvastatin Calcium 40 MG TAB PO SCH (20:41)
[2024-03-10 06:09] LABS: #Basophils Less than 0.03 10x3/uL (0.0-0.2); %Basophils 0.1 % (0.0-1.0); %Eosinophils 1.5 % (0.0-10.0); %Lymphocytes 9.2 % (21.0-51.0); %Monocytes 8.5 % (0.0-10.0); %Neutrophils 80.3 % (42.0-75.0); Hemoglobin 7.6 g/dL (12.0-16.0); Mean Corpuscular HGB CONC 30.4 g/dL (32.0-36.0); Mean Corpuscular Hemoglobin 25.3 pg (27.0-31.0); Mean Corpuscular Volume 83.3 fL (78.0-98.0); Mean Platelet Volume 9.6 fL (7.4-10.4); Platelet Count 190 10x3/uL (130-400); RBC Distribution Width 21.8 % (11.5-14.5)
[2024-03-10 06:43] LABS: Anion Gap 16 mmol/L (10-20); BUN (Urea Nitrogen) 68 mg/dL (9.8-20.1); Calc. Creatinine Clearance 58 mL/min (70-130); Calcium 10.7 mg/dL (7.8-10.44); Carbon Dioxide 30 mmol/L (23-31); Chloride 93 mmol/L (98-107); Estimated GFR 27; Glucose 207 mg/dL (80-115); Potassium 3.3 mmol/L (3.5-5.1); Sodium 136 mmol/L (136-145)
[2024-03-10] MEDS ORDERED: Furosemide 40 MG (4 mL) VIAL SLOW IVP SCH (07:07)
[2024-03-10] MEDS ORDERED: Potassium Chloride 20 MEQ TAB PO SCH (07:15)
[2024-03-10] MEDS: Potassium Chloride 20 MEQ TAB PO SCH (08:24)
[2024-03-10] MEDS: NIFEdipine XL 90 MG ER.TAB PO SCH (08:26)
[2024-03-10] MEDS: Furosemide 40 MG TAB PO SCH (08:37)
[2024-03-10 14:07] VITALS: BMI 52.8
[2024-03-10] MEDS: QUEtiapine 25 MG TAB PO SCH (21:20)
[2024-03-11 06:06] VITALS: BP 139/73; TEMP 98
== END 2024-03-11 10:09 | disposition home or self-care (01) | DRG 291 ==
LOC: ERS 17:22 → 2NO 20:53 → T4-B 03-09 20:05
PROVIDERS: ADMIT Student in an Organized Health Care Education/Training Program; ATTEND Family Medicine
DX: I13.0 Hypertensive heart and chronic kidney disease with heart failure and stage 1 through stage 4 chronic kidney disease, or unspecified chronic kidney disease (principal); I50.33 Acute on chronic diastolic (congestive) heart failure; J96.01 Acute respiratory failure with hypoxia; N17.9 Acute kidney failure, unspecified; N18.4 Chronic kidney disease, stage 4 (severe); R18.8 Other ascites; Z68.43 Body mass index [BMI] 50.0-59.9, adult; E66.01 Morbid (severe) obesity due to excess calories; E78.5 Hyperlipidemia, unspecified; E11.22 Type 2 diabetes mellitus with diabetic chronic kidney disease; I25.10 Atherosclerotic heart disease of native coronary artery without angina pectoris; J44.9 Chronic obstructive pulmonary disease, unspecified; R79.89 Other specified abnormal findings of blood chemistry; E11.65 Type 2 diabetes mellitus with hyperglycemia; I16.0 Hypertensive urgency; E87.6 Hypokalemia; D63.1 Anemia in chronic kidney disease; Z87.891 Personal history of nicotine dependence; Z79.899 Other long term (current) drug therapy; Z95.5 Presence of coronary angioplasty implant and graft; Z95.0 Presence of cardiac pacemaker; Z79.02 Long term (current) use of antithrombotics/antiplatelets; Z88.8 Allergy status to other drugs, medicaments and biological substances; Z79.4 Long term (current) use of insulin
CPT/HCPCS: 36415; 36416; 71045; 80048; 83605; 83880; 84484; 85025; 93005; 96374; J1644; J1815; J1940; Q5105